=== PATIENT | female | born 1970 | race Caucasian/White ===

== ENCOUNTER 2016-08-12 15:42 | Emergency (ER) | payer MEDICARE, OTHER ==
[~2016-08-12] VITALS: Ht 157.5 cm; Wt 55.0 kg
[~2016-08-12 15:42] MED LIST: AMAN50SY TUBE; ASCO500 GT; BACL10TA GT; BIDE400T GT; CLON.2 PO; DOCU100S TUBE; GENT80I IVPB; HYDR7.5S PO; IBUP400 GT; LACT12%T TOP; LEVE500 PEG; LISI5 PEG; METO100 PEG; RANI150 PO; SUPETAB30 GT; VALP250UDC GT; WHIT15OI LEFT EYE; ZOSY4.5P; [UNRECOGNIZED DRUG - CODE] GT
[2016-08-12 15:46] VITALS: BP 120/58; PULSE 68; RESP 20; TEMP 98.9; O2SAT 97
--- NOTE | 2016-08-12 15:58 | PD ---
HPI Chief Complaint: Ethics Manager Problem Time Seen by Provider: 15:53 Travel History International Travel<30 days: No Contact w/Intl Traveler<30days: No Traveled to known affect area: No History of Present Illness HPI 45-year-old female presents to the emergency department from [facility] and [facility] for G-tube placement. According to MED 1, the patient had her G- tube pulled out this morning. She is here only for G-tube replacement. No other medical problems. The patient patient has a history of traumatic brain injury with a persistent vegetative state. PFSH Past Medical History Anxiety: No Depression: No Cancer: No Cardiovascular Problems: No Diminished Hearing: No (UNOBTAINABLE) Endocrine: No Gastrointestinal Disorders: Yes (constipation) GERD: Yes Genitourinary: Yes (uti, catheter) Hypertension: Yes Immune Disorder: No Musculoskeletal: No Neurologic: Yes (tbi) Psychiatric: No Reproductive: No Respiratory: No Pneumonia: Yes ?: Unknown Menopausal: Yes Past Surgical History Abdominal Surgery: Yes (peg tube placement ) Pacemaker: No Other Surgery: Yes (trach placed) Social History Alcohol Use: No Tobacco Use: No Substance Use: Yes (hx marijuana ) Allergies-Medications (Allergen,Severity, Reaction): Coded Allergies: *MDRO Multi-Drug Resistant Organism (Verified Allergy, Unknown, 03/07/16) Acinetobacter baumannii Sputum 05/2013 CRAB 10/2013 MRSA PCR screen (nares) POSITIVE - 03/04/16 Reported Meds & Prescriptions Reported Meds & Active Scripts Active Reported Milk of Magnesia Liq (Magnesium Hydroxide) 400 Mg/5 Ml Susp 30 Ml PO DAILY PRN Lac-Hydrin (Lactic Acid (Ammonium Lactate)) 12% Lotn 1 Applic TOPICAL EACH SHIFT Keppra Liq (Levetiracetam) 500 Mg/5 Ml Soln 1,500 Mg G-TUBE BID Ibuprofen 400 Mg Tab 400 Mg G-TUBE Q4H PRN Hydrocodone-Acetaminophen Liq 7.5-325 Mg/15 Ml Soln 15 Ml G-TUBE Q6H PRN Guaifenesin 400 Mg Tab 400 Mg PEG Q8HR Fleet Enema Rectal (Sodium Phosphates Rectal) 7-19 Gm/118 Ml Enem 118 Ml RECTAL DAILY PRN Dulcolax DR (Bisacodyl) 5 Mg Tabdr 5 Mg PEG BID Dulcolax Supp (Bisacodyl) 10 Mg Supp 10 Mg RECTAL DAILY PRN Clonidine (Clonidine HCl) 0.2 Mg Tab 0.2 Mg G-TUBE Q6HR PRN Citrate of Magnesia Liq (Magnesium Citrate) 300 Ml Liq 296 Ml G-TUBE DAILY IN THE MORNING PRN Carbamazepine Liq (Carbamazepine) 100 Mg/5 Ml Susp 500 Mg G-TUBE BID Baclofen 20 Mg Tab 20 Mg PEG TID Tears Again Opth Ointment (Artificial Tear Opth Ointment) 1 Oint 1 Applic LEFT EYE Q8HR Amantadine Liq (Amantadine HCl) 50 Mg/5 Ml Soln 150 Mg G-TUBE BID Mapap (Acetaminophen) 325 Mg Tab 650 Mg G-TUBE Q4HR PRN Review of Systems Except as stated in HPI: all other systems reviewed are Neg Physical Exam Exam Limitations: Clinical Condition Narrative GENERAL: Well-developed well-nourished female patient. SKIN: Warm and dry. HEAD: Normocephalic. Atraumatic. Trach collar noted. EYES: No scleral icterus. No injection or drainage. NECK: Supple, trachea midline. No JVD or lymphadenopathy. CARDIOVASCULAR: Regular rate and rhythm without murmurs, gallops, or rubs. RESPIRATORY: Breath sounds equal bilaterally. No accessory muscle use. GASTROINTESTINAL: Abdomen soft, non-tender, nondistended. G-tube hole is open, no object was placed to keep it open. Anguiano catheter noted. MUSCULOSKELETAL: No cyanosis, or edema. Data Data Last Documented VS Vital Signs Date Time Temp Pulse Resp B/P Pulse Ox O2 Delivery O2 Flow Rate FiO2 08/12/16 15:52 71 20 97 Trach Collar 3 08/12/16 15:46 98.9 120/58 Orders Isolation ,20 (08/12/16 15:54) Gastrostomy Tube Placement (08/12/16 ) Iohexol 350 Inj (Omnipaque 350 Inj) (08/12/16 17:14) MDM Medical Decision Making Medical Screen Exam Complete: Yes Emergency Medical Condition: Yes Medical Record Reviewed: Yes Interpretation(s) CONCLUSION: Uncomplicated gastrostomy tube replacement as above. Positioning confirmed. The tube can be used immediately. Differential Diagnosis G-tube placement versus medical clearance versus other Narrative Course 45-year-old female presents to the emergency department via [facility] for G-tube placement. A Anguiano catheter was placed in G tube opening to keep it open without difficulty. Specials was called who agrees to place G-tube. After G- tube placement, the patient be transferred back to facility. Diagnosis Primary Impression: Gastrostomy tube dysfunction Referrals: Primary Care Physician call for appointment Patient Instructions: General Instructions, Tube Feeding (GEN) Additional Instructions: Return to the emergency department for any acute, worsening of symptoms. Med/Other Pt SpecificInfo: No Change to Meds Disposition: 01 DISCHARGE HOME Condition: Stable Kayce Hussein Aug 12, 2016 15:58 Kayce Hussein Aug 12, 2016 15:58
[2016-08-12] MEDS ORDERED: MAPA325T G-TUBE (17:03)
[2016-08-12] MEDS ORDERED: AMAN100UDC G-TUBE (17:08)
[2016-08-12] MEDS ORDERED: [UNRECOGNIZED DRUG - CODE] LEFT EYE (17:08)
[2016-08-12] MEDS ORDERED: MAGN1SOL2 G-TUBE (17:13)
[2016-08-12] MEDS ORDERED: CLON0.2T G-TUBE (17:13)
[2016-08-12] MEDS ORDERED: BACL20TA PEG (17:13)
[2016-08-12] MEDS ORDERED: CARB100S2 G-TUBE (17:13)
[2016-08-12] MEDS ORDERED: IOHEXOL 350 MG/ML 50 ML BTL (for RAD DIAG) G-TUBE ONE (17:14)
[2016-08-12] MEDS ORDERED: DULC10SU3 RECTAL (17:19)
[2016-08-12] MEDS ORDERED: DULC5TAB PEG (17:19)
[2016-08-12] MEDS ORDERED: FLEEENE3 RECTAL (17:26)
[2016-08-12] MEDS ORDERED: GUAI400T8 PEG (17:26)
[2016-08-12] MEDS ORDERED: LEVE500S G-TUBE (17:26)
[2016-08-12] MEDS ORDERED: IBUP400T20 G-TUBE (17:26)
[2016-08-12] MEDS ORDERED: HYDR1SOL3 G-TUBE (17:26)
[2016-08-12] MEDS ORDERED: LAC-12LO3 TOPICAL (17:26)
[2016-08-12] MEDS ORDERED: MILKSUS G-TUBE (17:28)
--- NOTE | 2016-08-12 17:28 | RADRPT ---
EXAM DATE/TIME: 08/12/2016 16:40 [facility] COMPARISON: No previous studies available for comparison. INDICATIONS : Patient with history of traumatic brain injury in need of G-tube placement. MEDICAL HISTORY : TBI, UTI, HTN SURGICAL HISTORY : G-tube, Trach ENCOUNTER: Initial ACUITY: 1 day PAIN SCORE: Nonresponsive. FLUORO TIME: 0.2 minutes CONTRAST: 10 cc Omnipaque (iohexol) 350 DEVICE(S): 1.) 18 Fr gastrostomy tube PROCEDURE : 1. Fluoroscopically guided gastrostomy tube replacement. 2. Conscious sedation with continuous EKG and oximetry monitoring. PROCEDURE: The existing gastrostomy tube was removed intact. The tract was lubricated with lidoca ine jelly. A new 18 German gastrostomy feeding tube was introduced. The retention balloon was inflate d. The collar was appropriately adjusted. Water-soluble contrast was injected under direct fluoroscop ic visualization, this revealing good positioning of the tube with contrast in the stomach and no cody dence of peritoneal leakage of contrast. The patient tolerated the replacement well. CONCLUSION: Uncomplicated gastrostomy tube replacement as above. Positioning confirmed. The tu be can be used immediately. Tyree Bal MD on August 12, 2016 at 17:25 Board Certified Radiologist. This report was verified electronically.
[2016-08-12] MEDS ORDERED: RANI150T GT (17:32)
[2016-08-12] MEDS ORDERED: METO100T G-TUBE (17:32)
[2016-08-12] MEDS ORDERED: THERTAB27 G-TUBE (17:32)
[2016-08-12] MEDS ORDERED: LISI-519 G-TUBE (17:32)
[2016-08-12] MEDS ORDERED: C-50TAB2 G-TUBE (17:32)
[2016-08-12] MEDS ORDERED: VALP250S2 G-TUBE (17:32)
== END 2016-08-12 18:48 | disposition home or self-care (01) ==
LOC: NEPA 15:42
DX: K94.23 Gastrostomy malfunction (principal); I10 Essential (primary) hypertension; R40.3 Persistent vegetative state; Z87.820 Personal history of traumatic brain injury
CPT/HCPCS: 49440; 99282; Q9967

== ENCOUNTER 2017-01-31 22:13 | Inpatient (IN) | payer MEDICARE, OTHER ==
[~2017-01-31 22:13] MED LIST changes: +AMAN100UDC G-TUBE; -AMAN50SY TUBE; -ASCO500 GT; -BACL10TA GT; +BACL20TA PEG; -BIDE400T GT; +C-50TAB2 G-TUBE; +CARB100S2 G-TUBE; -CLON.2 PO; +CLON0.2T G-TUBE; -DOCU100S TUBE; +DULC10SU3 RECTAL; +DULC5TAB PEG; +FLEEENE3 RECTAL; -GENT80I IVPB; +GUAI400T8 PEG; +HYDR1SOL3 G-TUBE; -HYDR7.5S PO; -IBUP400 GT; +IBUP400T20 G-TUBE; +LAC-12LO3 TOPICAL; -LACT12%T TOP; -LEVE500 PEG; +LEVE500S G-TUBE; +LISI-519 G-TUBE; -LISI5 PEG; +MAGN1SOL2 G-TUBE; +MAPA325T G-TUBE; -METO100 PEG; +METO100T G-TUBE; +MILKSUS G-TUBE; -RANI150 PO; +RANI150T GT; -SUPETAB30 GT; +THERTAB27 G-TUBE; +VALP250S2 G-TUBE; -VALP250UDC GT; -WHIT15OI LEFT EYE; -ZOSY4.5P; -[UNRECOGNIZED DRUG - CODE] GT; +[UNRECOGNIZED DRUG - CODE] LEFT EYE
[2017-01-31 22:15] VITALS: BP 133/93; PULSE 89; RESP 28; TEMP 99.9; O2SAT 94
[2017-01-31 22:20] VITALS: O2SAT 94
--- NOTE | 2017-01-31 22:28 | PD ---
HPI Chief Complaint: Respiratory Symptoms Time Seen by Provider: 22:27 Travel History International Travel<30 days: No Contact w/Intl Traveler<30days: No Traveled to known affect area: No History of Present Illness HPI The patient is a 46 year old female who presents to the [facility] emergency department with a history of being brought in by ambulance services from a local snf related to increased respiratory rate, shortness of breath, increased sputum production from her trach. The patient is currently a resident at a snf related to a traumatic brain injury. The patient is trach dependent and has a G-tube in place for feeding. The patient's baseline GCS is reportedly 6. According to ambulance services the patient was diagnosed with pneumonia earlier today and started on antibiotic. The patient's respiratory rate increased to 20-30 with diminished O2 saturations on her usual 3 L down to 85-91%. She normally has O2 saturations in the mid 90s on 3 L. The patient is nonverbal and unable to provide any other significant history, therefore her history is obtained from the snf records, ambulance services, and electronic medical record from her prior visits to this facility. [facility] Past Medical History Narrative Medical The patient's past medical history is obtained from the electronic medical record and consists of a traumatic brain injury, seizure disorder, history of being trach dependent typically on 3 L by trach, history of hypertension, prior history of sepsis with admission to the hospital in February 2016. Anxiety: No Depression: No Cancer: No Cardiovascular Problems: No Diminished Hearing: No (UNOBTAINABLE) Endocrine: No Gastrointestinal Disorders: Yes (constipation) GERD: Yes Genitourinary: Yes (uti, catheter) Hypertension: Yes Immune Disorder: No Musculoskeletal: No Neurologic: Yes (tbi) Psychiatric: No Reproductive: No Respiratory: No Pneumonia: Yes ?: Not Menopausal: Yes Past Surgical History Narrative Surgical The patient's past surgical history is significant for a trach placement, PEG tube feeding tube placement, Abdominal Surgery: Yes (peg tube placement ) Pacemaker: No Other Surgery: Yes (trach placed) Social History Alcohol Use: No Tobacco Use: No Substance Use: Yes (hx marijuana ) Allergies-Medications (Allergen,Severity, Reaction): Coded Allergies: *MDRO Multi-Drug Resistant Organism (Verified Allergy, Unknown, 01/31/17) Acinetobacter baumannii Sputum 05/2013 CRAB 10/2013 MRSA PCR screen (nares) POSITIVE - 03/04/16 Reported Meds & Prescriptions Reported Meds & Active Scripts Active Reported Levofloxacin 750 Mg Tablet 750 Mg PO DAILY Cefuroxime (Cefuroxime Axetil) 500 Mg Tab 500 Mg PO DAILY Valproic Acid Liq 250 Mg/5 Ml Syp 500 Mg G-TUBE BID Ranitidine (Ranitidine HCl) 150 Mg Tab 150 Mg GT BID Metoprolol Tartrate 100 Mg Tab 100 Mg G-TUBE BID Lisinopril 5 Mg Tab 5 Mg G-TUBE DAILY Milk of Magnesia Liq (Magnesium Hydroxide) 400 Mg/5 Ml Susp 30 Ml G-TUBE DAILY PRN Keppra Liq (Levetiracetam) 500 Mg/5 Ml Soln 1,500 Mg G-TUBE BID Ibuprofen 400 Mg Tab 400 Mg G-TUBE Q4H PRN Hydrocodone-Acetaminophen Liq 7.5-325 Mg/15 Ml Soln 15 Ml G-TUBE Q6H PRN Guaifenesin 400 Mg Tab [address] (Bisacodyl) 5 Mg Tabdr 5 Mg PEG BID Dulcolax Supp (Bisacodyl) 10 Mg Supp 10 Mg RECTAL DAILY PRN Clonidine (Clonidine HCl) 0.2 Mg Tab 0.2 Mg G-TUBE Q6HR PRN Citrate of Magnesia Liq (Magnesium Citrate) 300 Ml Liq 296 Ml G-TUBE DAILY IN THE MORNING PRN Carbamazepine Liq (Carbamazepine) 100 Mg/5 Ml Susp 500 Mg G-TUBE BID Baclofen 20 Mg Tab 20 Mg PEG TID Tears Again Opth Ointment (Artificial Tear Opth Ointment) 1 Oint 1 Applic LEFT EYE Q8HR Amantadine Liq (Amantadine HCl) 50 Mg/5 Ml Soln 150 Mg G-TUBE BID Mapap (Acetaminophen) 325 Mg Tab 650 Mg G-TUBE Q4HR PRN Review of Systems ROS Limitations: Unresponsive Except as stated in HPI: all other systems reviewed are Neg General / Constitutional: Positive: Fever Eyes: No: Visual changes HENT: Positive: Congestion Respiratory: Positive: Cough, Shortness of Breath Physical Exam Narrative General: The patient is a dyspneic patient with a trach in place, on arrival at her baseline of mentation. Head and Neck exam: Head is normocephalic atraumatic. Eyes: Extraocular motion testing is unable to be accomplished in this patient with a baseline GCS of 6 given her traumatic brain injury. The patient has a bandage in place over the left eye with conjunctival injection noted, exophthalmos noted, hazy opacity over the cornea. Nose: Midline septum with pink mucous membranes Mouth: Dentition unremarkable. Moist mucus membranes. Posterior oropharynx is not erythematous. No tonsillar hypertrophy. Uvula midline. Airway patent. Neck: No palpable lymphadenopathy. No nuchal rigidity. No thyromegaly. The patient has a trach in place. There is yellow sputum noted in the trach. Cardiovascular: Sinus tachycardia in the low 100s without murmurs, gallops, or rubs. No pulse deficit to the extremities and simultaneous auscultation and palpation of the radial artery. Lungs: The patient has scattered rhonchi bilaterally with wheezes bilaterally and tachypnea. The patient has accessory muscle use noted. Abdomen: Soft, with no point tenderness on palpation of all 4 quadrants of the abdomen. No guarding, rebound, or rigidity. Normal bowel sounds are audible. The patient has a feeding tube in place in the left upper quadrant of the abdomen that appears to be in good repair. The patient has a Anguiano catheter in place from her snf. There is grossly cloudy urine in the back. Extremities: No clubbing, cyanosis, or edema. 2+ pulses in all 4 extremities. The patient has pressure boots in place. Back: No spinous process tenderness to palpation. No costovertebral angle tenderness to palpation. Neurologic Exam: The patient has a GCS of 6. The patient response to painful stimulation. The patient has contractures of her extremities noted. Skin Exam: No rash noted. Intact skin that is warm and dry. Data Data Last Documented VS Vital Signs Date Time Temp Pulse Resp B/P Pulse Ox O2 Delivery O2 Flow Rate FiO2 02/01/17 00:24 99.5 119 26 122/82 95 Blow-by 6 01/31/17 22:20 98 Orders Electrocardiogram (01/31/17 22:30) Complete Blood Count With Diff (01/31/17 22:30) Comprehensive Metabolic Panel (01/31/17 22:30) Creatine Kinase (Cpk) (01/31/17 22:30) Ckmb (Isoenzyme) Profile (01/31/17 22:30) Troponin I (01/31/17 22:30) B-Type Natriuretic Peptide (01/31/17 22:30) Prothrombin Time / Inr (Pt) (01/31/17 22:30) Act Partial Throm Time (Ptt) (01/31/17 22:30) Blood Culture (01/31/17 22:30) C-Reactive Protein (Crp) (01/31/17 22:30) Urinalysis - C+S If Indicated (01/31/17 22:30) Magnesium (Mg) (01/31/17 22:30) Carbamazepine (Tegretol) (01/31/17 22:30) Valproic Acid (Depakene) (01/31/17 22:30) Chest, Single Ap (01/31/17 22:30) Iv Access Insert/Monitor (01/31/17 22:30) Ecg Monitoring (01/31/17 22:30) Oximetry (01/31/17 22:30) Ed Urine Pregnancytest Poc (01/31/17 22:30) Lactic Acid Sepsis Protocol (01/31/17 22:30) Sodium Chloride 0.9% Flush (Ns Flush) (01/31/17 22:30) Methylprednisolone So Succ Inj (Solumedr (01/31/17 22:30) Albuterol-Ipratropium Neb (Duoneb Neb) (01/31/17 22:30) Vancomycin Inj (Vancomycin Inj) (01/31/17 22:30) Piperacil-Tazo 3.375 Gm Premix (Zosyn 3. (01/31/17 22:30) Sputum Culture And Gram Stain (01/31/17 22:30) Urinary Catheter Insert/Apply (01/31/17 22:30) Acetaminophen Supp (Tylenol Supp) (01/31/17 22:45) Sodium Chlor 0.9% 1000 Ml Inj (Ns 1000 M (01/31/17 22:45) Arterial Blood Gas (Abg) (01/31/17 23:42) Urine Culture (01/31/17 23:30) Admit To Inpatient (02/01/17 ) Vital Signs (Adult) Q4H (02/01/17 01:07) Activity Bed Rest (02/01/17 01:07) Data Security Coordinator / Telemetry .CONTINUOUS (02/01/17 01:07) Intake + Output DEVON.QSHIFT (02/01/17 01:07) Sodium Chlor 0.9% 1000 Ml Inj (Ns 1000 M (02/01/17 01:07) Sodium Chloride 0.9% Flush (Ns Flush) (02/01/17 01:15) Sodium Chloride 0.9% Flush (Ns Flush) (02/01/17 09:00) Basic Metabolic Panel (Bmp) (02/02/17 06:00) Complete Blood Count With Diff (02/02/17 06:00) Case Management Consult (02/01/17 01:07) Naloxone Inj (Narcan Inj) (02/01/17 01:15) Inpatient Certification (02/01/17 ) Admit Order (Ed Use Only) (02/01/17 01:08) Vancomycin Consult Pharmacy (Vancomycin (02/01/17 01:15) Piperacil-Tazo 4.5 Gm Premix (Zosyn 4.5 (02/01/17 06:00) Ciprofloxacin 400 Mg Premix (Cipro 400 M (02/01/17 02:00) Consult Infectious Disease (02/01/17 ) Labs Laboratory Tests Test 01/31/17 01/31/17 02/01/17 22:30 23:30 00:08 Prothrombin Time 12.2 SEC Prothromb Time International 1.1 RATIO Ratio Activated Partial 29.2 SEC Thromboplast Time Sodium Level 133 MEQ/L Potassium Level 4.1 MEQ/L Chloride Level 100 MEQ/L Carbon Dioxide Level 21.4 MEQ/L Anion Gap 12 MEQ/L Blood Urea Nitrogen 31 MG/DL Creatinine 0.73 MG/DL Estimat Glomerular Filtration 87 ML/MIN Rate Random Glucose 175 MG/DL Calcium Level 10.3 MG/DL Magnesium Level 2.3 MG/DL Total Bilirubin 0.6 MG/DL Aspartate Amino Transf 40 U/L (AST/SGOT) Alanine Aminotransferase 67 U/L (ALT/SGPT) Alkaline Phosphatase 119 U/L Total Creatine Kinase 36 U/L Troponin I LESS THAN 0.02 NG/ML C-Reactive Protein 15.00 MG/DL Total Protein 7.8 GM/DL Albumin 2.7 GM/DL Valproic Acid (Depakene) Level 89 MCG/ML Carbamazepine (Tegretol) Level LESS THAN 0.5 MCG/ML White Blood Count 14.5 TH/MM3 Red Blood Count 5.02 MIL/MM3 Hemoglobin 15.4 GM/DL Hematocrit 45.6 % Mean Corpuscular Volume 90.9 FL Mean Corpuscular Hemoglobin 30.6 PG Mean Corpuscular Hemoglobin 33.7 % Concent Red Cell Distribution Width 13.9 % Platelet Count 251 TH/MM3 Mean Platelet Volume 10.8 FL Neutrophils (%) (Auto) 88.1 % Lymphocytes (%) (Auto) 3.8 % Monocytes (%) (Auto) 7.7 % Eosinophils (%) (Auto) 0.1 % Basophils (%) (Auto) 0.3 % Neutrophils # (Auto) 12.8 TH/MM3 Lymphocytes # (Auto) 0.5 TH/MM3 Monocytes # (Auto) 1.1 TH/MM3 Eosinophils # (Auto) 0.0 TH/MM3 Basophils # (Auto) 0.0 TH/MM3 CBC Comment AUTO DIFF Differential Total Cells 100 Counted Neutrophils % (Manual) 48 % Band Neutrophils % 38 % Lymphocytes % 5 % Monocytes % 8 % Neutrophils # (Manual) 12.6 TH/MM3 Metamyelocytes 1 % Differential Comment FINAL DIFF MANUAL Platelet Estimate NORMAL Platelet Morphology Comment ENLARGED Lactic Acid Level 2.8 mmol/L B-Type Natriuretic Peptide 79 PG/ML Urine Color YELLOW Urine Turbidity CLOUDY Urine pH 8.5 Urine Specific Salome 1.019 Urine Protein 300 mg/dL Urine Glucose (UA) NEG mg/dL Urine Ketones NEG mg/dL Urine Occult Blood NEG Urine Nitrite NEG Urine Bilirubin NEG Urine Urobilinogen LESS THAN 2.0 MG/DL Urine Leukocyte Esterase LARGE Urine RBC 16 /hpf Urine WBC 5 /hpf Urine Squamous Epithelial 3 /hpf Cells Urine Triple Phosphate MANY /hpf Crystals Urine Bacteria MANY /hpf Urine Mucus MOD /lpf Microscopic Urinalysis Comment CULTURE INDICATED Blood Gas Puncture Site RT RADIAL Blood Gas Patient Temperature 98.6 Blood Gas HCO3 21 mmol/L Blood Gas Base Excess -2.5 mmol/L Blood Gas Oxygen Saturation 93 % Arterial Blood pH 7.48 Arterial Blood Partial 28 mmHg Pressure CO2 Arterial Blood Partial 67 mmHG Pressure O2 Arterial Blood Oxygen Content 18.5 Vol % Arterial Blood 1.7 % Carboxyhemoglobin Arterial Blood Methemoglobin 0.5 % Blood Gas Hemoglobin 14.2 G/DL Oxygen Delivery Device COOL MIST AEROSOL Blood Gas Liter Flow 5 L/M Blood Gas Inspired Oxygen 98 % MDM Medical Decision Making Medical Screen Exam Complete: Yes Emergency Medical Condition: Yes Medical Record Reviewed: Yes Interpretation(s) Last Impressions Chest X-Ray 8/15/17 2230 Signed Impressions: Service Date/Time: Tuesday, January 31, 2017 23:13 - CONCLUSION: Bilateral perihilar infiltrates. Gerry Mcclendon MD Differential Diagnosis Sepsis of undetermined origin, versus ammonia, versus urinary tract infection, versus dehydration, versus metabolic encephalopathy, versus electrolyte derangements Narrative Course During the course of the patients emergency department visit, the patients history, examination, and differential diagnosis were reviewed with the patient. The patient had IV access obtained and blood work sent for analysis. The patient was placed on a cardiac cath lab technologist with oximetry and blood pressure monitoring. The patient's trach was suctioned. The patient was provided DuoNeb nebs 3. A sputum culture from her trach was collected. Blood cultures 2 were collected. The patient's Anguiano catheter was changed out. The patient was initially provided Solu-Medrol 125 mg IV, broad-spectrum IV antibiotic coverage for suspected sepsis with vancomycin 1 g IV, Zosyn 3.375 g IV. The patient was given Tylenol for fever. The patients laboratory studies were reviewed and remarkable for white count of 14.5, hemoglobin 15.4, platelets 251 with 38 bands, CMP is remarkable for sodium of 133, BUN 31, glucose 175, calcium 10.3, AST 40, ALT 67, alkaline phosphatase 119, CPK 36, troponin I less than 0.02, C-reactive protein 15, BNP is 79, lactic acid is 2.8. PT is 12.2, PTT 29.2, valproic acid level is 89, Tegretol level less than 0.5, urinalysis shows 300 protein, large leukocyte esterase, RBC 16, wbc's 5, many bacteria, moderate mucus, culture indicated. Radiology studies were reviewed and remarkable for a chest x-ray that shows bilateral perihilar infiltrates. The patient will be admitted to the hospital for sepsis related to pneumonia and a urinary tract infection. The patients results were discussed with the patient, including the plan of care. I explained that further testing and/ or monitoring is indicated based on the patients history, examination, and/ or laboratory findings. Therefore, I recommended admission for additional evaluation. The patient expressed understanding and was agreeable with this plan. The patient was admitted to the hospital in guarded condition and [facility] Critical Care Narrative Aggregate critical care time was 35 minutes. Time to perform other separately billable procedures was not included in the critical care time. My time did not include minutes spent treating any other patients simultaneously or on activities that did not directly contribute to the patient's treatment. The services I provided to this patient were to treat and/or prevent clinically significant deterioration that could result in: Progressive respiratory failure, versus cardiovascular collapse related to sepsis I provided critical care services requiring my management, as noted below: Chart data review, documentation time, medication orders and management, vital sign assessments/reviewing monitor data, ordering and reviewing lab tests, ordering and interpreting/reviewing x-rays and diagnostic studies, care of the patient and discussion of the patient with the admitting physicians. Physician Communication Physician Communication Initially I spoke to Dr. Jacques regarding this patient's case. We did review the patient's history, laboratory studies, current vital signs. He felt that the patient did not require care in the intensive care center. I then spoke to the hospitalist on-call, Dr. Canela who did agree to admit the patient for further evaluation and treatment at this time. Diagnosis Primary Impression: Sepsis Qualified Code: A41.9 - Sepsis, due to unspecified organism Additional Impressions: Pneumonia Qualified Code: J18.9 - Pneumonia of both lungs due to infectious organism, unspecified part of lung Urinary tract infection Qualified Code: T83.511A - Urinary tract infection associated with indwelling urethral catheter, initial encounter Admitting Information Admitting Physician Requests: Admit Sara Rush MD Jan 31, 2017 22:28
[2017-01-31] MEDS ORDERED: SODIUM CHLORIDE 0.9% FLUSH 10 ML FLUSH IVF PRN (22:30)
[2017-01-31] MEDS ORDERED: VANCOMYCIN INJ 1,000 MG in SODIUM CHLOR 0.9% 250 ML INJ 250 ML IV ONE (22:30)
[2017-01-31] MEDS ORDERED: methylPREDNISolone SOD SUCC 125 MG/2 ML VIAL IVP ONE (22:30)
[2017-01-31] MEDS ORDERED: PIPERACIL-TAZO 3.375 GM PREMIX 50 ML IV ONE (22:30)
[2017-01-31] MEDS: RESP: ALBUTEROL 2.5 MG/IPRATROPIUM 0.5 MG NEB (SCH) INH ×2 (22:40→22:41)
[2017-01-31] MEDS ORDERED: ACETAMINOPHEN 650 MG SUPP RECTAL ONE (22:45)
[2017-01-31] MEDS ORDERED: SODIUM CHLOR 0.9% 1000 ML INJ 1,000 ML IV ONE (22:45)
[2017-01-31 23:02] VITALS: BP 119/77; PULSE 130; RESP 34; TEMP 99.9; O2SAT 93
[2017-01-31 23:17] LABS: AUTOMATED NEUTROPHIL # 12.8 TH/MM3 (1.8-7.7); BASOPHIL % 0.3 % (0.0-2.0); EOSINOPHIL % 0.1 % (0.0-4.0); HEMATOCRIT 45.6 % (35.0-46.0); LYMPH % 3.8 % (9.0-44.0); LYMPHOCYTE # 0.5 TH/MM3 (1.0-4.8); MEAN CELL VOLUME 90.9 FL (80.0-100.0); MEAN CORPUSCULAR HEMOGLOBIN 30.6 PG (27.0-34.0); MEAN CORPUSCULAR HGB CONC 33.7 % (32.0-36.0); MONO % 7.7 % (0.0-8.0); NEUT % 88.1 % (16.0-70.0); PLATELET COUNT 251 TH/MM3 (150-450); RED BLOOD COUNT 5.02 MIL/MM3 (4.00-5.30); RED CELL DISTRIBUTION WIDTH 13.9 % (11.6-17.2); WHITE BLOOD COUNT 14.5 TH/MM3 (4.0-11.0)
[2017-01-31 23:18] LABS: HEMO FLAGS AUTO DIFF
[2017-01-31 23:25] VITALS: O2SAT 93
[2017-01-31 23:27] VITALS: PULSE 143; RESP 30; O2SAT 94
[2017-01-31 23:28] LABS: APTT (PATIENT) 29.2 SEC (24.3-30.1); INTERNATIONAL NORMALIZED RATIO 1.1 RATIO; PROTHROMBIN TIME - PATIENT 12.2 SEC (9.8-11.6)
[2017-01-31 23:40] LABS: ALT (GPT) 67 U/L (10-53)
[2017-01-31 23:41] LABS: ANION GAP 12 MEQ/L (5-15); AST (GOT) 40 U/L (15-37); BICARBONATE 21.4 MEQ/L (21.0-32.0); BLOOD UREA NITROGEN 31 MG/DL (7-18); CHLORIDE 100 MEQ/L (98-107); GLOMERULAR FILTRATION RATE 87 ML/MIN (>89); MAGNESIUM 2.3 MG/DL (1.5-2.5); POTASSIUM 4.1 MEQ/L (3.5-5.1); SODIUM (NA) 133 MEQ/L (136-145)
[2017-01-31 23:43] LABS: ALKALINE PHOSPHATASE 119 U/L (45-117); TOTAL BILIRUBIN ADULT 0.6 MG/DL (0.2-1.0)
[2017-01-31 23:47] LABS: CREATINE KINASE 36 U/L (26-192)
[2017-01-31 23:58] LABS: BACTERIA, URINE MANY /hpf; BLOOD, URINE NEG (NEG); COMMENT (UR) CULTURE INDICATED; CULTURE IF INDICATED CULTURE INDICATED; GLUCOSE,URINE NEG (NEG); KETONE, URINE NEG (NEG); MUCUS URINE MOD /lpf (OCC); NITRITE,URINE NEG (NEG); PH, URINE 8.5 (5.0-8.5); SQUAMOUS EPITHELIAL CELL URINE 3 /hpf (0-5); TRIPLE PHOSPHATE CRYSTAL,URINE MANY /hpf; URINE COLOR YELLOW (YELLW/STRAW)
[2017-02-01] VITALS (17 sets, daily range): BP systolic 122–173; BP diastolic 62–91; PULSE 64–119; RESP 16–40; TEMP 97.7–100.2; O2SAT 93–98
[2017-02-01] MEDS ORDERED: CEFU1TAB20 PO (00:17)
[2017-02-01] MEDS ORDERED: LEVO750T3 PO (00:20)
[2017-02-01 00:21] LABS: BLOOD GAS BASE EXCESS -2.5 mmol/L (-2-2); BLOOD GAS CARBOXYHEMOGLOBIN 1.7 % (0-4); BLOOD GAS HCO3 21 mmol/L (22-26); BLOOD GAS METHEMOGLOBIN 0.5 % (0-2); BLOOD GAS O2 HGB SATURATION 93 % (90-100); BLOOD GAS OXYGEN CONTENT 18.5 Vol % (12.0-20.0); BLOOD GAS PCO2 28 mmHg (38-42); BLOOD GAS PO2 67 mmHG (61-120); BLOOD GAS TOTAL HGB 14.2 G/DL (12.0-16.0); CRITICAL VALUE NO; DRAW SITE RT RADIAL; FIO2 98 %; LITER FLOW 5 L/M; NUMBER OF ARTERIAL PUNCTURES 1; OXYGEN DEVICE COOL MIST AEROSOL; TEMP CORR TO 98.6; ULNAR PULSE PRESENT
[2017-02-01 00:22] LABS: STAT YES
--- NOTE | 2017-02-01 00:45 | RADRPT ---
EXAM DATE/TIME: 01/31/2017 23:13 [facility] COMPARISON: CHEST SINGLE AP, November 25, 2013, 3:56. CHEST SINGLE AP, March 04, 2016, 2:30. INDICATIONS : Cough. MEDICAL HISTORY : None. SURGICAL HISTORY : Trachestomy. ENCOUNTER: Initial ACUITY: 1 day PAIN SCORE: 0/10 LOCATION: Bilateral chest FINDINGS: Tracheostomy in position. There is engorgement and indistinctness of the perihilar structures, a new finding from priors. There is peribronchial thickening and some mild air bronchograms in the perihi lar region bilaterally. Both hemidiaphragms are well delineated. The heart is normal size. CONCLUSION: Bilateral perihilar infiltrates. Gerry Mcclendon MD on February 01, 2017 at 0:43 Board Certified Radiologist. This report was verified electronically.
[2017-02-01 01:00] LABS: BANDS 38 % (0-6); METAMYELOCYTES 1 % (0-1); NEUTROPHIL # MANUAL DIFF 12.6 TH/MM3 (1.8-7.7); PLATELET ESTIMATE SMEAR NORMAL (NORMAL); PLATELET MORPHOLOGY ENLARGED (NORMAL); POLYS (SEG NEUTROPHILS) 48 % (16-70); SCAN/DIFF FINAL DIFF MANUAL; WBC DIFF SAMPLE 100
[2017-02-01 01:05] LABS: LACTIC ACID GHOST NOT REPORTABLE
[2017-02-01] MEDS ORDERED: SODIUM CHLORIDE 0.9% FLUSH 10 ML FLUSH IV FLUSH PRN (01:15)
[2017-02-01] MEDS ORDERED: NALOXONE HCL 0.4 MG/ML AMP IV PRN (01:15)
[2017-02-01] MEDS ORDERED: SODIUM CHLOR 0.9% 1000 ML INJ 1,000 ML IV ONE (01:15)
[2017-02-01] MEDS ORDERED: Vancomycin Consult Pharmacy 1 EA OTHER SCH (01:15)
[2017-02-01] MEDS: SODIUM CHLOR 0.9% 1000 ML INJ 1,000 ML IV SCH ×3 (02:16→21:07)
[2017-02-01] MEDS: CIPROFLOXACIN 400 MG PREMIX 200 ML IV SCH ×2 (02:17→15:13)
[2017-02-01] MEDS ORDERED: SODIUM CHLORID 0.9% 500 ML INJ 500 ML IV ONE (03:15)
--- NOTE | 2017-02-01 03:34 | HHI.HP ---
HPI Service [facility] Primary Care Physician Unknown Admission Diagnosis Sepsis Diagnoses: Chief Complaint: fever and increased infiltrates Travel History International Travel<30 Days: No Contact w/Intl Traveler <30 Da: No Traveled to Known Affected Are: No Sepsis Criteria SIRS Criteria (2 or more): Temp > 100.9 or < 96.8, Heart rate over 90 Sepsis Criteria (SIRS+source): Infect source susp/known Severe Sepsis (+one): Lactate >2 History of Present Illness Written by CHLOÉ Wilkins acting as scribe for [Hilton] on 02/01/17 at 03: 33. 46 y/o female who is nonverbal, in a persistent vegetation state with a history of a TBI, seizure disorder, trach dependent, s/p peg, HLD and HTN was brought to the ED from [facility] for a 101.4 fever and increased secretions. History was taken from EMR because patient is non verbal at baseline, and no family is at bedside. Unable to perform ROS. Review of Systems ROS Limitations: Unresponsive Past Family Social History Past Medical History TBI Seizure Disorder Trach Dependent s/p PEG HTN HLD Past Surgical History PEG Tracheostomy Reported Medications Reported Meds & Active Scripts Active Reported Levofloxacin 750 Mg Tablet 750 Mg PO DAILY Cefuroxime (Cefuroxime Axetil) 500 Mg Tab 500 Mg PO DAILY Valproic Acid Liq 250 Mg/5 Ml Syp 500 Mg G-TUBE BID Ranitidine (Ranitidine HCl) 150 Mg Tab 150 Mg GT BID Metoprolol Tartrate 100 Mg Tab 100 Mg G-TUBE BID Lisinopril 5 Mg Tab 5 Mg G-TUBE DAILY Milk of Magnesia Liq (Magnesium Hydroxide) 400 Mg/5 Ml Susp 30 Ml G-TUBE DAILY PRN Keppra Liq (Levetiracetam) 500 Mg/5 Ml Soln 1,500 Mg G-TUBE BID Ibuprofen 400 Mg Tab 400 Mg G-TUBE Q4H PRN Hydrocodone-Acetaminophen Liq 7.5-325 Mg/15 Ml Soln 15 Ml G-TUBE Q6H PRN Guaifenesin 400 Mg Tab 400 Mg PEG Q8HR [place] CHARLES (Bisacodyl) 5 Mg Tabdr 5 Mg PEG BID Dulcolax Supp (Bisacodyl) 10 Mg Supp 10 Mg RECTAL DAILY PRN Clonidine (Clonidine HCl) 0.2 Mg Tab 0.2 Mg G-TUBE Q6HR PRN Citrate of Magnesia Liq (Magnesium Citrate) 300 Ml Liq 296 Ml G-TUBE DAILY IN THE MORNING PRN Carbamazepine Liq (Carbamazepine) 100 Mg/5 Ml Susp 500 Mg G-TUBE BID Baclofen 20 Mg Tab 20 Mg PEG TID Tears Again Opth Ointment (Artificial Tear Opth Ointment) 1 Oint 1 Applic LEFT EYE Q8HR Amantadine Liq (Amantadine HCl) 50 Mg/5 Ml Soln 150 Mg G-TUBE BID Mapap (Acetaminophen) 325 Mg Tab 650 Mg G-TUBE Q4HR PRN Allergies: Coded Allergies: *MDRO Multi-Drug Resistant Organism (Verified Allergy, Unknown, 01/31/17) Acinetobacter baumannii Sputum 05/2013 CRAB 10/2013 MRSA PCR screen (nares) POSITIVE - 03/04/16 Active Ordered Medications Current Medications Medications (Trade) Dose Ordered Sig/[place] Route Start Time Stop Time Status Last Admin (NS 1000 ml Inj) 1,000 ml @ 100 mls/hr Q10H IV 02/01/17 01:07 02/01/17 02:16 (NS Flush) 2 ml UNSCH PRN IV FLUSH 02/01/17 01:15 (NS Flush) 2 ml BID IV FLUSH 02/01/17 09:00 Naloxone HCl 0.4 mg 0.4 mg UNSCH PRN IV 02/01/17 01:15 Pharmacy Profile Note 0 ml @ 0 mls/hr UNSCH OTHER 02/01/17 01:15 Piperacillin Sod/ Tazobactam Sod 100 ml @ 200 mls/hr Q6H IV 02/01/17 06:00 (Cipro 400 Mg Premix) 200 ml @ 200 mls/hr Q12H IV 02/01/17 02:00 02/01/17 02:17 Family History Unknown family history Social History Unknown [facility] history [facility] Physical Exam Vital Signs Vital Signs Date Time Temp Pulse Resp B/P Pulse Ox O2 Delivery O2 Flow Rate FiO2 02/01/17 00:24 99.5 119 26 122/82 95 Blow-by 6 01/31/17 23:27 143 30 94 Blow-by 4 01/31/17 23:25 93 Blow-by 4 01/31/17 23:02 99.9 130 34 119/77 93 Blow-by 5 01/31/17 22:20 94 Trach Collar 5.00 98 01/31/17 22:18 90 28 94 Non-Rebreather 15 01/31/17 22:15 99.9 89 28 133/93 94 Physical Exam GENERAL: This is a well-nourished, well-developed patient, in no apparent distress. SKIN: No rashes, ecchymoses or lesions. Cool and dry. HEAD: Atraumatic. Normocephalic. EYES: Pupils equal round and reactive. ENT: Nose without bleeding, purulent drainage or septal hematoma. Airway patent. NECK: Trachea midline. No JVD or lymphadenopathy. CARDIOVASCULAR: Regular rate and rhythm without murmurs, gallops, or rubs. RESPIRATORY: Diminished Breath sounds bilaterally. No wheezes, rales, or rhonchi. T piece in place on 28% humidified O2. Increased secretions. GASTROINTESTINAL: Abdomen soft, non-tender, nondistended. No hepato-splenomegaly , or palpable masses. No guarding. MUSCULOSKELETAL: Extremities without clubbing, cyanosis, or edema. No joint tenderness, effusion, or edema noted. No calf tenderness. Bilateral upper extremities contracted. NEUROLOGICAL: Awake and nonverbal. Does not follow commands. Opens eyes but does not track. Laboratory Laboratory Tests Test 01/31/17 01/31/17 02/01/17 02/01/17 22:30 23:30 00:08 01:40 Prothrombin Time 12.2 Prothromb Time International 1.1 Ratio Activated Partial 29.2 Thromboplast Time Sodium Level 133 Potassium Level 4.1 Chloride Level 100 Carbon Dioxide Level 21.4 Anion Gap 12 Blood Urea Nitrogen 31 Creatinine 0.73 Estimat Glomerular Filtration 87 Rate Random Glucose 175 Calcium Level 10.3 Magnesium Level 2.3 Total Bilirubin 0.6 Aspartate Amino Transf 40 (AST/SGOT) Alanine Aminotransferase 67 (ALT/SGPT) Alkaline Phosphatase 119 Total Creatine Kinase 36 Troponin I LESS THAN 0.02 C-Reactive Protein 15.00 Total Protein 7.8 Albumin 2.7 Valproic Acid (Depakene) Level 89 Carbamazepine (Tegretol) Level LESS THAN 0.5 White Blood Count 14.5 Red Blood Count 5.02 Hemoglobin 15.4 Hematocrit 45.6 Mean Corpuscular Volume 90.9 Mean Corpuscular Hemoglobin 30.6 Mean Corpuscular Hemoglobin 33.7 Concent Red Cell Distribution Width 13.9 Platelet Count 251 Mean Platelet Volume 10.8 Neutrophils (%) (Auto) 88.1 Lymphocytes (%) (Auto) 3.8 Monocytes (%) (Auto) 7.7 Eosinophils (%) (Auto) 0.1 Basophils (%) (Auto) 0.3 Neutrophils # (Auto) 12.8 Lymphocytes # (Auto) 0.5 Monocytes # (Auto) 1.1 Eosinophils # (Auto) 0.0 Basophils # (Auto) 0.0 CBC Comment AUTO DIFF Differential Total Cells 100 Counted Neutrophils % (Manual) 48 Band Neutrophils % 38 Lymphocytes % 5 Monocytes % 8 Neutrophils # (Manual) 12.6 Metamyelocytes 1 Differential Comment FINAL DIFF MANUAL Platelet Estimate NORMAL Platelet Morphology Comment ENLARGED Lactic Acid Level 2.8 4.0 B-Type Natriuretic Peptide 79 Urine Color YELLOW Urine Turbidity CLOUDY Urine pH 8.5 Urine Specific [place] 1.019 Urine Protein 300 Urine Glucose (UA) NEG Urine Ketones NEG Urine Occult Blood NEG Urine Nitrite NEG Urine Bilirubin NEG Urine Urobilinogen LESS THAN 2.0 Urine Leukocyte Esterase LARGE Urine RBC 16 Urine WBC 5 Urine Squamous Epithelial 3 Cells Urine Triple Phosphate MANY Crystals Urine Bacteria MANY Urine Mucus MOD Microscopic Urinalysis Comment CULTURE INDICATED Blood Gas Puncture Site RT RADIAL Blood Gas Patient Temperature 98.6 Blood Gas HCO3 21 Blood Gas Base Excess -2.5 Blood Gas Oxygen Saturation 93 Arterial Blood pH 7.48 Arterial Blood Partial 28 Pressure CO2 Arterial Blood Partial 67 Pressure O2 Arterial Blood Oxygen Content 18.5 Arterial Blood 1.7 Carboxyhemoglobin Arterial Blood Methemoglobin 0.5 Blood Gas Hemoglobin 14.2 Oxygen Delivery Device COOL MIST AEROSOL Blood Gas Liter Flow 5 Blood Gas Inspired Oxygen 98 Date/Time Procedure Status Source Growth 01/31/17 23:55 Gram Stain Received Sputum Oral Tracheal Aspirate Pending 01/31/17 23:55 Sputum Culture Received Sputum Oral Tracheal Aspirate Pending 01/31/17 23:30 Urine Culture Received Urine Random Urine Pending 01/31/17 22:55 Aerobic Blood Culture Received Blood Peripheral Pending 01/31/17 22:55 Anaerobic Blood Culture Received Blood Peripheral Pending Result Diagram: [id number] Imaging Last Impressions Chest X-Ray 01/31/172229 Signed Impressions: Service Date/Time: Tuesday, January 31, 2017 23:13 - CONCLUSION: Bilateral perihilar infiltrates. Gerry Mcclendon MD Assessment and Plan Problem List: (1) Pneumonia ICD Code: J18.9 Status: Acute (2) Sepsis ICD Code: A41.9 Status: Acute (3) Urinary tract infection ICD Code: N39.0 Status: Acute Assessment and Plan 46 y/o female who is nonverbal, in a persistent vegetation state with a history of a TBI, seizure disorder, trach dependent, s/p peg and HTN was brought to the ED from [facility] for a 101.4 fever and increased secretions. Sepsis, wbc 14.5, HR 130s, Tmax 101.4, suspected pneumonia and UTI, lactic acid 2.8--.>4.0 Chest xray reviewed and shows bilateral perihilar infiltrates UA abnormal 2L bolus given in ED -IV antibiotics Vancomycin, Zosyn and ciprofloxacin -Urine, blood and sputum cultures pending -Consult infectious disease for assistance -Trend lactic acid -Anguiano changed out 01/31 in ED -Lactobacillus TID -CBC in Am HTN, chonic, currently stable -Resume home medications Seizure disorder, chronic -Resume home seizure medications -Seizure precautions DVT prophylaxis: Lovenox GI prophylaxis: Zantac Code Status: Full code, reviewed from SNF records This note was transcribed by dusty [Mila Helms]. I, Dr. Yajaira Canela personally performed the history, physical exam, and medical decision making; and confirmed the accuracy of the information in the transcribed note. Authenticated by Dr. Yajaira Canela on 02/01/17 at 03:33. Code Status Full per [place] documentation Discussed Condition With RN and ED physician Physician Certification 2 Midnight Certification Type: Admission for Inpatient Services Order for Inpatient Services The services are ordered in accordance with Medicare regulations or non- Medicare payer requirements, as applicable. In the case of services not specified as inpatient-only, they are appropriately provided as inpatient services in accordance with the 2-midnight benchmark. Estimated LOS (days): 3 days is the estimated time the patient will need to remain in the hospital, assuming treatment plan goals are met and no additional complications. Post-Hospital Plan: SNF Problem Qualifiers (1) Pneumonia: Qualified Code: J18.9 - Pneumonia of both lungs due to infectious organism, unspecified part of lung (2) Sepsis: Qualified Code: A41.9 - Sepsis, due to unspecified organism (3) Urinary tract infection: Qualified Code: T83.511A - Urinary tract infection associated with indwelling urethral catheter, initial encounter Mila Helms Feb 01, 2017 03:34 Yajaira Canela MD Feb 01, 2017 07:31
[2017-02-01] MEDS: ENOXAPARIN SODIUM 40 MG/0.4 ML SYRINGE SQ SCH (05:44)
[2017-02-01] MEDS: PIPERACIL-TAZO 4.5 GM PREMIX 100 ML IV SCH ×3 (05:44→18:47)
[2017-02-01] MEDS: guaiFENesin SOLUTION 200 MG/10 ML CUP PO SCH ×3 (06:15→22:31)
[2017-02-01] MEDS: ARTIFICIAL TEARS OPTH OINT 3.5 APPLIC/3.5 GM TUBO LEFT EYE SCH ×3 (06:15→22:31)
[2017-02-01] MEDS: SODIUM CHLORIDE 0.9% FLUSH 10 ML FLUSH IV FLUSH SCH ×2 (09:00→22:31)
[2017-02-01] MEDS: BISACODYL EC 5 MG TABEC PO SCH ×2 (09:09→22:31)
[2017-02-01] MEDS: LISINOPRIL 5 MG TAB G-TUBE SCH (09:09)
[2017-02-01] MEDS: METOPROLOL TARTRATE 100 MG TAB G-TUBE SCH ×2 (09:10→22:31)
[2017-02-01] MEDS: FAMOTIDINE 20 MG TAB PO SCH ×2 (09:10→22:31)
[2017-02-01] MEDS: BACLOFEN 20 MG TAB PEG SCH ×3 (09:15→18:47)
[2017-02-01] MEDS: VALPROIC ACID SYRUP 250 MG/5 ML UDC G-TUBE SCH ×2 (09:16→22:30)
[2017-02-01] MEDS: levETIRAcetam 500 MG/5 ML UDC G-TUBE SCH ×2 (09:17→22:30)
[2017-02-01] MEDS: AMANTADINE HCL SOLN 100 MG/10 ML UDC G-TUBE SCH ×2 (09:17→22:30)
[2017-02-01] MEDS: LACTOBACILLUS ACIDOPHILUS 1 GM PACKET PO SCH ×3 (09:18→18:47)
[2017-02-01] MEDS: carBAMazepine SUSP 200 MG/10 ML UDC G-TUBE SCH ×2 (09:36→22:52)
[2017-02-01 10:20] LABS: LACTIC ACID GHOST NOT REPORTABLE
[2017-02-01] MEDS: VANCOMYCIN INJ 1,500 MG in SODIUM CHLORID 0.9% 500 ML INJ 500 ML IV SCH ×2 (10:49→22:30)
--- NOTE | 2017-02-01 17:13 | MB ---
cc: NADIA MCKEON MD DATE OF CONSULTATION 02/01/[address] Canela. REASON FOR CONSULTATION Sepsis. HISTORY OF PRESENT ILLNESS This is a 46-year-old white female who is from a [facility]. The patient is in a persistent vegetative state. She was sent to the emergency department via ambulance because of respiratory distress with tachypnea and increased sputum production via her tracheostomy. The patient has a chronic tracheostomy. She has a history of traumatic brain injury. The patient is nonverbal and unable to give any information. Information is obtained from medical record. She has increased heart rate as well as increased respiratory rate. White blood cell count is elevated at 14.5. The patient also has abnormal urinalysis and urine culture was taken and it has gram-negative kody. Sputum culture has also immature growth. She is coughing up purulent rust-colored sputum via the tracheostomy. Chest x-ray shows bilateral perihilar infiltrates. The patient has her eyes open but does not respond otherwise. PAST MEDICAL HISTORY 1. Traumatic brain injury. 2. Hypertension. 3. Hyperlipidemia. 4. History of seizure disorder. 5. Tracheostomy. 6. PEG. ALLERGIES NO KNOWN DRUG ALLERGIES. MEDICATIONS 1. piperacillin / tazobactam. 2. Ciprofloxacin. 3. Vancomycin. 4. Symmetrel. 5. Baclofen. 6. Tegretol. 7. Keppra, 8. Prinivil. 9. Lopressor. 10. Valproic acid. 11. Lactinex. 12. Lovenox. SOCIAL HISTORY No alcohol or tobacco or illicit drugs. The patient is a resident of [facility] facility. FAMILY HISTORY Noncontributory. REVIEW OF SYSTEMS Unable to obtain. PHYSICAL EXAMINATION GENERAL: This is a well-developed female who is in apparent distress from tachypnea. She has eyes open but does not respond otherwise. VITAL SIGNS: Include temperature of 99 degrees, BP 147/82, respirations 36, heart rate 69. The patient was on 5 liters of O2 via nasal cannula. HEENT: Extraocular movements cannot be fully assessed. The sclerae is nonicteric. Oropharynx mucosa is moist. NECK: Tracheostomy in place without any evidence of infection around the trach site. LUNGS: Coarse rhonchi bilateral with wheezing. HEART: Regular S1-S2. No audible murmurs. ABDOMEN: Bowel sounds present, soft, nontender. RECTAL: Not performed. EXTREMITIES: No clubbing or cyanosis. Trace edema. NEUROLOGIC: Unable to assess because of the patient's persistent vegetative state. PSYCHIATRIC: Unable to assess because of the patient's persistent vegetative state. LABORATORY DATA WBC 14.5, platelets 251, 88% neutrophils. AST 40, ALT 67, alkaline phosphatase 119, creatinine 0.73, estimated GFR 87, sodium 133. IMPRESSION 1. Sepsis arising from a pulmonary or renal system. 2. Pneumonia. 3. Urinary tract infection. 4. Leukocytosis secondary to sepsis. 5. Impending respiratory failure. RECOMMENDATIONS 1. Continue piperacillin / Tazobactam. 2. Continue ciprofloxacin. 3. Continue vancomycin. 4. Monitor urine culture. 5. Monitor sputum culture. 6. Monitor blood cultures. 7. Follow clinical status. 8. Antibiotic adjustment depending on culture results. Thank you this consultation. I will follow the patient's progress with you and make further recommendations upon followup if necessary. Nadia Mckeon MD FD/SHIRLEY /3:45 PM /4:40 PM KYLEE
[2017-02-02] VITALS (19 sets, daily range): BP systolic 80–141; BP diastolic 48–68; PULSE 52–88; RESP 20–40; TEMP 97.7–99.6; O2SAT 88–100
[2017-02-02] MEDS: PIPERACIL-TAZO 4.5 GM PREMIX 100 ML IV SCH ×4 (00:38→18:45)
[2017-02-02] MEDS ORDERED: RESP: ALBUTEROL 2.5 MG/IPRATROPIUM 0.5 MG NEB (PRN) NEB (01:45)
[2017-02-02] MEDS: CIPROFLOXACIN 400 MG PREMIX 200 ML IV SCH ×2 (02:21→14:19)
[2017-02-02] MEDS: RESP: ALBUTEROL 2.5 MG/IPRATROPIUM 0.5 MG NEB (SCH) NEB ×4 (03:28→19:36)
[2017-02-02] MEDS: guaiFENesin SOLUTION 200 MG/10 ML CUP PO SCH ×3 (06:29→21:40)
[2017-02-02] MEDS: ENOXAPARIN SODIUM 40 MG/0.4 ML SYRINGE SQ SCH (06:29)
[2017-02-02] MEDS: ARTIFICIAL TEARS OPTH OINT 3.5 APPLIC/3.5 GM TUBO LEFT EYE SCH ×3 (06:29→21:35)
[2017-02-02 06:46] LABS: AUTOMATED NEUTROPHIL # 4.8 TH/MM3 (1.8-7.7); BASOPHIL % 0.2 % (0.0-2.0); EOSINOPHIL % 0.3 % (0.0-4.0); HEMATOCRIT 36.1 % (35.0-46.0); HEMO FLAGS DIFF FINAL; LYMPH % 14.2 % (9.0-44.0); MEAN CORPUSCULAR HEMOGLOBIN 30.7 PG (27.0-34.0); MEAN CORPUSCULAR HGB CONC 33.4 % (32.0-36.0); NEUT % 67.3 % (16.0-70.0); PLATELET COUNT 170 TH/MM3 (150-450); RED BLOOD COUNT 3.93 MIL/MM3 (4.00-5.30); RED CELL DISTRIBUTION WIDTH 14.5 % (11.6-17.2); WHITE BLOOD COUNT 7.1 TH/MM3 (4.0-11.0)
[2017-02-02] MEDS: SODIUM CHLOR 0.9% 1000 ML INJ 1,000 ML IV SCH ×2 (07:07→15:40)
[2017-02-02 07:18] LABS: BICARBONATE 23.5 MEQ/L (21.0-32.0); POTASSIUM 3.4 MEQ/L (3.5-5.1)
--- NOTE | 2017-02-02 08:38 | EKG ---
Date Performed: 01/31/2017 Time Performed: 22:29:50 PTAGE: 46 years EKG: Sinus rhythm NONSPECIFIC T-WAVE ABNORMALITY BORDERLINE ECG PREVIOUS TRACING : 03/04/2016 02.08 Compared to prior tracing no significant change DOCTOR: Polo Gerardo Interpretating Date/Time 02/02/2017 08:36:45
[2017-02-02] MEDS: LISINOPRIL 5 MG TAB G-TUBE SCH (09:00)
[2017-02-02] MEDS: carBAMazepine SUSP 200 MG/10 ML UDC G-TUBE SCH ×2 (09:00→21:34)
[2017-02-02] MEDS: BISACODYL EC 5 MG TABEC PO SCH ×2 (09:00→21:00)
[2017-02-02] MEDS: levETIRAcetam 500 MG/5 ML UDC G-TUBE SCH ×2 (09:00→21:34)
[2017-02-02] MEDS: VALPROIC ACID SYRUP 250 MG/5 ML UDC G-TUBE SCH ×2 (09:00→21:43)
[2017-02-02] MEDS: SODIUM CHLORIDE 0.9% FLUSH 10 ML FLUSH IV FLUSH SCH ×2 (09:00→21:35)
[2017-02-02] MEDS: METOPROLOL TARTRATE 100 MG TAB G-TUBE SCH ×2 (09:00→21:36)
[2017-02-02] MEDS: BACLOFEN 20 MG TAB PEG SCH ×3 (09:00→18:50)
[2017-02-02] MEDS: LACTOBACILLUS ACIDOPHILUS 1 GM PACKET PO SCH ×3 (09:00→18:00)
[2017-02-02] MEDS: AMANTADINE HCL SOLN 100 MG/10 ML UDC G-TUBE SCH ×2 (09:00→21:34)
[2017-02-02] MEDS: FAMOTIDINE 20 MG TAB PO SCH ×2 (09:00→21:35)
[2017-02-02] MEDS: VANCOMYCIN INJ 1,500 MG in SODIUM CHLORID 0.9% 500 ML INJ 500 ML IV SCH ×2 (10:00→21:33)
[2017-02-02 11:29] LABS: BLOOD GAS BASE EXCESS -1.1 mmol/L (-2-2); BLOOD GAS CARBOXYHEMOGLOBIN 1.9 % (0-4); BLOOD GAS HCO3 22 mmol/L (22-26); BLOOD GAS METHEMOGLOBIN 0.9 % (0-2); BLOOD GAS O2 HGB SATURATION 88 % (90-100); BLOOD GAS PCO2 31 mmHg (38-42); BLOOD GAS PO2 56 mmHg (61-120); BLOOD GAS TOTAL HGB 10.5 G/DL (12.0-16.0); CRITICAL VALUE YES; DRAW SITE RT RADIAL; FIO2 98 %; NUMBER OF ARTERIAL PUNCTURES 2; OXYGEN DEVICE T-PIECE; STAT YES; TEMP CORR TO 98.6; ULNAR PULSE PRESENT
--- NOTE | 2017-02-02 13:09 | PD.CONS ---
HPI Service Critical Care Medicine Consult Requested By Dr. Burger Reason for Consult Acute hypoxemic respiratory failure Healthcare associated pneumonia Severe sepsis UTI Primary Care Physician Unknown History of Present Illness Patient is a 46-year-old female residential resident who is nonverbal , in persistent vegetation state following TBI, seizure disorder, trach dependent on 3L, s/p peg, hypertension and dyslipidemia who was brought in from the residential for a temp 101.4 fever and increased secretions from trach. ABG on admission showed significant A-a gradient, chest x-ray showed bilateral perihilar infiltrates. Patient was placed on 98% O2 by trach collar. UA showed evidence of UTI. Patient lactic acid was 4, indicating severe sepsis. 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 Patient was placed on vancomycin, Zosyn and ciprofloxacin and ID Dr. Riggs was consulted A Halicat was called around 1100 AM today for worsening hypoxia SaO2 86% on 98% oxygen, hypotension and respiratory distress. Patient was moved to the ICU and I immediately evaluated the patient. She was in impending respiratory failure, O2 Sat low 80s. With myself present at bedside, Respiratory therapist removed the 6.0 cuffless trach and replaced it with 6.0 cuffed trach. Patient was placed on mechanical ventilation with 100% oxygen and PEEP of 10 with immediate improvement oxygen saturation. Repeat chest x-ray shows consolidation of Left upper lobe Review of Systems ROS Limitations: Clinical Condition, Intubated, Unresponsive Past Family Social History Allergies: Coded Allergies: *MDRO Multi-Drug Resistant Organism (Verified Allergy, Unknown, 01/31/17) Acinetobacter baumannii Sputum 05/2013 CRAB 10/2013 MRSA PCR screen (nares) POSITIVE - 03/04/16 Past Medical History Traumatic brain injury Seizure disorder Trach dependent typically on 3 L by trach Hypertension Prior history of sepsis admitted in February 2016. Past Surgical History Trach and PEG placement following TBI Reported Medications Levofloxacin 750 Mg Tablet 750 Mg PO DAILY Cefuroxime (Cefuroxime Axetil) 500 Mg Tab 500 Mg PO DAILY Valproic Acid Liq 250 Mg/5 Ml Syp 500 Mg G-TUBE BID Ranitidine (Ranitidine HCl) 150 Mg Tab 150 Mg GT BID Metoprolol Tartrate 100 Mg Tab 100 Mg G-TUBE BID Lisinopril 5 Mg Tab 5 Mg G-TUBE DAILY Milk of Magnesia Liq (Magnesium Hydroxide) 400 Mg/5 Ml Susp 30 Ml G-TUBE DAILY PRN Keppra Liq (Levetiracetam) 500 Mg/5 Ml Soln 1,500 Mg G-TUBE BID Ibuprofen 400 Mg Tab 400 Mg G-TUBE Q4H PRN Hydrocodone-Acetaminophen Liq 7.5-325 Mg/15 Ml Soln 15 Ml G-TUBE Q6H PRN Guaifenesin 400 Mg Tab [address] (Bisacodyl) 5 Mg Tabdr 5 Mg PEG BID Dulcolax Supp (Bisacodyl) 10 Mg Supp 10 Mg RECTAL DAILY PRN Clonidine (Clonidine HCl) 0.2 Mg Tab 0.2 Mg G-TUBE Q6HR PRN Citrate of Magnesia Liq (Magnesium Citrate) 300 Ml Liq 296 Ml G-TUBE DAILY IN THE MORNING PRN Carbamazepine Liq (Carbamazepine) 100 Mg/5 Ml Susp 500 Mg G-TUBE BID Baclofen 20 Mg Tab 20 Mg PEG TID Tears Again Opth Ointment (Artificial Tear Opth Ointment) 1 Oint 1 Applic LEFT EYE Q8HR Amantadine Liq (Amantadine HCl) 50 Mg/5 Ml Soln 150 Mg G-TUBE BID Mapap (Acetaminophen) 325 Mg Tab 650 Mg G-TUBE Q4HR PRN Active Ordered Medications Reviewed Family History Unable to obtain, patient is unable to provide any history due to TBI Social History alf resident trach dependent Physical Exam Vital Signs Vital Signs Date Time Temp Pulse Resp B/P Pulse Ox O2 Delivery O2 Flow Rate FiO2 02/02/17 11:50 99 80 02/02/17 11:47 88 98 02/02/17 09:59 98 T-piece 4.00 28 02/02/17 07:00 99.6 88 40 101/59 96 02/02/17 05:00 75 02/02/17 04:00 86 02/02/17 03:31 99 T-piece 6.00 02/02/17 03:00 99.4 87 40 141/68 94 02/02/17 03:00 72 02/02/17 02:00 82 02/02/17 01:23 96 T-piece 6.00 02/02/17 01:00 80 02/02/17 00:00 80 02/01/17 23:00 99.1 80 38 136/75 97 02/01/17 23:00 79 02/01/17 22:10 98 T-piece 6.00 70 02/01/17 22:00 66 02/01/17 21:00 64 02/01/17 20:00 76 02/01/17 19:15 100.2 82 40 141/77 93 02/01/17 19:00 80 02/01/17 17:30 97.7 78 26 123/76 94 02/01/17 15:42 99.0 69 24 147/82 98 T-piece 4 02/01/17 13:58 69 30 151/91 93 T-piece 4 98 Physical Exam General: Unresponsive patient who is in severe respiratory distress desaturating Head and Neck exam: Head is normocephalic atraumatic. Eyes: R pupil 5mm, L eye has a bandage in place. Appears blind-ending left side with right corneal opacity Nose: Midline septum with pink mucous membranes Mouth: Uvula midline. Airway patent. Neck: No nuchal rigidity. No thyromegaly. Trach in place, yellow trach secretions Cardiovascular: Sinus tachycardia in the low 100s without murmurs, gallops, or rubs. Lungs: Scattered rhonchi bilaterally with wheezes. Tachypneic with impending respiratory failure. GI: Abdomen soft nontender. No guarding, rebound, or rigidity. Normal bowel sounds are audible. PEG tube in place Extremities: Contracted extremities Neurologic Exam: Patient is unresponsive at the baseline, right pupil is 5 mm left corneal opacity limits exam. The patient has contractures of her extremities noted. The central noxious stimuli he she withdraws bilateral upper extremities Laboratory Laboratory Tests Test 02/02/17 02/02/17 05:14 11:18 White Blood Count 7.1 Red Blood Count 3.93 Hemoglobin 12.1 Hematocrit 36.1 Mean Corpuscular Volume 92.0 Mean Corpuscular Hemoglobin 30.7 Mean Corpuscular Hemoglobin 33.4 Concent Red Cell Distribution Width 14.5 Platelet Count 170 Mean Platelet Volume 11.1 Neutrophils (%) (Auto) 67.3 Lymphocytes (%) (Auto) 14.2 Monocytes (%) (Auto) 18.0 Eosinophils (%) (Auto) 0.3 Basophils (%) (Auto) 0.2 Neutrophils # (Auto) 4.8 Lymphocytes # (Auto) 1.0 Monocytes # (Auto) 1.3 Eosinophils # (Auto) 0.0 Basophils # (Auto) 0.0 CBC Comment DIFF FINAL Differential Comment Sodium Level 142 Potassium Level 3.4 Chloride Level 108 Carbon Dioxide Level 23.5 Anion Gap 11 Blood Urea Nitrogen 17 Creatinine 0.50 Estimat Glomerular Filtration 134 Rate Random Glucose 101 Calcium Level 9.1 Blood Gas Puncture Site RT RADIAL Blood Gas Patient Temperature 98.6 Blood Gas HCO3 22 Blood Gas Base Excess -1.1 Blood Gas Oxygen Saturation 88 Arterial Blood pH 7.46 Arterial Blood Partial 31 Pressure CO2 Arterial Blood Partial 56 Pressure O2 Arterial Blood Oxygen Content 13.0 Arterial Blood 1.9 Carboxyhemoglobin Arterial Blood Methemoglobin 0.9 Blood Gas Hemoglobin 10.5 Oxygen Delivery Device T-PIECE Blood Gas Inspired Oxygen 98 Date/Time Procedure Status Source Growth 01/31/17 23:55 Gram Stain - Final Resulted Sputum Oral Tracheal Aspirate 01/31/17 23:55 Sputum Culture - Preliminary Resulted Proteus Species 01/31/17 23:30 Urine Culture - Final Complete Urine Random Urine 01/31/17 22:55 Aerobic Blood Culture - Preliminary Resulted Blood Peripheral NO GROWTH IN 2 DAYS 01/31/17 22:55 Anaerobic Blood Culture - Preliminary Resulted Blood Peripheral NO GROWTH IN 2 DAYS Result Diagram: 02/02/17 0514 02/02/17 0514 Imaging CXR -Ronny infiltrate, predominantly BOB infiltrate Septic Shock Reassessment Heart: Irregular (tachycardic) Lungs: Course Skin: Dry Peripheral Pulses: Weak Right Radial Weak Left Radial Assessment and Plan Assessment and Plan NEURO: Past TBI with persistent vegetative state Seizure disorder - Use sedation with propofol for vent synchrony if needed - Continue amantadine, Tegretol, Keppra, Depakote RESP: Acute hypoxemic respiratory failure Healthcare associated pneumonia Chronic trach - Trach changed to a 6.0 cuffed and patient placed on ACV 20/550/12 FiO2 80% - DuoNeb scheduled and when necessary - Continue broad-spectrum antibiotics with vancomycin Zosyn and ciprofloxacin - Proteus growing in sputum CV: Lactic acidosis Hypotension - Normal saline IV fluids 84 ml per hour - Give additional 1 L fluid bolus now - Lactic acid has normalized GI: - Nothing by mouth except meds. Pepcid - Start tube feeds in 24 hours : - Monitor renal function closely. Anguiano catheter. ID: Severe sepsis Healthcare associated pneumonia UTI - Continue vancomycin Zosyn and ciprofloxacin, ID following - Sputum culture with Proteus, urine and blood culture pending HEME: - Monitor CBC, CMP, coags ENDO: - Electrolyte replacement per protocol PROPH: - Bilateral lower extremity SCDs, Lovenox Pepcid LINES: Utilize peripheral IVs CC time 65 min Code Status Full Discussed Condition With RT, RN and Miranda Johnson MD Feb 02, 2017 13:09
--- NOTE | 2017-02-02 13:18 | RADRPT ---
EXAM DATE/TIME: 02/02/2017 12:35 [place] COMPARISON: CHEST SINGLE AP, January 31, 2017, 23:13. INDICATIONS : Short of breath. MEDICAL HISTORY : Hypertension. Gastroesophageal reflux disease. traumatic brain injury as infant, pneumonia SURGICAL HISTORY : tracheostomy ENCOUNTER: Initial ACUITY: 2 days PAIN SCORE: Non-responsive. LOCATION: Bilateral chest FINDINGS: The heart is normal in size. There is a tracheostomy tube in good position. The exam demonstrates interval development of some patchy infiltrate in the left upper lobe. There is minimal left basilar fusion. The visualized osseous structures are intact. CONCLUSION: 1. Tracheostomy in good position. 2. Interval development of parenchymal opacification of the left upper lobe. Exam would raise concern for possible pneumonia. Lee Baker MD on February 02, 2017 at 13:15 Board Certified Radiologist. This report was verified electronically.
--- NOTE | 2017-02-02 14:08 | HHI.IDPN ---
Note Infectious Disease Note Patient developed respiratory distress and was placed on the vent. Afebrile. No distress. PAST MEDICAL HISTORY 1. Traumatic brain injury. 2. Hypertension. 3. Hyperlipidemia. 4. History of seizure disorder. 5. Tracheostomy. 6. PEG. ALLERGIES NO KNOWN DRUG ALLERGIES. MEDICATIONS 1. piperacillin / tazobactam. 2. Ciprofloxacin. 3. Vancomycin. OBJECTIVE: Vital Signs Date Time Temp Pulse Resp B/P Pulse Ox O2 Delivery O2 Flow Rate FiO2 02/02/17 11:50 99 80 02/02/17 11:47 88 98 02/02/17 09:59 98 T-piece 4.00 28 02/02/17 07:00 99.6 88 40 101/59 96 02/02/17 05:00 75 02/02/17 04:00 86 02/02/17 03:31 99 T-piece 6.00 02/02/17 03:00 99.4 87 40 141/68 94 02/02/17 03:00 72 02/02/17 02:00 82 02/02/17 01:23 96 T-piece 6.00 02/02/17 01:00 80 02/02/17 00:00 80 02/01/17 23:00 99.1 80 38 136/75 97 02/01/17 23:00 79 02/01/17 22:10 98 T-piece 6.00 70 02/01/17 22:00 66 02/01/17 21:00 64 02/01/17 20:00 76 02/01/17 19:15 100.2 82 40 141/77 93 02/01/17 19:00 80 02/01/17 17:30 97.7 78 26 123/76 94 02/01/17 15:42 99.0 69 24 147/82 98 T-piece 4 02/01/17 02/01/17 02/02/17 14:59 22:59 06:59 Intake Total 1000 ml 300 ml 1703 ml Output Total 800 ml 475 ml Balance 1000 ml -500 ml 1228 ml Intake Oral 0 ml IV Total 1000 ml 300 ml 564 ml Tube Feeding 1039 ml Other 100 ml Output Urine Total 800 ml 475 ml Laboratory Tests Test 01/31/17 02/02/17 22:30 05:14 White Blood Count 14.5 TH/MM3 7.1 TH/MM3 Red Blood Count 5.02 MIL/MM3 3.93 MIL/MM3 Hemoglobin 15.4 GM/DL 12.1 GM/DL Hematocrit 45.6 % 36.1 % Mean Corpuscular Volume 90.9 FL 92.0 FL Mean Corpuscular Hemoglobin 30.6 PG 30.7 PG Mean Corpuscular Hemoglobin 33.7 % 33.4 % Concent Red Cell Distribution Width 13.9 % 14.5 % Platelet Count 251 TH/MM3 170 TH/MM3 Mean Platelet Volume 10.8 FL 11.1 FL Neutrophils (%) (Auto) 88.1 % 67.3 % Lymphocytes (%) (Auto) 3.8 % 14.2 % Monocytes (%) (Auto) 7.7 % 18.0 % Eosinophils (%) (Auto) 0.1 % 0.3 % Basophils (%) (Auto) 0.3 % 0.2 % Neutrophils # (Auto) 12.8 TH/MM3 4.8 TH/MM3 Lymphocytes # (Auto) 0.5 TH/MM3 1.0 TH/MM3 Monocytes # (Auto) 1.1 TH/MM3 1.3 TH/MM3 Eosinophils # (Auto) 0.0 TH/MM3 0.0 TH/MM3 Basophils # (Auto) 0.0 TH/MM3 0.0 TH/MM3 CBC Comment AUTO DIFF DIFF FINAL Differential Total Cells 100 Counted Neutrophils % (Manual) 48 % Band Neutrophils % 38 % Lymphocytes % 5 % Monocytes % 8 % Neutrophils # (Manual) 12.6 TH/MM3 Metamyelocytes 1 % Differential Comment FINAL DIFF MANUAL Platelet Estimate NORMAL Platelet Morphology Comment ENLARGED Laboratory Tests Test 01/31/17 02/01/17 02/01/17 02/01/17 22:30 01:40 04:40 08:15 Sodium Level 133 MEQ/L Potassium Level 4.1 MEQ/L Chloride Level 100 MEQ/L Carbon Dioxide Level 21.4 MEQ/L Anion Gap 12 MEQ/L Blood Urea Nitrogen 31 MG/DL Creatinine 0.73 MG/DL Estimat Glomerular Filtration 87 ML/MIN Rate Random Glucose 175 MG/DL Calcium Level 10.3 MG/DL Magnesium Level 2.3 MG/DL Total Bilirubin 0.6 MG/DL Aspartate Amino Transf 40 U/L (AST/SGOT) Alanine Aminotransferase 67 U/L (ALT/SGPT) Alkaline Phosphatase 119 U/L Total Creatine Kinase 36 U/L Troponin I LESS THAN 0.02 NG/ML C-Reactive Protein 15.00 MG/DL Total Protein 7.8 GM/DL Albumin 2.7 GM/DL Lactic Acid Level 2.8 mmol/L 4.0 mmol/L 3.8 mmol/L 2.3 mmol/L B-Type Natriuretic Peptide 79 PG/ML Test 02/01/17 02/02/17 11:45 05:14 Lactic Acid Level 1.6 mmol/L Sodium Level 142 MEQ/L Potassium Level 3.4 MEQ/L Chloride Level 108 MEQ/L Carbon Dioxide Level 23.5 MEQ/L Anion Gap 11 MEQ/L Blood Urea Nitrogen 17 MG/DL Creatinine 0.50 MG/DL Estimat Glomerular Filtration 134 ML/MIN Rate Random Glucose 101 MG/DL Calcium Level 9.1 MG/DL Microbiology Date/Time Procedure Status Source Growth 01/31/17 22:30 Aerobic Blood Culture - Preliminary Resulted Blood Peripheral NO GROWTH IN 2 DAYS 01/31/17 22:30 Anaerobic Blood Culture - Preliminary Resulted Blood Peripheral NO GROWTH IN 2 DAYS 01/31/17 22:55 Aerobic Blood Culture - Preliminary Resulted Blood Peripheral NO GROWTH IN 2 DAYS 01/31/17 22:55 Anaerobic Blood Culture - Preliminary Resulted Blood Peripheral NO GROWTH IN 2 DAYS 01/31/17 23:30 Urine Culture - Final Complete Urine Random Urine 01/31/17 23:55 Gram Stain - Final Resulted Sputum Oral Tracheal Aspirate 01/31/17 23:55 Sputum Culture - Preliminary Resulted Proteus Species PHYSICAL EXAMINATION GENERAL: On the vent. She has eyes open but does not respond otherwise. HEENT: The sclerae is nonicteric. Oropharynx mucosa is moist. LUNGS: Coarse rhonchi bilateral. HEART: Regular S1-S2. No audible murmurs. ABDOMEN: Bowel sounds present, soft, nontender. EXTREMITIES: No clubbing or cyanosis. Trace edema. NEUROLOGIC: Unable to assess because of the patient's persistent vegetative state. PSYCHIATRIC: Unable to assess because of the patient's persistent vegetative state. IMPRESSION 1. Sepsis arising from pulmonary or renal system. 2. Pneumonia. culture has proteus. 3. Urinary tract infection. 4. Leukocytosis secondary to sepsis. 5. Acute respiratory failure. RECOMMENDATIONS 1. Continue piperacillin / Tazobactam. 2. Continue ciprofloxacin. 3. Continue vancomycin. 4. Repeat urine culture. 5. Monitor sputum culture. 6. Monitor blood cultures. 7. Follow clinical status. Phani Riggs MD Feb 02, 2017 14:08
[2017-02-02] MEDS: PROPOFOL 1000 MG/100 ML INJ 100 ML IV SCH (16:58)
[2017-02-02] MEDS: CHLORHEXIDINE 0.12% (ORAL KIT) 15 ML CUP MT SCH (20:00)
[2017-02-03] VITALS (23 sets, daily range): BP systolic 81–142; BP diastolic 50–71; PULSE 53–88; RESP 20–28; TEMP 97.4–97.6; O2SAT 97–100
[2017-02-03] MEDS: PIPERACIL-TAZO 4.5 GM PREMIX 100 ML IV SCH ×4 (01:56→18:31)
[2017-02-03] MEDS: CIPROFLOXACIN 400 MG PREMIX 200 ML IV SCH (02:00)
[2017-02-03] MEDS: RESP: ALBUTEROL 2.5 MG/IPRATROPIUM 0.5 MG NEB (SCH) NEB ×4 (04:15→19:24)
[2017-02-03] MEDS: guaiFENesin SOLUTION 200 MG/10 ML CUP PO SCH ×3 (06:00→21:48)
[2017-02-03] MEDS: ARTIFICIAL TEARS OPTH OINT 3.5 APPLIC/3.5 GM TUBO LEFT EYE SCH ×3 (06:24→21:48)
[2017-02-03] MEDS: ENOXAPARIN SODIUM 40 MG/0.4 ML SYRINGE SQ SCH (06:24)
[2017-02-03] MEDS: CHLORHEXIDINE 0.12% (ORAL KIT) 15 ML CUP MT SCH ×2 (07:54→20:00)
[2017-02-03] MEDS: BISACODYL EC 5 MG TABEC PO SCH ×2 (09:00→21:00)
[2017-02-03] MEDS: AMANTADINE HCL SOLN 100 MG/10 ML UDC G-TUBE SCH ×2 (09:00→21:47)
[2017-02-03] MEDS: LACTOBACILLUS ACIDOPHILUS 1 GM PACKET PO SCH ×3 (09:00→18:00)
[2017-02-03] MEDS: SODIUM CHLORIDE 0.9% FLUSH 10 ML FLUSH IV FLUSH SCH ×2 (09:00→21:47)
[2017-02-03] MEDS: METOPROLOL TARTRATE 100 MG TAB G-TUBE SCH ×2 (09:14→21:46)
[2017-02-03] MEDS: FAMOTIDINE 20 MG TAB PO SCH ×2 (09:14→21:46)
[2017-02-03] MEDS: BACLOFEN 20 MG TAB PEG SCH ×3 (09:14→18:31)
[2017-02-03] MEDS: LISINOPRIL 5 MG TAB G-TUBE SCH (09:14)
[2017-02-03] MEDS: VALPROIC ACID SYRUP 250 MG/5 ML UDC G-TUBE SCH ×2 (09:15→21:47)
[2017-02-03] MEDS: levETIRAcetam 500 MG/5 ML UDC G-TUBE SCH ×2 (09:15→21:46)
[2017-02-03] MEDS: carBAMazepine SUSP 200 MG/10 ML UDC G-TUBE SCH ×2 (09:16→21:46)
[2017-02-03] MEDS ORDERED: PHARMACY ORDERED LAB ONE (09:45)
[2017-02-03] MEDS: VANCOMYCIN INJ 1,500 MG in SODIUM CHLORID 0.9% 500 ML INJ 500 ML IV SCH (10:46)
--- NOTE | 2017-02-03 12:10 | HHI.IDPN ---
Note Infectious Disease Note Patient on the vent. Baseline non verbal. No distress. Afebrile. PAST MEDICAL HISTORY 1. Traumatic brain injury. 2. Hypertension. 3. Hyperlipidemia. 4. History of seizure disorder. 5. Tracheostomy. 6. PEG. ALLERGIES NO KNOWN DRUG ALLERGIES. MEDICATIONS 1. piperacillin / tazobactam. 2. Ciprofloxacin. 3. Vancomycin. OBJECTIVE: Vital Signs Date Time Temp Pulse Resp B/P Pulse Ox O2 Delivery O2 Flow Rate FiO2 02/03/17 12:00 58 02/03/17 11:30 55 02/03/17 11:30 97.5 55 20 93/58 100 02/03/17 11:00 97.3 56 20 105/63 100 02/03/17 11:00 56 02/03/17 10:30 66 02/03/17 10:30 97.3 66 22 142/71 100 02/03/17 10:00 97.3 60 20 85/53 100 02/03/17 10:00 60 02/03/17 09:35 97.5 73 20 110/59 97 02/03/17 09:30 97.7 62 20 81/50 100 02/03/17 09:01 97.7 73 20 104/62 100 02/03/17 08:30 97.5 61 20 104/59 100 02/03/17 08:12 100 40 02/03/17 08:01 97.3 78 25 128/69 100 02/03/17 08:00 97.6 02/03/17 08:00 76 02/03/17 08:00 97.5 72 23 100 02/03/17 06:00 73 02/03/17 04:00 67 02/03/17 04:00 97.7 67 20 107/60 100 02/03/17 02:00 64 02/03/17 00:00 53 02/03/17 00:00 100 40 02/03/17 00:00 97.5 53 20 87/54 100 02/02/17 22:00 52 02/02/17 20:00 97.9 63 20 80/48 100 02/02/17 20:00 63 02/02/17 19:36 100 40 02/02/17 18:00 57 02/02/17 17:00 56 02/02/17 16:00 97.7 02/02/17 02/02/1717 14:59 22:59 06:59 Intake Total 1186 ml 1099 ml Output Total 500 ml 350 ml 300 ml Balance -500 ml 836 ml 799 ml IV Total 1126 ml 1039 ml Other 60 ml 60 ml Output Urine Total 500 ml 350 ml 300 ml # Bowel Movements 1 Laboratory Tests Test 02/02/17 05:14 White Blood Count 7.1 TH/MM3 Red Blood Count 3.93 MIL/MM3 Hemoglobin 12.1 GM/DL Hematocrit 36.1 % Mean Corpuscular Volume 92.0 FL Mean Corpuscular Hemoglobin 30.7 PG Mean Corpuscular Hemoglobin 33.4 % Concent Red Cell Distribution Width 14.5 % Platelet Count 170 TH/MM3 Mean Platelet Volume 11.1 FL Neutrophils (%) (Auto) 67.3 % Lymphocytes (%) (Auto) 14.2 % Monocytes (%) (Auto) 18.0 % Eosinophils (%) (Auto) 0.3 % Basophils (%) (Auto) 0.2 % Neutrophils # (Auto) 4.8 TH/MM3 Lymphocytes # (Auto) 1.0 TH/MM3 Monocytes # (Auto) 1.3 TH/MM3 Eosinophils # (Auto) 0.0 TH/MM3 Basophils # (Auto) 0.0 TH/MM3 CBC Comment DIFF FINAL Differential Comment Laboratory Tests Test 02/02/17 02/02/17 05:14 15:09 Sodium Level 142 MEQ/L Potassium Level 3.4 MEQ/L Chloride Level 108 MEQ/L Carbon Dioxide Level 23.5 MEQ/L Anion Gap 11 MEQ/L Blood Urea Nitrogen 17 MG/DL Creatinine 0.50 MG/DL Estimat Glomerular Filtration 134 ML/MIN Rate Random Glucose 101 MG/DL Calcium Level 9.1 MG/DL Lactic Acid Level 1.4 mmol/L Microbiology Date/Time Procedure Status Source Growth 01/31/17 22:30 Aerobic Blood Culture - Preliminary Resulted Blood Peripheral NO GROWTH IN 3 DAYS 01/31/17 22:30 Anaerobic Blood Culture - Preliminary Resulted Blood Peripheral NO GROWTH IN 3 DAYS 01/31/17 22:55 Aerobic Blood Culture - Preliminary Resulted Blood Peripheral NO GROWTH IN 3 DAYS 01/31/17 22:55 Anaerobic Blood Culture - Preliminary Resulted Blood Peripheral NO GROWTH IN 3 DAYS 01/31/17 23:30 Urine Culture - Final Complete Urine Random Urine 01/31/17 23:55 Gram Stain - Final Resulted Sputum Oral Tracheal Aspirate 01/31/17 23:55 Sputum Culture - Preliminary Resulted Proteus Mirabilis Gram Negative Christopher 02/02/17 18:00 Urine Culture Received Urine Catheterized Urine Pending Microbiology Date/Time Procedure Status Source Growth 01/31/17 22:30 Aerobic Blood Culture - Preliminary Resulted Blood Peripheral NO GROWTH IN 2 DAYS 01/31/17 22:30 Anaerobic Blood Culture - Preliminary Resulted Blood Peripheral NO GROWTH IN 2 DAYS 01/31/17 22:55 Aerobic Blood Culture - Preliminary Resulted Blood Peripheral NO GROWTH IN 2 DAYS 01/31/17 22:55 Anaerobic Blood Culture - Preliminary Resulted Blood Peripheral NO GROWTH IN 2 DAYS 01/31/17 23:30 Urine Culture - Final Complete Urine Random Urine 01/31/17 23:55 Gram Stain - Final Resulted Sputum Oral Tracheal Aspirate 01/31/17 23:55 Sputum Culture - Preliminary Resulted Proteus Species PHYSICAL EXAMINATION GENERAL: On the vent. She has eyes open but does not respond otherwise. HEENT: The sclerae is nonicteric. Oropharynx mucosa is moist. LUNGS: Slight decreased breath sounds. Good air movement. HEART: Regular S1-S2. No audible murmurs. ABDOMEN: Bowel sounds present, soft, nontender. EXTREMITIES: No clubbing or cyanosis. Trace edema. NEUROLOGIC: Unable to assess because of the patient's persistent vegetative state. PSYCHIATRIC: Unable to assess because of the patient's persistent vegetative state. IMPRESSION 1. Sepsis arising from pulmonary or renal system. 2. Pneumonia. culture has proteus and another gram neg christopher. 3. Urinary tract infection. Culture repeated. 4. Leukocytosis secondary to sepsis. WBC lower. 5. Acute respiratory failure. On ventilator. RECOMMENDATIONS 1. Continue piperacillin / Tazobactam. 2. stop ciprofloxacin. 3. stop vancomycin. 4. Follow repeat urine culture. 5. Monitor sputum culture. 6. Monitor blood cultures. 7. Follow clinical status. Phani Riggs MD Feb 03, 2017 12:10
--- NOTE | 2017-02-03 13:44 | HHI.CCPN ---
Subjective Remarks/Hospital Course Patient is a 46-year-old female half-way resident who is nonverbal , in persistent vegetation state following TBI, seizure disorder, trach dependent on 3L, s/p peg, hypertension and dyslipidemia who was brought in from the half-way for a temp 101.4 fever and increased secretions from trach. ABG on admission showed significant A-a gradient, chest x-ray showed bilateral perihilar infiltrates. Patient was placed on 98% O2 by trach collar. UA showed evidence of UTI. Patient lactic acid was 4, indicating severe sepsis. 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 Patient was placed on vancomycin, Zosyn and ciprofloxacin and ID Dr. Riggs was consulted A Halicat was called around 1100 AM today for worsening hypoxia SaO2 86% on 98% oxygen, hypotension and respiratory distress. Patient was moved to the ICU and I immediately evaluated the patient. She was in impending respiratory failure, O2 Sat low 80s. With myself present at bedside, Respiratory therapist removed the 6.0 cuffless trach and replaced it with 6.0 cuffed trach. Patient was placed on mechanical ventilation with 100% oxygen and PEEP of 10 with immediate improvement oxygen saturation. Repeat chest x-ray shows consolidation of Left upper lobe SUBJ 02/03: Remains intubated oxygen saturation is improved FiO2 down to 45%. PEEP remains at 12. Sputum culture with Proteus and another GNR. Chest x-ray today is pending at this time. Neuro exam remains unchanged Objective Vital Signs Date Time Temp Pulse Resp B/P Pulse Ox O2 Delivery O2 Flow Rate FiO2 02/03/17 12:00 97.4 02/03/17 12:00 58 02/03/17 11:30 20 93/58 100 02/03/17 08:12 40 02/02/17 09:59 T-piece 4.00 Intake and Output 02/02/17 02/02/17 02/02/17 07:59 15:59 23:59 Intake Total 1703 ml 1186 ml Output Total 475 ml 500 ml 350 ml Balance 1228 ml -500 ml 836 ml Result Diagram: 02/02/17 0514 02/02/17 0514 Other Results Microbiology Date/Time Procedure Status Source Growth 01/31/17 23:30 Urine Culture - Final Complete Urine Random Urine Imaging CXR -Ronny infiltrate, predominantly BOB infiltrate Objective Remarks General: Patient remains on the vent on not on any sedation Head and Neck exam: Head is normocephalic atraumatic. Eyes: R pupil 5mm, L eye has a bandage in place. 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 Airway patent. Neck: No nuchal rigidity. No thyromegaly. Trach in place, yellow trach secretions Cardiovascular: SNSR without murmurs, gallops, or rubs. Lungs: Scattered rhonchi bilaterally with wheezes. Air entry equal bilaterally GI: Abdomen soft nontender. No guarding, rebound, or rigidity. Normal bowel sounds are audible. PEG tube in place Extremities: Contracted extremities Neurologic Exam: Patient is unresponsive at the baseline, right pupil is 5 mm left corneal opacity limits exam. The patient has contractures of her extremities. To central noxious stimuli he she withdraws bilateral upper extremities Urinary Catheter: Yes Assessment to: Continue A/P Assessment and Plan NEURO: Past TBI with persistent vegetative state Seizure disorder - Use sedation with propofol as needed for vent synchrony - Continue amantadine, Tegretol, Keppra, Depakote RESP: Acute hypoxemic respiratory failure Healthcare associated pneumonia Chronic trach - Trach changed to a 6.0 cuffed and patient placed on ACV 20/550/12 FiO2 80% - DuoNeb scheduled and when necessary - Continue broad-spectrum antibiotics with Zosyn. Vanc and ciprofloxacin DCd by ID - Proteus, another GNR growing in sputum CV: Lactic acidosis Hypotension - Normal saline IV fluids 84 ml per hour - Lactic acid has normalized GI: - Nothing by mouth except meds. Pepcid - Start tube feeds with Jevity, bowel regimen, having BM : - Monitor renal function closely. Anguiano catheter. ID: Severe sepsis Healthcare associated pneumonia UTI - Continue Zosyn. Vancomycin and and ciprofloxacin discontinued, ID following - Sputum culture with Proteus, GNR, urine and blood culture pending HEME: - Monitor CBC, CMP, coags ENDO: - Electrolyte replacement per protocol PROPH: - Bilateral lower extremity SCDs, Lovenox Pepcid LINES: Utilize peripheral IVs CC time 35 min Patient remains critically ill with sepsis and healthcare associated pneumonia, but stable. FiO2 had been weaned down with PEEP remains high. Miranda Clements MD Feb 03, 2017 13:44
--- NOTE | 2017-02-03 14:53 | RADRPT ---
EXAM DATE/TIME: 02/03/2017 14:15 [facility] COMPARISON: CHEST SINGLE AP, February 02, 2017, 12:35. INDICATIONS : Shortness of breath pulmonary infiltrates. MEDICAL HISTORY : Hypertension. Gastroesophageal reflux disease. SURGICAL HISTORY : Tracheostomy. ENCOUNTER: Initial ACUITY: 1 day PAIN SCORE: Non-responsive. LOCATION: Bilateral chest FINDINGS: A single AP portable semierect view of the chest was obtained and again demonstrates tracheostomy tub e in place. Hazy alveolar infiltrate remains in the left upper lobe and left perihilar region. There is mild consolidation at the right lung base which appears increased from prior study. Heart size at the upper limits of normal. There is no effusion. There are multiple overlying electrocardiogram lead s and oxygen tubing. The bony thorax is intact in appearance. CONCLUSION: 1. Increased consolidation of the right lung base. 2. No significant change in the hazy alveolar opacity in the left upper lobe and left perihilar regnathaniel Lindsey MD on February 03, 2017 at 14:50 Board Certified Radiologist. This report was verified electronically.
[2017-02-03] MEDS: SODIUM CHLOR 0.9% 1000 ML INJ 1,000 ML IV SCH ×2 (14:55→21:49)
[2017-02-04] VITALS (21 sets, daily range): BP systolic 92–147; BP diastolic 44–70; PULSE 62–88; RESP 20–28; TEMP 99–99.4; O2SAT 65–100
[2017-02-04] MEDS: PIPERACIL-TAZO 4.5 GM PREMIX 100 ML IV SCH ×5 (01:03→23:16)
[2017-02-04] MEDS: SODIUM CHLOR 0.9% 1000 ML INJ 1,000 ML IV SCH (03:35)
[2017-02-04] MEDS: PROPOFOL 1000 MG/100 ML INJ 100 ML IV SCH (03:35)
[2017-02-04] MEDS: RESP: ALBUTEROL 2.5 MG/IPRATROPIUM 0.5 MG NEB (SCH) NEB ×4 (03:47→19:56)
[2017-02-04] MEDS: guaiFENesin SOLUTION 200 MG/10 ML CUP PO SCH ×3 (06:00→22:00)
[2017-02-04] MEDS: ENOXAPARIN SODIUM 40 MG/0.4 ML SYRINGE SQ SCH (06:22)
[2017-02-04] MEDS: ARTIFICIAL TEARS OPTH OINT 3.5 APPLIC/3.5 GM TUBO LEFT EYE SCH ×3 (06:22→23:16)
[2017-02-04] MEDS: LACTOBACILLUS ACIDOPHILUS 1 GM PACKET PO SCH ×3 (09:00→17:02)
[2017-02-04] MEDS: SODIUM CHLORIDE 0.9% FLUSH 10 ML FLUSH IV FLUSH SCH ×2 (09:00→23:17)
[2017-02-04] MEDS: levETIRAcetam 500 MG/5 ML UDC G-TUBE SCH ×2 (09:13→23:14)
[2017-02-04] MEDS: VALPROIC ACID SYRUP 250 MG/5 ML UDC G-TUBE SCH ×2 (09:13→23:15)
[2017-02-04] MEDS: CHLORHEXIDINE 0.12% (ORAL KIT) 15 ML CUP MT SCH ×2 (09:13→23:14)
[2017-02-04] MEDS: METOPROLOL TARTRATE 100 MG TAB G-TUBE SCH ×2 (09:13→23:15)
[2017-02-04] MEDS: LISINOPRIL 5 MG TAB G-TUBE SCH (09:13)
[2017-02-04] MEDS: BACLOFEN 20 MG TAB PEG SCH ×3 (09:14→17:02)
[2017-02-04] MEDS: BISACODYL EC 5 MG TABEC PO SCH (09:14)
[2017-02-04] MEDS: FAMOTIDINE 20 MG TAB PO SCH ×2 (09:14→23:15)
--- NOTE | 2017-02-04 10:10 | HHI.IDPN ---
Note Infectious Disease Note ID COVERAGE 46 y/o F from SNF, chronic vegetative state due to TBI, adm for respiratory distress and fevers. Has PNA and UTI Notes reviewed Temps ok Awake no interaction Has contractures of extremities and spasticity On Abx for GNR PNA UA only 5 WBC Patient on the vent ANTIBIOTICS Zosyn PAST HISTORY 1. Traumatic brain injury. 2. Hypertension. 3. Hyperlipidemia. 4. History of seizure disorder. 5. Tracheostomy. 6. PEG. ALLERGIES NO KNOWN DRUG ALLERGIES. OBJECTIVE: Vital Signs Date Time Temp Pulse Resp B/P Pulse Ox O2 Delivery O2 Flow Rate FiO2 02/04/17 09:23 98 40 02/04/17 06:00 78 02/04/17 04:08 100 40 02/04/17 04:00 98.1 73 21 116/58 100 02/04/17 04:00 73 02/04/17 02:00 65 02/04/17 00:00 98.2 63 20 92/44 99 02/04/17 00:00 63 02/03/17 23:21 100 40 02/03/17 22:00 85 02/03/17 20:00 88 02/03/17 20:00 97.3 88 28 122/57 100 02/03/17 19:24 100 40 02/03/17 18:00 57 02/03/17 16:00 63 02/03/17 16:00 97.6 02/03/17 14:00 68 02/03/17 12:00 97.4 02/03/17 12:00 58 02/03/17 11:30 55 02/03/17 11:30 97.5 55 20 93/58 100 02/03/17 11:00 97.3 56 20 105/63 100 02/03/17 11:00 56 02/03/17 10:30 66 02/03/17 10:30 97.3 66 22 142/71 100 Vital Signs Date Time Temp Pulse Resp B/P Pulse Ox O2 Delivery O2 Flow Rate FiO2 02/03/17 12:00 58 02/03/17 11:30 55 02/03/17 11:30 97.5 55 20 93/58 100 02/03/17 11:00 97.3 56 20 105/63 100 02/03/17 11:00 56 02/03/17 10:30 66 02/03/17 10:30 97.3 66 22 142/71 100 02/03/17 10:00 97.3 60 20 85/53 100 02/03/17 10:00 60 02/03/17 09:35 97.5 73 20 110/59 97 02/03/17 09:30 97.7 62 20 81/50 100 02/03/17 09:01 97.7 73 20 104/62 100 02/03/17 08:30 97.5 61 20 104/59 100 02/03/17 08:12 100 40 02/03/17 08:01 97.3 78 25 128/69 100 02/03/17 08:00 97.6 02/03/17 08:00 76 02/03/17 08:00 97.5 72 23 100 02/03/17 06:00 73 02/03/17 04:00 67 02/03/17 04:00 97.7 67 20 107/60 100 02/03/17 02:00 64 02/03/17 00:00 53 02/03/17 00:00 100 40 02/03/17 00:00 97.5 53 20 87/54 100 02/02/17 22:00 52 02/02/17 20:00 97.9 63 20 80/48 100 02/02/17 20:00 63 02/02/17 19:36 100 40 02/02/17 18:00 57 02/02/17 17:00 56 02/02/17 16:00 97.7 Laboratory Tests Test 02/02/17 02/03/17 15:09 15:23 Lactic Acid Level 1.4 mmol/L Potassium Level 4.0 MEQ/L Magnesium Level 2.0 MG/DL Microbiology Date/Time Procedure Status Source Growth 02/02/17 18:00 Urine Culture - Preliminary Resulted Urine Catheterized Urine NO GROWTH IN 24 HOURS. Laboratory Tests Test 02/02/17 05:14 White Blood Count 7.1 TH/MM3 Red Blood Count 3.93 MIL/MM3 Hemoglobin 12.1 GM/DL Hematocrit 36.1 % Mean Corpuscular Volume 92.0 FL Mean Corpuscular Hemoglobin 30.7 PG Mean Corpuscular Hemoglobin 33.4 % Concent Red Cell Distribution Width 14.5 % Platelet Count 170 TH/MM3 Mean Platelet Volume 11.1 FL Neutrophils (%) (Auto) 67.3 % Lymphocytes (%) (Auto) 14.2 % Monocytes (%) (Auto) 18.0 % Eosinophils (%) (Auto) 0.3 % Basophils (%) (Auto) 0.2 % Neutrophils # (Auto) 4.8 TH/MM3 Lymphocytes # (Auto) 1.0 TH/MM3 Monocytes # (Auto) 1.3 TH/MM3 Eosinophils # (Auto) 0.0 TH/MM3 Basophils # (Auto) 0.0 TH/MM3 CBC Comment DIFF FINAL Differential Comment Laboratory Tests Test 02/02/17 02/02/17 05:14 15:09 Sodium Level 142 MEQ/L Potassium Level 3.4 MEQ/L Chloride Level 108 MEQ/L Carbon Dioxide Level 23.5 MEQ/L Anion Gap 11 MEQ/L Blood Urea Nitrogen 17 MG/DL Creatinine 0.50 MG/DL Estimat Glomerular Filtration 134 ML/MIN Rate Random Glucose 101 MG/DL Calcium Level 9.1 MG/DL Lactic Acid Level 1.4 mmol/L Microbiology Date/Time Procedure Status Source Growth 01/31/17 22:30 Aerobic Blood Culture - Preliminary Resulted Blood Peripheral NO GROWTH IN 3 DAYS 01/31/17 22:30 Anaerobic Blood Culture - Preliminary Resulted Blood Peripheral NO GROWTH IN 3 DAYS 01/31/17 22:55 Aerobic Blood Culture - Preliminary Resulted Blood Peripheral NO GROWTH IN 3 DAYS 01/31/17 22:55 Anaerobic Blood Culture - Preliminary Resulted Blood Peripheral NO GROWTH IN 3 DAYS 01/31/17 23:30 Urine Culture - Final Complete Urine Random Urine 01/31/17 23:55 Gram Stain - Final Resulted Sputum Oral Tracheal Aspirate 01/31/17 23:55 Sputum Culture - Preliminary Resulted Proteus Mirabilis Gram Negative Christopher 02/02/17 18:00 Urine Culture Received Urine Catheterized Urine Pending PHYSICAL EXAMINATION GENERAL: On the vent. She has L eye open, has opacity. Has contractures of her UE and spastic all extremities SKIN: mottled, no rash HEENT: Opacity L eye, no petechia, white coate on tongue NECK: Trach in place, looks ok LUNGS: Scattered rhonchi HEART: Regular S1-S2. No audible murmurs. ABDOMEN: Mildly distended, PEG site ok, no reaction to palpation, bowel sounds present. EXTREMITIES: UE and LE mottled. Both feet plantar flexed NEUROLOGIC: No interaction, spastic PSYCHIATRIC: Unable to assess LINE: No evidence of infection IMPRESSION Sepsis on admission due to HCAP HCAP has 2 GNR on sputum C/S, finall ID pending Respiratory failure UA with mild pyuria Leukocytosis resolved Temps better Elevated LFTs RECOMMENDATIONS Continue piperacillin / Tazobactam. Repeat LFT Follow C/S and adjust Abx accordingly Monitor temps Monitor progress If LFT remain high, consider US Liver/GB D/W Daxa Stewart MD Feb 04, 2017 10:10
[2017-02-04] MEDS: carBAMazepine SUSP 200 MG/10 ML UDC G-TUBE SCH (10:38)
[2017-02-04] MEDS: AMANTADINE HCL SOLN 100 MG/10 ML UDC G-TUBE SCH ×2 (10:38→23:15)
--- NOTE | 2017-02-04 15:24 | HHI.CCPN ---
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 ABG on admission showed significant A-a gradient, chest x-ray showed bilateral perihilar infiltrates. Patient was placed on 98% O2 by trach collar. UA showed evidence of UTI. Patient lactic acid was 4, indicating severe sepsis. 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 Patient was placed on vancomycin, Zosyn and ciprofloxacin and ID Dr. Riggs was consulted A Halicat was called around 1100 AM today for worsening hypoxia SaO2 86% on 98% oxygen, hypotension and respiratory distress. Patient was moved to the ICU and [facility] immediately evaluated the patient. She was in impending respiratory failure , O2 Sat low 80s. With myself present at bedside, Respiratory therapist removed the 6.0 cuffless trach and replaced it with 6.0 cuffed trach. Patient was placed on mechanical ventilation with 100% oxygen and PEEP of 10 with immediate improvement oxygen saturation. Repeat chest x-ray shows consolidation of Left upper lobe 02/03 Remains intubated oxygen saturation is improved FiO2 down to 45%. PEEP remains at 12. Sputum culture with Proteus and another GNR. Chest x-ray today is pending at this time. Neuro exam remains unchanged Subjective: 02/04 Remains on mechanical ventilation, PEEP 8. FIO2 weaned to 50%. . White blood cell count down trending. RN noticed dislodgement of [place]gu[place] this morning. Non bloody. She is voiding, will bladder scan to r/o obstruction. Objective Vital Signs Date Time Temp Pulse Resp B/P Pulse Ox O2 Delivery O2 Flow Rate FiO2 02/04/17 14:00 63 02/04/17 13:00 20 115/56 100 02/04/17 12:00 99.0 02/04/17 11:55 40 02/02/17 09:59 T-piece 4.00 Intake and Output 02/03/17 02/03/17 02/04/17 08:00 16:00 00:00 Intake Total 1099 ml 1039 ml 1274 ml Output Total 300 ml 950 ml 900 ml Balance 799 ml 89 ml 374 ml Result Diagram: 02/02/17 0514 02/03/17 1523 Other Results Microbiology Date/Time Procedure Status Source Growth 02/02/17 18:00 Urine Culture - Final Complete Urine Catheterized Urine NO GROWTH IN 48 HOURS. Imaging CXR -Ronny infiltrate, predominantly BOB infiltrate Objective Remarks General: Patient remains on the vent via trach on minimal propofol 5 mcg for sedation. Head and Neck exam: Head is normocephalic Eyes: R pupil 5mm and sluggishly reactive. L eye with pterygium and L corneal opacity. Neck: No nuchal rigidity. No thyromegaly. 6.0 Cuffed trach is in place. Cardiovascular: rrr without murmurs, gallops, or rubs. Lungs: Scattered rhonchi bilaterally with wheezes. Air entry equal bilaterally. On mechanical ventilation via trach. GI: Abdomen soft nontender. No guarding, rebound, or rigidity. Normal bowel sounds are audible. PEG tube in place. : Voiding. Extremities: Contracted extremities Neurologic Exam: Patient is unresponsive at the baseline, right pupil is 5 mm and sluggisly reactive left corneal opacity limits exam. + Horizontal nystagmus. Some eye opening, does not appear to track. The patient has contractures of her extremities, particularly bilateral upper. To central noxious stimuli she moves bilateral upper extremities and slight movement of toes. A/P Assessment and Plan NEURO: Past TBI with persistent vegetative state Seizure disorder - Was on propofol as needed for vent synchrony, doesn't appear to require. - Continue amantadine 150 twice a day, Tegretol 500 twice a day, Keppra 1500 twice a day , Depakote 500 twice a day, baclofen 20 3 times a day RESP: Acute hypoxemic respiratory failure Healthcare associated pneumonia Chronic trach - Trach changed to a 6.0 cuffed and patient placed on ACV 20/550/8 FiO2 40%. Daily spontaneous breathing trial. - DuoNeb scheduled and when necessary - Continue antibiotics with Zosyn. Vanc and ciprofloxacin DCd by ID - Proteus, pseudomonas growing in sputum CV: Lactic acidosis (resolved) Hypotension - Normal saline IV fluids 84 ml per hour - Lactic acid has normalized GI: - Nothing by mouth except meds. Pepcid - Start tube feeds with Jevity, bowel regimen, having BM. Tube feeds held by RN for residual 60, discussed need to continue advancing. : - Monitor renal function. Voiding ID: Severe sepsis Healthcare associated pneumonia UTI - Continue Zosyn. Vancomycin and and ciprofloxacin discontinued, ID following - Sputum culture with Proteus, pseudomonas. Sensitivity of pseudomonas is pending -Urine culture 02/02 no growth to date. Blood cultures 01/31 negative HEME: - Monitor CBC, CMP, coags ENDO: - Electrolyte replacement per protocol PROPH: - Bilateral lower extremity SCDs, Lovenox 40 g subcutaneous daily for DVT prophylaxis. Pepcid 20 twice a day for stress ulcer prophylaxis. LINES: Utilize peripheral IVs Level III Lashell Malcolm MD Feb 04, 2017 15:24
[2017-02-04 17:17] LABS: TOTAL BILIRUBIN ADULT 0.4 MG/DL (0.2-1.0)
[2017-02-04 17:19] LABS: INDIRECT BILIRUBIN 0.3 MG/DL (0.0-0.8)
[2017-02-05] VITALS (18 sets, daily range): BP systolic 147–176; BP diastolic 76–97; PULSE 65–99; RESP 20–28; TEMP 98–99.7; O2SAT 96–100
[2017-02-05] MEDS: RESP: ALBUTEROL 2.5 MG/IPRATROPIUM 0.5 MG NEB (SCH) NEB ×4 (04:52→19:40)
[2017-02-05 05:27] LABS: AUTOMATED NEUTROPHIL # 8.9 TH/MM3 (1.8-7.7); BASOPHIL % 0.3 % (0.0-2.0); EOSINOPHIL # 0.1 TH/MM3 (0-0.4); EOSINOPHIL % 0.5 % (0.0-4.0); HEMATOCRIT 33.4 % (35.0-46.0); HEMO FLAGS DIFF FINAL; LYMPH % 12.2 % (9.0-44.0); LYMPHOCYTE # 1.4 TH/MM3 (1.0-4.8); MEAN CELL VOLUME 90.3 FL (80.0-100.0); MEAN CORPUSCULAR HEMOGLOBIN 29.6 PG (27.0-34.0); MEAN CORPUSCULAR HGB CONC 32.8 % (32.0-36.0); MONO % 10.8 % (0.0-8.0); NEUT % 76.2 % (16.0-70.0); PLATELET COUNT 186 TH/MM3 (150-450); RED CELL DISTRIBUTION WIDTH 14.6 % (11.6-17.2); WHITE BLOOD COUNT 11.6 TH/MM3 (4.0-11.0)
[2017-02-05 05:35] LABS: BICARBONATE 22.2 MEQ/L (21.0-32.0)
[2017-02-05] MEDS: ARTIFICIAL TEARS OPTH OINT 3.5 APPLIC/3.5 GM TUBO LEFT EYE SCH ×3 (05:46→22:00)
[2017-02-05] MEDS: ENOXAPARIN SODIUM 40 MG/0.4 ML SYRINGE SQ SCH (05:46)
[2017-02-05] MEDS: guaiFENesin SOLUTION 200 MG/10 ML CUP PO SCH ×3 (05:46→22:00)
[2017-02-05] MEDS: SODIUM CHLOR 0.9% 1000 ML INJ 1,000 ML IV SCH (05:48)
[2017-02-05] MEDS: PIPERACIL-TAZO 4.5 GM PREMIX 100 ML IV SCH ×3 (05:49→17:16)
[2017-02-05] MEDS: carBAMazepine SUSP 200 MG/10 ML UDC G-TUBE SCH ×3 (05:50→21:55)
[2017-02-05] MEDS: BISACODYL EC 5 MG TABEC PO SCH ×3 (05:50→21:55)
[2017-02-05 06:06] LABS: POTASSIUM 2.7 MEQ/L (3.5-5.1)
[2017-02-05] MEDS ORDERED: POTASSIUM CHLORIDE 25 MEQ EFFERVESCENT TAB PO ONE (06:15)
[2017-02-05] MEDS ORDERED: POTASSIUM PHOSPHATE INJ 30 MMOL in SODIUM CHLOR 0.9% 250 ML INJ 250 ML IV PRN (06:15)
[2017-02-05] MEDS ORDERED: POTASSIUM PHOSPHATE MONOBASIC 500 MG TAB PO PRN (06:15)
[2017-02-05] MEDS ORDERED: MAGNESIUM SULFATE INJ 2 GM in SODIUM CHLORIDE 0.9% INJ 96 ML IV PRN (06:15)
[2017-02-05] MEDS ORDERED: POTASSIUM CHLORIDE 25 MEQ EFFERVESCENT TAB PO PRN (06:15)
[2017-02-05] MEDS ORDERED: POTASSIUM CHLOR 40 MEQ PREMIX 100 ML IV PRN (06:15)
[2017-02-05] MEDS ORDERED: MAGNESIUM SULFATE INJ 4 GM in SODIUM CHLORIDE 0.9% INJ 92 ML IV PRN (06:15)
[2017-02-05] MEDS ORDERED: POTASSIUM CHLOR 20 MEQ PREMIX 100 ML IV PRN (06:15)
[2017-02-05] MEDS ORDERED: SODIUM PHOSPHATE INJ 30 MMOL in SODIUM CHLOR 0.9% 250 ML INJ 240 ML IV PRN (06:15)
[2017-02-05] MEDS ORDERED: POTASSIUM PHOSPHATE MONOBASIC 500 MG TAB PO/TUBE PRN (06:15)
[2017-02-05] MEDS ORDERED: MAGNESIUM OXIDE 400 MG TAB PO PRN (06:15)
[2017-02-05] MEDS: POTASSIUM CHLOR 20 MEQ PREMIX 100 ML IV PRN ×2 (06:48→10:00)
[2017-02-05] MEDS: CHLORHEXIDINE 0.12% (ORAL KIT) 15 ML CUP MT SCH ×2 (08:00→21:53)
[2017-02-05] MEDS: LACTOBACILLUS ACIDOPHILUS 1 GM PACKET PO SCH ×3 (09:00→17:16)
[2017-02-05] MEDS: BACLOFEN 20 MG TAB PEG SCH ×3 (09:00→17:16)
[2017-02-05] MEDS: AMANTADINE HCL SOLN 100 MG/10 ML UDC G-TUBE SCH ×2 (09:00→21:53)
[2017-02-05] MEDS: levETIRAcetam 500 MG/5 ML UDC G-TUBE SCH ×2 (09:00→21:53)
[2017-02-05] MEDS: LISINOPRIL 5 MG TAB G-TUBE SCH (09:00)
[2017-02-05] MEDS: SODIUM CHLORIDE 0.9% FLUSH 10 ML FLUSH IV FLUSH SCH ×2 (09:00→21:00)
[2017-02-05] MEDS: METOPROLOL TARTRATE 100 MG TAB G-TUBE SCH (09:00)
[2017-02-05] MEDS: VALPROIC ACID SYRUP 250 MG/5 ML UDC G-TUBE SCH ×2 (09:00→21:52)
[2017-02-05] MEDS: FAMOTIDINE 20 MG TAB PO SCH ×2 (09:00→21:55)
--- NOTE | 2017-02-05 14:52 | HHI.CCPN ---
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 ABG on admission showed significant A-a gradient, chest x-ray showed bilateral perihilar infiltrates. Patient was placed on 98% O2 by trach collar. UA showed evidence of UTI. Patient lactic acid was 4, indicating severe sepsis. 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 Patient was placed on vancomycin, Zosyn and ciprofloxacin and ID Dr. Riggs was consulted A Halicat was called around 1100 AM today for worsening hypoxia SaO2 86% on 98% oxygen, hypotension and respiratory distress. Patient was moved to the ICU and [facility] immediately evaluated the patient. She was in impending respiratory failure , O2 Sat low 80s. With myself present at bedside, Respiratory therapist removed the 6.0 cuffless trach and replaced it with 6.0 cuffed trach. Patient was placed on mechanical ventilation with 100% oxygen and PEEP of 10 with immediate improvement oxygen saturation. Repeat chest x-ray shows consolidation of Left upper lobe 02/03 Remains intubated oxygen saturation is improved FiO2 down to 45%. PEEP remains at 12. Sputum culture with Proteus and another GNR. Chest x-ray today is pending at this time. Neuro exam remains unchanged 02/04 Remains on mechanical ventilation, PEEP 8. FIO2 weaned to 50%. . White blood cell count down trending. RN noticed dislodgement of Black this morning. Non bloody. She is voiding, bladder scan showed no e/o obstruction. Replaced black so can get accurate I/O because she is still acutely ill. Subjective: 02/05 Failing CPap trials due to tachypnea. Moderate yellow respiratory secretions. 01/31 sputum culture with Proteus and pseudomonas. Tobramycin nebs initiated per ID for pseudomonas in sputum. Objective Vital Signs Date Time Temp Pulse Resp B/P (MAP) Pulse Ox O2 Delivery O2 Flow Rate FiO2 02/05/17 14:00 74 02/05/17 12:00 99.6 25 161/76 (104) 100 02/05/17 12:00 40 02/02/17 09:59 T-piece 4.00 Intake and Output 02/05/17 02/05/17 02/06/17 08:00 16:00 00:00 Intake Total 641 ml Output Total 400 ml Balance 241 ml Result Diagram: 02/05/17 0456 02/05/17 0337 Other Results Microbiology Date/Time Source Procedure Growth Status 02/02/17 18:00 Urine Catheterized Urine Urine Culture - Final NO GROWTH IN 48 HOURS. Complete Imaging CXR -Ronny infiltrate, predominantly BOB infiltrate Objective Remarks General: Patient remains on the vent via trach. Head and Neck exam: Head is normocephalic Eyes: R pupil 5mm and sluggishly reactive. L eye with pterygium and L corneal opacity. Neck: No nuchal rigidity. No thyromegaly. 6.0 Cuffed trach is in place. Cardiovascular: rrr without murmurs, gallops, or rubs. Lungs: Coarse bilateral breath sounds with moderate thick yellow respiratory secretions. Air entry equal bilaterally. On mechanical ventilation via trach. GI: Abdomen soft nontender. No guarding, rebound, or rigidity. Normal bowel sounds are audible. PEG tube in place. : Voiding. Extremities: Contracted extremities. Anasarca present with 1+ edema of all extremities. Neurologic Exam: Patient is unresponsive at the baseline, right pupil is 5 mm and sluggisly reactive left corneal opacity limits exam. + Horizontal nystagmus. Some eye opening, does not appear to track. The patient has contractures of her extremities, particularly bilateral upper. To central noxious stimuli she moves bilateral upper extremities and slight movement of toes. A/P Assessment and Plan NEURO: Past TBI with persistent vegetative state Seizure disorder -Will resume propofol as needed for vent synchrony, doesn't appear to require. - Continue amantadine 150 twice a day, Tegretol 500 twice a day, Keppra 1500 twice a day , Depakote 500 twice a day, baclofen 20 mg 3 times a day RESP: Acute hypoxemic respiratory failure Healthcare associated pneumonia Chronic trach - Trach changed to a 6.0 cuffed and patient placed on ACV 20/550/8 FiO2 40%. Daily spontaneous breathing trial. - DuoNeb scheduled q6 hours and when necessary - Continue antibiotics per ID as per below -Diurese as per below when potassium improved. - Proteus, pseudomonas growing in sputum CV: Lactic acidosis (resolved) Hypotension (resolved) -Now hypertensive. Discontinue IV fluids. Metoprolol 100 mg q12 hours, hold parameters ordered. Lisinopril 5 mg daily. Labetalol/ hydralazine as needed for systolic blood pressure greater than 160 GI: - Nothing by mouth except meds. Pepcid -Jevity 1.5 at goal rate of 50 L per hour., bowel regimen, having BM. : Hypokalemia Replacing potassium with 80 mEq IV and 25 per tube. Repeat potassium at 1400 and initiate diuresis if potassium improved. - Monitor renal function. ID: Severe sepsis Healthcare associated pneumonia UTI - Continue Zosyn. Tobramycin nebs started 02/05 by infectious disease - Sputum culture with Proteus, pseudomonas, fluoroquinolone resistant -Urine culture 02/02 no growth to date. Blood cultures 01/31 negative HEME: - Monitor CBC, CMP, coags ENDO: - Electrolyte replacement per protocol PROPH: - Bilateral lower extremity SCDs, Lovenox 40 g subcutaneous daily for DVT prophylaxis. Pepcid 20 twice a day for stress ulcer prophylaxis. LINES: Utilize peripheral IVs Level III Lashell Malcolm MD Feb 05, 2017 14:52
[2017-02-05] MEDS ORDERED: hydrALAZINE HCL 20 MG/ML VIAL IV PUSH PRN (15:15)
[2017-02-05] MEDS ORDERED: LABETALOL HCL 100 MG/20 ML VIAL IV PUSH PRN (15:15)
[2017-02-05] MEDS: PROPOFOL 1000 MG/100 ML INJ 100 ML IV SCH (15:33)
[2017-02-05] MEDS: RESP: TOBRAMYCIN SULFATE 80 MG/2 ML NEB NEB SCH (19:40)
[2017-02-05] MEDS ORDERED: POTASSIUM CHLORIDE 25 MEQ EFFERVESCENT TAB PEG ONE (21:00)
[2017-02-05] MEDS ORDERED: FUROSEMIDE 40 MG/4 ML VIAL IV PUSH ONE (21:00)
[2017-02-05] MEDS: METOPROLOL TARTRATE 100 MG TAB PEG SCH (21:55)
[2017-02-06] VITALS (18 sets, daily range): BP systolic 120–165; BP diastolic 60–95; PULSE 71–89; RESP 20; TEMP 98.3–99.7; O2SAT 95–99
[2017-02-06] MEDS: RESP: ALBUTEROL 2.5 MG/IPRATROPIUM 0.5 MG NEB (SCH) NEB ×3 (02:48→15:24)
[2017-02-06] MEDS: PROPOFOL 1000 MG/100 ML INJ 100 ML IV SCH ×2 (05:39→15:12)
[2017-02-06] MEDS: guaiFENesin SOLUTION 200 MG/10 ML CUP PO SCH ×2 (05:42→13:20)
[2017-02-06] MEDS: ENOXAPARIN SODIUM 40 MG/0.4 ML SYRINGE SQ SCH (05:42)
[2017-02-06 05:44] LABS: AUTOMATED NEUTROPHIL # 16.7 TH/MM3 (1.8-7.7); BASOPHIL % 0.2 % (0.0-2.0); EOSINOPHIL % 0.1 % (0.0-4.0); HEMATOCRIT 34.9 % (35.0-46.0); LYMPH % 6.7 % (9.0-44.0); LYMPHOCYTE # 1.4 TH/MM3 (1.0-4.8); MEAN CELL VOLUME 89.7 FL (80.0-100.0); MEAN CORPUSCULAR HEMOGLOBIN 30.3 PG (27.0-34.0); MEAN CORPUSCULAR HGB CONC 33.7 % (32.0-36.0); PLATELET COUNT 234 TH/MM3 (150-450); RED BLOOD COUNT 3.89 MIL/MM3 (4.00-5.30); RED CELL DISTRIBUTION WIDTH 14.3 % (11.6-17.2); WHITE BLOOD COUNT 20.6 TH/MM3 (4.0-11.0)
[2017-02-06 05:49] LABS: HEMO FLAGS AUTO DIFF
[2017-02-06 06:10] LABS: BICARBONATE 25.2 MEQ/L (21.0-32.0); POTASSIUM 3.4 MEQ/L (3.5-5.1)
[2017-02-06 06:46] LABS: BANDS 6 % (0-6); CORRECTED NUCLEATED RBC 1 /100 WBC (0-0); METAMYELOCYTES 1 % (0-1); MYELOCYTES 1 % (0-0); NEUTROPHIL # MANUAL DIFF 16.9 TH/MM3 (1.8-7.7); POLYS (SEG NEUTROPHILS) 74 % (16-70); WBC DIFF SAMPLE 100
[2017-02-06 06:47] LABS: OVALOCYTES 1+ (NORMAL); PLATELET ESTIMATE SMEAR NORMAL (NORMAL); PLATELET MORPHOLOGY NORMAL (NORMAL); SCAN/DIFF FINAL DIFF MANUAL
[2017-02-06] MEDS: RESP: TOBRAMYCIN SULFATE 80 MG/2 ML NEB NEB SCH ×2 (07:29→19:46)
[2017-02-06] MEDS: CHLORHEXIDINE 0.12% (ORAL KIT) 15 ML CUP MT SCH ×2 (08:00→20:00)
[2017-02-06] MEDS: SODIUM CHLORIDE 0.9% FLUSH 10 ML FLUSH IV FLUSH SCH (09:00)
[2017-02-06] MEDS: BISACODYL EC 5 MG TABEC PO SCH (09:00)
[2017-02-06] MEDS: LISINOPRIL 5 MG TAB G-TUBE SCH (09:00)
[2017-02-06] MEDS: AMANTADINE HCL SOLN 100 MG/10 ML UDC G-TUBE SCH (09:28)
[2017-02-06] MEDS: LACTOBACILLUS ACIDOPHILUS 1 GM PACKET PO SCH ×3 (09:28→17:12)
[2017-02-06] MEDS: levETIRAcetam 500 MG/5 ML UDC G-TUBE SCH ×2 (09:29→21:00)
[2017-02-06] MEDS: carBAMazepine SUSP 200 MG/10 ML UDC G-TUBE SCH (09:30)
[2017-02-06] MEDS: VALPROIC ACID SYRUP 250 MG/5 ML UDC G-TUBE SCH (09:30)
[2017-02-06] MEDS: BACLOFEN 20 MG TAB PEG SCH ×3 (09:31→17:12)
[2017-02-06] MEDS: FAMOTIDINE 20 MG TAB PO SCH (09:33)
[2017-02-06] MEDS: METOPROLOL TARTRATE 100 MG TAB PEG SCH (09:34)
--- NOTE | 2017-02-06 11:55 | HHI.IDPN ---
Note Infectious Disease Note Patient on the vent. failed CPAP. Has some trach secretions on and off. Baseline non verbal. No distress. Awake, tracking with r. eye. Afebrile. WBC increased to 20K PAST MEDICAL HISTORY 1. Traumatic brain injury. 2. Hypertension. 3. Hyperlipidemia. 4. History of seizure disorder. 5. Tracheostomy. Chronic. 6. PEG. ALLERGIES NO KNOWN DRUG ALLERGIES. MEDICATIONS 1. piperacillin / tazobactam. 2. Tobra nebs. OBJECTIVE: Vital Signs Date Time Temp Pulse Resp B/P (MAP) Pulse Ox O2 Delivery O2 Flow Rate FiO2 02/06/17 10:57 98 40 02/06/17 10:00 80 02/06/17 09:30 45 02/06/17 09:25 40 02/06/17 08:00 99.7 77 20 160/77 (104) 95 02/06/17 08:00 77 02/06/17 08:00 40 02/06/17 07:31 96 40 02/06/17 04:00 89 02/06/17 04:00 40 02/06/17 03:25 97 40 02/06/17 02:00 85 02/06/17 00:22 97 40 02/06/17 00:00 99.0 85 20 121/60 (80) 96 02/06/17 00:00 85 02/06/17 00:00 40 02/05/17 22:00 99 02/05/17 22:00 40 02/05/17 20:00 99.4 99 20 152/79 (103) 96 02/05/17 20:00 99 02/05/17 19:40 97 40 02/05/17 18:00 97 02/05/17 16:00 83 02/05/17 16:00 99.7 83 26 176/85 (115) 96 02/05/17 16:00 40 02/05/17 15:02 99 40 02/05/17 14:00 74 02/05/17 12:00 99.6 80 25 161/76 (104) 100 02/05/17 12:00 80 02/05/17 12:00 40 Laboratory Tests Test 02/05/17 04:56 02/06/17 05:20 White Blood Count 11.6 TH/MM3 20.6 TH/MM3 Red Blood Count 3.70 MIL/MM3 3.89 MIL/MM3 Hemoglobin 10.9 GM/DL 11.8 GM/DL Hematocrit 33.4 % 34.9 % Mean Corpuscular Volume 90.3 FL 89.7 FL Mean Corpuscular Hemoglobin 29.6 PG 30.3 PG Mean Corpuscular Hemoglobin Concent 32.8 % 33.7 % Red Cell Distribution Width 14.6 % 14.3 % Platelet Count 186 TH/MM3 234 TH/MM3 Mean Platelet Volume 9.9 FL 9.8 FL Neutrophils (%) (Auto) 76.2 % 81.0 % Lymphocytes (%) (Auto) 12.2 % 6.7 % Monocytes (%) (Auto) 10.8 % 12.0 % Eosinophils (%) (Auto) 0.5 % 0.1 % Basophils (%) (Auto) 0.3 % 0.2 % Neutrophils # (Auto) 8.9 TH/MM3 16.7 TH/MM3 Lymphocytes # (Auto) 1.4 TH/MM3 1.4 TH/MM3 Monocytes # (Auto) 1.3 TH/MM3 2.5 TH/MM3 Eosinophils # (Auto) 0.1 TH/MM3 0.0 TH/MM3 Basophils # (Auto) 0.0 TH/MM3 0.0 TH/MM3 CBC Comment DIFF FINAL AUTO DIFF Differential Comment FINAL DIFF MANUAL Differential Total Cells Counted 100 Neutrophils % (Manual) 74 % Band Neutrophils % 6 % Lymphocytes % 6 % Monocytes % 12 % Neutrophils # (Manual) 16.9 TH/MM3 Metamyelocytes 1 % Myelocytes 1 % Nucleated Red Blood Cells 1 /100 WBC Platelet Estimate NORMAL Platelet Morphology Comment NORMAL Ovalocytes 1+ Laboratory Tests Test 02/04/17 16:29 02/05/17 03:37 02/05/17 15:41 02/06/17 05:20 Total Bilirubin 0.4 MG/DL Direct Bilirubin 0.1 MG/DL Indirect Bilirubin 0.3 MG/DL Aspartate Amino Transf (AST/SGOT) 52 U/L Alanine Aminotransferase (ALT/SGPT) 35 U/L Alkaline Phosphatase 86 U/L Total Protein 6.3 GM/DL Albumin 1.6 GM/DL Blood Urea Nitrogen 7 MG/DL 7 MG/DL Creatinine 0.42 MG/DL 0.47 MG/DL Random Glucose 78 MG/DL 123 MG/DL Calcium Level 9.2 MG/DL 9.7 MG/DL Sodium Level 143 MEQ/L 139 MEQ/L Potassium Level 2.7 MEQ/L 3.9 MEQ/L 3.4 MEQ/L Chloride Level 108 MEQ/L 103 MEQ/L Carbon Dioxide Level 22.2 MEQ/L 25.2 MEQ/L Anion Gap 13 MEQ/L 11 MEQ/L Estimat Glomerular Filtration Rate 164 ML/MIN 144 ML/MIN Microbiology Date/Time Procedure Status Source Growth 01/31/17 22:30 Aerobic Blood Culture - Preliminary Resulted Blood Peripheral NO GROWTH IN 3 DAYS 01/31/17 22:30 Anaerobic Blood Culture - Preliminary Resulted Blood Peripheral NO GROWTH IN 3 DAYS 01/31/17 22:55 Aerobic Blood Culture - Preliminary Resulted Blood Peripheral NO GROWTH IN 3 DAYS 01/31/17 22:55 Anaerobic Blood Culture - Preliminary Resulted Blood Peripheral NO GROWTH IN 3 DAYS 01/31/17 23:30 Urine Culture - Final Complete Urine Random Urine 01/31/17 23:55 Gram Stain - Final Resulted Sputum Oral Tracheal Aspirate 01/31/17 23:55 Sputum Culture - Preliminary Resulted Proteus Mirabilis Gram Negative Christopher 02/02/17 18:00 Urine Culture Received Urine Catheterized Urine Pending PHYSICAL EXAMINATION GENERAL: On the vent. HEENT: The sclerae is nonicteric. Oropharynx mucosa is moist. LUNGS: Rhonchi at the r. base. HEART: Regular S1-S2. No audible murmurs. ABDOMEN: Bowel sounds present, soft, nontender. EXTREMITIES: No clubbing or cyanosis. Trace edema. NEUROLOGIC: Difficult to assess because of the patient's persistent vegetative state. Alert. PSYCHIATRIC: Unable to assess because of the patient's persistent vegetative non verbal state. IMPRESSION 1. Sepsis arising from pulmonary or renal system. 2. Pneumonia. HCAP - pseudomonas, proteus. 3. Leukocytosis secondary to sepsis. WBC increased. ? infection. 5. Acute respiratory failure. On ventilator. RECOMMENDATIONS 1. Continue piperacillin / Tazobactam. 2. Continue Tobra nebs. 3. Repeat sputum culture. 4. Repeat CXR. 5. Follow WBC and clinical status. D/W RN. Phani Riggs MD Feb 06, 2017 11:55
[2017-02-06] MEDS: PIPERACIL-TAZO 4.5 GM PREMIX 100 ML IV SCH ×3 (12:08→17:12)
[2017-02-06] MEDS: ARTIFICIAL TEARS OPTH OINT 3.5 APPLIC/3.5 GM TUBO LEFT EYE SCH (13:21)
--- NOTE | 2017-02-06 14:14 | RADRPT ---
EXAM DATE/TIME: 02/06/2017 12:55 [facility] COMPARISON: CHEST SINGLE AP, February 03, 2017, 14:15. INDICATIONS : Pneumonia. MEDICAL HISTORY : Hypertension. Gastroesophageal reflux disease. SURGICAL HISTORY : Tracheostomy. ENCOUNTER: Subsequent ACUITY: 1 week PAIN SCORE: Non-responsive. LOCATION: Bilateral chest FINDINGS: A single view of the chest demonstrates bilateral airspace disease greater in the upper lobes. Trache ostomy tube unchanged. Heart normal in size. Osseous structures are intact. CONCLUSION: Multilobar pneumonia greater in the upper lobes. Suraj Arroyo MD on February 06, 2017 at 14:12 Board Certified Radiologist. This report was verified electronically.
--- NOTE | 2017-02-06 19:51 | HHI.CCPN ---
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 ABG on admission showed significant A-a gradient, chest x-ray showed bilateral perihilar infiltrates. Patient was placed on 98% O2 by trach collar. UA showed evidence of UTI. Patient lactic acid was 4, indicating severe sepsis. 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 Patient was placed on vancomycin, Zosyn and ciprofloxacin and ID Dr. Riggs was consulted A Halicat was called around 1100 AM today for worsening hypoxia SaO2 86% on 98% oxygen, hypotension and respiratory distress. Patient was moved to the ICU and [facility] immediately evaluated the patient. She was in impending respiratory failure , O2 Sat low 80s. With myself present at bedside, Respiratory therapist removed the 6.0 cuffless trach and replaced it with 6.0 cuffed trach. Patient was placed on mechanical ventilation with 100% oxygen and PEEP of 10 with immediate improvement oxygen saturation. Repeat chest x-ray shows consolidation of Left upper lobe 02/03 Remains intubated oxygen saturation is improved FiO2 down to 45%. PEEP remains at 12. Sputum culture with Proteus and another GNR. Chest x-ray today is pending at this time. Neuro exam remains unchanged 02/04 Remains on mechanical ventilation, PEEP 8. FIO2 weaned to 50%. . White blood cell count down trending. RN noticed dislodgement of Black this morning. Non bloody. She is voiding, bladder scan showed no e/o obstruction. Replaced black so can get accurate I/O because she is still acutely ill. 02/05 Failing CPap trials due to tachypnea. Moderate yellow respiratory secretions. 01/31 sputum culture with Proteus and pseudomonas. Tobramycin nebs initiated per ID for pseudomonas in sputum. Subjective: 02/06 CPAP trials terminated by RT due to apnea. Still significant respiratory secretions. WBC 20. Temp max 99.7 Vomited last night but now tolerating tube feed advancement. Last BM 02/03. Leaking around black, Black replaced. Objective Vital Signs Date Time Temp Pulse Resp B/P (MAP) Pulse Ox O2 Delivery O2 Flow Rate FiO2 02/06/17 19:47 99 45 02/06/17 18:00 75 02/06/17 16:00 98.3 20 155/89 (111) 02/02/17 09:59 T-piece 4.00 Intake and Output 02/06/17 02/06/17 02/06/17 07:59 15:59 23:59 Intake Total 534 ml 200 ml 493 ml Output Total 1900 ml 380 ml Balance -1366 ml 200 ml 113 ml Result Diagram: 02/06/1751902/06/17519 Imaging CXR -Ronny infiltrate, predominantly BOB infiltrate Objective Remarks Drips: Propofol General: Patient remains on the vent via trach. Head and Neck exam: Head is normocephalic Eyes: R pupil 5mm and sluggishly reactive. L eye with pterygium and L corneal opacity. Neck: No nuchal rigidity. No thyromegaly. 6.0 Cuffed trach is in place. Cardiovascular: rrr without murmurs, gallops, or rubs. Lungs: Coarse bilateral breath sounds with moderate thick yellow respiratory secretions. Air entry equal bilaterally. On mechanical ventilation via trach. GI: Abdomen distended, nontympanitic. Unable to appreciate tenderness/guarding. Bowel sounds present. PEG tube in place. : Black in place with yellow urine output. Extremities: Contracted extremities. Anasarca present with 1+ edema of all extremities. Neurologic Exam: Patient is unresponsive at the baseline, right pupil is 5 mm and sluggisly reactive left corneal opacity limits exam. + Horizontal nystagmus. Some eye opening, does not appear to track. The patient has contractures of her extremities, particularly bilateral upper. To central noxious stimuli she moves bilateral upper extremities and slight movement of toes. A/P Assessment and Plan NEURO: Past TBI with persistent vegetative state Seizure disorder -Propofol as needed for vent synchrony. - Continue amantadine 150 twice a day, Tegretol 500 twice a day, Keppra 1500 twice a day , Depakote 500 twice a day, baclofen 20 mg 3 times a day RESP: Acute hypoxemic respiratory failure Healthcare associated pneumonia Chronic trach - Trach changed to a 6.0 cuffed and patient placed on ACV 20/550/8 FiO2 40%. Daily spontaneous breathing trial. - DuoNeb scheduled q6 hours and when necessary - Continue antibiotics per ID as per below -Diurese as per below - Proteus, pseudomonas growing in sputum, abx as per below CV: Lactic acidosis (resolved) Hypotension (resolved) HTN -IVF are on KVO. Metoprolol 100 mg q12 hours, hold parameters ordered. Lisinopril 5 mg daily. Labetalol/ hydralazine as needed for systolic blood pressure greater than 160 GI: Vomiting - Nothing by mouth except meds. Pepcid -Jevity 1.5 at goal rate of 50 L per hour, per nutrition recs. -Check KUB, lipase, lfts. -Reglan 10 mg IV q8 hours. -Bowel regimen with colace bid, senna daily, lactulose 30 mL x1 now. FEN/RENAL: Hypokalemia (improved) Volume overload - Monitor renal function. -Lasix 40 mg IV q12 hours x 3 doses. KCL 25 per tube bid x3 doses -Monitor BMP ID: Severe sepsis Healthcare associated pneumonia (sputum culture 01/31 with proteus, pseudomonas) - Continue Zosyn 02/01 #6. Tobramycin nebs started 02/05 #2 by infectious disease - Sputum culture with Proteus, pseudomonas, fluoroquinolone resistant -Urine culture 02/02 no growth to date. Blood cultures 01/31 negative -Black replaced 02/06 HEME: - Monitor CBC, CMP, coags ENDO: - Electrolyte replacement per protocol PROPH: - Bilateral lower extremity SCDs, Lovenox 40 g subcutaneous daily for DVT prophylaxis. Pepcid 20 twice a day for stress ulcer prophylaxis. LINES: Utilize peripheral IVs Patient does not have an advanced directive. Patient's mother, Ivis Finley, has been making medical decisions on her behalf. Goals of care have been aggressive. I am informed that patient's son is now 19 years old which would mean he would be next of kin for legal decisions if he chooses to participate in that role. I have no contact information for him. I called patient's mother who states that she does not have information for him either she states that his name is Balbir Villeda and he is 19 years old. She is not sure where he is living. Will ask case management to assist in locating. Full code Discussed with bedside RN and RT Level III Lashell Malcolm MD Feb 06, 2017 19:51
[2017-02-06] MEDS: SENNOSIDES SYRUP 8.8 MG/5 ML CUP PEG SCH (20:00)
[2017-02-06] MEDS ORDERED: LACTULOSE SYRUP 20 GM/30 ML CUP PEG ONE (20:30)
--- NOTE | 2017-02-06 21:00 | RADRPT ---
EXAM DATE/TIME: 02/06/2017 20:12 [facility] COMPARISON: ABDOMEN KUB ONLY, November 05, 2013, 12:37. INDICATIONS : Distention. Possible ileus. MEDICAL HISTORY : Hypertension. Gastroesophageal reflux disease. SURGICAL HISTORY : Tracheostomy. G-tube. ENCOUNTER: Subsequent ACUITY: 1 week PAIN SCORE: Non-responsive. LOCATION: abdomen. FINDINGS: Supine view of the abdomen was performed. The abdominal bowel gas pattern is nonspecific with air fi lled loops of both small and large intestine. Significant amount stool seen in the proximal colon. No abnormal masses, calcifications, or organomegaly is seen. The osseous structures are unremarkable. CONCLUSION: Significant stool in the proximal colon with mild small bowel distention. Paul Oliver MD on February 06, 2017 at 20:54 Board Certified Radiologist. This report was verified electronically.
[2017-02-06 21:11] LABS: INDIRECT BILIRUBIN 0.2 MG/DL (0.0-0.8); TOTAL BILIRUBIN ADULT 0.3 MG/DL (0.2-1.0)
[2017-02-07] VITALS (39 sets, daily range): BP systolic 71–178; BP diastolic 47–98; PULSE 58–126; RESP 19–59; TEMP 98.1–99.2; O2SAT 92–100
[2017-02-07] MEDS: guaiFENesin SOLUTION 200 MG/10 ML CUP PO SCH ×3 (00:22→14:00)
[2017-02-07] MEDS: carBAMazepine SUSP 200 MG/10 ML UDC G-TUBE SCH ×2 (00:22→11:06)
[2017-02-07] MEDS: METOCLOPRAMIDE HCL 10 MG/2 ML VIAL IV PUSH SCH ×4 (00:23→21:12)
[2017-02-07] MEDS: DOCUSATE SODIUM 100 MG/10 ML UDC PEG SCH ×2 (00:23→08:53)
[2017-02-07] MEDS: VALPROIC ACID SYRUP 250 MG/5 ML UDC G-TUBE SCH ×2 (00:23→08:52)
[2017-02-07] MEDS: AMANTADINE HCL SOLN 100 MG/10 ML UDC G-TUBE SCH ×2 (00:24→08:51)
[2017-02-07] MEDS: METOPROLOL TARTRATE 100 MG TAB PEG SCH ×2 (00:24→11:07)
[2017-02-07] MEDS: ARTIFICIAL TEARS OPTH OINT 3.5 APPLIC/3.5 GM TUBO LEFT EYE SCH ×4 (00:24→20:02)
[2017-02-07] MEDS: SODIUM CHLORIDE 0.9% FLUSH 10 ML FLUSH IV FLUSH SCH ×3 (00:24→20:02)
[2017-02-07] MEDS: FUROSEMIDE 40 MG/4 ML VIAL IV PUSH SCH ×2 (00:25→08:53)
[2017-02-07] MEDS: PIPERACIL-TAZO 4.5 GM PREMIX 100 ML IV SCH ×3 (00:26→12:00)
[2017-02-07] MEDS: BISACODYL EC 5 MG TABEC PO SCH ×2 (00:29→08:53)
[2017-02-07] MEDS: FAMOTIDINE 20 MG TAB PO SCH ×2 (00:29→08:52)
[2017-02-07] MEDS: POTASSIUM CHLORIDE 25 MEQ EFFERVESCENT TAB NG SCH ×2 (00:31→08:53)
[2017-02-07] MEDS: RESP: ALBUTEROL 2.5 MG/IPRATROPIUM 0.5 MG NEB (SCH) NEB ×4 (03:38→20:09)
[2017-02-07] MEDS: PROPOFOL 1000 MG/100 ML INJ 100 ML IV SCH ×4 (06:09→21:43)
[2017-02-07 07:05] LABS: BICARBONATE 26.4 MEQ/L (21.0-32.0); POTASSIUM 3.5 MEQ/L (3.5-5.1)
[2017-02-07] MEDS: ENOXAPARIN SODIUM 40 MG/0.4 ML SYRINGE SQ SCH (07:13)
[2017-02-07] MEDS: RESP: TOBRAMYCIN SULFATE 80 MG/2 ML NEB NEB SCH ×2 (07:57→20:09)
[2017-02-07] MEDS: levETIRAcetam 500 MG/5 ML UDC G-TUBE SCH (08:52)
[2017-02-07] MEDS: LACTOBACILLUS ACIDOPHILUS 1 GM PACKET PO SCH ×3 (08:53→18:00)
[2017-02-07] MEDS: BACLOFEN 20 MG TAB PEG SCH ×2 (08:53→13:00)
[2017-02-07] MEDS: CHLORHEXIDINE 0.12% (ORAL KIT) 15 ML CUP MT SCH ×2 (08:54→20:02)
[2017-02-07] MEDS: SENNOSIDES SYRUP 8.8 MG/5 ML CUP PEG SCH ×2 (08:54→21:10)
[2017-02-07] MEDS ORDERED: RESP: ALBUTEROL 2.5 MG/3 ML NEB (PRN) NEB (09:30)
[2017-02-07] MEDS ORDERED: GLYCERIN ADULT 2 GM SUPP RECTAL PRN (09:45)
[2017-02-07] MEDS ORDERED: hydrALAZINE HCL 20 MG/ML VIAL IV PUSH PRN (09:45)
[2017-02-07] MEDS ORDERED: LABETALOL HCL 100 MG/20 ML VIAL IV PUSH PRN (09:45)
--- NOTE | 2017-02-07 09:58 | HHI.CCPN ---
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 ABG on admission showed significant A-a gradient, chest x-ray showed bilateral perihilar infiltrates. Patient was placed on 98% O2 by trach collar. UA showed evidence of UTI. Patient lactic acid was 4, indicating severe sepsis. Patient was admitted to hospitalist service to [facility] today rail splitter for acute hypoxemic respiratory failure, severe sepsis due to healthcare associated pneumonia and UTI. Patient was placed on vancomycin, Zosyn and ciprofloxacin and ID Dr. Riggs was consulted A Halicat was called around 1100 AM today for worsening hypoxia SaO2 86% on 98% oxygen, hypotension and respiratory distress. Patient was moved to the ICU and [facility] immediately evaluated the patient. She was in impending respiratory failure , O2 Sat low 80s. With myself present at bedside, Respiratory therapist removed the 6.0 cuffless trach and replaced it with 6.0 cuffed trach. Patient was placed on mechanical ventilation with 100% oxygen and PEEP of 10 with immediate improvement oxygen saturation. Repeat chest x-ray shows consolidation of Left upper lobe 02/03 Remains intubated oxygen saturation is improved FiO2 down to 45%. PEEP remains at 12. Sputum culture with Proteus and another GNR. Chest x-ray today is pending at this time. Neuro exam remains unchanged 02/04 Remains on mechanical ventilation, PEEP 8. FIO2 weaned to 50%. . White blood cell count down trending. RN noticed dislodgement of Black this morning. Non bloody. She is voiding, bladder scan showed no e/o obstruction. Replaced black so can get accurate I/O because she is still acutely ill. 02/05 Failing CPap trials due to tachypnea. Moderate yellow respiratory secretions. 01/31 sputum culture with Proteus and pseudomonas. Tobramycin nebs initiated per ID for pseudomonas in sputum. 02/06 CPAP trials terminated by RT due to apnea. Still significant respiratory secretions. WBC 20. Temp max 99.7. Vomited last night but now tolerating tube feed advancement. Last BM 02/03. Leaking around black, Black replaced. Subjective: 02/07: Tmax 99.7. Currently afebrile. Not tolerating PSV trials due to apnea chronic RT. Will reattempt today. CBC pending this AM. Tube feeds currently at 30 cc an hour. Goal 50 cc an hour. AXR yesterday revealed small/large bowel dilatation with stool proximal colon. See orders for multiple medications provided today. Objective Vital Signs Date Time Temp Pulse Resp B/P (MAP) Pulse Ox O2 Delivery O2 Flow Rate FiO2 02/07/17 07:59 95 45 02/07/17 06:00 83 02/07/17 04:00 98.7 20 109/61 (77) Intake and Output 02/07/17 02/07/17 02/08/17 08:00 16:00 00:00 Intake Total 779 ml Output Total 1400 ml Balance -621 ml Result Diagram: 02/06/17 0520 02/07/17 0626 Other Results Microbiology Date/Time Source Procedure Growth Status 01/31/17 22:55 Blood Peripheral Aerobic Blood Culture - Final NO GROWTH IN 5 DAYS Complete 01/31/17 22:55 Blood Peripheral Anaerobic Blood Culture - Final NO GROWTH IN 5 DAYS Complete 02/06/17 13:00 Sputum Endotracheal Gram Stain Pending Received 02/06/17 13:00 Sputum Endotracheal Sputum Culture Pending Received 02/02/17 18:00 Urine Catheterized Urine Urine Culture - Final NO GROWTH IN 48 HOURS. Complete Imaging Last Impressions Chest X-Ray 02/03/17 0000 Signed Impressions: Service Date/Time: Friday, February 03, 2017 14:15 - CONCLUSION: 1. Increased consolidation of the right lung base. 2. No significant change in the hazy alveolar opacity in the left upper lobe and left perihilar region. Ant Lindsey MD Objective Remarks General: 46-year-old female, resting in bed on ventilator via tracheostomy Head: History TBI. Eyes: R pupil 4mm and reactive. L eye with pterygium and L chronic corneal opacity. Neck: No nuchal rigidity. No thyromegaly or lymphadenopathy. 6.0 Cuffed trach is in place with yellow secretions surrounding. Cardiovascular: RRR. S1, S2 no S4 without murmur Lungs: Coarse breath sounds are appreciated throughout all lung walker anterior- posterior. GI: Abdomen is soft, distended with hypoactive bowel sounds appreciated. No guarding or rigidity. : Black in place with yellow urine output. Extremities: Contracted bilateral upper and lower extremities. Positive anasarca. Neurologic Exam: Patient is unresponsive at the baseline, pupils as above. + Horizontal nystagmus. Moves upper and lower extremities to noxious stimulation. Urinary Catheter: Yes Assessment to: Continue Black insert reason: Prolonged Immobilization A/P Assessment and Plan NEURO/PSYCH: History of TBI as an instant with persistent vegetative state Seizure disorder NOS Currently on propofol 25 mcg/kg per minute for sedation while intubated Acetaminophen 650 mg every 6 hours when necessary as indicated per fever/pain 1- 5 Morphine sulfate 2 mg every 3 hours when necessary pain 6-10 Goal of RASS -2 Daily sedation vacation - Continue amantadine 150 twice a day for stimulation Carbamazepine 500 milligrams by PEG twice a day, levetiracetam 1500 by PEG twice a day , valproic acid 500 milligrams twice a day to be continued. Check levels of all 3 anticonvulsants in AM. Continue baclofen 20 mg 3 times a day for muscle spasticity RESP: Acute on chronic hypoxemic respiratory failure Healthcare associated pneumonia Chronic trach or 6 Shiley - Trach changed to a 6.0 cuffed and patient placed on ACV 20/550/8 FiO2 40%. - Switch to PRVC 16/550/1/5/40 due to high peak pressures - Ventilator bundle - Albuterol/ipratropium aerosols every 6 hours with albuterol aerosols every 2 hours when necessary dyspnea - Daily spontaneous breathing trial. - Follow-up chest x-ray/ABG in a.m. CV: HTN Metoprolol 100 mg by PEG q12 hours, lisinopril 5 mg daily to be continued Labetalol 10 mg IV every 1 hour as needed for systolic blood pressure greater than 60, diastolic blood pressure greater than 90 and heart rate greater than 65 / hydralazine 10 mg IV every 1 hour as needed for systolic blood pressure greater than 160 and diastolic blood pressure greater than 90 GI: Constipation History of ileus KUB 02/05 revealed dilated loops of small bowel along with large bowels large amount of stool in the proximal colon. -Jevity 1.5 at goal rate of 50 L per hour, per nutrition recs. Currently at 30 cc an hour -Metoclopramide 10 mg IV q8 hours. -Bowel regimen with docusate sodium 100 mg by PEG twice a day, senna 8.6 g twice a day, polyethylene glycol 3350 17 g twice a day and lactulose 30 cc 4 times a day and as needed glycerin suppositories - Lansoprazole 30 mg by PEG daily for GI prophylaxis and on ranitidine 150 mg twice a day at nursing facility - Relistor 12 mg subcutaneous 1. Gastrografin enema if no result FEN/RENAL/: Bladder spasms -Monitor BMP, mag and phosphorus daily - Monitor urine output - Accurate I's and O's Belladonna and opiate suppositories daily when necessary bladder spasms.. Black exchange yesterday ID: Healthcare associated pneumonia (sputum culture 01/31 with proteus, pseudomonas) CRAB + History of MRSA - Continue piperacillin/tazobactam 02/01 #7. Tobramycin nebs started 02/05 #3 by infectious disease Pertinent cultures 01/31 - sputum - Proteus/Pseudomonas 01/31- UA - no growth 01/31 - blood cultures 2 - no growth 02/02 - UA - no growth 02/06 - sputum - no growth HEME: Leukocytosis -A.m. CBC pending. Follow trends ENDO: Hypokalemia - Electrolyte replacement per ICU protocol. Get additional 30 mg KCl by PEG now PROPH: GI - lansoprazole - 30 mg by PEG daily DVT - enoxaparin 40 mg subcutaneous daily LINES: Utilize peripheral IVs Level II follow-up Rahul Khan MD Feb 07, 2017 09:58
[2017-02-07] MEDS ORDERED: BELLADONNA ALKALOIDS/OPIUM 60 MG SUPP RECTAL PRN (10:00)
[2017-02-07] MEDS ORDERED: METHYLNALTREXONE BROMIDE 12 MG/0.6 ML VIAL SQ ONE (10:00)
[2017-02-07] MEDS ORDERED: POTASSIUM CHLORIDE 20 MEQ PWD PACKET PEG ONE (10:15)
[2017-02-07 10:21] LABS: MAGNESIUM 2.1 MG/DL (1.5-2.5)
[2017-02-07 10:22] LABS: BETA HCG QUANT LESS THAN 1 MIU/ML (0-5)
[2017-02-07 11:01] LABS: BASOPHIL # 0.1 TH/MM3 (0-0.2); BASOPHIL % 0.5 % (0.0-2.0); EOSINOPHIL # 0.1 TH/MM3 (0-0.4); EOSINOPHIL % 0.5 % (0.0-4.0); HEMATOCRIT 36.9 % (35.0-46.0); MEAN CELL VOLUME 89.9 FL (80.0-100.0); MEAN CORPUSCULAR HEMOGLOBIN 29.5 PG (27.0-34.0); MEAN CORPUSCULAR HGB CONC 32.8 % (32.0-36.0); MONO % 15.3 % (0.0-8.0); NEUT % 71.7 % (16.0-70.0); PLATELET COUNT 362 TH/MM3 (150-450); RED CELL DISTRIBUTION WIDTH 14.7 % (11.6-17.2); WHITE BLOOD COUNT 16.7 TH/MM3 (4.0-11.0)
[2017-02-07 11:05] LABS: HEMO FLAGS AUTO DIFF
[2017-02-07] MEDS: LISINOPRIL 5 MG TAB G-TUBE SCH (11:07)
[2017-02-07 11:51] LABS: BLOOD GAS BASE EXCESS -0.8 mmol/L (-2-2); BLOOD GAS CARBOXYHEMOGLOBIN 1.6 % (0-4); BLOOD GAS HCO3 23 mmol/L (22-26); BLOOD GAS METHEMOGLOBIN 0.9 % (0-2); BLOOD GAS O2 HGB SATURATION 93 % (90-100); BLOOD GAS OXYGEN CONTENT 17.4 Vol % (12.0-20.0); BLOOD GAS PCO2 31 mmHg (38-42); BLOOD GAS PO2 76 mmHg (61-120); BLOOD GAS TOTAL HGB 13.3 G/DL (12.0-16.0); CRITICAL VALUE NO; OXYGEN DEVICE VENTILATOR; TEMP CORR TO 98.6
[2017-02-07 11:52] LABS: BANDS 7 % (0-6); EOSINOPHILS 2 % (0-4); METAMYELOCYTES 3 % (0-1); MYELOCYTES 1 % (0-0); NEUTROPHIL # MANUAL DIFF 11.5 TH/MM3 (1.8-7.7); POLYS (SEG NEUTROPHILS) 58 % (16-70); WBC DIFF SAMPLE 100
[2017-02-07 11:52] LABS: DRAW SITE RT RADIAL; FIO2 40 %
[2017-02-07 11:53] LABS: PLATELET ESTIMATE SMEAR NORMAL (NORMAL); PLATELET MORPHOLOGY NORMAL (NORMAL); SCAN/DIFF FINAL DIFF MANUAL
[2017-02-07 11:53] LABS: NUMBER OF ARTERIAL PUNCTURES 1; STAT NO; ULNAR PULSE PRESENT
[2017-02-07] MEDS ORDERED: SODIUM CHLOR 0.9% 250 ML INJ 250 ML IV ONE (12:00)
[2017-02-07] MEDS ORDERED: LACTULOSE SYRUP 20 GM/30 ML CUP PEG SCH (13:00)
--- NOTE | 2017-02-07 13:21 | HHI.IDPN ---
Note Infectious Disease Note Patient on the vent. Baseline non verbal. Awake, not tracking today. Afebrile. Going for gastrografin enema. Abdomen markedly distended. Sputum culture pending. PAST MEDICAL HISTORY 1. Traumatic brain injury. 2. Hypertension. 3. Hyperlipidemia. 4. History of seizure disorder. 5. Tracheostomy. Chronic. 6. PEG. ALLERGIES NO KNOWN DRUG ALLERGIES. MEDICATIONS 1. piperacillin / tazobactam. 2. Tobramycin nebs. OBJECTIVE: Vital Signs Date Time Temp Pulse Resp B/P (MAP) Pulse Ox O2 Delivery O2 Flow Rate FiO2 02/07/17 12:26 94 40 02/07/17 07:59 95 45 02/07/17 06:00 83 02/07/17 04:05 99 45 02/07/17 04:00 45 02/07/17 04:00 98.7 86 20 109/61 (77) 97 02/07/17 04:00 86 02/07/17 02:00 72 02/07/17 00:00 98.3 78 20 114/62 (79) 98 02/07/17 00:00 45 02/07/17 00:00 78 02/06/17 23:35 97 45 02/06/17 22:00 74 02/06/17 20:00 45 02/06/17 20:00 80 02/06/17 20:00 98.5 81 20 120/77 (91) 99 02/06/17 19:47 99 45 02/06/17 18:00 75 02/06/17 16:00 80 02/06/17 16:00 98.3 80 20 155/89 (111) 96 02/06/17 16:00 45 02/06/17 15:24 96 45 02/06/17 14:00 71 Laboratory Tests Test 02/06/17 05:20 02/07/17 09:46 White Blood Count 20.6 TH/MM3 16.7 TH/MM3 Red Blood Count 3.89 MIL/MM3 4.10 MIL/MM3 Hemoglobin 11.8 GM/DL 12.1 GM/DL Hematocrit 34.9 % 36.9 % Mean Corpuscular Volume 89.7 FL 89.9 FL Mean Corpuscular Hemoglobin 30.3 PG 29.5 PG Mean Corpuscular Hemoglobin Concent 33.7 % 32.8 % Red Cell Distribution Width 14.3 % 14.7 % Platelet Count 234 TH/MM3 362 TH/MM3 Mean Platelet Volume 9.8 FL 9.3 FL Neutrophils (%) (Auto) 81.0 % 71.7 % Lymphocytes (%) (Auto) 6.7 % 12.0 % Monocytes (%) (Auto) 12.0 % 15.3 % Eosinophils (%) (Auto) 0.1 % 0.5 % Basophils (%) (Auto) 0.2 % 0.5 % Neutrophils # (Auto) 16.7 TH/MM3 12.0 TH/MM3 Lymphocytes # (Auto) 1.4 TH/MM3 2.0 TH/MM3 Monocytes # (Auto) 2.5 TH/MM3 2.6 TH/MM3 Eosinophils # (Auto) 0.0 TH/MM3 0.1 TH/MM3 Basophils # (Auto) 0.0 TH/MM3 0.1 TH/MM3 CBC Comment AUTO DIFF AUTO DIFF Differential Total Cells Counted 100 100 Neutrophils % (Manual) 74 % 58 % Band Neutrophils % 6 % 7 % Lymphocytes % 6 % 12 % Monocytes % 12 % 17 % Neutrophils # (Manual) 16.9 TH/MM3 11.5 TH/MM3 Metamyelocytes 1 % 3 % Myelocytes 1 % 1 % Nucleated Red Blood Cells 1 /100 WBC Differential Comment FINAL DIFF MANUAL FINAL DIFF MANUAL Platelet Estimate NORMAL NORMAL Platelet Morphology Comment NORMAL NORMAL Ovalocytes 1+ Eosinophils % 2 % Red Cell Morphology Comment NORMAL Laboratory Tests Test 02/05/17 15:41 02/06/17 05:20 02/06/17 20:29 02/07/17 06:26 Potassium Level 3.9 MEQ/L 3.4 MEQ/L 3.5 MEQ/L Blood Urea Nitrogen 7 MG/DL 11 MG/DL Creatinine 0.47 MG/DL 0.54 MG/DL Random Glucose 123 MG/DL 115 MG/DL Calcium Level 9.7 MG/DL 9.2 MG/DL Sodium Level 139 MEQ/L 138 MEQ/L Chloride Level 103 MEQ/L 100 MEQ/L Carbon Dioxide Level 25.2 MEQ/L 26.4 MEQ/L Anion Gap 11 MEQ/L 12 MEQ/L Estimat Glomerular Filtration Rate 144 ML/MIN 123 ML/MIN Total Bilirubin 0.3 MG/DL Direct Bilirubin 0.1 MG/DL Indirect Bilirubin 0.2 MG/DL Aspartate Amino Transf (AST/SGOT) 25 U/L Alanine Aminotransferase (ALT/SGPT) 43 U/L Alkaline Phosphatase 121 U/L Total Protein 6.6 GM/DL Albumin 1.6 GM/DL Lipase 46 U/L Phosphorus Level 3.3 MG/DL Magnesium Level 2.1 MG/DL Human Chorionic Gonadotropin, Quant LESS THAN 1 MIU/ML Microbiology Date/Time Source Procedure Growth Status 02/06/17 13:00 Sputum Endotracheal Gram Stain - Final Resulted 02/06/17 13:00 Sputum Endotracheal Sputum Culture Pending Resulted PHYSICAL EXAMINATION GENERAL: On the vent. HEENT: The sclerae is nonicteric. Oropharynx mucosa is moist. LUNGS: Rhonchi at the r. base. HEART: Regular S1-S2. No audible murmurs. ABDOMEN: Bowel sounds not audible. Markedly distended and firm. EXTREMITIES: No clubbing or cyanosis. Trace edema. SKIN: Lacy geographic pattern on legs. Moist, warm. NEUROLOGIC: Difficult to assess because of the patient's persistent vegetative state. Alert. PSYCHIATRIC: Unable to assess because of the patient's persistent vegetative non verbal state. IMPRESSION 1. Sepsis. 2. Pneumonia. HCAP - pseudomonas, proteus. 3. Leukocytosis secondary to sepsis. WBC increased. 5. Acute respiratory failure. On ventilator. RECOMMENDATIONS 1. Continue piperacillin / Tazobactam. 2. Continue Tobra nebs. 3. Monitor repeat sputum culture. 4. Follow WBC and clinical status. D/W RN. Phani Riggs MD Feb 07, 2017 13:21
[2017-02-07] MEDS: SODIUM CHLOR 0.9% 1000 ML INJ 1,000 ML IV SCH ×2 (13:22→21:43)
[2017-02-07] MEDS ORDERED: DIATRIZOATE MEGLUM/DIATRIZOATE SOD 120 ML BTL (for RAD DIAG) RECTAL ONE (14:15)
[2017-02-07] MEDS ORDERED: TERBUTALINE INJ 1 MG/ML AMP SQ PRN ×2 (15:00→15:45)
--- NOTE | 2017-02-07 15:03 | RADRPT ---
EXAM DATE/TIME: 02/07/2017 13:47 [facility] COMPARISON: No previous studies available for comparison. INDICATIONS : Constipation for 5 days, abdomen distended FLUORO TIME: 1.3 minutes IMAGE COUNT: 6 CONTRAST: 1. Gastroview 2. MEDICAL HISTORY : Hypertension. Gastroesophageal reflux disease. SURGICAL HISTORY : tracheostomy, g-tube ENCOUNTER: Subsequent ACUITY: 1 week PAIN SCORE: Non-responsive. LOCATION: Bilateral abdomen FINDINGS: Preliminary film demonstrates multiple dilated loops of small bowel throughout the abdomen and large amount of stool within the colon.. Under fluoroscopic guidance a Gastrografin enema was performed with free flow of contrast to the sple leonie flexure. Approximately 750 cc of Gastrografin was instilled via retrograde fashion. Post evacuation radiographs are unremarkable. CONCLUSION: Therapeutic Gastrografin enema performed as above. Ricardo Cornejo MD on February 07, 2017 at 15:00 Board Certified Radiologist. This report was verified electronically.
[2017-02-07] MEDS ORDERED: MIDAZOLAM 100 MG/100 ML INJ 100 ML IV PRN (15:15)
--- NOTE | 2017-02-07 15:43 | PD.PROCEDR ---
Central Line Procedure REASON FOR PROCEDURE Central venous access PROCEDURE PERFORMED Central line placement: Right IJ CVL CONSENT Informed consent for procedure was obtained from mother. The risks and benefits of the procedure were discussed to include but limited to bleeding, clot formation, infection, and even . ANESTHESIA Local injection of 1% Lidocaine DESCRIPTION OF THE PROCEDURE The patient was placed in supine, mild Trendelenburg position. The area was exposed and cleansed with ChloraPrep, times two. Large sterile drape was used to cover the patient, with the site exposed, under sterile conditions including cap, face mask, sterile gown, and sterile gloves. On single attempt, the introducer needle was inserted with negative pressure in syringe and venous flash was obtained. The guide wire was then advanced without any restriction and the needle was removed. The dilator was used without any complications. Using Seldinger technique the triple antibiotic coated catheter was advanced over the guide wire to a depth of 16 centimeters. The guide wire was removed. All ports were aspirated with dark venous blood return and flushed easily with sterile saline. All ports were capped. Antibiotic disc was placed around central line at puncture site. The central line was secured to the skin with two interrupted 2.0 silk sutures. The area was bandaged with sterile see- through central line bandage. RADIOLOGICAL DATA Ultrasound guidance was used to locate right internal jugular vein. Doppler/ color flow was used to confirm venous flow. COMPLICATIONS: No apparent complications ESTIMATED BLOOD LOSS: Less than 1 cc. Rahul Khan MD Feb 07, 2017 15:43
[2017-02-07] MEDS ORDERED: PHENYLEPHRINE 40 MG in D5W 500 ML IV PRN (15:45)
[2017-02-07] MEDS: METOPROLOL TARTRATE 5 MG/5 ML VIAL IV PUSH SCH ×3 (16:00→22:00)
[2017-02-07] MEDS ORDERED: SODIUM CHLOR 0.9% 1000 ML INJ 1,000 ML IV ONE (16:00)
--- NOTE | 2017-02-07 16:13 | PD.CONS ---
HPI History of Present Illness This is a 46 year old female with hx TBI in persistent vegetative state who was sent by SNF with fever and found to be septic. Subsequently developed actue hypoxic respiratory failure GI has been consulted for ileus. Pt just back from gastrografin enema with little success, just scant liquid stool. No BM in 5d. (Marjorie Amaya) PFSH Past Medical History TBI Seizure Disorder Trach Dependent s/p PEG HTN HLD Past Surgical History PEG Tracheostomy (Marjorie Amaya) Coded Allergies: *MDRO Multi-Drug Resistant Organism (Verified Allergy, Unknown, 01/31/17) Acinetobacter baumannii Sputum 05/2013 CRAB 10/2013 MRSA PCR screen (nares) POSITIVE - 03/04/16 Family History Unknown family history Social History Unknown social history [facility] (Marjorie Amaya) Review of Systems ROS non contributory (Marjorie Amaya) GI Exam Vitals I&O Vital Signs Date Time Temp Pulse Resp B/P (MAP) Pulse Ox O2 Delivery O2 Flow Rate FiO2 02/07/17 13:30 95 100 02/07/17 12:26 94 40 02/07/17 07:59 95 45 02/07/17 06:00 83 02/07/17 04:05 99 45 02/07/17 04:00 45 02/07/17 04:00 98.7 86 20 109/61 (77) 97 02/07/17 04:00 86 02/07/17 02:00 72 02/07/17 00:00 98.3 78 20 114/62 (79) 98 02/07/17 00:00 45 02/07/17 00:00 78 02/06/17 23:35 97 45 02/06/17 22:00 74 02/06/17 20:00 45 02/06/17 20:00 80 02/06/17 20:00 98.5 81 20 120/77 (91) 99 02/06/17 19:47 99 45 02/06/17 18:00 75 I/O 02/06/17 02/06/17 02/06/17 02/07/17 02/07/17 02/07/17 06:59 14:59 22:59 06:59 14:59 22:59 Intake Total 534 ml 100 ml 593 ml 779 ml 250 ml Output Total 1900 ml 380.0 ml 1400 ml Balance -1366 ml 100 ml 213.0 ml -621 ml 250 ml IV Total 421 ml 100 ml 200 ml 315 ml 250 ml Tube Feeding 113 ml 393 ml 464 ml Output Urine Total 1900 ml 380 ml 1400 ml Tube Feeding Residual Discard 0 ml 0 ml # Voids 3 # Bowel Movements 0 Imaging Last Impressions Chest X-Ray 02/06/17 0000 Signed Impressions: Service Date/Time: Monday, February 06, 2017 12:55 - CONCLUSION: Multilobar pneumonia greater in the upper lobes. Suraj Arroyo MD Laboratory Test 02/06/17 20:29 02/07/17 06:26 02/07/17 09:46 02/07/17 11:35 Total Bilirubin 0.3 MG/DL Direct Bilirubin 0.1 MG/DL Indirect Bilirubin 0.2 MG/DL Aspartate Amino Transf (AST/SGOT) 25 U/L Alanine Aminotransferase (ALT/SGPT) 43 U/L Alkaline Phosphatase 121 U/L Total Protein 6.6 GM/DL Albumin 1.6 GM/DL Lipase 46 U/L Blood Urea Nitrogen 11 MG/DL Creatinine 0.54 MG/DL Random Glucose 115 MG/DL Calcium Level 9.2 MG/DL Sodium Level 138 MEQ/L Potassium Level 3.5 MEQ/L Chloride Level 100 MEQ/L Carbon Dioxide Level 26.4 MEQ/L Anion Gap 12 MEQ/L Estimat Glomerular Filtration Rate 123 ML/MIN Phosphorus Level 3.3 MG/DL Magnesium Level 2.1 MG/DL Human Chorionic Gonadotropin, Quant LESS THAN 1 MIU/ML White Blood Count 16.7 TH/MM3 Red Blood Count 4.10 MIL/MM3 Hemoglobin 12.1 GM/DL Hematocrit 36.9 % Mean Corpuscular Volume 89.9 FL Mean Corpuscular Hemoglobin 29.5 PG Mean Corpuscular Hemoglobin Concent 32.8 % Red Cell Distribution Width 14.7 % Platelet Count 362 TH/MM3 Mean Platelet Volume 9.3 FL Neutrophils (%) (Auto) 71.7 % Lymphocytes (%) (Auto) 12.0 % Monocytes (%) (Auto) 15.3 % Eosinophils (%) (Auto) 0.5 % Basophils (%) (Auto) 0.5 % Neutrophils # (Auto) 12.0 TH/MM3 Lymphocytes # (Auto) 2.0 TH/MM3 Monocytes # (Auto) 2.6 TH/MM3 Eosinophils # (Auto) 0.1 TH/MM3 Basophils # (Auto) 0.1 TH/MM3 CBC Comment AUTO DIFF Differential Total Cells Counted 100 Neutrophils % (Manual) 58 % Band Neutrophils % 7 % Lymphocytes % 12 % Monocytes % 17 % Eosinophils % 2 % Neutrophils # (Manual) 11.5 TH/MM3 Metamyelocytes 3 % Myelocytes 1 % Differential Comment FINAL DIFF MANUAL Platelet Estimate NORMAL Platelet Morphology Comment NORMAL Red Cell Morphology Comment NORMAL Blood Gas Puncture Site RT RADIAL Blood Gas Patient Temperature 98.6 Blood Gas HCO3 23 mmol/L Blood Gas Base Excess -0.8 mmol/L Blood Gas Oxygen Saturation 93 % Arterial Blood pH 7.47 Arterial Blood Partial Pressure CO2 31 mmHg Arterial Blood Partial Pressure O2 76 mmHg Arterial Blood Oxygen Content 17.4 Vol % Arterial Blood Carboxyhemoglobin 1.6 % Arterial Blood Methemoglobin 0.9 % Blood Gas Hemoglobin 13.3 G/DL Oxygen Delivery Device VENTILATOR Blood Gas Ventilator Setting Blood Gas Inspired Oxygen 40 % Date/Time Source Procedure Growth Status 01/31/17 22:55 Blood Peripheral Aerobic Blood Culture - Final NO GROWTH IN 5 DAYS Complete 01/31/17 22:55 Blood Peripheral Anaerobic Blood Culture - Final NO GROWTH IN 5 DAYS Complete 02/06/17 13:00 Sputum Endotracheal Gram Stain - Final Resulted 02/06/17 13:00 Sputum Culture - Preliminary Gram Negative Christopher Resulted 02/02/17 18:00 Urine Catheterized Urine Urine Culture - Final NO GROWTH IN 48 HOURS. Complete Physical Examination HEENT: left eye erythematous and edematous trach to vent CHEST: coarse CARDIAC: tachy ABDOMEN: very firm, distended, tympanitic. BS hypoactive. copious drainage from NGT yellowish resembles undigested TF PEG site dressing D&I EXTREMITIES: generalized edema SKIN: levida reticularis throughout HELP DESK COORDINATOR: vegetative state (Marjorie Amaya LINE PREP COOK) Assessment and Plan Plan ASSESSMENT - ileus - no BM 5d, extremely firm and distended. KUB 02/06 Significant stool in the proximal colon with mild small bowel distention. s/p gastrografin enema 02/07 demonstrates multiple dilated loops of small bowel throughout the abdomen and large amount of stool within the colon. going for CT to r/o perforation. if no perforation will do decompressive colonoscopy emergently did d/w Ivis Kirkland @ 1605, who is agreeable to decompressive colonoscopy if needed PLAN - NPO - obtain consent - await CT - if no perf, will do decompressive colonoscopy - further recs to follow This pt seen by myself and Dr Meza and this note is written on his behalf (Marjorie Amaya) Physician Comments Significant distension and not responding to enemas, will review images and schedule decompression colonoscopy. (Gwen Meza MD) Marjorie Amaya Feb 07, 2017 16:12 Gwen Meza MD Feb 07, 2017 16:39
--- NOTE | 2017-02-07 16:36 | RADRPT ---
EXAM DATE/TIME: 02/07/2017 15:59 [facility] COMPARISON: No previous studies available for comparison. INDICATIONS : Central line placement. MEDICAL HISTORY : Hypertension. Gastroesophageal reflux disease. SURGICAL HISTORY : Trachestomy. ENCOUNTER: Subsequent ACUITY: 1 week PAIN SCORE: 0/10 LOCATION: Bilateral chest FINDINGS: Right jugular line is noted and the tip overlies expected location of the SVC. A tracheostomy tube is also noted. Enteric tube is present and the side-port overlies the expected location of the distal e sophagus. There is consolidation in the left lung as well as right upper lobe with volume loss presen t. CONCLUSION: Bilateral consolidation and atelectasis. Right jugular line and enteric tube noted. Ricardo Cornejo MD on February 07, 2017 at 16:34 Board Certified Radiologist. This report was verified electronically.
[2017-02-07] MEDS: PANTOPRAZOLE SODIUM 40 MG VIAL IV PUSH SCH (17:00)
[2017-02-07 17:27] LABS: MEAN CELL VOLUME 90.6 FL (80.0-100.0); MEAN CORPUSCULAR HEMOGLOBIN 29.9 PG (27.0-34.0); PLATELET COUNT 386 TH/MM3 (150-450); RED CELL DISTRIBUTION WIDTH 14.8 % (11.6-17.2); WHITE BLOOD COUNT 17.1 TH/MM3 (4.0-11.0)
[2017-02-07 17:29] LABS: HEMO FLAGS AUTO DIFF
--- NOTE | 2017-02-07 17:42 | RADRPT ---
EXAM DATE/TIME: 02/07/2017 17:20 [facility] COMPARISON: No previous studies available for comparison. INDICATIONS : Abdomen pain, ileus. ORAL CONTRAST: No oral contrast ingested. RADIATION DOSE: 14.02 CTDIvol (mGy) MEDICAL HISTORY : Hypertension. SURGICAL HISTORY : Peg Tube. ENCOUNTER: Initial ACUITY: 1 day PAIN SCALE: 4/10 LOCATION: Bilateral upper quadrant TECHNIQUE: Volumetric scanning of the abdomen and pelvis was performed. Using automated exposure control and ad justment of the mA and/or kV according to patient size, radiation dose was kept as low as reasonably achievable to obtain optimal diagnostic quality images. DICOM format image data is available electro nically for review and comparison. FINDINGS: There are small bilateral effusions right greater than left. Ascites is present. Unenhanced appearanc e of the liver, spleen, pancreas, adrenal glands, right kidney unremarkable. Left renal staghorn calc kalina are identified without hydronephrosis. This includes a 2.5 cm stone in the pelvis extending to th e UPJ and a 1 cm lower pole calculus, as well as a mid pole nonobstructing 7 mm stone, punctate left upper pole renal calculus. A Anguiano catheter is noted within the urinary bladder, and there is contras t seen in the rectosigmoid colon and descending colon. A percutaneous gastrostomy tube is present. Th ere are multiple dilated loops of small intestine identified, with pneumatosis intestinalis identifie d involving multiple small intestinal loops. There is no free intraperitoneal air. A discrete transit ion point is not identified. Appendix is normal. Atherosclerotic calcifications of the aorta and fatuma c vessels are noted. There is consolidation in the right middle lobe, lingula and patchy airspace dis ease in the lower lobes. CONCLUSION: 1. Diffuse dilatation of small bowel with pneumatosis intestinalis identified. 2. A discrete transition point is not identified. 3. Ascites. 4. No obvious signs of free air. Free fluid is identified however. 5. Left renal calculi. 6. Bilateral pleural effusions. 7. Pulmonary airspace disease. Ricardo Cornejo MD on February 07, 2017 at 17:35 Board Certified Radiologist. This report was verified electronically.
[2017-02-07 17:51] LABS: BICARBONATE 23.5 MEQ/L (21.0-32.0)
[2017-02-07 17:54] LABS: INDIRECT BILIRUBIN 0.2 MG/DL (0.0-0.8); TOTAL BILIRUBIN ADULT 0.5 MG/DL (0.2-1.0)
[2017-02-07 18:00] LABS: BANDS 26 % (0-6); CORRECTED NUCLEATED RBC 2 /100 WBC (0-0); METAMYELOCYTES 7 % (0-1); MYELOCYTES 4 % (0-0); NEUTROPHIL # MANUAL DIFF 14.7 TH/MM3 (1.8-7.7); POLYS (SEG NEUTROPHILS) 48 % (16-70); PROMYELOCYTES 1 % (0-0); WBC DIFF SAMPLE 100
[2017-02-07 18:02] LABS: PLATELET ESTIMATE SMEAR HIGH (NORMAL); PLATELET MORPHOLOGY ENLARGED (NORMAL); SCAN/DIFF FINAL DIFF MANUAL
[2017-02-07 18:03] LABS: TOXIC GRANULATION 1+ (NORMAL); TOXIC VACUOLATION PRESENT (NONE SEEN)
[2017-02-07 18:07] LABS: DOHLE BODIES PRESENT (NONE SEEN)
--- NOTE | 2017-02-07 19:01 | GIPROC ---
[facility] [address] [facility], [address] COLONOSCOPY PROCEDURE REPORT EXAM DATE: 02/07/2017 PATIENT NAME: Ivis Kirkland MR #: [id number] BIRTHDATE: 1970 ENDOSCOPIST: Gwen Meza MD ORDER #: [id number] SOLDERING INSPECTOR: Rohit Grider and Lynnette Gregorio STATUS: inpatient INDICATIONS: The patient is a 46 yr old female here for a colonoscopy due to therapy of for previously diagnosed megacolon PROCEDURE PERFORMED: Colonoscopy with decompression MEDICATIONS: None and Per Anesthesia. PREP QUALITY: poor PREP TYPE:Type: PREP TYPE:Other: PREP TYPE:Other: None ESTIMATED BLOOD LOSS: None CONSENT: The patient understands the risks and benefits of the procedure and understands that these risks include, but are not limited to: sedation, allergic reaction, infection, perforation and/or bleeding. Alternative means of evaluation and treatment include, among others: physical exam, x-rays, and/or surgical intervention. The patient elects to proceed with this endoscopic procedure. medical equipment was checked for proper function. Hand hygiene and appropriate measures for infection prevention was taken. After the risks, benefits and alternatives of the procedure were thoroughly explained, Informed consent was verified, confirmed and timeout was successfully executed by the treatment team. A digital exam revealed no abnormalities of the rectum The Pentax [id number] endoscope was introduced through the anus and advanced to the mid transverse colon ce. The instrument was then slowly withdrawn as the colon was fully examined. COLON FINDINGS: A significant amount of stool was present throughout the entire examined colon. Retroflexion was not performed due to a narrow rectal vault The scope was then completely withdrawn from the patient and the procedure terminated. PROCEDURE WITHDRAWAL TIME:15minutes ADVERSE EVENTS: There were no complications. IMPRESSIONS: 1. Significant amount of stool was present throughout the entire examined colon, around the transverse colon, scope was not advanced beyond secondary to formed fecal material blocking the scope and suction. 2. Limited decompression since the colon is distenteded with formed fecal material and minimal air, no transion point noted during the examin part. RECOMMENDATIONS: Xray for Abdomin in AM for follow up Frequent Enemas Surgical eval if no improvement RECALL: NONE Gwen Meza MD eSigned: Gwen Meza MD 02/07/2017 7:01 PM cc:
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
[2017-02-07] MEDS: VALPROATE INJ 500 MG in SODIUM CHLORIDE 0.9% INJ 100 ML IV SCH (20:01)
[2017-02-07] MEDS: levETIRAcetam INJ 1,500 MG in SODIUM CHLORIDE 0.9% INJ 100 ML IV SCH (20:01)
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
[2017-02-07] MEDS ORDERED: levETIRAcetam INJ 500 MG in SODIUM CHLORIDE 0.9% INJ 100 ML IV SCH (21:00)
[2017-02-07] MEDS ORDERED: levETIRAcetam 1000 MG INJ 100 ML IV SCH (21:00)
[2017-02-07] MEDS: POLYETHYLENE GLYCOL 17 GM PKG PEG SCH (21:10)
[2017-02-07] MEDS: ARTIFICIAL TEARS OPTH SOLN 15 ML BTL RIGHT EYE SCH (23:34)
[2017-02-08] VITALS (48 sets, daily range): BP systolic 71–127; BP diastolic 30–81; PULSE 80–98; RESP 16–33; TEMP 98.1–100; O2SAT 98–100
[2017-02-08] MEDS: PIPERACIL-TAZO 4.5 GM PREMIX 100 ML IV SCH ×4 (01:06→18:52)
[2017-02-08] MEDS: RESP: ALBUTEROL 2.5 MG/IPRATROPIUM 0.5 MG NEB (SCH) NEB ×5 (03:14→19:44)
[2017-02-08] MEDS: PHENYLEPHRINE INJ 40 MG in DEXTROSE 5% IN WATE 500 ML INJ 496 ML IV PRN ×4 (03:34→20:13)
[2017-02-08 03:50] LABS: BASOPHIL % 0.2 % (0.0-2.0); EOSINOPHIL # 0.1 TH/MM3 (0-0.4); EOSINOPHIL % 0.6 % (0.0-4.0); HEMATOCRIT 35.6 % (35.0-46.0); LYMPH % 5.8 % (9.0-44.0); LYMPHOCYTE # 1.2 TH/MM3 (1.0-4.8); MEAN CELL VOLUME 89.6 FL (80.0-100.0); MEAN CORPUSCULAR HEMOGLOBIN 28.9 PG (27.0-34.0); MEAN CORPUSCULAR HGB CONC 32.3 % (32.0-36.0); MONO % 9.1 % (0.0-8.0); NEUT % 84.3 % (16.0-70.0); PLATELET COUNT 440 TH/MM3 (150-450); RED BLOOD COUNT 3.97 MIL/MM3 (4.00-5.30); RED CELL DISTRIBUTION WIDTH 14.7 % (11.6-17.2); WHITE BLOOD COUNT 20.2 TH/MM3 (4.0-11.0)
[2017-02-08] MEDS: METOPROLOL TARTRATE 5 MG/5 ML VIAL IV PUSH SCH ×4 (04:00→20:51)
[2017-02-08 04:05] LABS: HEMO FLAGS AUTO DIFF
[2017-02-08 04:17] LABS: ALKALINE PHOSPHATASE 195 U/L (45-117); ALT (GPT) 36 U/L (10-53); AMYLASE 12 U/L (25-115); ANION GAP 12 MEQ/L (5-15); AST (GOT) 32 U/L (15-37); BICARBONATE 25.7 MEQ/L (21.0-32.0); BLOOD UREA NITROGEN 21 MG/DL (7-18); CHLORIDE 99 MEQ/L (98-107); GLOMERULAR FILTRATION RATE 55 ML/MIN (>89); MAGNESIUM 2.2 MG/DL (1.5-2.5); SODIUM (NA) 137 MEQ/L (136-145); TOTAL BILIRUBIN ADULT 0.5 MG/DL (0.2-1.0)
[2017-02-08 04:21] LABS: POTASSIUM 2.8 MEQ/L (3.5-5.1)
[2017-02-08 04:52] LABS: BANDS 63 % (0-6); EOSINOPHILS 1 % (0-4); METAMYELOCYTES 9 % (0-1); MYELOCYTES 1 % (0-0); NEUTROPHIL # MANUAL DIFF 16.8 TH/MM3 (1.8-7.7); PLATELET ESTIMATE SMEAR NORMAL (NORMAL); PLATELET MORPHOLOGY NORMAL (NORMAL); POLYS (SEG NEUTROPHILS) 10 % (16-70); SCAN/DIFF FINAL DIFF MANUAL; TOXIC GRANULATION 1+ (NORMAL); TOXIC VACUOLATION PRESENT (NONE SEEN); WBC DIFF SAMPLE 100
[2017-02-08 04:53] LABS: DOHLE BODIES PRESENT (NONE SEEN)
[2017-02-08] MEDS: PROPOFOL 1000 MG/100 ML INJ 100 ML IV SCH ×3 (05:18→20:12)
[2017-02-08] MEDS: ENOXAPARIN SODIUM 40 MG/0.4 ML SYRINGE SQ SCH (05:21)
[2017-02-08] MEDS: METOCLOPRAMIDE HCL 10 MG/2 ML VIAL IV PUSH SCH ×3 (05:21→20:51)
[2017-02-08] MEDS: ARTIFICIAL TEARS OPTH OINT 3.5 APPLIC/3.5 GM TUBO LEFT EYE SCH ×3 (05:22→20:51)
[2017-02-08] MEDS: SODIUM CHLOR 0.9% 1000 ML INJ 1,000 ML IV SCH ×3 (05:22→20:53)
--- NOTE | 2017-02-08 05:50 | RADRPT ---
EXAM DATE/TIME: 02/08/2017 04:46 [facility] COMPARISON: CHEST SINGLE AP, February 07, 2017, 15:59. INDICATIONS : Shortness of breath. MEDICAL HISTORY : Hypertension. Gastroesophageal reflux disease. SURGICAL HISTORY : Tracheostomy. ENCOUNTER: Subsequent ACUITY: 1 week PAIN SCORE: Non-responsive. LOCATION: Bilateral chest FINDINGS: A single view of the chest demonstrates tracheostomy in satisfactory position. NG in stomach. Right c entral line in superior vena cava. Bilateral mostly perihilar and upper lung airspace disease stable since February 07. CONCLUSION: 1. Support apparatus in good position. Stable bilateral airspace disease. Raphael Reynoso MD on February 08, 2017 at 5:44 Board Certified Radiologist. This report was verified electronically.
--- NOTE | 2017-02-08 05:57 | RADRPT ---
EXAM DATE/TIME: 02/08/2017 04:50 [facility] COMPARISON: ABDOMEN KUB ONLY, February 06, 2017, 20:12. INDICATIONS : Distention. MEDICAL HISTORY : Hypertension. Gastroesophageal reflux disease. SURGICAL HISTORY : G-tube. ENCOUNTER: Subsequent ACUITY: 1 week PAIN SCORE: Non-responsive. LOCATION: abdomen, all quadrants. FINDINGS: Supine view of the abdomen was performed. There is gaseous distention of bowel. There is some suspect ed pneumatosis as seen on recent CT. No definite free air. NG tube in the stomach. Residual contrast in large bowel. CONCLUSION: 1. Diffuse ileus. Possible pneumatosis involving small bowel loops seen on the left side. NG tube in the stomach. Gastrostomy tube present. Raphael Reynoso MD on February 08, 2017 at 5:51 Board Certified Radiologist. This report was verified electronically.
[2017-02-08] MEDS: POTASSIUM CHLOR 40 MEQ PREMIX 100 ML IV PRN ×2 (06:13→22:41)
[2017-02-08] MEDS: VALPROATE INJ 500 MG in SODIUM CHLORIDE 0.9% INJ 100 ML IV SCH ×2 (08:20→20:11)
[2017-02-08] MEDS: POLYETHYLENE GLYCOL 17 GM PKG PEG SCH ×2 (08:21→20:11)
[2017-02-08] MEDS: SENNOSIDES SYRUP 8.8 MG/5 ML CUP PEG SCH ×2 (08:21→20:11)
[2017-02-08] MEDS: LACTOBACILLUS ACIDOPHILUS 1 GM PACKET PO SCH ×3 (08:21→18:00)
[2017-02-08] MEDS: CHLORHEXIDINE 0.12% (ORAL KIT) 15 ML CUP MT SCH ×2 (08:21→20:09)
[2017-02-08] MEDS: ARTIFICIAL TEARS OPTH SOLN 15 ML BTL RIGHT EYE SCH ×2 (08:21→20:12)
[2017-02-08] MEDS: RESP: TOBRAMYCIN SULFATE 80 MG/2 ML NEB NEB SCH ×2 (08:38→20:29)
[2017-02-08] MEDS ORDERED: LANSOPRAZOLE SOLUTAB 30 MG TAB PEG SCH (09:00)
[2017-02-08] MEDS ORDERED: LACTATED RINGER'S 1000 ML INJ 1,000 ML IV ONE (09:30)
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
[2017-02-08] MEDS: levETIRAcetam INJ 1,500 MG in SODIUM CHLORIDE 0.9% INJ 100 ML IV SCH ×2 (09:34→20:10)
[2017-02-08] MEDS: SODIUM CHLORIDE 0.9% FLUSH 10 ML FLUSH IVF SCH (09:35)
[2017-02-08] MEDS: SODIUM CHLORIDE 0.9% FLUSH 10 ML FLUSH IV FLUSH SCH ×2 (09:35→20:11)
--- NOTE | 2017-02-08 11:26 | HHI.IDPN ---
Note Infectious Disease Note Patient on the vent. Baseline non verbal. On neosynephrine 90 mcg. D/W RN. Axillary temp of 100. Events of yesterday noted. She went for gastrografin enema. No stools. renal function has declined. Surgical consult report noted. Abdomen markedly distended. PAST MEDICAL HISTORY 1. Traumatic brain injury. 2. Hypertension. 3. Hyperlipidemia. 4. History of seizure disorder. 5. Tracheostomy. Chronic. 6. PEG. ALLERGIES NO KNOWN DRUG ALLERGIES. MEDICATIONS 1. piperacillin / tazobactam. 2. Tobramycin nebs. OBJECTIVE: Vital Signs Date Time Temp Pulse Resp B/P (MAP) Pulse Ox O2 Delivery O2 Flow Rate FiO2 02/08/17 08:28 100 50 02/08/17 06:00 98 02/08/17 04:05 98 50 02/08/17 04:00 45 02/08/17 04:00 98.1 95 20 127/59 (81) 99 02/08/17 04:00 92 02/08/17 03:34 84 102/48 02/08/17 02:00 95 02/08/17 01:06 98 60 02/08/17 00:00 94 02/08/17 00:00 98.3 94 20 99/57 (71) 98 02/08/17 00:00 45 02/07/17 22:04 100 70 02/07/17 22:00 92 02/07/17 20:05 96 70 02/07/17 20:00 45 02/07/17 20:00 89 02/07/17 20:00 98.1 92 20 103/70 (81) 99 02/07/17 18:32 100 100 02/07/17 16:50 100 20 102/65 (77) 97 02/07/17 16:41 100 19 107/54 (71) 97 02/07/17 16:30 100 20 71/54 (60) 98 02/07/17 16:27 99 70 02/07/17 16:20 100 21 109/71 (84) 99 02/07/17 16:11 100 19 112/70 (84) 99 02/07/17 16:00 98.7 103 19 111/73 (86) 99 02/07/17 16:00 45 02/07/17 15:30 113 25 71/47 (55) 99 02/07/17 15:00 116 21 86/50 (62) 93 02/07/17 14:41 126 43 105/50 (68) 92 02/07/17 14:39 123 50 105/50 (68) 02/07/17 14:05 124 49 178/98 (124) 97 02/07/17 14:00 121 55 98 02/07/17 13:46 109 59 125/83 (97) 98 02/07/17 13:30 110 26 114/75 (88) 95 02/07/17 13:30 95 100 02/07/17 13:00 105 25 113/64 (80) 94 02/07/17 12:30 113 25 124/69 (87) 94 02/07/17 12:26 94 40 02/07/17 12:01 109 26 124/76 (92) 95 02/07/17 12:00 98.7 107 26 95 02/07/17 12:00 45 02/07/17 11:30 101 25 121/67 (85) 94 Laboratory Tests Test 02/07/17 09:46 02/07/17 16:43 02/08/17 03:37 White Blood Count 16.7 TH/MM3 17.1 TH/MM3 20.2 TH/MM3 Red Blood Count 4.10 MIL/MM3 4.20 MIL/MM3 3.97 MIL/MM3 Hemoglobin 12.1 GM/DL 12.5 GM/DL 11.5 GM/DL Hematocrit 36.9 % 38.0 % 35.6 % Mean Corpuscular Volume 89.9 FL 90.6 FL 89.6 FL Mean Corpuscular Hemoglobin 29.5 PG 29.9 PG 28.9 PG Mean Corpuscular Hemoglobin Concent 32.8 % 33.0 % 32.3 % Red Cell Distribution Width 14.7 % 14.8 % 14.7 % Platelet Count 362 TH/MM3 386 TH/MM3 440 TH/MM3 Mean Platelet Volume 9.3 FL 9.3 FL 8.5 FL Neutrophils (%) (Auto) 71.7 % 84.3 % Lymphocytes (%) (Auto) 12.0 % 5.8 % Monocytes (%) (Auto) 15.3 % 9.1 % Eosinophils (%) (Auto) 0.5 % 0.6 % Basophils (%) (Auto) 0.5 % 0.2 % Neutrophils # (Auto) 12.0 TH/MM3 17.0 TH/MM3 Lymphocytes # (Auto) 2.0 TH/MM3 1.2 TH/MM3 Monocytes # (Auto) 2.6 TH/MM3 1.8 TH/MM3 Eosinophils # (Auto) 0.1 TH/MM3 0.1 TH/MM3 Basophils # (Auto) 0.1 TH/MM3 0.0 TH/MM3 CBC Comment AUTO DIFF AUTO DIFF AUTO DIFF Differential Total Cells Counted 100 100 100 Neutrophils % (Manual) 58 % 48 % 10 % Band Neutrophils % 7 % 26 % 63 % Lymphocytes % 12 % 3 % 5 % Monocytes % 17 % 11 % 11 % Eosinophils % 2 % 1 % Neutrophils # (Manual) 11.5 TH/MM3 14.7 TH/MM3 16.8 TH/MM3 Metamyelocytes 3 % 7 % 9 % Myelocytes 1 % 4 % 1 % Differential Comment FINAL DIFF MANUAL FINAL DIFF MANUAL FINAL DIFF MANUAL Platelet Estimate NORMAL HIGH NORMAL Platelet Morphology Comment NORMAL ENLARGED NORMAL Red Cell Morphology Comment NORMAL Promyelocytes 1 % Nucleated Red Blood Cells 2 /100 WBC Toxic Granulation 1+ 1+ Toxic Vacuolation PRESENT PRESENT Dohle Bodies PRESENT PRESENT Laboratory Tests Test 02/06/17 20:29 02/07/17 06:26 02/07/17 16:43 02/07/17 16:45 Total Bilirubin 0.3 MG/DL 0.5 MG/DL Direct Bilirubin 0.1 MG/DL 0.3 MG/DL Indirect Bilirubin 0.2 MG/DL 0.2 MG/DL Aspartate Amino Transf (AST/SGOT) 25 U/L 21 U/L Alanine Aminotransferase (ALT/SGPT) 43 U/L 39 U/L Alkaline Phosphatase 121 U/L 176 U/L Total Protein 6.6 GM/DL 6.6 GM/DL Albumin 1.6 GM/DL 1.4 GM/DL Lipase 46 U/L 54 U/L Blood Urea Nitrogen 11 MG/DL 17 MG/DL Creatinine 0.54 MG/DL 1.01 MG/DL Random Glucose 115 MG/DL 92 MG/DL Calcium Level 9.2 MG/DL 9.0 MG/DL Sodium Level 138 MEQ/L 140 MEQ/L Potassium Level 3.5 MEQ/L 3.0 MEQ/L Chloride Level 100 MEQ/L 102 MEQ/L Carbon Dioxide Level 26.4 MEQ/L 23.5 MEQ/L Anion Gap 12 MEQ/L 15 MEQ/L Estimat Glomerular Filtration Rate 123 ML/MIN 60 ML/MIN Phosphorus Level 3.3 MG/DL Magnesium Level 2.1 MG/DL Human Chorionic Gonadotropin, Quant LESS THAN 1 MIU/ML Lactic Acid Level 2.9 mmol/L Ammonia 19 MCMOL/L Total Creatine Kinase 43 U/L Amylase Level 26 U/L Test 02/07/17 22:55 02/08/17 03:37 Lactic Acid Level 3.4 mmol/L 2.2 mmol/L Blood Urea Nitrogen 21 MG/DL Creatinine 1.09 MG/DL Random Glucose 105 MG/DL Total Protein 6.1 GM/DL Albumin 1.3 GM/DL Calcium Level 8.4 MG/DL Magnesium Level 2.2 MG/DL Alkaline Phosphatase 195 U/L Aspartate Amino Transf (AST/SGOT) 32 U/L Alanine Aminotransferase (ALT/SGPT) 36 U/L Total Bilirubin 0.5 MG/DL Sodium Level 137 MEQ/L Potassium Level 2.8 MEQ/L Chloride Level 99 MEQ/L Carbon Dioxide Level 25.7 MEQ/L Anion Gap 12 MEQ/L Estimat Glomerular Filtration Rate 55 ML/MIN Amylase Level 12 U/L Lipase 36 U/L Microbiology Date/Time Source Procedure Growth Status 02/08/17 03:37 Blood Peripheral Aerobic Blood Culture Pending Received 02/08/17 03:37 Blood Peripheral Anaerobic Blood Culture Pending Received 02/07/17 22:55 Blood Peripheral Aerobic Blood Culture Pending Received 02/07/17 22:55 Blood Peripheral Anaerobic Blood Culture Pending Received 02/06/17 13:00 Sputum Endotracheal Gram Stain - Final Resulted 02/06/17 13:00 Sputum Culture - Preliminary Gram Negative Christopher Resulted IMAGING: Chest X-Ray 02/08/17599 Signed Impressions: Service Date/Time: Wednesday, February 08, 2017 04:46 - CONCLUSION: 1. Support apparatus in good position. Stable bilateral airspace disease. Raphael Reynoso MD Abdomen X-Ray 02/08/17 06 Signed Impressions: Service Date/Time: Wednesday, February 08, 2017 04:50 - CONCLUSION: 1. Diffuse ileus. Possible pneumatosis involving small bowel loops seen on the left side. NG tube in the stomach. Gastrostomy tube present. Raphael Reynoso MD Enema w/Water Soluble 02/07/17 0000 Signed Impressions: Service Date/Time: Tuesday, February 07, 2017 13:47 - CONCLUSION: Therapeutic Gastrografin enema performed as above. Ricardo Cornejo MD Abdomen/Pelvis CT 02/07/17 0000 Signed Impressions: Service Date/Time: Tuesday, February 07, 2017 17:20 - CONCLUSION: 1. Diffuse dilatation of small bowel with pneumatosis intestinalis identified. 2. A discrete transition point is not identified. 3. Ascites. 4. No obvious signs of free air. Free fluid is identified however. 5. Left renal calculi. 6. Bilateral pleural effusions. 7. Pulmonary airspace disease. Ricardo Cornejo MD PHYSICAL EXAMINATION GENERAL: On the vent. HEENT: The sclerae is nonicteric. Oropharynx mucosa is moist. LUNGS: Rhonchi at the bases. Moving air well. HEART: Regular S1-S2. No audible murmurs. ABDOMEN: Bowel sounds not audible. Markedly distended, softer. EXTREMITIES: No clubbing or cyanosis. Trace edema. SKIN: Lacy geographic pattern on legs. Moist, warm. NEUROLOGIC: Difficult to assess because of the patient's persistent vegetative state. PSYCHIATRIC: Unable to assess because of the patient's persistent vegetative non verbal state. IMPRESSION 1. Sepsis. 2. Pneumonia. HCAP - pseudomonas, proteus. Repeat sputum culture pending. 3. Leukocytosis secondary to sepsis. WBC increased. Appeas to be septic currently. 4. Acute respiratory failure. On ventilator. 5. Intestinal obstruction. RECOMMENDATIONS 1. Continue piperacillin / Tazobactam. 2. Add Aztreonam. 3. Add Vancomycin. 4. Continue Tobra nebs. 5. Monitor repeat sputum culture. RYAN and ID pending. 6. Follow WBC and clinical status. D/W RN. Phani Riggs MD Feb 08, 2017 11:26
[2017-02-08] MEDS ORDERED: Vancomycin Consult Pharmacy 1 EA OTHER SCH (11:30)
--- NOTE | 2017-02-08 11:49 | HHI.GIFU ---
Subjective Remarks Pt on vent. Had decompressive colonoscopy yesterday with little output. (Marjorie Amaya) Objective Vitals I&O Vital Signs Date Time Temp Pulse Resp B/P (MAP) Pulse Ox O2 Delivery O2 Flow Rate FiO2 02/08/17 08:28 100 50 02/08/17 06:00 98 02/08/17 04:05 98 50 02/08/17 04:00 45 02/08/17 04:00 98.1 95 20 127/59 (81) 99 02/08/17 04:00 92 02/08/17 03:34 84 102/48 02/08/17 02:00 95 02/08/17 01:06 98 60 02/08/17 00:00 94 02/08/17 00:00 98.3 94 20 99/57 (71) 98 02/08/17 00:00 45 02/07/17 22:04 100 70 02/07/17 22:00 92 02/07/17 20:05 96 70 02/07/17 20:00 45 02/07/17 20:00 89 02/07/17 20:00 98.1 92 20 103/70 (81) 99 02/07/17 18:32 100 100 02/07/17 16:50 100 20 102/65 (77) 97 02/07/17 16:41 100 19 107/54 (71) 97 02/07/17 16:30 100 20 71/54 (60) 98 02/07/17 16:27 99 70 02/07/17 16:20 100 21 109/71 (84) 99 02/07/17 16:11 100 19 112/70 (84) 99 02/07/17 16:00 98.7 103 19 111/73 (86) 99 02/07/17 16:00 45 02/07/17 15:30 113 25 71/47 (55) 99 02/07/17 15:00 116 21 86/50 (62) 93 02/07/17 14:41 126 43 105/50 (68) 92 02/07/17 14:39 123 50 105/50 (68) 02/07/17 14:05 124 49 178/98 (124) 97 02/07/17 14:00 121 55 98 02/07/17 13:46 109 59 125/83 (97) 98 02/07/17 13:30 110 26 114/75 (88) 95 02/07/17 13:30 95 100 02/07/17 13:00 105 25 113/64 (80) 94 02/07/17 12:30 113 25 124/69 (87) 94 02/07/17 12:26 94 40 02/07/17 12:01 109 26 124/76 (92) 95 02/07/17 12:00 98.7 107 26 95 02/07/17 12:00 45 I/O 02/07/17 02/07/17 02/07/17 02/08/17 02/08/17 02/08/17 07:00 15:00 23:00 07:00 15:00 23:00 Intake Total 779 ml 2415 ml 1780 ml Output Total 1400 ml 700.0 ml 900 ml 900 ml Balance -621 ml -700.0 ml 1515 ml 880 ml IV Total 315 ml 2200 ml 1680 ml Tube Feeding 464 ml 115 ml Tube Irrigant 100 ml 100 ml Output Urine Total 1400 ml 200 ml 300 ml Gastric Drainage Total 700 ml 600 ml Tube Feeding Residual Discard 0 ml 700.0 ml # Bowel Movements 0 1 Laboratory Laboratory Tests Test 02/07/17 16:43 02/07/17 16:45 02/07/17 22:55 02/08/17 03:37 White Blood Count 17.1 20.2 Red Blood Count 4.20 3.97 Hemoglobin 12.5 11.5 Hematocrit 38.0 35.6 Mean Corpuscular Volume 90.6 89.6 Mean Corpuscular Hemoglobin 29.9 28.9 Mean Corpuscular Hemoglobin Concent 33.0 32.3 Red Cell Distribution Width 14.8 14.7 Platelet Count 386 440 Mean Platelet Volume 9.3 8.5 CBC Comment AUTO DIFF AUTO DIFF Differential Total Cells Counted 100 100 Neutrophils % (Manual) 48 10 Band Neutrophils % 26 63 Lymphocytes % 3 5 Monocytes % 11 11 Neutrophils # (Manual) 14.7 16.8 Metamyelocytes 7 9 Myelocytes 4 1 Promyelocytes 1 Nucleated Red Blood Cells 2 Differential Comment FINAL DIFF MANUAL FINAL DIFF MANUAL Toxic Granulation 1+ 1+ Toxic Vacuolation PRESENT PRESENT Dohle Bodies PRESENT PRESENT Platelet Estimate HIGH NORMAL Platelet Morphology Comment ENLARGED NORMAL Lactic Acid Level 2.9 3.4 2.2 Ammonia 19 Blood Urea Nitrogen 17 21 Creatinine 1.01 1.09 Random Glucose 92 105 Total Protein 6.6 6.1 Albumin 1.4 1.3 Calcium Level 9.0 8.4 Alkaline Phosphatase 176 195 Aspartate Amino Transf (AST/SGOT) 21 32 Alanine Aminotransferase (ALT/SGPT) 39 36 Total Bilirubin 0.5 0.5 Direct Bilirubin 0.3 Sodium Level 140 137 Potassium Level 3.0 2.8 Chloride Level 102 99 Carbon Dioxide Level 23.5 25.7 Anion Gap 15 12 Estimat Glomerular Filtration Rate 60 55 Indirect Bilirubin 0.2 Total Creatine Kinase 43 Amylase Level 26 12 Lipase 54 36 Neutrophils (%) (Auto) 84.3 Lymphocytes (%) (Auto) 5.8 Monocytes (%) (Auto) 9.1 Eosinophils (%) (Auto) 0.6 Basophils (%) (Auto) 0.2 Neutrophils # (Auto) 17.0 Lymphocytes # (Auto) 1.2 Monocytes # (Auto) 1.8 Eosinophils # (Auto) 0.1 Basophils # (Auto) 0.0 Eosinophils % 1 Magnesium Level 2.2 Valproic Acid (Depakene) Level 28 Carbamazepine (Tegretol) Level 12.3 Date/Time Source Procedure Growth Status 02/08/17 03:37 Blood Peripheral Aerobic Blood Culture Pending Received 02/08/17 03:37 Blood Peripheral Anaerobic Blood Culture Pending Received 02/06/17 13:00 Sputum Endotracheal Gram Stain - Final Resulted 02/06/17 13:00 Sputum Culture - Preliminary Gram Negative Christopher Resulted 02/02/17 18:00 Urine Catheterized Urine Urine Culture - Final NO GROWTH IN 48 HOURS. Complete Imaging Last Impressions Chest X-Ray 02/08/17 06 Signed Impressions: Service Date/Time: Wednesday, February 08, 2017 04:46 - CONCLUSION: 1. Support apparatus in good position. Stable bilateral airspace disease. Raphael Reynoso MD Abdomen X-Ray 02/08/17 06 Signed Impressions: Service Date/Time: Wednesday, February 08, 2017 04:50 - CONCLUSION: 1. Diffuse ileus. Possible pneumatosis involving small bowel loops seen on the left side. NG tube in the stomach. Gastrostomy tube present. Raphael Reynoso MD Enema w/Water Soluble 02/07/17 0000 Signed Impressions: Service Date/Time: Tuesday, February 07, 2017 13:47 - CONCLUSION: Therapeutic Gastrografin enema performed as above. Ricardo Cornejo MD Abdomen/Pelvis CT 02/07/17 0000 Signed Impressions: Service Date/Time: Tuesday, February 07, 2017 17:20 - CONCLUSION: 1. Diffuse dilatation of small bowel with pneumatosis intestinalis identified. 2. A discrete transition point is not identified. 3. Ascites. 4. No obvious signs of free air. Free fluid is identified however. 5. Left renal calculi. 6. Bilateral pleural effusions. 7. Pulmonary airspace disease. Ricardo Cornejo MD Physical Exam HEENT: Left eye open and nonfunctional; normocephalic; atraumatic; no jaundice. CHEST: coarse CARDIAC: RRR ABDOMEN: Semifirm, distended; no hepatosplenomegaly; bowel sounds hypoactive EXTREMITIES: No clubbing, cyanosis, + generalized edema SKIN: no rash; no jaundice. 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 KUB 02/06 Significant stool in the proximal colon with mild small bowel distention. s/p gastrografin enema 02/07 demonstrates multiple dilated loops of small bowel throughout the abdomen and large amount of stool within the colon. CT and repeat KUB showing pneumatosis intestinalis s/p decompressive colonoscopy with little output. GS consulted, non op mgmt as not much to gain from surgery at this point. PLAN - NPO - NGT to LIWS - serial enemas - supportive care This pt seen by myself and Dr Meza and this note is written on his behalf (Marjorie Amaya) Physician Comments Seen and examined, discussed with nursing team, clinically less distended, will need frequent SS to disimpact her, will follow up with you. (Gwen Meza MD) Marjorie Amaya Feb 08, 2017 11:49 Gwen Meza MD Feb 08, 2017 12:29
--- NOTE | 2017-02-08 12:32 | HHI.PR ---
Subjective Subjective Notes Trach connected to mechanical ventilator Unresponsive Objective Vitals/I&O Vital Signs Date Time Temp Pulse Resp B/P (MAP) Pulse Ox O2 Delivery O2 Flow Rate FiO2 02/08/17 11:54 100 50 02/08/17 06:00 98 02/08/17 04:00 98.1 20 127/59 (81) Labs Laboratory Tests Test 02/07/17 16:43 02/07/17 16:45 02/07/17 22:55 02/08/17 03:37 White Blood Count 17.1 20.2 Red Blood Count 4.20 3.97 Hemoglobin 12.5 11.5 Hematocrit 38.0 35.6 Mean Corpuscular Volume 90.6 89.6 Mean Corpuscular Hemoglobin 29.9 28.9 Mean Corpuscular Hemoglobin Concent 33.0 32.3 Red Cell Distribution Width 14.8 14.7 Platelet Count 386 440 Mean Platelet Volume 9.3 8.5 CBC Comment AUTO DIFF AUTO DIFF Differential Total Cells Counted 100 100 Neutrophils % (Manual) 48 10 Band Neutrophils % 26 63 Lymphocytes % 3 5 Monocytes % 11 11 Neutrophils # (Manual) 14.7 16.8 Metamyelocytes 7 9 Myelocytes 4 1 Promyelocytes 1 Nucleated Red Blood Cells 2 Differential Comment FINAL DIFF MANUAL FINAL DIFF MANUAL Toxic Granulation 1+ 1+ Toxic Vacuolation PRESENT PRESENT Dohle Bodies PRESENT PRESENT Platelet Estimate HIGH NORMAL Platelet Morphology Comment ENLARGED NORMAL Lactic Acid Level 2.9 3.4 2.2 Ammonia 19 Blood Urea Nitrogen 17 21 Creatinine 1.01 1.09 Random Glucose 92 105 Total Protein 6.6 6.1 Albumin 1.4 1.3 Calcium Level 9.0 8.4 Alkaline Phosphatase 176 195 Aspartate Amino Transf (AST/SGOT) 21 32 Alanine Aminotransferase (ALT/SGPT) 39 36 Total Bilirubin 0.5 0.5 Direct Bilirubin 0.3 Sodium Level 140 137 Potassium Level 3.0 2.8 Chloride Level 102 99 Carbon Dioxide Level 23.5 25.7 Anion Gap 15 12 Estimat Glomerular Filtration Rate 60 55 Indirect Bilirubin 0.2 Total Creatine Kinase 43 Amylase Level 26 12 Lipase 54 36 Neutrophils (%) (Auto) 84.3 Lymphocytes (%) (Auto) 5.8 Monocytes (%) (Auto) 9.1 Eosinophils (%) (Auto) 0.6 Basophils (%) (Auto) 0.2 Neutrophils # (Auto) 17.0 Lymphocytes # (Auto) 1.2 Monocytes # (Auto) 1.8 Eosinophils # (Auto) 0.1 Basophils # (Auto) 0.0 Eosinophils % 1 Magnesium Level 2.2 Valproic Acid (Depakene) Level 28 Carbamazepine (Tegretol) Level 12.3 Date/Time Source Procedure Growth Status 02/08/17 03:37 Blood Peripheral Aerobic Blood Culture Pending Received 02/08/17 03:37 Blood Peripheral Anaerobic Blood Culture Pending Received 02/06/17 13:00 Sputum Endotracheal Gram Stain - Final Resulted 02/06/17 13:00 Sputum Culture - Preliminary Gram Negative Christopher Resulted 02/02/17 18:00 Urine Catheterized Urine Urine Culture - Final NO GROWTH IN 48 HOURS. Complete Cardiovascular: Regular Lungs: Upper airway course sound Abdomen: Other (abdomen distended; hypoactive BS ) Extremities: Other (molderate generalized edema ) A/P Assessment and Plan 46 year old female with PMHx of TBI; trach/PEG; with pneumatosis intestinalis -Wean pressors as tolerated -NPO -CCM following -Will continue non operative treatment as patient is a poor surgical candidate Attending Statement still on phenylephrine. BP stable, UOP good. Abdomen remains distended, still somewhat soft. Pneumatosis. Recommend continued nonoperative therapy. No advantage to surgery. Will be available as needed, please call me if surgery evaluation desired, . The exam, history, and the medical decision-making described in the above note were completed with the assistance of the mid-level provider. I reviewed and agree with the findings presented. I attest that I had a [id number] encounter with the patient on the same day, and personally performed and documented my assessment and findings in the medical record. Sara Bradford Feb 08, 2017 12:32 Mike Umanzor MD Feb 08, 2017 17:15
[2017-02-08] MEDS ORDERED: VANCOMYCIN INJ 1,750 MG in SODIUM CHLORID 0.9% 500 ML INJ 500 ML IV SCH (14:00)
[2017-02-08] MEDS: AZTREONAM INJ 2,000 MG in SODIUM CHLORIDE 0.9% INJ 100 ML IV SCH ×2 (14:22→20:10)
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
[2017-02-08] MEDS: PANTOPRAZOLE SODIUM 40 MG VIAL IV PUSH SCH (18:51)
[2017-02-09] VITALS (42 sets, daily range): BP systolic 91–154; BP diastolic 50–105; PULSE 66–90; RESP 14–30; TEMP 97.7–99.6; O2SAT 97–100
[2017-02-09] MEDS: PIPERACIL-TAZO 4.5 GM PREMIX 100 ML IV SCH ×3 (00:13→12:50)
[2017-02-09] MEDS: POTASSIUM CHLOR 40 MEQ PREMIX 100 ML IV PRN (01:09)
[2017-02-09] MEDS: RESP: ALBUTEROL 2.5 MG/IPRATROPIUM 0.5 MG NEB (SCH) NEB ×4 (03:44→19:23)
[2017-02-09] MEDS: METOPROLOL TARTRATE 5 MG/5 ML VIAL IV PUSH SCH (04:00)
[2017-02-09] MEDS: PROPOFOL 1000 MG/100 ML INJ 100 ML IV SCH ×3 (04:20→19:03)
[2017-02-09] MEDS: AZTREONAM INJ 2,000 MG in SODIUM CHLORIDE 0.9% INJ 100 ML IV SCH ×2 (04:42→12:50)
[2017-02-09] MEDS: METOCLOPRAMIDE HCL 10 MG/2 ML VIAL IV PUSH SCH ×3 (04:43→21:27)
[2017-02-09] MEDS: SODIUM CHLOR 0.9% 1000 ML INJ 1,000 ML IV SCH ×2 (04:43→18:59)
[2017-02-09] MEDS: ARTIFICIAL TEARS OPTH OINT 3.5 APPLIC/3.5 GM TUBO LEFT EYE SCH ×3 (04:43→21:29)
[2017-02-09] MEDS: ENOXAPARIN SODIUM 40 MG/0.4 ML SYRINGE SQ SCH (04:43)
--- NOTE | 2017-02-09 04:46 | RADRPT ---
EXAM DATE/TIME: 02/09/2017 03:59 [facility] COMPARISON: CHEST SINGLE AP, February 08, 2017, 4:46. INDICATIONS : Shortness of breath, possible pulmonary disease. MEDICAL HISTORY : Hypertension. Gastroesophageal reflux disease. Seizures Traumatic brain injury SURGICAL HISTORY : Tracheostomy PEG tube ENCOUNTER: Subsequent ACUITY: 1 week PAIN SCORE: Non-responsive. LOCATION: Bilateral chest FINDINGS: A single view of the chest demonstrates right central line in superior vena cava. Tracheostomy in sat isfactory position. NG tip in stomach. Bilateral airspace disease not significantly changed over the last day. No new consolidation or effusion. CONCLUSION: 1. Stable exam since February 08. Support apparatus in satisfactory position. Raphael Reynoso MD on February 09, 2017 at 4:43 Board Certified Radiologist. This report was verified electronically.
--- NOTE | 2017-02-09 04:48 | RADRPT ---
EXAM DATE/TIME: 02/09/2017 04:06 [facility] COMPARISON: ABDOMEN KUB ONLY, February 08, 2017, 4:50. INDICATIONS : Abdominal distention. MEDICAL HISTORY : Gastroesophageal reflux disease. Hypertension Seizures Traumatic brain injury SURGICAL HISTORY : Tracheostomy PEG tube ENCOUNTER: Subsequent ACUITY: 1 week PAIN SCORE: Non-responsive. LOCATION: Bilateral Abdomen FINDINGS: Supine view of the abdomen was performed. There is gaseous distention of bowel including large thala mus characteristic of ileus. NG tip in stomach. Gastrostomy tube present. CONCLUSION: 1. Stable gaseous distention of bowel compared with February 08 most characteristic of ileus. No free a ir identified. Raphael Reynoso MD on February 09, 2017 at 4:44 Board Certified Radiologist. This report was verified electronically.
[2017-02-09] MEDS: PHENYLEPHRINE INJ 40 MG in DEXTROSE 5% IN WATE 500 ML INJ 496 ML IV PRN ×4 (05:54→17:17)
[2017-02-09 06:45] LABS: BLOOD GAS BASE EXCESS 0.1 mmol/L (-2-2); BLOOD GAS HCO3 23 mmol/L (22-26); BLOOD GAS METHEMOGLOBIN 1.4 % (0-2); BLOOD GAS O2 HGB SATURATION 95 % (90-100); BLOOD GAS OXYGEN CONTENT 14.1 Vol % (12.0-20.0); BLOOD GAS PCO2 28 mmHg (38-42); BLOOD GAS PO2 108 mmHg (61-120); BLOOD GAS TOTAL HGB 10.4 G/DL (12.0-16.0); TEMP CORR TO 98.6
[2017-02-09 06:46] LABS: CRITICAL VALUE YES
[2017-02-09 06:49] LABS: DRAW SITE RT RADIAL; FIO2 40 %; NUMBER OF ARTERIAL PUNCTURES 1; OXYGEN DEVICE VENT; ULNAR PULSE PRESENT; VENT SETTINGS SEE COMMENTS
[2017-02-09 06:50] LABS: STAT NO
[2017-02-09 06:51] LABS: AUTOMATED NEUTROPHIL # 21.6 TH/MM3 (1.8-7.7); BASOPHIL % 0.1 % (0.0-2.0); EOSINOPHIL # 0.1 TH/MM3 (0-0.4); EOSINOPHIL % 0.6 % (0.0-4.0); HEMATOCRIT 26.6 % (35.0-46.0); LYMPH % 5.3 % (9.0-44.0); LYMPHOCYTE # 1.3 TH/MM3 (1.0-4.8); MEAN CELL VOLUME 89.4 FL (80.0-100.0); MEAN CORPUSCULAR HEMOGLOBIN 30.3 PG (27.0-34.0); MEAN CORPUSCULAR HGB CONC 33.9 % (32.0-36.0); MONO % 6.1 % (0.0-8.0); NEUT % 87.9 % (16.0-70.0); PLATELET COUNT 328 TH/MM3 (150-450); RED BLOOD COUNT 2.98 MIL/MM3 (4.00-5.30); RED CELL DISTRIBUTION WIDTH 14.4 % (11.6-17.2); WHITE BLOOD COUNT 24.5 TH/MM3 (4.0-11.0)
[2017-02-09 07:04] LABS: ALT (GPT) 34 U/L (10-53); AMYLASE 6 U/L (25-115); ANION GAP 8 MEQ/L (5-15); AST (GOT) 30 U/L (15-37); BLOOD UREA NITROGEN 14 MG/DL (7-18); CHLORIDE 105 MEQ/L (98-107); GLOMERULAR FILTRATION RATE 120 ML/MIN (>89); MAGNESIUM 2.2 MG/DL (1.5-2.5); POTASSIUM 3.5 MEQ/L (3.5-5.1); SODIUM (NA) 139 MEQ/L (136-145)
[2017-02-09 07:10] LABS: HEMO FLAGS AUTO DIFF
--- NOTE | 2017-02-09 07:10 | HHI.CCPN ---
Subjective Remarks/Hospital Course Patient is a 46-year-old female [facility] who is nonverbal , in persistent vegetation state following TBI, seizure disorder, trach dependent on 3L, s/p peg, hypertension and dyslipidemia who was [facility] for a temp 101.4 fever and increased secretions from trach. ABG on admission showed significant A-a gradient, chest x-ray showed bilateral perihilar infiltrates. Patient was placed on 98% O2 by trach collar. UA showed evidence of UTI. Patient lactic acid was 4, indicating severe sepsis. Patient was admitted to hospitalist service to [facility] today digital traffic coordinator for acute hypoxemic respiratory failure, severe sepsis due to healthcare associated pneumonia and UTI. Patient was placed on vancomycin, Zosyn and ciprofloxacin and ID Dr. Riggs was consulted A [facility] was called around 1100 AM today for worsening hypoxia SaO2 86% on 98% oxygen, hypotension and respiratory distress. Patient was moved to the ICU and [facility] immediately evaluated the patient. She was in impending respiratory failure , O2 Sat low 80s. With myself present at bedside, Respiratory therapist removed the 6.0 cuffless trach and replaced it with 6.0 cuffed trach. Patient was placed on mechanical ventilation with 100% oxygen and PEEP of 10 with immediate improvement oxygen saturation. Repeat chest x-ray shows consolidation of Left upper lobe 02/03 Remains intubated oxygen saturation is improved FiO2 down to 45%. PEEP remains at 12. Sputum culture with Proteus and another GNR. Chest x-ray today is pending at this time. Neuro exam remains unchanged 02/04 Remains on mechanical ventilation, PEEP 8. FIO2 weaned to 50%. . White blood cell count down trending. RN noticed dislodgement of Black this morning. Non bloody. She is voiding, bladder scan showed no e/o obstruction. Replaced black so can get accurate I/O because she is still acutely ill. 02/05 Failing CPap trials due to tachypnea. Moderate yellow respiratory secretions. 01/31 sputum culture with Proteus and pseudomonas. Tobramycin nebs initiated per ID for pseudomonas in sputum. 02/06 CPAP trials terminated by RT due to apnea. Still significant respiratory secretions. WBC 20. Temp max 99.7. Vomited last night but now tolerating tube feed advancement. Last BM 02/03. Leaking around black, Black replaced. 02/07: Tmax 99.7. Currently afebrile. Not tolerating PSV trials due to apnea chronic RT. Will reattempt today. CBC pending this AM. Tube feeds currently at 30 cc an hour. Goal 50 cc an hour. AXR yesterday revealed small/large bowel dilatation with stool proximal colon. See orders for multiple medications provided today. 02/08: Currently afebrile. Noted yesterday with pneumatosis intestinalis. Surgical evaluation agree due to size involving almost entire small bowel not optimal surgical candidate at this time. Medical management recommended. Lactic acid 2.2. Not mottled today like yesterday. Subjective: 02/09: Tmax 99.5. 2400 cc stool past 24 hours. Intra-abdominal pressures around 20. Remains on David-Synephrine 70 mcg per minute. Lactic acid has cleared. Objective Vital Signs Date Time Temp Pulse Resp B/P (MAP) Pulse Ox O2 Delivery O2 Flow Rate FiO2 02/09/17 05:54 79 119/60 02/09/17 04:00 99.6 16 99 02/09/17 04:00 40 Intake and Output 02/09/17 02/09/17 02/10/17 08:00 16:00 00:00 Intake Total 300 ml Output Total 2800 ml Balance -2500 ml Result Diagram: 02/08/17 0337 02/08/171999 Other Results Microbiology Date/Time Source Procedure Growth Status 02/08/17 03:37 Blood Peripheral Aerobic Blood Culture Pending Received 02/08/17 03:37 Blood Peripheral Anaerobic Blood Culture Pending Received 02/06/17 13:00 Sputum Endotracheal Gram Stain - Final Resulted 02/06/17 13:00 Sputum Culture - Preliminary Gram Negative Christopher Resulted 02/02/17 18:00 Urine Catheterized Urine Urine Culture - Final NO GROWTH IN 48 HOURS. Complete Imaging Last Impressions Chest X-Ray 02/09/17599 Signed Impressions: Service Date/Time: January 03:59 - CONCLUSION: 1. Stable exam since February 08. Support apparatus in satisfactory position. Raphael Reynoso MD Abdomen X-Ray 02/09/17599 Signed Impressions: Service Date/Time: January 04:06 - CONCLUSION: 1. Stable gaseous distention of bowel compared with February 08 most characteristic of ileus. No free air identified. Raphael Reynoso MD Enema w/Water Soluble 02/07/17 0000 Signed Impressions: Service Date/Time: Tuesday, February 07, 2017 13:47 - CONCLUSION: Therapeutic Gastrografin enema performed as above. Ricardo Cornejo MD Abdomen/Pelvis CT 02/07/17 0000 Signed Impressions: Service Date/Time: Tuesday, February 07, 2017 17:20 - CONCLUSION: 1. Diffuse dilatation of small bowel with pneumatosis intestinalis identified. 2. A discrete transition point is not identified. 3. Ascites. 4. No obvious signs of free air. Free fluid is identified however. 5. Left renal calculi. 6. Bilateral pleural effusions. 7. Pulmonary airspace disease. Ricardo Cornejo MD Objective Remarks General: 46-year-old female, resting in bed on ventilator via tracheostomy Head: History TBI. Eyes: R pupil 4mm and reactive. L eye with pterygium covering entire conjunctiva and L chronic large corneal opacity. Neck: Right IJ is clean dry and intact. No thyromegaly or lymphadenopathy. 6.0 Cuffed Shiley trach is in place with minimal yellow secretions surrounding. Cardiovascular: RRR. S1, S2 no S4 without murmur Lungs: Coarse breath sounds are appreciated throughout all lung walker anterior- posterior. GI: Abdomen is firm though slightly reducible and distended no bowel sounds appreciated. Not rigid. No peritoneal signs. PEG tube site is clean dry and intact : Black in place with yellow urine output. Extremities: Contracted bilateral upper and lower extremities. Positive anasarca. Neurologic Exam: Patient is unresponsive at the baseline, pupils as above. + Horizontal nystagmus. Moves upper and lower extremities to noxious stimulation. Vascular Central Line Catheter: Yes Assessment to: Continue Date of Insertion: Feb 07, 2017 Line: Central Venous Catheter Side: Right Location: Internal, Jugular A/P Assessment and Plan NEURO/PSYCH: History of TBI as an instant with persistent vegetative state Seizure disorder NOS Currently on propofol 25 mcg/kg per minute for sedation while intubated Acetaminophen 650 mg every 6 hours when necessary as indicated per fever/pain 1- 5 Morphine sulfate 2 mg every 3 hours when necessary pain 6-10 Goal of RASS -2 Daily sedation vacation Holding amantadine 150 twice a day for stimulation while intubated Carbamazepine 500 milligrams by PEG twice a day currently on hold, levetiracetam 1500 milligrams IV twice a day , valproic acid 500 milligrams IV twice a day to be continued. Check levels of all 3 anticonvulsants in AM 02/10 and adjust appropriately. Carbamazepine 12.3 elevated. Keppra pending. Valproic acid low at 28.3 Continue baclofen 20 mg 3 times a day for muscle spasticity on hold due to nothing by mouth status RESP: Acute on chronic hypoxemic respiratory failure Healthcare associated pneumonia Chronic trach currently number 6 Shiley - Trach changed to a 6.0 cuffed - PRVC /06/23/39 due to high peak pressures - Ventilator bundle - Albuterol/ipratropium aerosols every 6 hours with albuterol aerosols every 2 hours when necessary dyspnea - Daily spontaneous breathing trial. - Follow-up chest x-ray in a.m. 02/10 CV: History of HTN Severe sepsis shock secondary to pneumatosis intestinalis Lactic acidosis - resolved On normal saline at 75 cc an hour Currently on David-Synephrine at 70 g per minute to maintain MAP greater than 65 CVP is currently 20 Serial lactates until cleared Metoprolol 100 mg by PEG q12 hours, lisinopril 5 mg daily been held in light of hypotension Labetalol 10 mg IV every 1 hour as needed for systolic blood pressure greater than 60, diastolic blood pressure greater than 90 and heart rate greater than 65 / hydralazine 10 mg IV every 1 hour as needed for systolic blood pressure greater than 160 and diastolic blood pressure greater than 90 GI: Constipation Ileus Pneumatosis intestinalis KUB 02/06 revealed dilated loops of small bowel along with large bowels large amount of stool in the proximal colon. - CT abdomen/pelvis 02/07 revealed pneumatosis intestinalis. Large amount of stool in colon. Patient is currently on NG tube to low intermittent wall suction. -1300 cc past 24 hours Abdominal pressures between 18-27 -Metoclopramide 10 mg IV q8 hours. -Bowel regimen with docusate sodium 100 mg by PEG twice a day, senna 8.6 g twice a day, polyethylene glycol 3350 17 g twice a day and lactulose 30 cc 4 times a day and as needed glycerin suppositories -Pantoprazole 40 mg IV daily for GI prophylaxis - Gastrografin enema 02/07 with minimal results Evaluated by Dr. Umnazor Gen. Surgery 02/07. Poor surgical candidate due to underlying health and amount of pneumatosis intestinalis. Recommended medical management Evaluated by Dr. Meza for gastroenterology. Status post colonoscopy 02/07. Large amount of stool throughout colon. Recommended serial enemas every 6 hours and surgical evaluation FEN/RENAL/: Bladder spasms -Monitor BMP, mag and phosphorus daily - Monitor urine output - Accurate I's and O's Belladonna and opiate suppositories daily when necessary bladder spasms.. Black exchange 02/06 Initiate TPN today with dietary recommendations if unable to initiate tube feedings and ID: Healthcare associated pneumonia (sputum culture 01/31 with proteus, pseudomonas) CRAB + History of MRSA - Continue piperacillin/tazobactam 02/01 #9. Tobramycin nebs started 02/05 #4 by infectious disease Aztreonam/vancomycin started 02/08 per ID day #2 Pertinent cultures 01/31 - sputum - Proteus/Pseudomonas 01/31- UA - no growth 01/31 - blood cultures 2 - no growth 02/02 - UA - no growth 02/06 - sputum -gram-negative christopher 02/07 - blood cultures 2 - pending HEME: Leukocytosis Anemia Follow CBC daily. Monitor trends ENDO: Hypokalemia - Electrolyte replacement per ICU protocol. A.m. laboratories still pending PROPH: GI -pantoprazole 40 mg IV daily DVT - enoxaparin 40 mg subcutaneous daily LINES: Right IJ CVL day #3 placed 02/07 Critical Care: The total critical care time was 35 minutes. Time to perform other separately billable procedures was not included in the critical care time. Rahul Khan MD Feb 09, 2017 07:09
[2017-02-09 07:15] LABS: ALKALINE PHOSPHATASE 214 U/L (45-117); CREATINE KINASE 398 U/L (26-192); TOTAL BILIRUBIN ADULT 0.4 MG/DL (0.2-1.0)
[2017-02-09 07:18] LABS: APTT (PATIENT) 42.9 SEC (24.3-30.1)
[2017-02-09 07:59] LABS: CKMB 8.4 NG/ML (0.5-3.6)
[2017-02-09 08:00] LABS: BANDS 10 % (0-6); METAMYELOCYTES 1 % (0-1); MYELOCYTES 1 % (0-0); NEUTROPHIL # MANUAL DIFF 20.8 TH/MM3 (1.8-7.7); POLYS (SEG NEUTROPHILS) 73 % (16-70); WBC DIFF SAMPLE 100
[2017-02-09 08:01] LABS: PLATELET ESTIMATE SMEAR NORMAL (NORMAL); PLATELET MORPHOLOGY NORMAL (NORMAL); SCAN/DIFF FINAL DIFF MANUAL
[2017-02-09] MEDS: RESP: TOBRAMYCIN SULFATE 80 MG/2 ML NEB NEB SCH ×2 (08:11→19:23)
[2017-02-09] MEDS: LACTOBACILLUS ACIDOPHILUS 1 GM PACKET PO SCH ×3 (09:00→17:17)
[2017-02-09] MEDS: CHLORHEXIDINE 0.12% (ORAL KIT) 15 ML CUP MT SCH ×2 (09:27→21:27)
[2017-02-09] MEDS: levETIRAcetam INJ 1,500 MG in SODIUM CHLORIDE 0.9% INJ 100 ML IV SCH ×2 (09:28→21:27)
[2017-02-09] MEDS: SODIUM CHLORIDE 0.9% FLUSH 10 ML FLUSH IVF SCH (09:28)
[2017-02-09] MEDS: POLYETHYLENE GLYCOL 17 GM PKG PEG SCH ×2 (09:28→21:27)
[2017-02-09] MEDS: SENNOSIDES SYRUP 8.8 MG/5 ML CUP PEG SCH ×2 (09:28→21:26)
[2017-02-09] MEDS: VALPROATE INJ 500 MG in SODIUM CHLORIDE 0.9% INJ 100 ML IV SCH ×2 (09:28→21:28)
[2017-02-09] MEDS: SODIUM CHLORIDE 0.9% FLUSH 10 ML FLUSH IV FLUSH SCH ×2 (09:28→21:28)
[2017-02-09] MEDS: ARTIFICIAL TEARS OPTH SOLN 15 ML BTL RIGHT EYE SCH ×2 (09:29→21:28)
--- NOTE | 2017-02-09 12:17 | HHI.HCPN ---
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 . * Goals: Spoke with patient mother, son Balbir today. Mother tells me that initially when pt initial traumatic brain injury occurred she was hoping for a miracle and that at some point her daughter would at least be able to speak and communicate again. She further verbalizes that she has not seen a miracle and current that her daughter has remained the same if not worse, and that she has suffered through too much in her life. She verbalized her daughter suffered prior to the injury due to psychosocial issues, and has been suffering since surviving traumatic brain injury. Ms Finley does wish to continue serving as decision maker, supported by son Balbir as much as facility will allow. Before making decision regarding CODE STATUS she wishes to talk to Balbir. She also verbalizes concern for patient other son Haile who is 15. She indicates that if she were to make decisions on the coming day regarding de-escalation she would want to be in communication with Haile and for him to have a chance to visit his mother. She is not certain where he is located, he was staying with some acquaintances in the [facility] area. Advised palliative SW, team , can try to facilitate location of son Haile. [* palliative SW has initiated contact with possible son via social media, will attempt to determine if this is son and if we can facilitate communication with patient mother] Mother verbalizes not wanting to prolong Ms Kirkland's suffering further and concern that if she survives may face continued complications. She is weighing DNR, but no changes elected today until she has spoken w pt son Balbir. She may consider de-escalation of treatment in the coming days. * CODE STATUS:full code * SYMPTOMS: --dyspnea- chronic trach s/p TBI, now on mech vent, +HCAP. breathing comfortably -- debility- chronic dependent state, s/p TBI 2012. now contracted, immobile , remains dependent --constipation- +on chronic PEG TF, chronic due to vegetative state, now with pneumatosis intestinalis, not a candidate for surgical intervention. * Palliative care will continue to follow during hospital course as condition evolves, to assist patient/decision-maker with understanding of medical conditions, weighing benefits/burdens of treatment options, for clarification of goals of treatment. Additionally will assist with any symptoms of palliative concern Time Spent Total Floor Time (mins): 60 >50% Counseling/Coord of Care: Yes (d/w critical care Dr Khan, primary RN) Attestation To help prompt me to consider important information that might be impacting today's encounter and assessment, information from prior notes written by myself or my colleagues may have been "brought forward" into today's note. My signature on this note, however, is an attestation that I personally performed the exam, history, and/or decision-making noted today, and, unless otherwise indicated, the interactions with patient, family, and staff as well as the review of records all occurred today. I also attest that the listed assessment and stated plan reflect my best clinical judgment today based on the combination of historical information, prior notes, and today's exam/ interactions. When time spent is documented, it refers only to time spent today by the signer, or if indicated, combined time spent today by collaborating physician/nurse practitioner. Tawana Becerra Feb 09, 2017 12:17
[2017-02-09] MEDS ORDERED: VANCOMYCIN INJ 1,500 MG in SODIUM CHLORID 0.9% 500 ML INJ 500 ML IV SCH (14:00)
--- NOTE | 2017-02-09 14:41 | HHI.IDPN ---
Note Infectious Disease Note Patient on the vent. Had large loose BM. Baseline non verbal. On neosynephrine 65 mcg. D/W RN. Afebrile Sputum culture has ESBL Klebsiella. PAST MEDICAL HISTORY 1. Traumatic brain injury. 2. Hypertension. 3. Hyperlipidemia. 4. History of seizure disorder. 5. Tracheostomy. Chronic. 6. PEG. ALLERGIES NO KNOWN DRUG ALLERGIES. MEDICATIONS 1. piperacillin / tazobactam. 2. Tobramycin nebs. 3. vancomycin. OBJECTIVE: Vital Signs Date Time Temp Pulse Resp B/P (MAP) Pulse Ox O2 Delivery O2 Flow Rate FiO2 02/09/17 12:00 40 02/09/17 10:43 100 40 02/09/17 08:12 99 40 02/09/17 08:00 40 02/09/17 06:00 80 02/09/17 05:54 79 119/60 02/09/17 05:00 83 109/75 (86) 02/09/17 04:00 81 02/09/17 04:00 99.6 81 16 111/77 (88) 99 02/09/17 04:00 40 02/09/17 03:44 100 40 02/09/17 02:00 79 02/09/17 01:00 82 99/63 (75) 02/09/17 00:01 100 40 02/09/17 00:00 40 02/09/17 00:00 90 02/09/17 00:00 99.4 90 16 106/75 (85) 100 02/08/17 22:00 80 02/08/17 20:13 83 97/54 02/08/17 20:00 82 02/08/17 20:00 40 02/08/17 20:00 99.5 82 16 97/54 (68) 100 02/08/17 19:44 99 40 02/08/17 19:00 89 110/62 (78) 02/08/17 16:45 84 16 109/68 (82) 98 02/08/17 16:39 100 40 02/08/17 16:30 83 16 112/69 (83) 100 02/08/17 16:15 83 16 125/78 (94) 100 02/08/17 16:00 40 02/08/17 16:00 99.1 83 24 121/75 (90) 100 02/08/17 15:45 84 26 103/58 (73) 100 02/08/17 15:30 87 32 105/61 (76) 100 02/08/17 15:15 86 33 110/68 (82) 100 02/08/17 15:00 89 28 119/67 (84) 100 02/08/17 14:45 89 26 97/53 (68) 100 Laboratory Tests Test 02/07/17 16:43 02/08/17 03:37 02/09/17 05:50 White Blood Count 17.1 TH/MM3 20.2 TH/MM3 24.5 TH/MM3 Red Blood Count 4.20 MIL/MM3 3.97 MIL/MM3 2.98 MIL/MM3 Hemoglobin 12.5 GM/DL 11.5 GM/DL 9.0 GM/DL Hematocrit 38.0 % 35.6 % 26.6 % Mean Corpuscular Volume 90.6 FL 89.6 FL 89.4 FL Mean Corpuscular Hemoglobin 29.9 PG 28.9 PG 30.3 PG Mean Corpuscular Hemoglobin Concent 33.0 % 32.3 % 33.9 % Red Cell Distribution Width 14.8 % 14.7 % 14.4 % Platelet Count 386 TH/MM3 440 TH/MM3 328 TH/MM3 Mean Platelet Volume 9.3 FL 8.5 FL 8.4 FL CBC Comment AUTO DIFF AUTO DIFF AUTO DIFF Differential Total Cells Counted 100 100 100 Neutrophils % (Manual) 48 % 10 % 73 % Band Neutrophils % 26 % 63 % 10 % Lymphocytes % 3 % 5 % 6 % Monocytes % 11 % 11 % 9 % Neutrophils # (Manual) 14.7 TH/MM3 16.8 TH/MM3 20.8 TH/MM3 Metamyelocytes 7 % 9 % 1 % Myelocytes 4 % 1 % 1 % Promyelocytes 1 % Nucleated Red Blood Cells 2 /100 WBC Differential Comment FINAL DIFF MANUAL FINAL DIFF MANUAL FINAL DIFF MANUAL Toxic Granulation 1+ 1+ Toxic Vacuolation PRESENT PRESENT Dohle Bodies PRESENT PRESENT Platelet Estimate HIGH NORMAL NORMAL Platelet Morphology Comment ENLARGED NORMAL NORMAL Neutrophils (%) (Auto) 84.3 % 87.9 % Lymphocytes (%) (Auto) 5.8 % 5.3 % Monocytes (%) (Auto) 9.1 % 6.1 % Eosinophils (%) (Auto) 0.6 % 0.6 % Basophils (%) (Auto) 0.2 % 0.1 % Neutrophils # (Auto) 17.0 TH/MM3 21.6 TH/MM3 Lymphocytes # (Auto) 1.2 TH/MM3 1.3 TH/MM3 Monocytes # (Auto) 1.8 TH/MM3 1.5 TH/MM3 Eosinophils # (Auto) 0.1 TH/MM3 0.1 TH/MM3 Basophils # (Auto) 0.0 TH/MM3 0.0 TH/MM3 Eosinophils % 1 % Red Cell Morphology Comment NORMAL Laboratory Tests Test 02/07/17 16:43 02/07/17 16:45 02/07/17 22:55 02/08/17 03:37 Lactic Acid Level 2.9 mmol/L 3.4 mmol/L 2.2 mmol/L Ammonia 19 MCMOL/L Blood Urea Nitrogen 17 MG/DL 21 MG/DL Creatinine 1.01 MG/DL 1.09 MG/DL Random Glucose 92 MG/DL 105 MG/DL Total Protein 6.6 GM/DL 6.1 GM/DL Albumin 1.4 GM/DL 1.3 GM/DL Calcium Level 9.0 MG/DL 8.4 MG/DL Alkaline Phosphatase 176 U/L 195 U/L Aspartate Amino Transf (AST/SGOT) 21 U/L 32 U/L Alanine Aminotransferase (ALT/SGPT) 39 U/L 36 U/L Total Bilirubin 0.5 MG/DL 0.5 MG/DL Direct Bilirubin 0.3 MG/DL Sodium Level 140 MEQ/L 137 MEQ/L Potassium Level 3.0 MEQ/L 2.8 MEQ/L Chloride Level 102 MEQ/L 99 MEQ/L Carbon Dioxide Level 23.5 MEQ/L 25.7 MEQ/L Anion Gap 15 MEQ/L 12 MEQ/L Estimat Glomerular Filtration Rate 60 ML/MIN 55 ML/MIN Indirect Bilirubin 0.2 MG/DL Total Creatine Kinase 43 U/L Amylase Level 26 U/L 12 U/L Lipase 54 U/L 36 U/L Magnesium Level 2.2 MG/DL Test 02/08/17 16:04 02/08/17 18:15 02/08/17 20:00 02/09/17 00:15 Lactic Acid Level 1.9 mmol/L 1.2 mmol/L 1.1 mmol/L Potassium Level 2.9 MEQ/L Test 02/09/17 05:50 02/09/17 13:25 Blood Urea Nitrogen 14 MG/DL Creatinine 0.55 MG/DL Random Glucose 96 MG/DL Total Protein 5.5 GM/DL Albumin 1.1 GM/DL Calcium Level 7.8 MG/DL Phosphorus Level 2.3 MG/DL Magnesium Level 2.2 MG/DL Alkaline Phosphatase 214 U/L Aspartate Amino Transf (AST/SGOT) 30 U/L Alanine Aminotransferase (ALT/SGPT) 34 U/L Total Bilirubin 0.4 MG/DL Sodium Level 139 MEQ/L Potassium Level 3.5 MEQ/L Chloride Level 105 MEQ/L Carbon Dioxide Level 26.0 MEQ/L Anion Gap 8 MEQ/L Estimat Glomerular Filtration Rate 120 ML/MIN Lactic Acid Level 0.6 mmol/L 0.4 mmol/L Ammonia 11 MCMOL/L Total Creatine Kinase 398 U/L Creatine Kinase MB 8.4 NG/ML Creatine Kinase MB % 2.1 % Amylase Level 6 U/L Lipase 42 U/L Microbiology Date/Time Source Procedure Growth Status 02/08/17 03:37 Blood Peripheral Aerobic Blood Culture - Preliminary NO GROWTH IN 1 DAY Resulted 02/08/17 03:37 Blood Peripheral Anaerobic Blood Culture - Preliminary NO GROWTH IN 1 DAY Resulted 02/07/17 22:55 Blood Peripheral Aerobic Blood Culture - Preliminary NO GROWTH IN 2 DAYS Resulted 02/07/17 22:55 Blood Peripheral Anaerobic Blood Culture - Preliminary NO GROWTH IN 2 DAYS Resulted IMAGING: Chest X-Ray 02/09/17599 Signed Impressions: Service Date/Time: January 03:59 - CONCLUSION: 1. Stable exam since February 08. Support apparatus in satisfactory position. Raphael Reynoso MD Abdomen X-Ray 02/09/17599 Signed Impressions: Service Date/Time: January 04:06 - CONCLUSION: 1. Stable gaseous distention of bowel compared with February 08 most characteristic of ileus. No free air identified. Raphael Reynoso MD Chest X-Ray 02/08/17599 Signed Impressions: Service Date/Time: Wednesday, February 08, 2017 04:46 - CONCLUSION: 1. Support apparatus in good position. Stable bilateral airspace disease. Raphael Reynoso MD Abdomen X-Ray 02/08/17599 Signed Impressions: Service Date/Time: Wednesday, February 08, 2017 04:50 - CONCLUSION: 1. Diffuse ileus. Possible pneumatosis involving small bowel loops seen on the left side. NG tube in the stomach. Gastrostomy tube present. Raphael Reynoso MD Enema w/Water Soluble 02/07/17 0000 Signed Impressions: Service Date/Time: Tuesday, February 07, 2017 13:47 - CONCLUSION: Therapeutic Gastrografin enema performed as above. Ricardo Cornejo MD Abdomen/Pelvis CT 02/07/17 0000 Signed Impressions: Service Date/Time: Tuesday, February 07, 2017 17:20 - CONCLUSION: 1. Diffuse dilatation of small bowel with pneumatosis intestinalis identified. 2. A discrete transition point is not identified. 3. Ascites. 4. No obvious signs of free air. Free fluid is identified however. 5. Left renal calculi. 6. Bilateral pleural effusions. 7. Pulmonary airspace disease. Ricardo Cornejo MD PHYSICAL EXAMINATION GENERAL: On the vent. HEENT: The sclerae is nonicteric. Oropharynx mucosa is moist. LUNGS: Rhonchi at the bases. HEART: Regular S1-S2. No audible murmurs. ABDOMEN: Bowel sounds not audible. Distended, softer. EXTREMITIES: No clubbing or cyanosis. Trace edema. SKIN: Lacy geographic pattern on legs. Moist, warm. NEUROLOGIC: Difficult to assess because of the patient's persistent vegetative state. PSYCHIATRIC: Unable to assess because of the patient's persistent vegetative non verbal state. IMPRESSION 1. Sepsis. 2. Pneumonia. HCAP - pseudomonas, proteus. Repeat sputum culture - Klebsiella ESBL. 3. Leukocytosis secondary to sepsis. WBC increased. 4. Acute respiratory failure. On ventilator. 5. Intestinal obstruction. RECOMMENDATIONS 1. Stop piperacillin / Tazobactam. 2. Add Meropenem. 3. Stop Aztreonam. 4. Continue Vancomycin. 5. Continue Tobra nebs. 6. Follow WBC and clinical status. D/W RN. Phani Riggs MD Feb 09, 2017 14:41
[2017-02-09] MEDS ORDERED: MISCELLANEOUS PHARMACY INFORMATION XX PRN ×2 (14:45)
[2017-02-09] MEDS ORDERED: ASP: Path resistant to other antimicrobials, culture proven PRN (14:45)
--- NOTE | 2017-02-09 15:56 | HHI.GIFU ---
Subjective Remarks Patient sedated on ventilator, on vasopressors. Nurse reports that she was not getting any gastric drainage from PEG tube to suction, however patient had 400 cc of secretions suctioned from NG tube this shift. She had one large liquid stool. She remains distended and has abdominal pressure of 21. (Yanelis Chong) Objective Vitals I&O Vital Signs Date Time Temp Pulse Resp B/P (MAP) Pulse Ox O2 Delivery O2 Flow Rate FiO2 02/09/17 13:00 75 119/79 (92) 02/09/17 12:00 40 02/09/17 10:43 100 40 02/09/17 08:12 99 40 02/09/17 08:00 40 02/09/17 07:00 74 132/72 (92) 02/09/17 06:00 80 02/09/17 05:54 79 119/60 02/09/17 05:00 83 109/75 (86) 02/09/17 04:00 81 02/09/17 04:00 99.6 81 16 111/77 (88) 99 02/09/17 04:00 40 02/09/17 03:44 100 40 02/09/17 02:00 79 02/09/17 01:00 82 99/63 (75) 02/09/17 00:01 100 40 02/09/17 00:00 40 02/09/17 00:00 90 02/09/17 00:00 99.4 90 16 106/75 (85) 100 02/08/17 22:00 80 02/08/17 20:13 83 97/54 02/08/17 20:00 82 02/08/17 20:00 40 02/08/17 20:00 99.5 82 16 97/54 (68) 100 02/08/17 19:44 99 40 02/08/17 19:00 89 110/62 (78) 02/08/17 16:45 84 16 109/68 (82) 98 02/08/17 16:39 100 40 02/08/17 16:30 83 16 112/69 (83) 100 02/08/17 16:15 83 16 125/78 (94) 100 02/08/17 16:00 40 02/08/17 16:00 99.1 83 24 121/75 (90) 100 02/08/17 15:45 84 26 103/58 (73) 100 I/O 02/08/17 02/08/17 02/08/17 02/09/17 02/09/17 02/09/17 07:00 15:00 23:00 07:00 15:00 23:00 Intake Total 1780 ml 4270 ml 2345 ml 420 ml Output Total 900 ml 2050 ml 2800 ml Balance 880 ml 2220 ml -455 ml 420 ml IV Total 1680 ml 4270 ml 2345 ml 420 ml Tube Irrigant 100 ml Output Urine Total 300 ml 1300 ml 2400 ml Gastric Drainage Total 600 ml 750 ml 400 ml # Bowel Movements 1 1 1 Laboratory Laboratory Tests Test 02/08/17 16:04 02/08/17 18:15 02/08/17 20:00 02/09/17 00:15 Lactic Acid Level 1.9 1.2 1.1 Potassium Level 2.9 Test 02/09/17 05:50 02/09/17 06:05 02/09/17 13:25 White Blood Count 24.5 Red Blood Count 2.98 Hemoglobin 9.0 Hematocrit 26.6 Mean Corpuscular Volume 89.4 Mean Corpuscular Hemoglobin 30.3 Mean Corpuscular Hemoglobin Concent 33.9 Red Cell Distribution Width 14.4 Platelet Count 328 Mean Platelet Volume 8.4 Neutrophils (%) (Auto) 87.9 Lymphocytes (%) (Auto) 5.3 Monocytes (%) (Auto) 6.1 Eosinophils (%) (Auto) 0.6 Basophils (%) (Auto) 0.1 Neutrophils # (Auto) 21.6 Lymphocytes # (Auto) 1.3 Monocytes # (Auto) 1.5 Eosinophils # (Auto) 0.1 Basophils # (Auto) 0.0 CBC Comment AUTO DIFF Differential Total Cells Counted 100 Neutrophils % (Manual) 73 Band Neutrophils % 10 Lymphocytes % 6 Monocytes % 9 Neutrophils # (Manual) 20.8 Metamyelocytes 1 Myelocytes 1 Differential Comment FINAL DIFF MANUAL Platelet Estimate NORMAL Platelet Morphology Comment NORMAL Red Cell Morphology Comment NORMAL Activated Partial Thromboplast Time 42.9 Fibrinogen 731 Blood Urea Nitrogen 14 Creatinine 0.55 Random Glucose 96 Total Protein 5.5 Albumin 1.1 Calcium Level 7.8 Phosphorus Level 2.3 Magnesium Level 2.2 Alkaline Phosphatase 214 Aspartate Amino Transf (AST/SGOT) 30 Alanine Aminotransferase (ALT/SGPT) 34 Total Bilirubin 0.4 Sodium Level 139 Potassium Level 3.5 Chloride Level 105 Carbon Dioxide Level 26.0 Anion Gap 8 Estimat Glomerular Filtration Rate 120 Lactic Acid Level 0.6 0.4 Ammonia 11 Total Creatine Kinase 398 Creatine Kinase MB 8.4 Creatine Kinase MB % 2.1 Amylase Level 6 Lipase 42 Blood Gas Puncture Site RT RADIAL Blood Gas Patient Temperature 98.6 Blood Gas HCO3 23 Blood Gas Base Excess 0.1 Blood Gas Oxygen Saturation 95 Arterial Blood pH 7.52 Arterial Blood Partial Pressure CO2 28 Arterial Blood Partial Pressure O2 108 Arterial Blood Oxygen Content 14.1 Arterial Blood Carboxyhemoglobin 2.0 Arterial Blood Methemoglobin 1.4 Blood Gas Hemoglobin 10.4 Oxygen Delivery Device VENT Blood Gas Ventilator Setting SEE COMMENTS Blood Gas Inspired Oxygen 40 Date/Time Source Procedure Growth Status 02/08/17 03:37 Blood Peripheral Aerobic Blood Culture - Preliminary NO GROWTH IN 1 DAY Resulted 02/08/17 03:37 Blood Peripheral Anaerobic Blood Culture - Preliminary NO GROWTH IN 1 DAY Resulted 02/06/17 13:00 Sputum Endotracheal Gram Stain - Final Complete 02/06/17 13:00 Sputum Culture - Final Klebsiella Pneumoniae Esbl Pos Complete 02/02/17 18:00 Urine Catheterized Urine Urine Culture - Final NO GROWTH IN 48 HOURS. Complete Imaging Last Impressions Chest X-Ray 02/09/17 0600 Signed Impressions: Service Date/Time: January 03:59 - CONCLUSION: 1. Stable exam since February 08. Support apparatus in satisfactory position. Raphael Reynoso MD Abdomen X-Ray 02/09/17 0600 Signed Impressions: Service Date/Time: January 04:06 - CONCLUSION: 1. Stable gaseous distention of bowel compared with February 08 most characteristic of ileus. No free air identified. Raphael Reynoso MD Enema w/Water Soluble 02/07/17 0000 Signed Impressions: Service Date/Time: Tuesday, February 07, 2017 13:47 - CONCLUSION: Therapeutic Gastrografin enema performed as above. Ricardo Cornejo MD Abdomen/Pelvis CT 02/07/17 0000 Signed Impressions: Service Date/Time: Tuesday, February 07, 2017 17:20 - CONCLUSION: 1. Diffuse dilatation of small bowel with pneumatosis intestinalis identified. 2. A discrete transition point is not identified. 3. Ascites. 4. No obvious signs of free air. Free fluid is identified however. 5. Left renal calculi. 6. Bilateral pleural effusions. 7. Pulmonary airspace disease. Ricardo Cornejo MD Physical Exam HEENT: Normocephalic; atraumatic CHEST: Resp even/unlabored, OETT to vent. Coarse breath sounds CARDIAC: RRR ABDOMEN: Tympanic, distended; hypoactive bowel sounds hypoactive, NGT to LIWS gastric secretions- 400cc this shift. G tube clamped- was not suctioning any gastric contents EXTREMITIES: No clubbing, cyanosis, + generalized edema SKIN: no rash; no jaundice. 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 (Yanelis Chong) Assessment and Plan Plan ASSESSMENT - Severe ileus. CT scan abdomen and pelvis without IV contrast (02/07/17) diffuse dilatation of small bowel with pneumatosis intestinalis Identified. A discrete transition point is not identified, ascites, no obvious signs of free air, free fluid is identified. However, left renal calculi, bilateral pleural effusions, pulmonary airspace disease. Status post Gastrografin enema (02/07/17) therapeutic Gastrografin enema performed as above- no significant improvement. S/P Relistor (02/07/17)-> no improvement. Attempted decompressive colonoscopy (02/07/17)----> significant amount of stool was present throughout the entire examined colon, around the transverse colon, scope was not advanced beyond secondary to formed fecal material blocking the scope in the suction. Limited decompression since the colon is distended with formed fecal material and minimal air, no transition point noted during the examination. Getting Soap Suds enemas q6h, Miralax 17gram BID, Reglan q8h. Rpt. KUB (02/09/17)----> stable gaseous distention of bowel compared with February 08 most characteristic of ileus. No free air is identified. Nurse reports that the patient had one large liquid stool earlier today. Her IAP is 21 (29 yesterday). S/P GS evaluation, conservative management. She remains significant distended, although seems to be slightly improved from yesterday. Will current management today. Recheck KUB in am, if no significant improvement, consider repeat decompression. NPO. TPN. - Sepsis, Leukocytosis (worsening). WBC 24.5. Abx per ID- meropeneum, vanco, tobra nebs. - Anemia with drop in Hgb. 9.0/26.6. No obvious signs of bleeding. On PPI - Resp. failure, PNA. Has trach. Vent per CCM. ID following, abx meropenem, vanco, tobra nebs - Hx TBI, Sz D/O, electrolyte abnormalities per CCM. PLAN - NPO - TPN - NGT to LIWS- nurse reports that they are not getting any gastric contents from g-tube when placed to LIWS- but getting 400cc this shift from NGT - Cont. PPI - Soap Suds enema q6h - Reglan - Miralax - Cont. to monitor IAP - KUB in am - S/P GS evaluation - Supportive care - Will fu on KUB in am. If worsening, consider repeat decompression- there seems to be a slight improvement, but she remains distended and IAP still elevated at 21 - This pt seen by myself and Dr Meza and this note is written on his behalf (Yanelis Chong) Physician Comments Slight improvement, will need repeat KUB and frequent enemas to disimpact her, will follow up with you. (Gwen Meza MD) Yanelis Chong Feb 09, 2017 15:56 Gwen Meza MD Feb 10, 2017 06:24
[2017-02-09] MEDS: PANTOPRAZOLE SODIUM 40 MG VIAL IV PUSH SCH (17:00)
[2017-02-09] MEDS: MEROPENEM INJ 1,000 MG in SODIUM CHLORIDE 0.9% INJ 100 ML IV SCH (17:18)
[2017-02-09 20:13] LABS: MAGNESIUM 2.2 MG/DL (1.5-2.5)
[2017-02-09 20:15] LABS: POTASSIUM 2.9 MEQ/L (3.5-5.1)
[2017-02-10] VITALS (19 sets, daily range): BP systolic 101–151; BP diastolic 67–94; PULSE 63–90; RESP 12–24; TEMP 98.6–98.9; O2SAT 96–100
[2017-02-10] MEDS: RESP: ALBUTEROL 2.5 MG/IPRATROPIUM 0.5 MG NEB (SCH) NEB ×4 (01:27→19:37)
[2017-02-10] MEDS: MEROPENEM INJ 1,000 MG in SODIUM CHLORIDE 0.9% INJ 100 ML IV SCH ×4 (02:34→23:10)
[2017-02-10] MEDS: CLINIMIX E 4.25/5 2000 mL- >42 mls/hr IV SCH ×9 (03:04→22:05)
--- NOTE | 2017-02-10 05:47 | RADRPT ---
EXAM DATE/TIME: 02/10/2017 03:55 [facility] COMPARISON: CHEST SINGLE AP, February 09, 2017, 3:59. INDICATIONS : Respiratory failure, sepsis MEDICAL HISTORY : Sepsis. Hypertension. Gastroesophageal reflux disease. Seizures Traumatic brain SURGICAL HISTORY : ENCOUNTER: Subsequent ACUITY: 1 week PAIN SCORE: Non-responsive. LOCATION: Bilateral chest FINDINGS: A single view of the chest demonstrates the tracheostomy tube, nasogastric tube and right IJ central line are in stable position. The nasogastric tubes tip is in the distal esophagus. The cardiomediast inal contours are unremarkable. Osseous structures are intact. Pulmonary hilar vascular congestion w ith some consolidation in the left midlung zone CONCLUSION: Persistent infiltrate in the left perihilar region. The nasogastric could be advanced to reach the s rosach Kevin Benítez MD on February 10, 2017 at 5:44 Board Certified Radiologist. This report was verified electronically.
[2017-02-10 06:03] LABS: AUTOMATED NEUTROPHIL # 14.3 TH/MM3 (1.8-7.7); BASOPHIL % 0.1 % (0.0-2.0); EOSINOPHIL # 0.1 TH/MM3 (0-0.4); EOSINOPHIL % 0.6 % (0.0-4.0); HEMATOCRIT 23.8 % (35.0-46.0); LYMPH % 7.9 % (9.0-44.0); LYMPHOCYTE # 1.3 TH/MM3 (1.0-4.8); MEAN CELL VOLUME 89.7 FL (80.0-100.0); MEAN CORPUSCULAR HEMOGLOBIN 29.4 PG (27.0-34.0); MEAN CORPUSCULAR HGB CONC 32.8 % (32.0-36.0); MONO % 6.1 % (0.0-8.0); NEUT % 85.3 % (16.0-70.0); PLATELET COUNT 333 TH/MM3 (150-450); RED BLOOD COUNT 2.66 MIL/MM3 (4.00-5.30); RED CELL DISTRIBUTION WIDTH 14.2 % (11.6-17.2); WHITE BLOOD COUNT 16.7 TH/MM3 (4.0-11.0)
[2017-02-10 06:09] LABS: HEMO FLAGS AUTO DIFF
--- NOTE | 2017-02-10 06:11 | RADRPT ---
EXAM DATE/TIME: 02/10/2017 03:59 [facility] COMPARISON: ABDOMEN KUB ONLY, February 09, 2017, 4:06. INDICATIONS : Evaluate for ileus MEDICAL HISTORY : Gastroesophageal reflux disease. Hypertension Seizures Traumatic brain SURGICAL HISTORY : PEG tube ENCOUNTER: Subsequent ACUITY: 1 week PAIN SCORE: Non-responsive. LOCATION: Bilateral Abdomen FINDINGS: Supine view of the abdomen was performed. The abdominal bowel gas pattern is normal. Moderate air th roughout the colon No abnormal masses, calcifications, or organomegaly is seen. The osseous structu res are unremarkable. CONCLUSION: Moderate air throughout the colon. Bowel gas pattern is unremarkable. Both films are supine. Kevin Benítez MD on February 10, 2017 at 6:08 Board Certified Radiologist. This report was verified electronically.
[2017-02-10 06:33] LABS: ALKALINE PHOSPHATASE 192 U/L (45-117); ALT (GPT) 33 U/L (10-53); ANION GAP 7 MEQ/L (5-15); AST (GOT) 24 U/L (15-37); BLOOD UREA NITROGEN 10 MG/DL (7-18); CHLORIDE 109 MEQ/L (98-107); GLOMERULAR FILTRATION RATE 242 ML/MIN (>89); MAGNESIUM 2.2 MG/DL (1.5-2.5); POTASSIUM 3.9 MEQ/L (3.5-5.1); SODIUM (NA) 142 MEQ/L (136-145); TOTAL BILIRUBIN ADULT 0.3 MG/DL (0.2-1.0)
[2017-02-10 07:04] LABS: BANDS 4 % (0-6); METAMYELOCYTES 4 % (0-1); MYELOCYTES 1 % (0-0); NEUTROPHIL # MANUAL DIFF 15.9 TH/MM3 (1.8-7.7); POLYS (SEG NEUTROPHILS) 84 % (16-70); PROMYELOCYTES 2 % (0-0); WBC DIFF SAMPLE 100
[2017-02-10 07:06] LABS: PLATELET ESTIMATE SMEAR NORMAL (NORMAL); PLATELET MORPHOLOGY NORMAL (NORMAL); SCAN/DIFF FINAL DIFF MANUAL; STOMATOCYTES 1+ (NORMAL)
--- NOTE | 2017-02-10 07:11 | HHI.CCPN ---
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 ABG on admission showed significant A-a gradient, chest x-ray showed bilateral perihilar infiltrates. Patient was placed on 98% O2 by trach collar. UA showed evidence of UTI. Patient lactic acid was 4, indicating severe sepsis. 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 Patient was placed on vancomycin, Zosyn and ciprofloxacin and ID Dr. Riggs was consulted A Halicat was called around 1100 AM today for worsening hypoxia SaO2 86% on 98% oxygen, hypotension and respiratory distress. Patient was moved to the ICU and [facility] immediately evaluated the patient. She was in impending respiratory failure , O2 Sat low 80s. With myself present at bedside, Respiratory therapist removed the 6.0 cuffless trach and replaced it with 6.0 cuffed trach. Patient was placed on mechanical ventilation with 100% oxygen and PEEP of 10 with immediate improvement oxygen saturation. Repeat chest x-ray shows consolidation of Left upper lobe 02/03 Remains intubated oxygen saturation is improved FiO2 down to 45%. PEEP remains at 12. Sputum culture with Proteus and another GNR. Chest x-ray today is pending at this time. Neuro exam remains unchanged 02/04 Remains on mechanical ventilation, PEEP 8. FIO2 weaned to 50%. . White blood cell count down trending. RN noticed dislodgement of Black this morning. Non bloody. She is voiding, bladder scan showed no e/o obstruction. Replaced black so can get accurate I/O because she is still acutely ill. 02/05 Failing CPap trials due to tachypnea. Moderate yellow respiratory secretions. 01/31 sputum culture with Proteus and pseudomonas. Tobramycin nebs initiated per ID for pseudomonas in sputum. 02/06 CPAP trials terminated by RT due to apnea. Still significant respiratory secretions. WBC 20. Temp max 99.7. Vomited last night but now tolerating tube feed advancement. Last BM 02/03. Leaking around black, Black replaced. 02/07: Tmax 99.7. Currently afebrile. Not tolerating PSV trials due to apnea chronic RT. Will reattempt today. CBC pending this AM. Tube feeds currently at 30 cc an hour. Goal 50 cc an hour. AXR yesterday revealed small/large bowel dilatation with stool proximal colon. See orders for multiple medications provided today. 02/08: Currently afebrile. Noted yesterday with pneumatosis intestinalis. Surgical evaluation agree due to size involving almost entire small bowel not optimal surgical candidate at this time. Medical management recommended. Lactic acid 2.2. Not mottled today like yesterday. Subjective: 02/09: Tmax 99.5. 2400 cc stool past 24 hours. Intra-abdominal pressures around 20. Remains on David-Synephrine 70 mcg per minute. Lactic acid has cleared. 02/10 Patient is sedated with Diprivan and intubated. Afebrile, Neosyn down 54 mics from 70 mics/min. WBC is trending down. On TPN. Objective Vital Signs Date Time Temp Pulse Resp B/P (MAP) Pulse Ox O2 Delivery O2 Flow Rate FiO2 02/10/17 04:15 100 40 02/10/17 00:00 98.9 64 18 131/87 (102) Result Diagram: 02/10/17 0530 02/10/17 0530 Other Results Laboratory Tests Test 02/09/17 13:25 02/09/17 18:00 02/10/17 05:30 Lactic Acid Level 0.4 mmol/L 0.2 mmol/L Potassium Level 2.9 MEQ/L 3.9 MEQ/L Phosphorus Level 2.5 MG/DL 2.1 MG/DL Magnesium Level 2.2 MG/DL 2.2 MG/DL White Blood Count 16.7 TH/MM3 Red Blood Count 2.66 MIL/MM3 Hemoglobin 7.8 GM/DL Hematocrit 23.8 % Mean Corpuscular Volume 89.7 FL Mean Corpuscular Hemoglobin 29.4 PG Mean Corpuscular Hemoglobin Concent 32.8 % Red Cell Distribution Width 14.2 % Platelet Count 333 TH/MM3 Mean Platelet Volume 7.7 FL Neutrophils (%) (Auto) 85.3 % Lymphocytes (%) (Auto) 7.9 % Monocytes (%) (Auto) 6.1 % Eosinophils (%) (Auto) 0.6 % Basophils (%) (Auto) 0.1 % Neutrophils # (Auto) 14.3 TH/MM3 Lymphocytes # (Auto) 1.3 TH/MM3 Monocytes # (Auto) 1.0 TH/MM3 Eosinophils # (Auto) 0.1 TH/MM3 Basophils # (Auto) 0.0 TH/MM3 CBC Comment AUTO DIFF Blood Urea Nitrogen 10 MG/DL Creatinine 0.30 MG/DL Random Glucose 91 MG/DL Total Protein 5.5 GM/DL Albumin 1.1 GM/DL Calcium Level 8.0 MG/DL Alkaline Phosphatase 192 U/L Aspartate Amino Transf (AST/SGOT) 24 U/L Alanine Aminotransferase (ALT/SGPT) 33 U/L Total Bilirubin 0.3 MG/DL Sodium Level 142 MEQ/L Chloride Level 109 MEQ/L Carbon Dioxide Level 26.0 MEQ/L Anion Gap 7 MEQ/L Estimat Glomerular Filtration Rate 242 ML/MIN Valproic Acid (Depakene) Level 7 MCG/ML Carbamazepine (Tegretol) Level 4.4 MCG/ML Imaging Last Impressions Chest X-Ray 02/10/17 06 Signed Impressions: Service Date/Time: Friday, February 10, 2017 03:55 - CONCLUSION: Persistent infiltrate in the left perihilar region. The nasogastric could be advanced to reach the stomach Kevin Benítez MD Abdomen X-Ray 02/10/17599 Signed Impressions: Service Date/Time: Friday, February 10, 2017 03:59 - CONCLUSION: Moderate air throughout the colon. Bowel gas pattern is unremarkable. Both films are supine. Kevin Benítez MD Enema w/Water Soluble 02/07/17 0000 Signed Impressions: Service Date/Time: Tuesday, February 07, 2017 13:47 - CONCLUSION: Therapeutic Gastrografin enema performed as above. Ricardo Cornejo MD Abdomen/Pelvis CT 02/07/17 0000 Signed Impressions: Service Date/Time: Tuesday, February 07, 2017 17:20 - CONCLUSION: 1. Diffuse dilatation of small bowel with pneumatosis intestinalis identified. 2. A discrete transition point is not identified. 3. Ascites. 4. No obvious signs of free air. Free fluid is identified however. 5. Left renal calculi. 6. Bilateral pleural effusions. 7. Pulmonary airspace disease. Ricardo Cornejo MD Objective Remarks General: 46-year-old female, resting in bed on ventilator via tracheostomy Head: History TBI. Eyes: R pupil 4mm and reactive. L eye with pterygium covering entire conjunctiva and L chronic large corneal opacity. Neck: Right IJ is clean dry and intact. No thyromegaly or lymphadenopathy. 6.0 Cuffed Shiley trach is in place with minimal yellow secretions surrounding. Cardiovascular: RRR. S1, S2 no S4 without murmur Lungs: Coarse breath sounds are appreciated throughout all lung walker anterior- posterior. GI: Abdomen is firm though slightly reducible and distended no bowel sounds appreciated. Not rigid. No peritoneal signs. PEG tube site is clean dry and intact : Black in place with yellow urine output. Extremities: Contracted bilateral upper and lower extremities. Positive anasarca. Neurologic Exam: Patient is unresponsive at the baseline, pupils as above. + Horizontal nystagmus. Moves upper and lower extremities to noxious stimulation. 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 Valproic acid low at 7.0 RESP: Acute on chronic hypoxemic respiratory failure Healthcare associated pneumonia Chronic trach currently number 6 Shiley - Trach changed to a 6.0 cuffed - PRVC 14//06/23/39 - Ventilator bundle - Albuterol/ipratropium aerosols every 6 hours with albuterol aerosols every 2 hours when necessary dyspnea - Daily spontaneous breathing trial. - CXR today persistent infiltrate left hilar region. CV: History of HTN Severe sepsis shock secondary to pneumatosis intestinalis Lactic acidosis - resolved Continue to wean off Neosyn maintain MAP >65 mmHg Metoprolol 100 mg by PEG q12 hours, lisinopril 5 mg daily been held in light of use of pressors GI: Constipation Ileus Pneumatosis intestinalis On TPN @64ml/hr. d/c IVF KUB today: Moderate air throughout colon, bowel gas pattern unremarkable KUB 02/06 revealed dilated loops of small bowel along with large bowels large amount of stool in the proximal colon. - CT abdomen/pelvis 02/07 revealed pneumatosis intestinalis. Large amount of stool in colon. Patient is currently on NG tube to low intermittent wall suction. Abdominal pressures between 18-27 -Metoclopramide 10 mg IV q8 hours. -Bowel regimen with docusate sodium 100 mg by PEG twice a day, senna 8.6 g twice a day, polyethylene glycol 3350 17 g twice a day and lactulose 30 cc 4 times a day and as needed glycerin suppositories -Pantoprazole 40 mg IV daily for GI prophylaxis - Gastrografin enema 02/07 with minimal results Evaluated by Dr. Umanzor Gen. Surgery 02/07. Poor surgical candidate due to underlying health and amount of pneumatosis intestinalis. Recommended medical management Evaluated by Dr. Meza for gastroenterology. Status post colonoscopy 02/07. Large amount of stool throughout colon. Recommended serial enemas every 6 hours a FEN/RENAL/: Bladder spasms -Monitor renal function, I/O's, electrolytes replacement per protocol Belladonna and opiate suppositories daily when necessary bladder spasms.. Black exchange 02/06 Initiate TPN today with dietary recommendations if unable to initiate tube feedings and ID: Healthcare associated pneumonia (sputum culture 01/31 with proteus, pseudomonas) CRAB + History of MRSA - Continue abx per ID ( Vanco, Merrem, Tobra nebs) monitor for signs of infections ( Fever, WBC) WBC is trending down -Check sputum cx Pertinent cultures 01/31 - sputum - Proteus/Pseudomonas 01/31- UA - no growth 01/31 - blood cultures 2 - no growth 02/02 - UA - no growth 02/06 - sputum -Kleb pneumonia ESBL 02/07 - blood cultures 2 - pending HEME: Leukocytosis Anemia Follow CBC daily. Monitor trends ENDO: SSI for glycemic control PROPH: GI -pantoprazole 40 mg IV daily DVT - enoxaparin 40 mg subcutaneous daily LINES: Right IJ CVL day #3 placed 02/07 Level III Jimmie Ricketts MD Feb 10, 2017 07:11
[2017-02-10] MEDS: INSULIN NovoLIN REGULAR SUPPLEMENTAL SCALE SQ SCH ×5 (07:15→23:07)
[2017-02-10] MEDS ORDERED: DEXTROSE 50% IN WATER 50 ML VIAL(D50) IV PRN (07:15)
[2017-02-10] MEDS ORDERED: GLUCAGON 1 MG/ML VIAL OTHER PRN (07:15)
[2017-02-10] MEDS: RESP: TOBRAMYCIN SULFATE 80 MG/2 ML NEB NEB SCH (07:59)
[2017-02-10] MEDS: CHLORHEXIDINE 0.12% (ORAL KIT) 15 ML CUP MT SCH ×2 (08:00→19:32)
[2017-02-10] MEDS: PROPOFOL 1000 MG/100 ML INJ 100 ML IV SCH ×3 (08:17→22:05)
[2017-02-10] MEDS: levETIRAcetam INJ 1,500 MG in SODIUM CHLORIDE 0.9% INJ 100 ML IV SCH ×2 (08:20→20:02)
[2017-02-10] MEDS: POLYETHYLENE GLYCOL 17 GM PKG PEG SCH ×2 (08:21→20:01)
[2017-02-10] MEDS: SODIUM CHLORIDE 0.9% FLUSH 10 ML FLUSH IV FLUSH SCH ×2 (08:21→20:03)
[2017-02-10] MEDS: VALPROATE INJ 500 MG in SODIUM CHLORIDE 0.9% INJ 100 ML IV SCH ×2 (08:21→20:02)
[2017-02-10] MEDS: SENNOSIDES SYRUP 8.8 MG/5 ML CUP PEG SCH ×2 (08:21→20:01)
[2017-02-10] MEDS: SODIUM CHLORIDE 0.9% FLUSH 10 ML FLUSH IVF SCH (08:22)
[2017-02-10] MEDS: LACTOBACILLUS ACIDOPHILUS 1 GM PACKET PO SCH ×3 (08:23→17:52)
[2017-02-10] MEDS: ARTIFICIAL TEARS OPTH SOLN 15 ML BTL RIGHT EYE SCH ×2 (08:23→20:01)
[2017-02-10] MEDS ORDERED: MEROPENEM INJ 1,000 MG in SODIUM CHLORIDE 0.9% INJ 100 ML IV SCH (10:30)
--- NOTE | 2017-02-10 10:49 | HHI.HCPN ---
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 hospital course as condition evolves, to assist patient/decision-maker with understanding of medical conditions, weighing benefits/burdens of treatment options, for clarification of goals of treatment. Additionally will assist with any symptoms of palliative concern Attestation To help prompt me to consider important information that might be impacting today's encounter and assessment, information from prior notes written by myself or my colleagues may have been "brought forward" into today's note. My signature on this note, however, is an attestation that I personally performed the exam, history, and/or decision-making noted today, and, unless otherwise indicated, the interactions with patient, family, and staff as well as the review of records all occurred today. I also attest that the listed assessment and stated plan reflect my best clinical judgment today based on the combination of historical information, prior notes, and today's exam/ interactions. When time spent is documented, it refers only to time spent today by the signer, or if indicated, combined time spent today by collaborating physician/nurse practitioner. Tawana Becerra Feb 10, 2017 10:49
--- NOTE | 2017-02-10 11:48 | HHI.IDPN ---
Note Infectious Disease Note Patient on the vent. Receiving enemas and having loose BMs. Baseline non verbal. Looks more awake. Afebrile Sputum culture has ESBL Klebsiella. PAST MEDICAL HISTORY 1. Traumatic brain injury. 2. Hypertension. 3. Hyperlipidemia. 4. History of seizure disorder. 5. Tracheostomy. Chronic. 6. PEG. ALLERGIES NO KNOWN DRUG ALLERGIES. MEDICATIONS 1. Meropenem. 2. Tobramycin nebs. OBJECTIVE: Vital Signs Date Time Temp Pulse Resp B/P (MAP) Pulse Ox O2 Delivery O2 Flow Rate FiO2 02/10/17 08:00 100 40 02/10/17 08:00 40 02/10/17 07:54 61 122/84 02/10/17 07:00 64 121/82 (95) 02/10/17 06:00 63 02/10/17 04:15 100 40 02/10/17 04:00 40 02/10/17 04:00 98.9 64 18 114/78 (90) 96 02/10/17 04:00 64 02/10/17 02:00 69 02/10/17 01:26 100 40 02/10/17 00:00 98.9 64 18 131/87 (102) 96 02/10/17 00:00 64 131/87 (102) 02/10/17 00:00 68 02/09/17 22:30 100 40 02/09/17 22:00 40 02/09/17 22:00 68 02/09/17 20:00 66 02/09/17 20:00 40 02/09/17 20:00 40 02/09/17 20:00 68 02/09/17 20:00 99.1 66 16 116/79 (91) 98 02/09/17 20:00 66 116/79 (91) 02/09/17 19:24 100 40 02/09/17 18:00 72 02/09/17 17:30 69 16 136/92 (107) 100 02/09/17 17:17 75 92/50 02/09/17 17:00 71 14 92/50 (64) 97 02/09/17 16:30 80 14 91/54 (66) 98 02/09/17 16:00 76 14 110/68 (82) 99 02/09/17 16:00 40 02/09/17 16:00 76 02/09/17 15:59 99 40 02/09/17 15:30 71 14 107/69 (82) 98 02/09/17 15:00 74 14 113/75 (88) 99 02/09/17 14:30 72 14 112/65 (81) 98 02/09/17 14:00 77 24 116/70 (85) 98 02/09/17 14:00 77 02/09/17 13:30 79 30 117/72 (87) 98 02/09/17 13:00 75 19 119/79 (92) 99 02/09/17 13:00 75 119/79 (92) 02/09/17 12:30 78 24 117/80 (92) 99 02/09/17 12:00 40 02/09/17 12:00 78 02/09/17 12:00 97.8 78 29 121/76 (91) 99 Laboratory Tests Test 02/09/17 05:50 02/10/17 05:30 White Blood Count 24.5 TH/MM3 16.7 TH/MM3 Red Blood Count 2.98 MIL/MM3 2.66 MIL/MM3 Hemoglobin 9.0 GM/DL 7.8 GM/DL Hematocrit 26.6 % 23.8 % Mean Corpuscular Volume 89.4 FL 89.7 FL Mean Corpuscular Hemoglobin 30.3 PG 29.4 PG Mean Corpuscular Hemoglobin Concent 33.9 % 32.8 % Red Cell Distribution Width 14.4 % 14.2 % Platelet Count 328 TH/MM3 333 TH/MM3 Mean Platelet Volume 8.4 FL 7.7 FL Neutrophils (%) (Auto) 87.9 % 85.3 % Lymphocytes (%) (Auto) 5.3 % 7.9 % Monocytes (%) (Auto) 6.1 % 6.1 % Eosinophils (%) (Auto) 0.6 % 0.6 % Basophils (%) (Auto) 0.1 % 0.1 % Neutrophils # (Auto) 21.6 TH/MM3 14.3 TH/MM3 Lymphocytes # (Auto) 1.3 TH/MM3 1.3 TH/MM3 Monocytes # (Auto) 1.5 TH/MM3 1.0 TH/MM3 Eosinophils # (Auto) 0.1 TH/MM3 0.1 TH/MM3 Basophils # (Auto) 0.0 TH/MM3 0.0 TH/MM3 CBC Comment AUTO DIFF AUTO DIFF Differential Total Cells Counted 100 100 Neutrophils % (Manual) 73 % 84 % Band Neutrophils % 10 % 4 % Lymphocytes % 6 % 4 % Monocytes % 9 % 1 % Neutrophils # (Manual) 20.8 TH/MM3 15.9 TH/MM3 Metamyelocytes 1 % 4 % Myelocytes 1 % 1 % Differential Comment FINAL DIFF MANUAL FINAL DIFF MANUAL Platelet Estimate NORMAL NORMAL Platelet Morphology Comment NORMAL NORMAL Red Cell Morphology Comment NORMAL Promyelocytes 2 % Stomatocytes 1+ Laboratory Tests Test 02/08/17 16:04 02/08/17 18:15 02/08/17 20:00 02/09/17 00:15 Lactic Acid Level 1.9 mmol/L 1.2 mmol/L 1.1 mmol/L Potassium Level 2.9 MEQ/L Test 02/09/17 05:50 02/09/17 13:25 02/09/17 18:00 02/10/17 05:30 Blood Urea Nitrogen 14 MG/DL 10 MG/DL Creatinine 0.55 MG/DL 0.30 MG/DL Random Glucose 96 MG/DL 91 MG/DL Total Protein 5.5 GM/DL 5.5 GM/DL Albumin 1.1 GM/DL 1.1 GM/DL Calcium Level 7.8 MG/DL 8.0 MG/DL Phosphorus Level 2.3 MG/DL 2.5 MG/DL 2.1 MG/DL Magnesium Level 2.2 MG/DL 2.2 MG/DL 2.2 MG/DL Alkaline Phosphatase 214 U/L 192 U/L Aspartate Amino Transf (AST/SGOT) 30 U/L 24 U/L Alanine Aminotransferase (ALT/SGPT) 34 U/L 33 U/L Total Bilirubin 0.4 MG/DL 0.3 MG/DL Sodium Level 139 MEQ/L 142 MEQ/L Potassium Level 3.5 MEQ/L 2.9 MEQ/L 3.9 MEQ/L Chloride Level 105 MEQ/L 109 MEQ/L Carbon Dioxide Level 26.0 MEQ/L 26.0 MEQ/L Anion Gap 8 MEQ/L 7 MEQ/L Estimat Glomerular Filtration Rate 120 ML/MIN 242 ML/MIN Lactic Acid Level 0.6 mmol/L 0.4 mmol/L 0.2 mmol/L Ammonia 11 MCMOL/L Total Creatine Kinase 398 U/L Creatine Kinase MB 8.4 NG/ML Creatine Kinase MB % 2.1 % Amylase Level 6 U/L Lipase 42 U/L Microbiology Date/Time Source Procedure Growth Status 02/08/17 03:37 Blood Peripheral Aerobic Blood Culture - Preliminary NO GROWTH IN 2 DAYS Resulted 02/08/17 03:37 Blood Peripheral Anaerobic Blood Culture - Preliminary NO GROWTH IN 2 DAYS Resulted 02/07/17 22:55 Blood Peripheral Aerobic Blood Culture - Preliminary NO GROWTH IN 3 DAYS Resulted 02/07/17 22:55 Blood Peripheral Anaerobic Blood Culture - Preliminary NO GROWTH IN 3 DAYS Resulted IMAGING: Chest X-Ray 02/09/17599 Signed Impressions: Service Date/Time: January 03:59 - CONCLUSION: 1. Stable exam since February 08. Support apparatus in satisfactory position. Raphael Reynoso MD Abdomen X-Ray 02/09/17599 Signed Impressions: Service Date/Time: January 04:06 - CONCLUSION: 1. Stable gaseous distention of bowel compared with February 08 most characteristic of ileus. No free air identified. Raphael Reynoso MD Chest X-Ray 02/08/17599 Signed Impressions: Service Date/Time: Wednesday, February 08, 2017 04:46 - CONCLUSION: 1. Support apparatus in good position. Stable bilateral airspace disease. Raphael Reynoso MD Abdomen X-Ray 02/08/17599 Signed Impressions: Service Date/Time: Wednesday, February 08, 2017 04:50 - CONCLUSION: 1. Diffuse ileus. Possible pneumatosis involving small bowel loops seen on the left side. NG tube in the stomach. Gastrostomy tube present. Raphael Reynoso MD Enema w/Water Soluble 02/07/17 0000 Signed Impressions: Service Date/Time: Tuesday, February 07, 2017 13:47 - CONCLUSION: Therapeutic Gastrografin enema performed as above. Ricardo Cornejo MD Abdomen/Pelvis CT 02/07/17 0000 Signed Impressions: Service Date/Time: Tuesday, February 07, 2017 17:20 - CONCLUSION: 1. Diffuse dilatation of small bowel with pneumatosis intestinalis identified. 2. A discrete transition point is not identified. 3. Ascites. 4. No obvious signs of free air. Free fluid is identified however. 5. Left renal calculi. 6. Bilateral pleural effusions. 7. Pulmonary airspace disease. Ricardo Cornejo MD PHYSICAL EXAMINATION GENERAL: On the vent. HEENT: The sclerae is nonicteric. Oropharynx mucosa is moist. LUNGS: Bilateral course breath sounds. Mild wheezing at left base. HEART: Regular S1-S2. No audible murmurs. ABDOMEN: Bowel sounds not audible. Distended, soft. EXTREMITIES: No clubbing or cyanosis. Trace edema. SKIN: Lacy geographic pattern on legs. Moist, warm. No diffuse rash. NEUROLOGIC: Difficult to assess because of the patient's persistent vegetative state. PSYCHIATRIC: Unable to assess because of the patient's persistent vegetative non verbal state. IMPRESSION 1. Sepsis. 2. Pneumonia. HCAP - pseudomonas, proteus. Repeat sputum culture - Klebsiella ESBL. 3. Leukocytosis secondary to sepsis. WBC decreased. 4. Acute respiratory failure. On ventilator. 5. Intestinal obstruction. RECOMMENDATIONS 1. continue Meropenem. 2. Stop Vancomycin. 3. Stop Tobra nebs. 4. Follow WBC and clinical status. Dr Rashaun Jacques covering weekend. Phani Riggs MD Feb 10, 2017 11:48
[2017-02-10] MEDS: ARTIFICIAL TEARS OPTH OINT 3.5 APPLIC/3.5 GM TUBO LEFT EYE SCH ×2 (12:24→20:01)
[2017-02-10] MEDS: METOCLOPRAMIDE HCL 10 MG/2 ML VIAL IV PUSH SCH ×2 (15:23→20:01)
--- NOTE | 2017-02-10 15:48 | HHI.GIFU ---
Subjective Remarks Resting in bed in no distress. Multiple large bowel movements. Abdomen slightly softer today, but remains distended. IAP 19 (down from 21 yesterday). Nurse reports that Dr. Meza was in and said that they could d/c enemas. (Yanelis Chong) Objective Vitals I&O Vital Signs Date Time Temp Pulse Resp B/P (MAP) Pulse Ox O2 Delivery O2 Flow Rate FiO2 02/10/17 14:00 80 02/10/17 13:00 75 110/67 (81) 02/10/17 12:00 40 02/10/17 12:00 78 02/10/17 12:00 100 40 02/10/17 12:00 98.6 78 24 114/73 (87) 100 02/10/17 10:00 69 02/10/17 08:00 66 02/10/17 08:00 100 40 02/10/17 08:00 98.9 66 12 146/84 (104) 100 02/10/17 08:00 40 02/10/17 07:54 61 122/84 02/10/17 07:00 64 121/82 (95) 02/10/17 06:00 63 02/10/17 04:15 100 40 02/10/17 04:00 40 02/10/17 04:00 98.9 64 18 114/78 (90) 96 02/10/17 04:00 64 02/10/17 02:00 69 02/10/17 01:26 100 40 02/10/17 00:00 98.9 64 18 131/87 (102) 96 02/10/17 00:00 64 131/87 (102) 02/10/17 00:00 68 02/09/17 22:30 100 40 02/09/17 22:00 40 02/09/17 22:00 68 02/09/17 20:00 66 02/09/17 20:00 40 02/09/17 20:00 40 02/09/17 20:00 68 02/09/17 20:00 99.1 66 16 116/79 (91) 98 02/09/17 20:00 66 116/79 (91) 02/09/17 19:24 100 40 02/09/17 18:00 72 02/09/17 17:30 69 16 136/92 (107) 100 02/09/17 17:17 75 92/50 02/09/17 17:00 71 14 92/50 (64) 97 02/09/17 16:30 80 14 91/54 (66) 98 02/09/17 16:00 76 14 110/68 (82) 99 02/09/17 16:00 40 02/09/17 16:00 76 02/09/17 15:59 99 40 I/O 02/09/17 02/09/17 02/09/17 02/10/17 02/10/17 02/10/17 06:59 14:59 22:59 06:59 14:59 22:59 Intake Total 2345 ml 420 ml 3443 ml 2011 ml 920 ml Output Total 2800 ml 3250 ml 2300 ml Balance -455 ml 420 ml 193 ml -289 ml 920 ml IV Total 2345 ml 420 ml 3343 ml 2011 ml 920 ml Tube Irrigant 100 ml Output Urine Total 2400 ml 2500 ml 2300 ml Gastric Drainage Total 400 ml 750 ml # Bowel Movements 1 2 2 Laboratory Laboratory Tests Test 02/09/17 18:00 02/10/17 05:30 02/10/17 12:17 Potassium Level 2.9 3.9 Phosphorus Level 2.5 2.1 Magnesium Level 2.2 2.2 White Blood Count 16.7 Red Blood Count 2.66 Hemoglobin 7.8 Hematocrit 23.8 Mean Corpuscular Volume 89.7 Mean Corpuscular Hemoglobin 29.4 Mean Corpuscular Hemoglobin Concent 32.8 Red Cell Distribution Width 14.2 Platelet Count 333 Mean Platelet Volume 7.7 Neutrophils (%) (Auto) 85.3 Lymphocytes (%) (Auto) 7.9 Monocytes (%) (Auto) 6.1 Eosinophils (%) (Auto) 0.6 Basophils (%) (Auto) 0.1 Neutrophils # (Auto) 14.3 Lymphocytes # (Auto) 1.3 Monocytes # (Auto) 1.0 Eosinophils # (Auto) 0.1 Basophils # (Auto) 0.0 CBC Comment AUTO DIFF Differential Total Cells Counted 100 Neutrophils % (Manual) 84 Band Neutrophils % 4 Lymphocytes % 4 Monocytes % 1 Neutrophils # (Manual) 15.9 Metamyelocytes 4 Myelocytes 1 Promyelocytes 2 Differential Comment FINAL DIFF MANUAL Platelet Estimate NORMAL Platelet Morphology Comment NORMAL Stomatocytes 1+ Blood Urea Nitrogen 10 Creatinine 0.30 Random Glucose 91 Total Protein 5.5 Albumin 1.1 Calcium Level 8.0 Alkaline Phosphatase 192 Aspartate Amino Transf (AST/SGOT) 24 Alanine Aminotransferase (ALT/SGPT) 33 Total Bilirubin 0.3 Sodium Level 142 Chloride Level 109 Carbon Dioxide Level 26.0 Anion Gap 7 Estimat Glomerular Filtration Rate 242 Lactic Acid Level 0.2 0.2 Valproic Acid (Depakene) Level 7 Carbamazepine (Tegretol) Level 4.4 Date/Time Source Procedure Growth Status 02/08/17 03:37 Blood Peripheral Aerobic Blood Culture - Preliminary NO GROWTH IN 2 DAYS Resulted 02/08/17 03:37 Blood Peripheral Anaerobic Blood Culture - Preliminary NO GROWTH IN 2 DAYS Resulted 02/06/17 13:00 Sputum Endotracheal Gram Stain - Final Complete 02/06/17 13:00 Sputum Culture - Final Klebsiella Pneumoniae Esbl Pos Complete 02/02/17 18:00 Urine Catheterized Urine Urine Culture - Final NO GROWTH IN 48 HOURS. Complete Imaging Last Impressions Chest X-Ray 02/10/17 0600 Signed Impressions: Service Date/Time: Friday, February 10, 2017 03:55 - CONCLUSION: Persistent infiltrate in the left perihilar region. The nasogastric could be advanced to reach the stomach Kevin Benítez MD Abdomen X-Ray 02/10/17 0600 Signed Impressions: Service Date/Time: Friday, February 10, 2017 03:59 - CONCLUSION: Moderate air throughout the colon. Bowel gas pattern is unremarkable. Both films are supine. Kevin Benítez MD Enema w/Water Soluble 02/07/17 0000 Signed Impressions: Service Date/Time: Tuesday, February 07, 2017 13:47 - CONCLUSION: Therapeutic Gastrografin enema performed as above. Ricardo Cornejo MD Abdomen/Pelvis CT 02/07/17 0000 Signed Impressions: Service Date/Time: Tuesday, February 07, 2017 17:20 - CONCLUSION: 1. Diffuse dilatation of small bowel with pneumatosis intestinalis identified. 2. A discrete transition point is not identified. 3. Ascites. 4. No obvious signs of free air. Free fluid is identified however. 5. Left renal calculi. 6. Bilateral pleural effusions. 7. Pulmonary airspace disease. Ricardo Cornejo MD Physical Exam HEENT: Normocephalic; atraumatic CHEST: Resp even/unlabored, OETT to vent. Coarse breath sounds CARDIAC: RRR ABDOMEN: Tympanic, distended (slightly softer/less distended from yesterday, but still tympanic); hypoactive bowel sounds hypoactive, NGT to LIWS G tube clamped- was not suctioning any gastric contents EXTREMITIES: No clubbing, cyanosis, + generalized edema SKIN: no rash; no jaundice. COAL MINER: Sedated on vent. (Yanelis Chong) Assessment and Plan Plan ASSESSMENT - Severe ileus. CT scan abdomen and pelvis without IV contrast (02/07/17) diffuse dilatation of small bowel with pneumatosis intestinalis Identified. A discrete transition point is not identified, ascites, no obvious signs of free air, free fluid is identified. However, left renal calculi, bilateral pleural effusions, pulmonary airspace disease. Status post Gastrografin enema (02/07/17) therapeutic Gastrografin enema performed as above- no significant improvement. S/P Relistor (02/07/17)-> no improvement. Attempted decompressive colonoscopy (02/07/17)----> significant amount of stool was present throughout the entire examined colon, around the transverse colon, scope was not advanced beyond secondary to formed fecal material blocking the scope in the suction. Limited decompression since the colon is distended with formed fecal material and minimal air, no transition point noted during the examination. Rpt. KUB (02/10/17)---- > Moderate air throughout the colon. Bowel gas pattern is unremarkable. Both films are supine. Clinically, she is slightly less distended and softer , although still tympanic/distended. Her IAP is 19 (21 yesterday). S/P GS evaluation, conservative management. NPO. TPN. Miralax 17gram BID, Reglan q8h. Enemas were d/c'd today - Sepsis, Leukocytosis (worsening). WBC 16.7. Abx per ID- meropeneum, tobra nebs. - Anemia with drop in Hgb. 9.0/26.6. No obvious signs of bleeding. On PPI - Resp. failure, PNA. Has trach. Vent per CCM. ID following, abx meropenem - Hx TBI, Sz D/O, electrolyte abnormalities per CCM. PLAN - NPO - TPN - NGT to LIWS (nurse reports that they are not getting any gastric contents from g-tube when placed to LIWS) - Cont. PPI - Cont. Reglan - Cont. Miralax - Cont. to monitor IAP - KUB in am - S/P GS evaluation - Supportive care - This pt seen by myself and Dr Meza and this note is written on his behalf (Yanelis Chong) Physician Comments significant improvement, passing stools, will D/C frequent enemas, repeat KUB in AM. Will follow up with you. (Gwen Meza MD) Yanelis Chong Feb 10, 2017 15:48 Gwen Meza MD Feb 10, 2017 16:02
[2017-02-10 16:25] LABS: HEMATOCRIT 23.9 % (35.0-46.0); REVIEW FLAG FINAL
[2017-02-10] MEDS: PANTOPRAZOLE SODIUM 40 MG VIAL IV PUSH SCH (17:51)
[2017-02-10] MEDS: SODIUM CHLORIDE 0.9% FLUSH 10 ML FLUSH IVF PRN (20:02)
[2017-02-10] MEDS: PHENYLEPHRINE INJ 40 MG in DEXTROSE 5% IN WATE 500 ML INJ 496 ML IV PRN ×2 (22:19)
[2017-02-11] VITALS (14 sets, daily range): BP systolic 100–123; BP diastolic 58–71; PULSE 70–90; RESP 12–30; TEMP 98.7–99.7; O2SAT 96–100
[2017-02-11 01:31] LABS: AUTOMATED NEUTROPHIL # 9.4 TH/MM3 (1.8-7.7); BASOPHIL % 0.3 % (0.0-2.0); EOSINOPHIL # 0.1 TH/MM3 (0-0.4); EOSINOPHIL % 1.1 % (0.0-4.0); HEMATOCRIT 23.3 % (35.0-46.0); LYMPH % 9.9 % (9.0-44.0); LYMPHOCYTE # 1.2 TH/MM3 (1.0-4.8); MEAN CORPUSCULAR HGB CONC 32.3 % (32.0-36.0); MONO % 8.6 % (0.0-8.0); NEUT % 80.1 % (16.0-70.0); PLATELET COUNT 326 TH/MM3 (150-450); RED BLOOD COUNT 2.59 MIL/MM3 (4.00-5.30); RED CELL DISTRIBUTION WIDTH 14.5 % (11.6-17.2); WHITE BLOOD COUNT 11.7 TH/MM3 (4.0-11.0)
[2017-02-11 01:32] LABS: HEMO FLAGS AUTO DIFF
[2017-02-11] MEDS ORDERED: PHARMACY ORDERED LAB ONE (01:45)
[2017-02-11 01:50] LABS: BICARBONATE 26.3 MEQ/L (21.0-32.0); MAGNESIUM 2.2 MG/DL (1.5-2.5); POTASSIUM 3.2 MEQ/L (3.5-5.1)
[2017-02-11] MEDS: POTASSIUM CHLOR 40 MEQ PREMIX 100 ML IV PRN ×2 (01:58→01:59)
[2017-02-11] MEDS: RESP: ALBUTEROL 2.5 MG/IPRATROPIUM 0.5 MG NEB (SCH) NEB ×4 (02:17→20:23)
[2017-02-11] MEDS: INSULIN NovoLIN REGULAR SUPPLEMENTAL SCALE SQ SCH ×6 (03:15→23:15)
[2017-02-11 03:34] LABS: BANDS 7 % (0-6); CORRECTED NUCLEATED RBC 1 /100 WBC (0-0); METAMYELOCYTES 2 % (0-1); MYELOCYTES 1 % (0-0); NEUTROPHIL # MANUAL DIFF 10.3 TH/MM3 (1.8-7.7); POLYS (SEG NEUTROPHILS) 78 % (16-70); WBC DIFF SAMPLE 100
[2017-02-11 03:35] LABS: TOXIC GRANULATION 1+ (NORMAL); TOXIC VACUOLATION PRESENT (NONE SEEN)
[2017-02-11 03:36] LABS: PLATELET ESTIMATE SMEAR NORMAL (NORMAL)
[2017-02-11 03:37] LABS: PLATELET MORPHOLOGY CLUMPED (NORMAL); SCAN/DIFF FINAL DIFF MANUAL; STOMATOCYTES 1+ (NORMAL)
[2017-02-11 03:38] LABS: DOHLE BODIES PRESENT (NONE SEEN)
[2017-02-11] MEDS: ARTIFICIAL TEARS OPTH OINT 3.5 APPLIC/3.5 GM TUBO LEFT EYE SCH ×3 (03:52→20:25)
[2017-02-11] MEDS: ENOXAPARIN SODIUM 40 MG/0.4 ML SYRINGE SQ SCH (04:36)
[2017-02-11] MEDS: METOCLOPRAMIDE HCL 10 MG/2 ML VIAL IV PUSH SCH ×3 (04:36→20:24)
[2017-02-11] MEDS: PROPOFOL 1000 MG/100 ML INJ 100 ML IV SCH ×3 (04:38→19:36)
--- NOTE | 2017-02-11 04:46 | RADRPT ---
EXAM DATE/TIME: 02/11/2017 03:41 [facility] COMPARISON: No previous studies available for comparison. INDICATIONS : Abdominal distention. MEDICAL HISTORY : Gastroesophageal reflux disease. Hypertension Seizures, TBI SURGICAL HISTORY : Tracheostomy Peg tube ENCOUNTER: Subsequent ACUITY: 1 week PAIN SCORE: Non-responsive. LOCATION: Bilateral Abdomen FINDINGS: Supine view of the abdomen was performed. The abdominal bowel gas pattern is normal. No abnormal ma sses, calcifications, or organomegaly is seen. The osseous structures are unremarkable. CONCLUSION: Normal examination with a G-tube overlying the left midabdomen. Kevin Benítez MD on February 11, 2017 at 4:45 Board Certified Radiologist. This report was verified electronically.
--- NOTE | 2017-02-11 07:03 | HHI.CCPN ---
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 ABG on admission showed significant A-a gradient, chest x-ray showed bilateral perihilar infiltrates. Patient was placed on 98% O2 by trach collar. UA showed evidence of UTI. Patient lactic acid was 4, indicating severe sepsis. Patient was admitted to hospitalist service to [facility] today receiving room clerk for acute hypoxemic respiratory failure, severe sepsis due to healthcare associated pneumonia and UTI. Patient was placed on vancomycin, Zosyn and ciprofloxacin and ID Dr. Riggs was consulted A Halicat was called around 1100 AM today for worsening hypoxia SaO2 86% on 98% oxygen, hypotension and respiratory distress. Patient was moved to the ICU and [facility] immediately evaluated the patient. She was in impending respiratory failure , O2 Sat low 80s. With myself present at bedside, Respiratory therapist removed the 6.0 cuffless trach and replaced it with 6.0 cuffed trach. Patient was placed on mechanical ventilation with 100% oxygen and PEEP of 10 with immediate improvement oxygen saturation. Repeat chest x-ray shows consolidation of Left upper lobe 02/03 Remains intubated oxygen saturation is improved FiO2 down to 45%. PEEP remains at 12. Sputum culture with Proteus and another GNR. Chest x-ray today is pending at this time. Neuro exam remains unchanged 02/04 Remains on mechanical ventilation, PEEP 8. FIO2 weaned to 50%. . White blood cell count down trending. RN noticed dislodgement of Black this morning. Non bloody. She is voiding, bladder scan showed no e/o obstruction. Replaced black so can get accurate I/O because she is still acutely ill. 02/05 Failing CPap trials due to tachypnea. Moderate yellow respiratory secretions. 01/31 sputum culture with Proteus and pseudomonas. Tobramycin nebs initiated per ID for pseudomonas in sputum. 02/06 CPAP trials terminated by RT due to apnea. Still significant respiratory secretions. WBC 20. Temp max 99.7. Vomited last night but now tolerating tube feed advancement. Last BM 02/03. Leaking around black, Black replaced. 02/07: Tmax 99.7. Currently afebrile. Not tolerating PSV trials due to apnea chronic RT. Will reattempt today. CBC pending this AM. Tube feeds currently at 30 cc an hour. Goal 50 cc an hour. AXR yesterday revealed small/large bowel dilatation with stool proximal colon. See orders for multiple medications provided today. 02/08: Currently afebrile. Noted yesterday with pneumatosis intestinalis. Surgical evaluation agree due to size involving almost entire small bowel not optimal surgical candidate at this time. Medical management recommended. Lactic acid 2.2. Not mottled today like yesterday. Subjective: 02/09: Tmax 99.5. 2400 cc stool past 24 hours. Intra-abdominal pressures around 20. Remains on David-Synephrine 70 mcg per minute. Lactic acid has cleared. 02/10 Patient is sedated with Diprivan and intubated. Afebrile, Neosyn down 54 mics from 70 mics/min. WBC is trending down. On TPN. 02/11 No events overnight. Afebrile. Sedated and intubated. Neosyn down 15 mics. Afebrile. On TPN. Objective Vital Signs Date Time Temp Pulse Resp B/P (MAP) Pulse Ox O2 Delivery O2 Flow Rate FiO2 02/11/17 06:00 75 02/11/17 04:00 98.9 12 100/58 (72) 100 02/11/17 04:00 40 Intake and Output 02/11/17 02/11/17 02/11/17 07:59 15:59 23:59 Intake Total 1370 ml Output Total 2125 ml Balance -755 ml Result Diagram: 02/11/17 0115 02/11/17 0115 Other Results Laboratory Tests Test 02/10/17 12:17 02/10/17 16:00 02/10/17 18:00 02/11/17 01:15 Lactic Acid Level 0.2 mmol/L 0.2 mmol/L 0.2 mmol/L Hemoglobin 7.8 GM/DL 7.5 GM/DL Hematocrit 23.9 % 23.3 % White Blood Count 11.7 TH/MM3 Red Blood Count 2.59 MIL/MM3 Mean Corpuscular Volume 90.0 FL Mean Corpuscular Hemoglobin 29.0 PG Mean Corpuscular Hemoglobin Concent 32.3 % Red Cell Distribution Width 14.5 % Platelet Count 326 TH/MM3 Mean Platelet Volume 7.4 FL Neutrophils (%) (Auto) 80.1 % Lymphocytes (%) (Auto) 9.9 % Monocytes (%) (Auto) 8.6 % Eosinophils (%) (Auto) 1.1 % Basophils (%) (Auto) 0.3 % Neutrophils # (Auto) 9.4 TH/MM3 Lymphocytes # (Auto) 1.2 TH/MM3 Monocytes # (Auto) 1.0 TH/MM3 Eosinophils # (Auto) 0.1 TH/MM3 Basophils # (Auto) 0.0 TH/MM3 CBC Comment AUTO DIFF Differential Total Cells Counted 100 Neutrophils % (Manual) 78 % Band Neutrophils % 7 % Lymphocytes % 8 % Monocytes % 4 % Neutrophils # (Manual) 10.3 TH/MM3 Metamyelocytes 2 % Myelocytes 1 % Nucleated Red Blood Cells 1 /100 WBC Differential Comment FINAL DIFF MANUAL Toxic Granulation 1+ Toxic Vacuolation PRESENT Dohle Bodies PRESENT Platelet Estimate NORMAL Platelet Morphology Comment CLUMPED Stomatocytes 1+ Blood Urea Nitrogen 9 MG/DL Creatinine 0.26 MG/DL Random Glucose 95 MG/DL Calcium Level 8.1 MG/DL Phosphorus Level 2.5 MG/DL Magnesium Level 2.2 MG/DL Sodium Level 140 MEQ/L Potassium Level 3.2 MEQ/L Chloride Level 106 MEQ/L Carbon Dioxide Level 26.3 MEQ/L Anion Gap 8 MEQ/L Estimat Glomerular Filtration Rate 285 ML/MIN Imaging Last Impressions Abdomen X-Ray 02/11/17 06 Signed Impressions: Service Date/Time: Saturday, February 11, 2017 03:41 - CONCLUSION: Normal examination with a G-tube overlying the left midabdomen. Kevin Benítez MD Chest X-Ray 02/10/17 06 Signed Impressions: Service Date/Time: Friday, February 10, 2017 03:55 - CONCLUSION: Persistent infiltrate in the left perihilar region. The nasogastric could be advanced to reach the stomach Kevin Benítez MD Enema w/Water Soluble 02/07/17 0000 Signed Impressions: Service Date/Time: Tuesday, February 07, 2017 13:47 - CONCLUSION: Therapeutic Gastrografin enema performed as above. Ricardo Cornejo MD Abdomen/Pelvis CT 02/07/17 0000 Signed Impressions: Service Date/Time: Tuesday, February 07, 2017 17:20 - CONCLUSION: 1. Diffuse dilatation of small bowel with pneumatosis intestinalis identified. 2. A discrete transition point is not identified. 3. Ascites. 4. No obvious signs of free air. Free fluid is identified however. 5. Left renal calculi. 6. Bilateral pleural effusions. 7. Pulmonary airspace disease. Ricardo Cornejo MD Objective Remarks General: 46-year-old female, resting in bed on ventilator via tracheostomy Head: History TBI. Eyes: R pupil 4mm and reactive. L eye with pterygium covering entire conjunctiva and L chronic large corneal opacity. Neck: Right IJ is clean dry and intact. No thyromegaly or lymphadenopathy. 6.0 Cuffed Shiley trach is in place with minimal yellow secretions surrounding. Cardiovascular: RRR. S1, S2 no S4 without murmur Lungs: Coarse breath sounds are appreciated throughout all lung walker anterior- posterior. GI: Abdomen is firm though slightly reducible and distended no bowel sounds appreciated. Not rigid. No peritoneal signs. PEG tube site is clean dry and intact : Black in place with yellow urine output. Extremities: Contracted bilateral upper and lower extremities. Positive anasarca. Neurologic Exam: Patient is unresponsive at the baseline, pupils as above. + Horizontal nystagmus. Moves upper and lower extremities to noxious stimulation. 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 Valproic acid low at 7.0 RESP: Acute on chronic hypoxemic respiratory failure Healthcare associated pneumonia Chronic trach currently number 6 Shiley - Trach changed to a 6.0 cuffed - PRVC 14// - Ventilator bundle - Albuterol/ipratropium aerosols every 6 hours with albuterol aerosols every 2 hours when necessary dyspnea - Daily spontaneous breathing trial. - CXR 02/10 persistent infiltrate left hilar region. CV: History of HTN Severe sepsis shock secondary to pneumatosis intestinalis Lactic acidosis - resolved Continue to wean off Neosyn maintain MAP >65 mmHg Metoprolol 100 mg by PEG q12 hours, lisinopril 5 mg daily been held in light of use of pressors GI: Constipation Ileus Pneumatosis intestinalis On TPN @65ml/hr. T/c starting trickle feeds and wean off TPN will discuss with GI. KUB today: Within normal. KUB 02/10: Moderate air throughout colon, bowel gas pattern unremarkable KUB 02/06 revealed dilated loops of small bowel along with large bowels large amount of stool in the proximal colon. - CT abdomen/pelvis 02/07 revealed pneumatosis intestinalis. Large amount of stool in colon. Patient is currently on NG tube to low intermittent wall suction. Abdominal pressures between 18-27 -Metoclopramide 10 mg IV q8 hours. -Bowel regimen with docusate sodium 100 mg by PEG twice a day, senna 8.6 g twice a day, polyethylene glycol 3350 17 g twice a day and lactulose 30 cc 4 times a day and as needed glycerin suppositories -Pantoprazole 40 mg IV daily for GI prophylaxis - Gastrografin enema 02/07 with minimal results Evaluated by Dr. Umanzor Gen. Surgery 02/07. Poor surgical candidate due to underlying health and amount of pneumatosis intestinalis. Recommended medical management Evaluated by Dr. Meza for gastroenterology. Status post colonoscopy 02/07. Large amount of stool throughout colon. Recommended serial enemas every 6 hours a FEN/RENAL/: Bladder spasms -Monitor renal function, I/O's, electrolytes replacement per protocol. Will need K replacement today Belladonna and opiate suppositories daily when necessary bladder spasms.. Black exchange 02/06 Initiate TPN today with dietary recommendations if unable to initiate tube feedings and ID: Healthcare associated pneumonia (sputum culture 01/31 with proteus, pseudomonas) CRAB + History of MRSA - Continue abx per ID (Merrem) monitor for signs of infections ( Fever, WBC) WBC is trending down -Check sputum cx Pertinent cultures 01/31 - sputum - Proteus/Pseudomonas 01/31- UA - no growth 01/31 - blood cultures 2 - no growth 02/02 - UA - no growth 02/06 - sputum -Kleb pneumonia ESBL 02/07 - blood cultures 2 - pending HEME: Leukocytosis..resolving Anemia Follow CBC daily. Monitor trends ENDO: SSI for glycemic control PROPH: GI -pantoprazole 40 mg IV daily DVT - enoxaparin 40 mg subcutaneous daily LINES: Right IJ CVL placed 02/07 Level III Jimmie Ricketts MD Feb 11, 2017 07:03
[2017-02-11] MEDS: POLYETHYLENE GLYCOL 17 GM PKG PEG SCH ×2 (08:20→20:24)
[2017-02-11] MEDS: CHLORHEXIDINE 0.12% (ORAL KIT) 15 ML CUP MT SCH ×2 (08:20→19:49)
[2017-02-11] MEDS: SENNOSIDES SYRUP 8.8 MG/5 ML CUP PEG SCH ×2 (08:20→20:23)
[2017-02-11] MEDS: LACTOBACILLUS ACIDOPHILUS 1 GM PACKET PO SCH ×3 (08:22→17:11)
[2017-02-11] MEDS: VALPROATE INJ 500 MG in SODIUM CHLORIDE 0.9% INJ 100 ML IV SCH ×2 (08:22→20:25)
[2017-02-11] MEDS: levETIRAcetam INJ 1,500 MG in SODIUM CHLORIDE 0.9% INJ 100 ML IV SCH ×2 (08:23→20:24)
[2017-02-11] MEDS: SODIUM CHLORIDE 0.9% FLUSH 10 ML FLUSH IV FLUSH SCH ×2 (08:25→19:49)
[2017-02-11] MEDS: SODIUM CHLORIDE 0.9% FLUSH 10 ML FLUSH IVF SCH (09:20)
[2017-02-11] MEDS: MEROPENEM INJ 1,000 MG in SODIUM CHLORIDE 0.9% INJ 100 ML IV SCH ×3 (09:20→23:53)
[2017-02-11] MEDS: ARTIFICIAL TEARS OPTH SOLN 15 ML BTL RIGHT EYE SCH ×2 (09:21→20:25)
[2017-02-11] MEDS: PANTOPRAZOLE SODIUM 40 MG VIAL IV PUSH SCH (17:11)
[2017-02-12] VITALS (15 sets, daily range): BP systolic 105–150; BP diastolic 72–86; PULSE 78–108; RESP 15–30; TEMP 97–99.8; O2SAT 96–100
[2017-02-12] MEDS: PROPOFOL 1000 MG/100 ML INJ 100 ML IV SCH ×2 (02:18→23:55)
[2017-02-12] MEDS: ARTIFICIAL TEARS OPTH OINT 3.5 APPLIC/3.5 GM TUBO LEFT EYE SCH ×3 (02:26→20:36)
[2017-02-12] MEDS: INSULIN NovoLIN REGULAR SUPPLEMENTAL SCALE SQ SCH ×6 (03:15→23:15)
[2017-02-12] MEDS: RESP: ALBUTEROL 2.5 MG/IPRATROPIUM 0.5 MG NEB (SCH) NEB ×2 (03:35→09:24)
[2017-02-12] MEDS: METOCLOPRAMIDE HCL 10 MG/2 ML VIAL IV PUSH SCH ×3 (03:54→20:36)
[2017-02-12] MEDS: ENOXAPARIN SODIUM 40 MG/0.4 ML SYRINGE SQ SCH (03:55)
[2017-02-12 04:36] LABS: AUTOMATED NEUTROPHIL # 7.9 TH/MM3 (1.8-7.7); BASOPHIL % 0.4 % (0.0-2.0); EOSINOPHIL # 0.1 TH/MM3 (0-0.4); EOSINOPHIL % 1.1 % (0.0-4.0); HEMATOCRIT 23.4 % (35.0-46.0); LYMPH % 17.1 % (9.0-44.0); LYMPHOCYTE # 1.9 TH/MM3 (1.0-4.8); MEAN CELL VOLUME 90.3 FL (80.0-100.0); MEAN CORPUSCULAR HEMOGLOBIN 30.1 PG (27.0-34.0); MEAN CORPUSCULAR HGB CONC 33.3 % (32.0-36.0); MONO % 10.6 % (0.0-8.0); NEUT % 70.8 % (16.0-70.0); PLATELET COUNT 378 TH/MM3 (150-450); RED BLOOD COUNT 2.59 MIL/MM3 (4.00-5.30); WHITE BLOOD COUNT 11.2 TH/MM3 (4.0-11.0)
[2017-02-12 04:45] LABS: HEMO FLAGS AUTO DIFF
[2017-02-12 05:00] LABS: BICARBONATE 25.5 MEQ/L (21.0-32.0); POTASSIUM 4.1 MEQ/L (3.5-5.1)
[2017-02-12 05:28] LABS: METAMYELOCYTES 3 % (0-1); MYELOCYTES 1 % (0-0); NEUTROPHIL # MANUAL DIFF 9.4 TH/MM3 (1.8-7.7); PLATELET ESTIMATE SMEAR NORMAL (NORMAL); PLATELET MORPHOLOGY NORMAL (NORMAL); POLYS (SEG NEUTROPHILS) 80 % (16-70); SCAN/DIFF FINAL DIFF MANUAL; STOMATOCYTES 1+ (NORMAL); WBC DIFF SAMPLE 100
--- NOTE | 2017-02-12 07:03 | HHI.CCPN ---
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 ABG on admission showed significant A-a gradient, chest x-ray showed bilateral perihilar infiltrates. Patient was placed on 98% O2 by trach collar. UA showed evidence of UTI. Patient lactic acid was 4, indicating severe sepsis. 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 Patient was placed on vancomycin, Zosyn and ciprofloxacin and ID Dr. Riggs was consulted A Halicat was called around 1100 AM today for worsening hypoxia SaO2 86% on 98% oxygen, hypotension and respiratory distress. Patient was moved to the ICU and [facility] immediately evaluated the patient. She was in impending respiratory failure , O2 Sat low 80s. With myself present at bedside, Respiratory therapist removed the 6.0 cuffless trach and replaced it with 6.0 cuffed trach. Patient was placed on mechanical ventilation with 100% oxygen and PEEP of 10 with immediate improvement oxygen saturation. Repeat chest x-ray shows consolidation of Left upper lobe 02/03 Remains intubated oxygen saturation is improved FiO2 down to 45%. PEEP remains at 12. Sputum culture with Proteus and another GNR. Chest x-ray today is pending at this time. Neuro exam remains unchanged 02/04 Remains on mechanical ventilation, PEEP 8. FIO2 weaned to 50%. . White blood cell count down trending. RN noticed dislodgement of Black this morning. Non bloody. She is voiding, bladder scan showed no e/o obstruction. Replaced black so can get accurate I/O because she is still acutely ill. 02/05 Failing CPap trials due to tachypnea. Moderate yellow respiratory secretions. 01/31 sputum culture with Proteus and pseudomonas. Tobramycin nebs initiated per ID for pseudomonas in sputum. 02/06 CPAP trials terminated by RT due to apnea. Still significant respiratory secretions. WBC 20. Temp max 99.7. Vomited last night but now tolerating tube feed advancement. Last BM 02/03. Leaking around black, Black replaced. 02/07: Tmax 99.7. Currently afebrile. Not tolerating PSV trials due to apnea chronic RT. Will reattempt today. CBC pending this AM. Tube feeds currently at 30 cc an hour. Goal 50 cc an hour. AXR yesterday revealed small/large bowel dilatation with stool proximal colon. See orders for multiple medications provided today. 02/08: Currently afebrile. Noted yesterday with pneumatosis intestinalis. Surgical evaluation agree due to size involving almost entire small bowel not optimal surgical candidate at this time. Medical management recommended. Lactic acid 2.2. Not mottled today like yesterday. Subjective: 02/09: Tmax 99.5. 2400 cc stool past 24 hours. Intra-abdominal pressures around 20. Remains on David-Synephrine 70 mcg per minute. Lactic acid has cleared. 02/10 Patient is sedated with Diprivan and intubated. Afebrile, Neosyn down 54 mics from 70 mics/min. WBC is trending down. On TPN. 02/11 No events overnight. Afebrile. Sedated and intubated. Neosyn down 15 mics. Afebrile. On TPN. 02/12 Patient remains sedated with Diprivan and intubated. Off Neosyn. Remains on TPN. Patient tolerated CPAP x 4 hrs yesterday Objective Vital Signs Date Time Temp Pulse Resp B/P (MAP) Pulse Ox O2 Delivery O2 Flow Rate FiO2 02/12/17 04:03 100 40 02/12/17 04:00 98.7 85 30 115/75 (88) Intake and Output 02/12/17 02/12/17 02/13/17 08:00 16:00 00:00 Intake Total 1295 ml Output Total 1750 ml Balance -455 ml Result Diagram: 02/12/17 0345 02/12/17 0345 Other Results Laboratory Tests Test 02/12/17 03:45 White Blood Count 11.2 TH/MM3 Red Blood Count 2.59 MIL/MM3 Hemoglobin 7.8 GM/DL Hematocrit 23.4 % Mean Corpuscular Volume 90.3 FL Mean Corpuscular Hemoglobin 30.1 PG Mean Corpuscular Hemoglobin Concent 33.3 % Red Cell Distribution Width 14.0 % Platelet Count 378 TH/MM3 Mean Platelet Volume 7.8 FL Neutrophils (%) (Auto) 70.8 % Lymphocytes (%) (Auto) 17.1 % Monocytes (%) (Auto) 10.6 % Eosinophils (%) (Auto) 1.1 % Basophils (%) (Auto) 0.4 % Neutrophils # (Auto) 7.9 TH/MM3 Lymphocytes # (Auto) 1.9 TH/MM3 Monocytes # (Auto) 1.2 TH/MM3 Eosinophils # (Auto) 0.1 TH/MM3 Basophils # (Auto) 0.0 TH/MM3 CBC Comment AUTO DIFF Differential Total Cells Counted 100 Neutrophils % (Manual) 80 % Lymphocytes % 8 % Monocytes % 8 % Neutrophils # (Manual) 9.4 TH/MM3 Metamyelocytes 3 % Myelocytes 1 % Differential Comment FINAL DIFF MANUAL Platelet Estimate NORMAL Platelet Morphology Comment NORMAL Stomatocytes 1+ Blood Urea Nitrogen 9 MG/DL Creatinine 0.20 MG/DL Random Glucose 91 MG/DL Calcium Level 8.6 MG/DL Sodium Level 137 MEQ/L Potassium Level 4.1 MEQ/L Chloride Level 103 MEQ/L Carbon Dioxide Level 25.5 MEQ/L Anion Gap 9 MEQ/L Estimat Glomerular Filtration Rate 386 ML/MIN Imaging Last Impressions Abdomen X-Ray 02/11/17599 Signed Impressions: Service Date/Time: Saturday, February 11, 2017 03:41 - CONCLUSION: Normal examination with a G-tube overlying the left midabdomen. Kevin Benítez MD Chest X-Ray 02/10/17599 Signed Impressions: Service Date/Time: Friday, February 10, 2017 03:55 - CONCLUSION: Persistent infiltrate in the left perihilar region. The nasogastric could be advanced to reach the stomach Kevin Benítez MD Enema w/Water Soluble 02/07/17 Signed Impressions: Service Date/Time: Tuesday, February 07, 2017 13:47 - CONCLUSION: Therapeutic Gastrografin enema performed as above. Ricardo Cornejo MD Abdomen/Pelvis CT 02/07/17 Signed Impressions: Service Date/Time: Tuesday, February 07, 2017 17:20 - CONCLUSION: 1. Diffuse dilatation of small bowel with pneumatosis intestinalis identified. 2. A discrete transition point is not identified. 3. Ascites. 4. No obvious signs of free air. Free fluid is identified however. 5. Left renal calculi. 6. Bilateral pleural effusions. 7. Pulmonary airspace disease. Ricardo Cornejo MD Objective Remarks General: 46-year-old female, resting in bed on ventilator via tracheostomy Head: History TBI. Eyes: R pupil 4mm and reactive. L eye with pterygium covering entire conjunctiva and L chronic large corneal opacity. Neck: Right IJ is clean dry and intact. No thyromegaly or lymphadenopathy. 6.0 Cuffed Shiley trach is in place with minimal yellow secretions surrounding. Cardiovascular: RRR. S1, S2 no S4 without murmur Lungs: Coarse breath sounds are appreciated throughout all lung walker anterior- posterior. GI: Abdomen is firm though slightly reducible and distended no bowel sounds appreciated. Not rigid. No peritoneal signs. PEG tube site is clean dry and intact : Black in place with yellow urine output. Extremities: Contracted bilateral upper and lower extremities. Positive anasarca. Neurologic Exam: Patient is unresponsive at the baseline, pupils as above. + Horizontal nystagmus. Moves upper and lower extremities to noxious stimulation. 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 Valproic acid low at 7.0 RESP: Acute on chronic hypoxemic respiratory failure Healthcare associated pneumonia Chronic trach currently number 6 Shiley - Trach changed to a 6.0 cuffed - PRVC 14/// - Ventilator bundle - Albuterol/ipratropium aerosols every 6 hours with albuterol aerosols every 2 hours when necessary dyspnea - Daily spontaneous breathing trial. - CXR 02/10 persistent infiltrate left hilar region. CV: History of HTN Severe sepsis shock secondary to pneumatosis intestinalis Lactic acidosis - resolved Off Neosyn maintain MAP >65 mmHg GI: Constipation Ileus Pneumatosis intestinalis On TPN @65ml/hr. starting trickle feeds( Jevity 1.5@20ml/hr) and wean off TPN- cleared by GI per nursing staff. KUB 02/11: Within normal. KUB 02/10: Moderate air throughout colon, bowel gas pattern unremarkable KUB 02/06 revealed dilated loops of small bowel along with large bowels large amount of stool in the proximal colon. - CT abdomen/pelvis 02/07 revealed pneumatosis intestinalis. Large amount of stool in colon. Patient is currently on NG tube to low intermittent wall suction. Abdominal pressures between 18-27 -Metoclopramide 10 mg IV q8 hours. -Bowel regimen with docusate sodium 100 mg by PEG twice a day, senna 8.6 g twice a day, polyethylene glycol 3350 17 g twice a day and lactulose 30 cc 4 times a day and as needed glycerin suppositories -Pantoprazole 40 mg IV daily for GI prophylaxis - Gastrografin enema 02/07 with minimal results Evaluated by Dr. Umanzor Gen. Surgery 02/07. Poor surgical candidate due to underlying health and amount of pneumatosis intestinalis. Recommended medical management Evaluated by Dr. Meza for gastroenterology. Status post colonoscopy 02/07. Large amount of stool throughout colon. Recommended serial enemas every 6 hours a FEN/RENAL/: Bladder spasms -Monitor renal function, I/O's, electrolytes replacement per protocol. Belladonna and opiate suppositories daily when necessary bladder spasms.. Black exchange 02/06 ID: Healthcare associated pneumonia (sputum culture 01/31 with proteus, pseudomonas) CRAB + History of MRSA - Continue abx per ID (Merrem) monitor for signs of infections ( Fever, WBC) WBC is trending down -Check sputum cx Pertinent cultures 01/31 - sputum - Proteus/Pseudomonas 01/31- UA - no growth 01/31 - blood cultures 2 - no growth 02/02 - UA - no growth 02/06 - sputum -Kleb pneumonia ESBL 02/07 - blood cultures 2 - pending HEME: Leukocytosis..resolving Anemia Follow CBC daily. Monitor trends ENDO: SSI for glycemic control PROPH: GI -pantoprazole 40 mg IV daily DVT - enoxaparin 40 mg subcutaneous daily LINES: Right IJ CVL placed 02/07 Level III Jimmie Ricketts MD Feb 12, 2017 07:03
[2017-02-12] MEDS: CHLORHEXIDINE 0.12% (ORAL KIT) 15 ML CUP MT SCH ×2 (07:47→20:12)
[2017-02-12] MEDS: SODIUM CHLORIDE 0.9% FLUSH 10 ML FLUSH IVF SCH (09:00)
[2017-02-12] MEDS: MEROPENEM INJ 1,000 MG in SODIUM CHLORIDE 0.9% INJ 100 ML IV SCH ×3 (09:00→23:51)
[2017-02-12] MEDS: LACTOBACILLUS ACIDOPHILUS 1 GM PACKET PO SCH ×3 (09:11→16:59)
[2017-02-12] MEDS: levETIRAcetam INJ 1,500 MG in SODIUM CHLORIDE 0.9% INJ 100 ML IV SCH ×2 (09:11→20:35)
[2017-02-12] MEDS: POLYETHYLENE GLYCOL 17 GM PKG PEG SCH ×2 (09:11→20:13)
[2017-02-12] MEDS: ARTIFICIAL TEARS OPTH SOLN 15 ML BTL RIGHT EYE SCH ×2 (09:12→20:13)
[2017-02-12] MEDS: VALPROATE INJ 500 MG in SODIUM CHLORIDE 0.9% INJ 100 ML IV SCH ×2 (09:13→20:35)
[2017-02-12] MEDS: SODIUM CHLORIDE 0.9% FLUSH 10 ML FLUSH IV FLUSH SCH ×2 (09:14→20:13)
[2017-02-12] MEDS: SENNOSIDES SYRUP 8.8 MG/5 ML CUP PEG SCH ×2 (09:18→20:13)
--- NOTE | 2017-02-12 12:08 | HHI.GIFU ---
Subjective Remarks Replaced clogged PEG tube, 18 fr with 10cc water placed with ease. (Marjorie Amaya) Objective Vitals I&O Vital Signs Date Time Temp Pulse Resp B/P (MAP) Pulse Ox O2 Delivery O2 Flow Rate FiO2 02/12/17 10:00 95 02/12/17 09:57 97 40 02/12/17 08:48 40 02/12/17 08:00 40 02/12/17 08:00 99.3 91 15 120/72 (88) 99 02/12/17 07:20 100 40 02/12/17 04:03 100 40 02/12/17 04:00 98.7 85 30 115/75 (88) 100 02/12/17 04:00 40 02/12/17 00:00 98.9 78 30 105/72 (83) 100 02/12/17 00:00 40 02/11/17 23:40 100 40 02/11/17 20:23 100 40 02/11/17 20:00 40 02/11/17 20:00 99.7 83 30 107/68 (81) 100 02/11/17 16:00 99.6 87 14 104/65 (78) 100 02/11/17 16:00 40 02/11/17 15:29 100 40 02/11/17 13:54 40 02/11/17 12:00 40 02/11/17 12:00 99.7 90 30 123/71 (88) 100 I/O 02/11/17 02/11/17 02/11/17 02/12/17 02/12/17 02/12/17 06:59 14:59 22:59 06:59 14:59 22:59 Intake Total 1370 ml 1058 ml 1295 ml Output Total 2125 ml 2600 ml 1750 ml Balance -755 ml -1542 ml -455 ml IV Total 575 ml 1058 ml 525 ml TPN/PPN 675 ml 650 ml Tube Irrigant 120 ml 120 ml Output Urine Total 2125 ml 2600 ml 1750 ml Gastric Drainage Total 0 ml 0 ml # Bowel Movements 1 Laboratory Laboratory Tests Test 02/12/17 03:45 White Blood Count 11.2 Red Blood Count 2.59 Hemoglobin 7.8 Hematocrit 23.4 Mean Corpuscular Volume 90.3 Mean Corpuscular Hemoglobin 30.1 Mean Corpuscular Hemoglobin Concent 33.3 Red Cell Distribution Width 14.0 Platelet Count 378 Mean Platelet Volume 7.8 Neutrophils (%) (Auto) 70.8 Lymphocytes (%) (Auto) 17.1 Monocytes (%) (Auto) 10.6 Eosinophils (%) (Auto) 1.1 Basophils (%) (Auto) 0.4 Neutrophils # (Auto) 7.9 Lymphocytes # (Auto) 1.9 Monocytes # (Auto) 1.2 Eosinophils # (Auto) 0.1 Basophils # (Auto) 0.0 CBC Comment AUTO DIFF Differential Total Cells Counted 100 Neutrophils % (Manual) 80 Lymphocytes % 8 Monocytes % 8 Neutrophils # (Manual) 9.4 Metamyelocytes 3 Myelocytes 1 Differential Comment FINAL DIFF MANUAL Platelet Estimate NORMAL Platelet Morphology Comment NORMAL Stomatocytes 1+ Blood Urea Nitrogen 9 Creatinine 0.20 Random Glucose 91 Calcium Level 8.6 Sodium Level 137 Potassium Level 4.1 Chloride Level 103 Carbon Dioxide Level 25.5 Anion Gap 9 Estimat Glomerular Filtration Rate 386 Date/Time Source Procedure Growth Status 02/08/17 03:37 Blood Peripheral Aerobic Blood Culture - Preliminary NO GROWTH IN 4 DAYS Resulted 02/08/17 03:37 Blood Peripheral Anaerobic Blood Culture - Preliminary NO GROWTH IN 4 DAYS Resulted 02/10/17 15:45 Sputum Endotracheal Gram Stain - Final Resulted 02/10/17 15:45 Sputum Endotracheal Sputum Culture - Preliminary HEAVY GROWTH NORMAL RESPIRATORY AMARI... Resulted 02/02/17 18:00 Urine Catheterized Urine Urine Culture - Final NO GROWTH IN 48 HOURS. Complete Imaging Last Impressions Abdomen X-Ray 02/11/17 0600 Signed Impressions: Service Date/Time: Saturday, February 11, 2017 03:41 - CONCLUSION: Normal examination with a G-tube overlying the left midabdomen. Kevin Benítez MD Chest X-Ray 02/10/17 0600 Signed Impressions: Service Date/Time: Friday, February 10, 2017 03:55 - CONCLUSION: Persistent infiltrate in the left perihilar region. The nasogastric could be advanced to reach the stomach Kevin Benítez MD Enema w/Water Soluble 02/07/17 0000 Signed Impressions: Service Date/Time: Tuesday, February 07, 2017 13:47 - CONCLUSION: Therapeutic Gastrografin enema performed as above. Ricardo Cornejo MD Abdomen/Pelvis CT 02/07/17 0000 Signed Impressions: Service Date/Time: Tuesday, February 07, 2017 17:20 - CONCLUSION: 1. Diffuse dilatation of small bowel with pneumatosis intestinalis identified. 2. A discrete transition point is not identified. 3. Ascites. 4. No obvious signs of free air. Free fluid is identified however. 5. Left renal calculi. 6. Bilateral pleural effusions. 7. Pulmonary airspace disease. Ricardo Cornejo MD Physical Exam HEENT: Normocephalic; atraumatic CHEST: Resp even/unlabored, OETT to vent. Coarse breath sounds CARDIAC: RRR ABDOMEN: distended, soft, BS +. NGT to LIWS G tube clamped- was not suctioning any gastric contents. old PEG site clean. EXTREMITIES: No clubbing, cyanosis, + generalized edema SKIN: no rash; no jaundice. 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 (Marjorie Amaya LENGTH CONTROL TESTER) Assessment and Plan Plan ASSESSMENT - Severe ileus. CT scan abdomen and pelvis without IV contrast (02/07/17) diffuse dilatation of small bowel with pneumatosis intestinalis Identified. A discrete transition point is not identified, ascites, no obvious signs of free air, free fluid is identified. However, left renal calculi, bilateral pleural effusions, pulmonary airspace disease. Status post Gastrografin enema (02/07/17) therapeutic Gastrografin enema performed as above- no significant improvement. S/P Relistor (02/07/17)-> no improvement. Attempted decompressive colonoscopy (02/07/17)----> significant amount of stool was present throughout the entire examined colon, around the transverse colon, scope was not advanced beyond secondary to formed fecal material blocking the scope in the suction. Limited decompression since the colon is distended with formed fecal material and minimal air, no transition point noted during the examination. Rpt. KUB (02/10/17)---- > Moderate air throughout the colon. Bowel gas pattern is unremarkable. Both films are supine. Clinically, she is slightly less distended and softer , although still tympanic/distended. KUB 02/11/17 unremarkable. S/P GS evaluation, conservative management. NPO. TPN. Miralax 17gram BID, Reglan q8h. less distended and tympanic. PEG replaced 18Fr inserted with ease & 10ML water can start trickle feeds and wean TPN. - Sepsis, Leukocytosis- improving Abx per ID- meropeneum, tobra nebs. - Anemia with drop in Hgb. stable over last 2d No obvious signs of bleeding. On PPI - Resp. failure, PNA. Has trach. Vent per CCM. ID following, abx meropenem - Hx TBI, Sz D/O, electrolyte abnormalities per CCM. PLAN - ok to start trickle feeds - d/c NGT - wean TPN - Cont. PPI - Cont. Reglan - Cont. Miralax - S/P GS evaluation - Supportive care - This pt seen by myself and Dr Meza and this note is written on his behalf (Marjorie Amaya) Physician Comments Seen and examined, plan as above, currently stable from GI point of view, will follow up with you periodically . start TF today via PEG. (Gwen Meza MD) Marjorie Amaya Feb 12, 2017 12:07 Gwen Meza MD Feb 12, 2017 12:34
[2017-02-12] MEDS: PANTOPRAZOLE SODIUM 40 MG VIAL IV PUSH SCH (17:00)
[2017-02-12] MEDS: CLINIMIX E 4.25/5 2000 mL- >42 mls/hr IV SCH ×3 (20:12)
[2017-02-13] VITALS (19 sets, daily range): BP systolic 94–140; BP diastolic 58–91; PULSE 88–109; RESP 14–20; TEMP 98.7–100.1; O2SAT 97–100
[2017-02-13] MEDS: INSULIN NovoLIN REGULAR SUPPLEMENTAL SCALE SQ SCH ×6 (03:15→23:15)
[2017-02-13 05:21] LABS: AUTOMATED NEUTROPHIL # 9.4 TH/MM3 (1.8-7.7); BASOPHIL # 0.1 TH/MM3 (0-0.2); BASOPHIL % 0.7 % (0.0-2.0); EOSINOPHIL # 0.1 TH/MM3 (0-0.4); EOSINOPHIL % 0.6 % (0.0-4.0); HEMATOCRIT 22.5 % (35.0-46.0); LYMPH % 17.5 % (9.0-44.0); LYMPHOCYTE # 2.4 TH/MM3 (1.0-4.8); MEAN CELL VOLUME 89.5 FL (80.0-100.0); MEAN CORPUSCULAR HEMOGLOBIN 28.7 PG (27.0-34.0); MEAN CORPUSCULAR HGB CONC 32.1 % (32.0-36.0); MONO % 11.5 % (0.0-8.0); NEUT % 69.7 % (16.0-70.0); PLATELET COUNT 464 TH/MM3 (150-450); RED BLOOD COUNT 2.52 MIL/MM3 (4.00-5.30); WHITE BLOOD COUNT 13.5 TH/MM3 (4.0-11.0)
[2017-02-13 05:24] LABS: HEMO FLAGS AUTO DIFF
[2017-02-13 05:39] LABS: BICARBONATE 26.8 MEQ/L (21.0-32.0); POTASSIUM 4.3 MEQ/L (3.5-5.1)
[2017-02-13] MEDS: PROPOFOL 1000 MG/100 ML INJ 100 ML IV SCH (06:12)
[2017-02-13] MEDS: ARTIFICIAL TEARS OPTH OINT 3.5 APPLIC/3.5 GM TUBO LEFT EYE SCH ×3 (06:12→22:09)
[2017-02-13] MEDS: METOCLOPRAMIDE HCL 10 MG/2 ML VIAL IV PUSH SCH ×3 (06:12→22:07)
[2017-02-13] MEDS: ENOXAPARIN SODIUM 40 MG/0.4 ML SYRINGE SQ SCH (06:12)
[2017-02-13 06:54] LABS: BANDS 4 % (0-6); BASOPHILS 1 % (0-2); EOSINOPHILS 1 % (0-4); METAMYELOCYTES 1 % (0-1); MYELOCYTES 7 % (0-0); NEUTROPHIL # MANUAL DIFF 9.9 TH/MM3 (1.8-7.7); PLATELET ESTIMATE SMEAR HIGH (NORMAL); POLYS (SEG NEUTROPHILS) 61 % (16-70); WBC DIFF SAMPLE 100
[2017-02-13 06:55] LABS: PLATELET MORPHOLOGY NORMAL (NORMAL); SCAN/DIFF FINAL DIFF MANUAL
--- NOTE | 2017-02-13 07:25 | HHI.CCPN ---
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 ABG on admission showed significant A-a gradient, chest x-ray showed bilateral perihilar infiltrates. Patient was placed on 98% O2 by trach collar. UA showed evidence of UTI. Patient lactic acid was 4, indicating severe sepsis. Patient was admitted to hospitalist service to [facility] today pumper gauger for acute hypoxemic respiratory failure, severe sepsis due to healthcare associated pneumonia and UTI. Patient was placed on vancomycin, Zosyn and ciprofloxacin and ID Dr. Riggs was consulted A Halicat was called around 1100 AM today for worsening hypoxia SaO2 86% on 98% oxygen, hypotension and respiratory distress. Patient was moved to the ICU and [facility] immediately evaluated the patient. She was in impending respiratory failure , O2 Sat low 80s. With myself present at bedside, Respiratory therapist removed the 6.0 cuffless trach and replaced it with 6.0 cuffed trach. Patient was placed on mechanical ventilation with 100% oxygen and PEEP of 10 with immediate improvement oxygen saturation. Repeat chest x-ray shows consolidation of Left upper lobe 02/03 Remains intubated oxygen saturation is improved FiO2 down to 45%. PEEP remains at 12. Sputum culture with Proteus and another GNR. Chest x-ray today is pending at this time. Neuro exam remains unchanged 02/04 Remains on mechanical ventilation, PEEP 8. FIO2 weaned to 50%. . White blood cell count down trending. RN noticed dislodgement of Black this morning. Non bloody. She is voiding, bladder scan showed no e/o obstruction. Replaced black so can get accurate I/O because she is still acutely ill. 02/05 Failing CPap trials due to tachypnea. Moderate yellow respiratory secretions. 01/31 sputum culture with Proteus and pseudomonas. Tobramycin nebs initiated per ID for pseudomonas in sputum. 02/06 CPAP trials terminated by RT due to apnea. Still significant respiratory secretions. WBC 20. Temp max 99.7. Vomited last night but now tolerating tube feed advancement. Last BM 02/03. Leaking around black, Black replaced. 02/07: Tmax 99.7. Currently afebrile. Not tolerating PSV trials due to apnea chronic RT. Will reattempt today. CBC pending this AM. Tube feeds currently at 30 cc an hour. Goal 50 cc an hour. AXR yesterday revealed small/large bowel dilatation with stool proximal colon. See orders for multiple medications provided today. 02/08: Currently afebrile. Noted yesterday with pneumatosis intestinalis. Surgical evaluation agree due to size involving almost entire small bowel not optimal surgical candidate at this time. Medical management recommended. Lactic acid 2.2. Not mottled today like yesterday. Subjective: 02/09: Tmax 99.5. 2400 cc stool past 24 hours. Intra-abdominal pressures around 20. Remains on David-Synephrine 70 mcg per minute. Lactic acid has cleared. 02/10 Patient is sedated with Diprivan and intubated. Afebrile, Neosyn down 54 mics from 70 mics/min. WBC is trending down. On TPN. 02/11 No events overnight. Afebrile. Sedated and intubated. Neosyn down 15 mics. Afebrile. On TPN. 02/12 Patient remains sedated with Diprivan and intubated. Off Neosyn. Remains on TPN. Patient tolerated CPAP x 4 hrs yesterday 02/13 No events overnight. Tolerated CPAP all day yesterday. Tmax 99.8. Tolerating trickle feeds. On Diprivan 15 mics. Objective Vital Signs Date Time Temp Pulse Resp B/P (MAP) Pulse Ox O2 Delivery O2 Flow Rate FiO2 02/13/17 06:00 91 02/13/17 04:03 99 40 02/13/17 04:00 99.0 14 94/59 (71) Intake and Output 02/13/17 02/13/17 02/14/17 08:00 16:00 00:00 Intake Total 836 ml Output Total 1600 ml Balance -764 ml Result Diagram: 02/13/17 0449 02/13/17 0449 Other Results Laboratory Tests Test 02/13/17 04:49 White Blood Count 13.5 TH/MM3 Red Blood Count 2.52 MIL/MM3 Hemoglobin 7.2 GM/DL Hematocrit 22.5 % Mean Corpuscular Volume 89.5 FL Mean Corpuscular Hemoglobin 28.7 PG Mean Corpuscular Hemoglobin Concent 32.1 % Red Cell Distribution Width 14.0 % Platelet Count 464 TH/MM3 Mean Platelet Volume 7.1 FL Neutrophils (%) (Auto) 69.7 % Lymphocytes (%) (Auto) 17.5 % Monocytes (%) (Auto) 11.5 % Eosinophils (%) (Auto) 0.6 % Basophils (%) (Auto) 0.7 % Neutrophils # (Auto) 9.4 TH/MM3 Lymphocytes # (Auto) 2.4 TH/MM3 Monocytes # (Auto) 1.5 TH/MM3 Eosinophils # (Auto) 0.1 TH/MM3 Basophils # (Auto) 0.1 TH/MM3 CBC Comment AUTO DIFF Differential Total Cells Counted 100 Neutrophils % (Manual) 61 % Band Neutrophils % 4 % Lymphocytes % 16 % Monocytes % 9 % Eosinophils % 1 % Basophils % 1 % Neutrophils # (Manual) 9.9 TH/MM3 Metamyelocytes 1 % Myelocytes 7 % Differential Comment FINAL DIFF MANUAL Platelet Estimate HIGH Platelet Morphology Comment NORMAL Blood Urea Nitrogen 9 MG/DL Creatinine 0.22 MG/DL Random Glucose 103 MG/DL Calcium Level 8.7 MG/DL Sodium Level 136 MEQ/L Potassium Level 4.3 MEQ/L Chloride Level 101 MEQ/L Carbon Dioxide Level 26.8 MEQ/L Anion Gap 8 MEQ/L Estimat Glomerular Filtration Rate 346 ML/MIN Imaging Last Impressions Abdomen X-Ray 02/11/17 0600 Signed Impressions: Service Date/Time: Saturday, February 11, 2017 03:41 - CONCLUSION: Normal examination with a G-tube overlying the left midabdomen. Kevin Benítez MD Chest X-Ray 02/10/17 0600 Signed Impressions: Service Date/Time: Friday, February 10, 2017 03:55 - CONCLUSION: Persistent infiltrate in the left perihilar region. The nasogastric could be advanced to reach the stomach Kevin Benítez MD Enema w/Water Soluble 02/07/17 0000 Signed Impressions: Service Date/Time: Tuesday, February 07, 2017 13:47 - CONCLUSION: Therapeutic Gastrografin enema performed as above. Ricardo Cornejo MD Abdomen/Pelvis CT 02/07/17 0000 Signed Impressions: Service Date/Time: Tuesday, February 07, 2017 17:20 - CONCLUSION: 1. Diffuse dilatation of small bowel with pneumatosis intestinalis identified. 2. A discrete transition point is not identified. 3. Ascites. 4. No obvious signs of free air. Free fluid is identified however. 5. Left renal calculi. 6. Bilateral pleural effusions. 7. Pulmonary airspace disease. Ricardo Cornejo MD Objective Remarks General: 46-year-old female, resting in bed on ventilator via tracheostomy Head: History TBI. Eyes: R pupil 4mm and reactive. L eye with pterygium covering entire conjunctiva and L chronic large corneal opacity. Neck: Right IJ is clean dry and intact. No thyromegaly or lymphadenopathy. 6.0 Cuffed Shiley trach is in place with minimal yellow secretions surrounding. Cardiovascular: RRR. S1, S2 no S4 without murmur Lungs: Coarse breath sounds are appreciated throughout all lung walker anterior- posterior. GI: Abdomen is firm though slightly reducible and distended no bowel sounds appreciated. Not rigid. No peritoneal signs. PEG tube site is clean dry and intact : Black in place with yellow urine output. Extremities: Contracted bilateral upper and lower extremities. Positive anasarca. Neurologic Exam: Patient is unresponsive at the baseline, pupils as above. + Horizontal nystagmus. Moves upper and lower extremities to noxious stimulation. Date of Insertion: Feb 07, 2017 Line: Central Venous Catheter Side: Right Location: Internal, Jugular A/P Assessment and Plan NEURO/PSYCH: History of TBI as an instant with persistent vegetative state Seizure disorder NOS Encephalopathy Check CT brain Continue propofol for sedation while intubated Acetaminophen 650 mg every 6 hours when necessary as indicated per fever/pain 1- 5 Morphine sulfate 2 mg every 3 hours when necessary pain 6-10 Goal of RASS -2 Daily sedation vacation Holding amantadine 150 twice a day for stimulation while intubated Carbamazepine 500 milligrams by PEG twice a day currently on hold,Tegretol level 4.4 On levetiracetam 1500 mg IV BID , valproic acid 500 mg IV BID. Valproic acid low at 7.0 RESP: Acute on chronic hypoxemic respiratory failure Healthcare associated pneumonia Chronic trach currently number 6 Shiley - Trach changed to a 6.0 cuffed - [facility] 14/06/23/39 - Ventilator bundle - Albuterol/ipratropium aerosols every 6 hours with albuterol aerosols every 2 hours when necessary dyspnea - Daily spontaneous breathing trial. Pulm toilet, trach care - CXR 02/10 persistent infiltrate left hilar region. Check CXR today CV: History of HTN Severe sepsis shock secondary to pneumatosis intestinalis Lactic acidosis - resolved Monitor HR and BP maintain MAP >65 mmHg GI: Constipation Ileus Pneumatosis intestinalis On TPN @65ml/hr. advance tube feeds( Jevity 1.5@20ml/hr) and wean off TPN- cleared by GI KUB 02/11: Within normal. KUB 02/10: Moderate air throughout colon, bowel gas pattern unremarkable KUB 02/06 revealed dilated loops of small bowel along with large bowels large amount of stool in the proximal colon. - CT abdomen/pelvis 02/07 revealed pneumatosis intestinalis. Large amount of stool in colon. Patient is currently on NG tube to low intermittent wall suction. Abdominal pressures between 18-27 -Metoclopramide 10 mg IV q8 hours. -Bowel regimen with docusate sodium 100 mg by PEG twice a day, senna 8.6 g twice a day, polyethylene glycol 3350 17 g twice a day and lactulose 30 cc 4 times a day and as needed glycerin suppositories -Pantoprazole 40 mg IV daily for GI prophylaxis - Gastrografin enema 02/07 with minimal results Evaluated by Dr. Noé Mohamud. Surgery 02/07. Poor surgical candidate due to underlying health and amount of pneumatosis intestinalis. Recommended medical management Evaluated by Dr. Meza for gastroenterology. Status post colonoscopy 02/07. Large amount of stool throughout colon. Recommended serial enemas every 6 hours a FEN/RENAL/: Bladder spasms -Monitor renal function, I/O's, electrolytes replacement per protocol. Belladonna and opiate suppositories daily when necessary bladder spasms.. Black exchange 02/06 ID: Healthcare associated pneumonia (sputum culture 01/31 with proteus, pseudomonas) CRAB + History of MRSA - Continue abx per ID (Merrem) monitor for signs of infections ( Fever, WBC) - sputum cx 02/10: normal resp galo Pertinent cultures 01/31 - sputum - Proteus/Pseudomonas 01/31- UA - no growth 01/31 - blood cultures 2 - no growth 02/02 - UA - no growth 02/06 - sputum -Kleb pneumonia ESBL 02/07 - blood cultures 2 - pending HEME: Leukocytosis..resolving Anemia Follow CBC daily. Monitor trends ENDO: SSI for glycemic control PROPH: GI -pantoprazole 40 mg IV daily DVT - enoxaparin 40 mg subcutaneous daily LINES: Right IJ CVL placed 02/07 Level III Jimmie Ricketts MD Feb 13, 2017 07:25
--- NOTE | 2017-02-13 08:29 | RADRPT ---
EXAM DATE/TIME: 02/13/2017 07:36 [facility] COMPARISON: CHEST SINGLE AP, February 10, 2017, 3:55. INDICATIONS : Shortness of breath. MEDICAL HISTORY : Hypertension. Gastroesophageal reflux disease. Seizures. Traumatic brain SURGICAL HISTORY : Tracheostomy. PEG tube ENCOUNTER: Subsequent ACUITY: 1 week PAIN SCORE: Non-responsive. LOCATION: Bilateral chest FINDINGS: A single portable frontal view of the chest shows interval removal of the nasogastric tube. Tracheost sabrina tube and central line remain. Linear atelectasis within the right lung base. No infiltrate or eff usion. Heart is normal in size. No pneumothorax. CONCLUSION: Other than minimal linear atelectasis within the right lung base the lungs are clear. Gerry Nur Jr., MD on February 13, 2017 at 8:20 Board Certified Radiologist. This report was verified electronically.
[2017-02-13 08:36] LABS: BLOOD GAS BASE EXCESS 1.2 mmol/L (-2-2); BLOOD GAS CARBOXYHEMOGLOBIN 1.4 % (0-4); BLOOD GAS HCO3 25 mmol/L (22-26); BLOOD GAS METHEMOGLOBIN 1.2 % (0-2); BLOOD GAS O2 HGB SATURATION 94 % (90-100); BLOOD GAS OXYGEN CONTENT 15.6 Vol % (12.0-20.0); BLOOD GAS PCO2 35 mmHg (38-42); BLOOD GAS PO2 85 mmHg (61-120); BLOOD GAS TOTAL HGB 11.7 G/DL (12.0-16.0); CRITICAL VALUE NO; OXYGEN DEVICE VENTILATOR; TEMP CORR TO 98.6
[2017-02-13 08:37] LABS: DRAW SITE RT RADIAL; FIO2 40 %; NUMBER OF ARTERIAL PUNCTURES 1; STAT NO; ULNAR PULSE PRESENT; VENT SETTINGS PRVC/AC 550/14
[2017-02-13] MEDS: MEROPENEM INJ 1,000 MG in SODIUM CHLORIDE 0.9% INJ 100 ML IV SCH ×2 (08:40→17:00)
[2017-02-13] MEDS: CHLORHEXIDINE 0.12% (ORAL KIT) 15 ML CUP MT SCH ×2 (08:40→22:07)
[2017-02-13] MEDS: levETIRAcetam INJ 1,500 MG in SODIUM CHLORIDE 0.9% INJ 100 ML IV SCH ×2 (08:40→22:07)
[2017-02-13] MEDS: LACTOBACILLUS ACIDOPHILUS 1 GM PACKET PO SCH ×3 (08:41→17:09)
[2017-02-13] MEDS: ACETAMINOPHEN 650 MG/20.3 ML UDC PEG PRN (08:41)
[2017-02-13] MEDS: SODIUM CHLORIDE 0.9% FLUSH 10 ML FLUSH IV FLUSH SCH ×2 (08:41→22:09)
[2017-02-13] MEDS: SENNOSIDES SYRUP 8.8 MG/5 ML CUP PEG SCH ×2 (08:41→22:08)
[2017-02-13] MEDS: POLYETHYLENE GLYCOL 17 GM PKG PEG SCH ×2 (08:41→22:07)
[2017-02-13] MEDS: VALPROATE INJ 500 MG in SODIUM CHLORIDE 0.9% INJ 100 ML IV SCH ×2 (08:41→22:09)
[2017-02-13] MEDS: SODIUM CHLORIDE 0.9% FLUSH 10 ML FLUSH IVF SCH (08:41)
[2017-02-13] MEDS: ARTIFICIAL TEARS OPTH SOLN 15 ML BTL RIGHT EYE SCH ×2 (08:43→22:09)
--- NOTE | 2017-02-13 09:23 | RADRPT ---
EXAM DATE/TIME: 02/13/2017 09:10 [facility] COMPARISON: CT BRAIN W/O CONTRAST, May 26, 2013, 4:30. INDICATIONS : Altered mental status. RADIATION DOSE: 43.10 CTDIvol (mGy) MEDICAL HISTORY : Hypertension. SURGICAL HISTORY : None. ENCOUNTER: Initial ACUITY: 1 day PAIN SCALE: Non-responsive LOCATION: cranial TECHNIQUE: Multiple contiguous axial images were obtained of the head. Using automated exposure control and adj ustment of the mA and/or kV according to patient size, radiation dose was kept as low as reasonably a chievable to obtain optimal diagnostic quality images. DICOM format image data is available electro nically for review and comparison. FINDINGS: Areas of encephalomalacia are seen involving both frontal lobes and both temporal lobes. Hydrocephaly noted which is a new finding from the prior exam. No hemorrhage, acute infarction, or mass. Complete opacification of the left maxillary sinus and bilateral ethmoid air cells, bilateral sphenoid sinuse s, and left frontal sinus. No bony destruction. Partial opacification of the mastoid air cells on the left is unchanged. Right mastoid air cells are clear. Calvarium is intact. CONCLUSION: 1. Hydrocephaly which is a new finding from 2012. 2. Areas of encephalomalacia involving the frontal lobes and temporal lobes bilaterally. The pattern is suggestive of prior trauma. 3. No acute intracranial abnormality otherwise. 4. Chronic pansinus disease. Gerry Nur Jr., MD on February 13, 2017 at 9:17 Board Certified Radiologist. This report was verified electronically.
--- NOTE | 2017-02-13 11:45 | HHI.IDPN ---
Note Infectious Disease Note Patient on the CPAP. Looks comfortable. no distress. Low grade temp of 100. WBC increased slightly. PAST MEDICAL HISTORY 1. Traumatic brain injury. 2. Hypertension. 3. Hyperlipidemia. 4. History of seizure disorder. 5. Tracheostomy. Chronic. 6. PEG. ALLERGIES NO KNOWN DRUG ALLERGIES. MEDICATIONS Meropenem. OBJECTIVE: Vital Signs Date Time Temp Pulse Resp B/P (MAP) Pulse Ox O2 Delivery O2 Flow Rate FiO2 02/13/17 11:26 97 40 02/13/17 11:00 40 02/13/17 10:00 95 02/13/17 09:27 99 100 02/13/17 08:24 99 40 02/13/17 08:00 100.1 95 15 110/58 (75) 99 02/13/17 08:00 95 02/13/17 08:00 40 02/13/17 06:00 91 02/13/17 04:03 99 40 02/13/17 04:00 94 02/13/17 04:00 99.0 94 14 94/59 (71) 97 02/13/17 04:00 40 02/13/17 02:00 88 02/13/17 01:10 100 40 02/13/17 00:00 98 02/13/17 00:00 40 02/13/17 00:00 98.7 98 18 140/91 (107) 98 02/12/17 22:00 95 02/12/17 21:20 98 40 02/12/17 20:00 40 02/12/17 20:00 98.5 103 29 111/74 (86) 98 02/12/17 20:00 103 02/12/17 19:05 98 40 02/12/17 17:04 96 40 02/12/17 16:00 40 02/12/17 16:00 99.8 94 23 115/72 (86) 96 02/12/17 16:00 94 02/12/17 13:02 96 40 02/12/17 12:18 97.0 108 23 150/86 (107) 97 02/12/17 12:02 40 02/13/17 02/13/17 02/14/17 15:00 23:00 07:00 Intake Total 422 ml Balance 422 ml IV Total 422 ml Laboratory Tests Test 02/12/17 03:45 02/13/17 04:49 White Blood Count 11.2 TH/MM3 13.5 TH/MM3 Red Blood Count 2.59 MIL/MM3 2.52 MIL/MM3 Hemoglobin 7.8 GM/DL 7.2 GM/DL Hematocrit 23.4 % 22.5 % Mean Corpuscular Volume 90.3 FL 89.5 FL Mean Corpuscular Hemoglobin 30.1 PG 28.7 PG Mean Corpuscular Hemoglobin Concent 33.3 % 32.1 % Red Cell Distribution Width 14.0 % 14.0 % Platelet Count 378 TH/MM3 464 TH/MM3 Mean Platelet Volume 7.8 FL 7.1 FL Neutrophils (%) (Auto) 70.8 % 69.7 % Lymphocytes (%) (Auto) 17.1 % 17.5 % Monocytes (%) (Auto) 10.6 % 11.5 % Eosinophils (%) (Auto) 1.1 % 0.6 % Basophils (%) (Auto) 0.4 % 0.7 % Neutrophils # (Auto) 7.9 TH/MM3 9.4 TH/MM3 Lymphocytes # (Auto) 1.9 TH/MM3 2.4 TH/MM3 Monocytes # (Auto) 1.2 TH/MM3 1.5 TH/MM3 Eosinophils # (Auto) 0.1 TH/MM3 0.1 TH/MM3 Basophils # (Auto) 0.0 TH/MM3 0.1 TH/MM3 CBC Comment AUTO DIFF AUTO DIFF Differential Total Cells Counted 100 100 Neutrophils % (Manual) 80 % 61 % Lymphocytes % 8 % 16 % Monocytes % 8 % 9 % Neutrophils # (Manual) 9.4 TH/MM3 9.9 TH/MM3 Metamyelocytes 3 % 1 % Myelocytes 1 % 7 % Differential Comment FINAL DIFF MANUAL FINAL DIFF MANUAL Platelet Estimate NORMAL HIGH Platelet Morphology Comment NORMAL NORMAL Stomatocytes 1+ Band Neutrophils % 4 % Eosinophils % 1 % Basophils % 1 % Laboratory Tests Test 02/12/17 03:45 02/13/17 04:49 Blood Urea Nitrogen 9 MG/DL 9 MG/DL Creatinine 0.20 MG/DL 0.22 MG/DL Random Glucose 91 MG/DL 103 MG/DL Calcium Level 8.6 MG/DL 8.7 MG/DL Sodium Level 137 MEQ/L 136 MEQ/L Potassium Level 4.1 MEQ/L 4.3 MEQ/L Chloride Level 103 MEQ/L 101 MEQ/L Carbon Dioxide Level 25.5 MEQ/L 26.8 MEQ/L Anion Gap 9 MEQ/L 8 MEQ/L Estimat Glomerular Filtration Rate 386 ML/MIN 346 ML/MIN Microbiology Date/Time Source Procedure Growth Status 02/10/17 15:45 Sputum Endotracheal Gram Stain - Final Resulted 02/10/17 15:45 Sputum Culture - Preliminary Gram Negative Christopher Resulted IMAGING: Head CT 02/13/17 0000 Signed Impressions: Service Date/Time: Monday, February 13, 2017 09:10 - CONCLUSION: 1. Hydrocephaly which is a new finding from 2012. 2. Areas of encephalomalacia involving the frontal lobes and temporal lobes bilaterally. The pattern is suggestive of prior trauma. 3. No acute intracranial abnormality otherwise. 4. Chronic pansinus disease. Gerry Nur Jr., MD Chest X-Ray 02/13/17 0000 Signed Impressions: Service Date/Time: Monday, February 13, 2017 07:36 - CONCLUSION: Other than minimal linear atelectasis within the right lung base the lungs are clear. Gerry Nur Jr., MD Abdomen X-Ray 02/11/17 06 Signed Impressions: Service Date/Time: Saturday, February 11, 2017 03:41 - CONCLUSION: Normal examination with a G-tube overlying the left midabdomen. Kevin Benítez MD Chest X-Ray 02/09/17 06 Signed Impressions: Service Date/Time: January 03:59 - CONCLUSION: 1. Stable exam since February 08. Support apparatus in satisfactory position. Raphael Reynoso MD Abdomen X-Ray 02/09/17 06 Signed Impressions: Service Date/Time: January 04:06 - CONCLUSION: 1. Stable gaseous distention of bowel compared with February 08 most characteristic of ileus. No free air identified. Raphael Reynoso MD Chest X-Ray 02/08/17 06 Signed Impressions: Service Date/Time: Wednesday, February 08, 2017 04:46 - CONCLUSION: 1. Support apparatus in good position. Stable bilateral airspace disease. Raphael Reynoso MD Abdomen X-Ray 02/08/17 06 Signed Impressions: Service Date/Time: Wednesday, February 08, 2017 04:50 - CONCLUSION: 1. Diffuse ileus. Possible pneumatosis involving small bowel loops seen on the left side. NG tube in the stomach. Gastrostomy tube present. Raphael Reynoso MD Enema w/Water Soluble 02/07/17 0000 Signed Impressions: Service Date/Time: Tuesday, February 07, 2017 13:47 - CONCLUSION: Therapeutic Gastrografin enema performed as above. Ricardo Cornejo MD Abdomen/Pelvis CT 02/07/17 0000 Signed Impressions: Service Date/Time: Tuesday, February 07, 2017 17:20 - CONCLUSION: 1. Diffuse dilatation of small bowel with pneumatosis intestinalis identified. 2. A discrete transition point is not identified. 3. Ascites. 4. No obvious signs of free air. Free fluid is identified however. 5. Left renal calculi. 6. Bilateral pleural effusions. 7. Pulmonary airspace disease. Ricardo Cornejo MD PHYSICAL EXAMINATION GENERAL: On the vent. CPAP. HEENT: The sclera is nonicteric. Oropharynx mucosa is moist. LUNGS: Decreased breath sounds. HEART: Regular S1-S2. No audible murmurs. ABDOMEN: Bowel sounds not audible. Less distended, soft. EXTREMITIES: No clubbing or cyanosis. Trace edema. SKIN: Lacy geographic pattern on legs. Moist, warm. No diffuse rash. NEUROLOGIC: Difficult to assess because of the patient's persistent vegetative state. PSYCHIATRIC: Unable to assess because of the patient's persistent vegetative non verbal state. IMPRESSION 1. Sepsis. 2. Pneumonia. HCAP - pseudomonas, proteus. Repeat sputum culture - Klebsiella ESBL. Repeat sputum pending. 3. Leukocytosis secondary to sepsis. WBC decreased. 4. Acute respiratory failure. On ventilator. 5. Intestinal obstruction. 6. Low grade fever. RECOMMENDATIONS 1. Continue Meropenem. 2. Monitor sputum culture. 3. monitor temp. 4. Follow WBC and clinical status. D/W RN. Phani Riggs MD Feb 13, 2017 11:45
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
--- NOTE | 2017-02-13 14:56 | HHI.HCSW ---
Dressage Judge Visit Significant Family/Friend Spoke with patient's mother, Ivis Finley, to provide additional support. She appears to be coping appropriately. More hopeful with patient's progress over the past few days. She verbalizes patient is making "baby steps" towards baseline. Main concern at this time is patient's bowel regiment to ensure she is having bowel movements regularly. Also concerns about finding patient's son , Haile. Palliative care has attempted to locate son via social media, no responses at this time. Provided time for reflection and life review. Provided emotional support. . Follow Up Visit SW will continue to follow and provide additional support to mother. Palliative SW number provided. Palliative care will continue to follow throughout hospitalization. Jovita Nur, SADDLE STITCHING MACHINE OPERATOR Feb 13, 2017 14:56
--- NOTE | 2017-02-13 16:57 | HHI.GIFU ---
Subjective Remarks Resting in bed. Nurse reports no bm this shift. She had multiple bowel movements 02/11. She is tolerating TF at 50cc/hr, only 25cc residual. (Yanelis Chong) Objective Vitals I&O Vital Signs Date Time Temp Pulse Resp B/P (MAP) Pulse Ox O2 Delivery O2 Flow Rate FiO2 02/13/17 16:00 109 02/13/17 16:00 99.7 109 20 105/62 (76) 97 02/13/17 16:00 40 02/13/17 15:49 97 40 02/13/17 14:00 104 02/13/17 12:00 98.9 104 20 109/66 (80) 97 02/13/17 12:00 40 02/13/17 12:00 104 02/13/17 11:26 97 40 02/13/17 11:00 40 02/13/17 10:00 95 02/13/17 09:27 99 100 02/13/17 08:24 99 40 02/13/17 08:00 100.1 95 15 110/58 (75) 99 02/13/17 08:00 95 02/13/17 08:00 40 02/13/17 06:00 91 02/13/17 04:03 99 40 02/13/17 04:00 94 02/13/17 04:00 99.0 94 14 94/59 (71) 97 02/13/17 04:00 40 02/13/17 02:00 88 02/13/17 01:10 100 40 02/13/17 00:00 98 02/13/17 00:00 40 02/13/17 00:00 98.7 98 18 140/91 (107) 98 02/12/17 22:00 95 02/12/17 21:20 98 40 02/12/17 20:00 40 02/12/17 20:00 98.5 103 29 111/74 (86) 98 02/12/17 20:00 103 02/12/17 19:05 98 40 02/12/17 17:04 96 40 I/O 02/12/17 02/12/17 02/12/17 02/13/17 02/13/17 02/13/17 07:00 15:00 23:00 07:00 15:00 23:00 Intake Total 1295 ml 3859 ml 936 ml 699 ml Output Total 1750 ml 3800 ml 1600 ml 1800 ml Balance -455 ml 59 ml -664 ml -1101 ml IV Total 525 ml 2877 ml 100 ml 699 ml Tube Feeding 32 ml TPN/PPN 650 ml 770 ml 620 ml Tube Irrigant 120 ml 180 ml 216 ml Output Urine Total 1750 ml 3800 ml 1600 ml 1800 ml Gastric Drainage Total 0 ml # Bowel Movements 0 Laboratory Laboratory Tests Test 02/13/17 04:49 02/13/17 08:30 White Blood Count 13.5 Red Blood Count 2.52 Hemoglobin 7.2 Hematocrit 22.5 Mean Corpuscular Volume 89.5 Mean Corpuscular Hemoglobin 28.7 Mean Corpuscular Hemoglobin Concent 32.1 Red Cell Distribution Width 14.0 Platelet Count 464 Mean Platelet Volume 7.1 Neutrophils (%) (Auto) 69.7 Lymphocytes (%) (Auto) 17.5 Monocytes (%) (Auto) 11.5 Eosinophils (%) (Auto) 0.6 Basophils (%) (Auto) 0.7 Neutrophils # (Auto) 9.4 Lymphocytes # (Auto) 2.4 Monocytes # (Auto) 1.5 Eosinophils # (Auto) 0.1 Basophils # (Auto) 0.1 CBC Comment AUTO DIFF Differential Total Cells Counted 100 Neutrophils % (Manual) 61 Band Neutrophils % 4 Lymphocytes % 16 Monocytes % 9 Eosinophils % 1 Basophils % 1 Neutrophils # (Manual) 9.9 Metamyelocytes 1 Myelocytes 7 Differential Comment FINAL DIFF MANUAL Platelet Estimate HIGH Platelet Morphology Comment NORMAL Blood Urea Nitrogen 9 Creatinine 0.22 Random Glucose 103 Calcium Level 8.7 Sodium Level 136 Potassium Level 4.3 Chloride Level 101 Carbon Dioxide Level 26.8 Anion Gap 8 Estimat Glomerular Filtration Rate 346 Blood Gas Puncture Site RT RADIAL Blood Gas Patient Temperature 98.6 Blood Gas HCO3 25 Blood Gas Base Excess 1.2 Blood Gas Oxygen Saturation 94 Arterial Blood pH 7.46 Arterial Blood Partial Pressure CO2 35 Arterial Blood Partial Pressure O2 85 Arterial Blood Oxygen Content 15.6 Arterial Blood Carboxyhemoglobin 1.4 Arterial Blood Methemoglobin 1.2 Blood Gas Hemoglobin 11.7 Oxygen Delivery Device VENTILATOR Blood Gas Ventilator Setting PRVC/AC 550/14 Blood Gas Inspired Oxygen 40 Date/Time Source Procedure Growth Status 02/08/17 03:37 Blood Peripheral Aerobic Blood Culture - Final NO GROWTH IN 5 DAYS Complete 02/08/17 03:37 Blood Peripheral Anaerobic Blood Culture - Final NO GROWTH IN 5 DAYS Complete 02/10/17 15:45 Sputum Endotracheal Gram Stain - Final Resulted 02/10/17 15:45 Sputum Culture - Preliminary Gram Negative Christopher Resulted 02/02/17 18:00 Urine Catheterized Urine Urine Culture - Final NO GROWTH IN 48 HOURS. Complete Imaging Last Impressions Head CT 02/13/17 0000 Signed Impressions: Service Date/Time: Monday, February 13, 2017 09:10 - CONCLUSION: 1. Hydrocephaly which is a new finding from 2012. 2. Areas of encephalomalacia involving the frontal lobes and temporal lobes bilaterally. The pattern is suggestive of prior trauma. 3. No acute intracranial abnormality otherwise. 4. Chronic pansinus disease. Gerry Nur Jr., MD Chest X-Ray 02/13/17 0000 Signed Impressions: Service Date/Time: Monday, February 13, 2017 07:36 - CONCLUSION: Other than minimal linear atelectasis within the right lung base the lungs are clear. Gerry Nur Jr., MD Abdomen X-Ray 02/11/17 0600 Signed Impressions: Service Date/Time: Saturday, February 11, 2017 03:41 - CONCLUSION: Normal examination with a G-tube overlying the left midabdomen. Kevin Benítez MD Enema w/Water Soluble 02/07/17 0000 Signed Impressions: Service Date/Time: Tuesday, February 07, 2017 13:47 - CONCLUSION: Therapeutic Gastrografin enema performed as above. Ricardo Cornejo MD Abdomen/Pelvis CT 02/07/17 0000 Signed Impressions: Service Date/Time: Tuesday, February 07, 2017 17:20 - CONCLUSION: 1. Diffuse dilatation of small bowel with pneumatosis intestinalis identified. 2. A discrete transition point is not identified. 3. Ascites. 4. No obvious signs of free air. Free fluid is identified however. 5. Left renal calculi. 6. Bilateral pleural effusions. 7. Pulmonary airspace disease. Ricardo Cornejo MD Physical Exam HEENT: Normocephalic; atraumatic CHEST: Resp even/unlabored, OETT to vent. Coarse breath sounds CARDIAC: RRR ABDOMEN: Soft, mildly distended. PEG tube with TF. BSx 4. EXTREMITIES: No clubbing, cyanosis, + generalized edema SKIN: No rash; no jaundice. 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 (Yanelis Chong) Assessment and Plan Plan ASSESSMENT - Severe ileus. CT scan abdomen and pelvis without IV contrast (02/07/17) diffuse dilatation of small bowel with pneumatosis intestinalis Identified. A discrete transition point is not identified, ascites, no obvious signs of free air, free fluid is identified. However, left renal calculi, bilateral pleural effusions, pulmonary airspace disease. Status post Gastrografin enema (02/07/17) therapeutic Gastrografin enema performed as above- no significant improvement. S/P Relistor (02/07/17)-> no improvement. Attempted decompressive colonoscopy (02/07/17)----> significant amount of stool was present throughout the entire examined colon, around the transverse colon, scope was not advanced beyond secondary to formed fecal material blocking the scope in the suction. Limited decompression since the colon is distended with formed fecal material and minimal air, no transition point noted during the examination. Rpt. KUB (02/11/17)---- > The abdominal bowel gas pattern is normal. Multiple BM's on 02/11. Miralax 17gram BID, Reglan q8h. Clinically much improved. Tolerating TF at 50cc/hr. - Sepsis, Leukocytosis- improving Abx per ID- meropeneum - Anemia with drop in Hgb. No signs of active bleeding. HH remaining stable. 7.2.5 On PPI - Resp. failure, PNA. Has trach. Vent per CCM. ID following, abx meropenem - Hx TBI, Sz D/O, electrolyte abnormalities per CCM. PLAN - Jevity 1.5 at GR of 50cc/hr (tolerating) - Cont. PPI - Cont. Reglan - Cont. Miralax - Supportive care - Further recommendations to follow based on results of above - This pt seen by myself and Dr Meza and this note is written on his behalf (Yanelis Chong) Physician Comments Plan as above, will sign off for now please notify us if needed. (Gwen Meza MD) Yanelis Chong Feb 13, 2017 16:57 Gwen Meza MD Feb 13, 2017 21:58
[2017-02-13] MEDS: PANTOPRAZOLE SODIUM 40 MG VIAL IV PUSH SCH (17:09)
[2017-02-13] MEDS: MORPHINE SULFATE 4 MG/ML INJ IV PUSH PRN (17:26)
[2017-02-14] VITALS (19 sets, daily range): BP systolic 96–127; BP diastolic 60–70; PULSE 98–117; RESP 14–27; TEMP 98.5–100.4; O2SAT 95–100
[2017-02-14] MEDS: MEROPENEM INJ 1,000 MG in SODIUM CHLORIDE 0.9% INJ 100 ML IV SCH ×3 (03:02→16:42)
[2017-02-14] MEDS: INSULIN NovoLIN REGULAR SUPPLEMENTAL SCALE SQ SCH ×5 (03:15→20:00)
[2017-02-14] MEDS: ENOXAPARIN SODIUM 40 MG/0.4 ML SYRINGE SQ SCH (05:38)
[2017-02-14] MEDS: METOCLOPRAMIDE HCL 10 MG/2 ML VIAL IV PUSH SCH ×3 (05:38→22:00)
[2017-02-14] MEDS: ARTIFICIAL TEARS OPTH OINT 3.5 APPLIC/3.5 GM TUBO LEFT EYE SCH ×3 (05:38→22:00)
[2017-02-14 06:26] LABS: AUTOMATED NEUTROPHIL # 9.7 TH/MM3 (1.8-7.7); BASOPHIL # 0.1 TH/MM3 (0-0.2); BASOPHIL % 0.6 % (0.0-2.0); EOSINOPHIL # 0.1 TH/MM3 (0-0.4); EOSINOPHIL % 0.9 % (0.0-4.0); HEMATOCRIT 25.3 % (35.0-46.0); LYMPH % 18.8 % (9.0-44.0); LYMPHOCYTE # 2.8 TH/MM3 (1.0-4.8); MEAN CELL VOLUME 89.6 FL (80.0-100.0); MEAN CORPUSCULAR HEMOGLOBIN 29.5 PG (27.0-34.0); MONO % 14.1 % (0.0-8.0); NEUT % 65.6 % (16.0-70.0); PLATELET COUNT 610 TH/MM3 (150-450); RED BLOOD COUNT 2.82 MIL/MM3 (4.00-5.30); RED CELL DISTRIBUTION WIDTH 14.2 % (11.6-17.2); WHITE BLOOD COUNT 14.8 TH/MM3 (4.0-11.0)
[2017-02-14 06:28] LABS: HEMO FLAGS AUTO DIFF
[2017-02-14 06:49] LABS: BICARBONATE 27.4 MEQ/L (21.0-32.0); POTASSIUM 4.5 MEQ/L (3.5-5.1)
--- NOTE | 2017-02-14 07:29 | HHI.CCPN ---
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 ABG on admission showed significant A-a gradient, chest x-ray showed bilateral perihilar infiltrates. Patient was placed on 98% O2 by trach collar. UA showed evidence of UTI. Patient lactic acid was 4, indicating severe sepsis. Patient was admitted to hospitalist service to [facility] today reporting specialist for acute hypoxemic respiratory failure, severe sepsis due to healthcare associated pneumonia and UTI. Patient was placed on vancomycin, Zosyn and ciprofloxacin and ID Dr. Riggs was consulted A Halicat was called around 1100 AM today for worsening hypoxia SaO2 86% on 98% oxygen, hypotension and respiratory distress. Patient was moved to the ICU and [facility] immediately evaluated the patient. She was in impending respiratory failure , O2 Sat low 80s. With myself present at bedside, Respiratory therapist removed the 6.0 cuffless trach and replaced it with 6.0 cuffed trach. Patient was placed on mechanical ventilation with 100% oxygen and PEEP of 10 with immediate improvement oxygen saturation. Repeat chest x-ray shows consolidation of Left upper lobe 02/03 Remains intubated oxygen saturation is improved FiO2 down to 45%. PEEP remains at 12. Sputum culture with Proteus and another GNR. Chest x-ray today is pending at this time. Neuro exam remains unchanged 02/04 Remains on mechanical ventilation, PEEP 8. FIO2 weaned to 50%. . White blood cell count down trending. RN noticed dislodgement of Black this morning. Non bloody. She is voiding, bladder scan showed no e/o obstruction. Replaced black so can get accurate I/O because she is still acutely ill. 02/05 Failing CPap trials due to tachypnea. Moderate yellow respiratory secretions. 01/31 sputum culture with Proteus and pseudomonas. Tobramycin nebs initiated per ID for pseudomonas in sputum. 02/06 CPAP trials terminated by RT due to apnea. Still significant respiratory secretions. WBC 20. Temp max 99.7. Vomited last night but now tolerating tube feed advancement. Last BM 02/03. Leaking around black, Black replaced. 02/07: Tmax 99.7. Currently afebrile. Not tolerating PSV trials due to apnea chronic RT. Will reattempt today. CBC pending this AM. Tube feeds currently at 30 cc an hour. Goal 50 cc an hour. AXR yesterday revealed small/large bowel dilatation with stool proximal colon. See orders for multiple medications provided today. 02/08: Currently afebrile. Noted yesterday with pneumatosis intestinalis. Surgical evaluation agree due to size involving almost entire small bowel not optimal surgical candidate at this time. Medical management recommended. Lactic acid 2.2. Not mottled today like yesterday. Subjective: 02/09: Tmax 99.5. 2400 cc stool past 24 hours. Intra-abdominal pressures around 20. Remains on David-Synephrine 70 mcg per minute. Lactic acid has cleared. 02/10 Patient is sedated with Diprivan and intubated. Afebrile, Neosyn down 54 mics from 70 mics/min. WBC is trending down. On TPN. 02/11 No events overnight. Afebrile. Sedated and intubated. Neosyn down 15 mics. Afebrile. On TPN. 02/12 Patient remains sedated with Diprivan and intubated. Off Neosyn. Remains on TPN. Patient tolerated CPAP x 4 hrs yesterday 02/13 No events overnight. Tolerated CPAP all day yesterday. Tmax 99.8. Tolerating trickle feeds. On Diprivan 15 mics. 02/14 Patient remans on ventilator via trach. Off all drips tolerating tube feeds. Objective Vital Signs Date Time Temp Pulse Resp B/P (MAP) Pulse Ox O2 Delivery O2 Flow Rate FiO2 02/14/17 06:00 108 02/14/17 04:21 100 40 02/14/17 04:00 98.5 15 127/68 (87) Intake and Output 02/14/17 02/14/17 02/15/17 08:00 16:00 00:00 Intake Total 853 ml Output Total 1950 ml Balance -1097 ml Result Diagram: 02/14/17 0530 02/14/17 0530 Other Results Laboratory Tests Test 02/13/17 08:30 02/14/17 05:30 Blood Gas Puncture Site RT RADIAL Blood Gas Patient Temperature 98.6 Blood Gas HCO3 25 mmol/L Blood Gas Base Excess 1.2 mmol/L Blood Gas Oxygen Saturation 94 % Arterial Blood pH 7.46 Arterial Blood Partial Pressure CO2 35 mmHg Arterial Blood Partial Pressure O2 85 mmHg Arterial Blood Oxygen Content 15.6 Vol % Arterial Blood Carboxyhemoglobin 1.4 % Arterial Blood Methemoglobin 1.2 % Blood Gas Hemoglobin 11.7 G/DL Oxygen Delivery Device VENTILATOR Blood Gas Ventilator Setting PRVC/AC 550/14 Blood Gas Inspired Oxygen 40 % White Blood Count 14.8 TH/MM3 Red Blood Count 2.82 MIL/MM3 Hemoglobin 8.3 GM/DL Hematocrit 25.3 % Mean Corpuscular Volume 89.6 FL Mean Corpuscular Hemoglobin 29.5 PG Mean Corpuscular Hemoglobin Concent 33.0 % Red Cell Distribution Width 14.2 % Platelet Count 610 TH/MM3 Mean Platelet Volume 7.0 FL Neutrophils (%) (Auto) 65.6 % Lymphocytes (%) (Auto) 18.8 % Monocytes (%) (Auto) 14.1 % Eosinophils (%) (Auto) 0.9 % Basophils (%) (Auto) 0.6 % Neutrophils # (Auto) 9.7 TH/MM3 Lymphocytes # (Auto) 2.8 TH/MM3 Monocytes # (Auto) 2.1 TH/MM3 Eosinophils # (Auto) 0.1 TH/MM3 Basophils # (Auto) 0.1 TH/MM3 CBC Comment AUTO DIFF Blood Urea Nitrogen 8 MG/DL Creatinine 0.29 MG/DL Random Glucose 108 MG/DL Calcium Level 9.1 MG/DL Sodium Level 136 MEQ/L Potassium Level 4.5 MEQ/L Chloride Level 100 MEQ/L Carbon Dioxide Level 27.4 MEQ/L Anion Gap 9 MEQ/L Estimat Glomerular Filtration Rate 251 ML/MIN Imaging Last Impressions Head CT 02/13/17 0000 Signed Impressions: Service Date/Time: Monday, February 13, 2017 09:10 - CONCLUSION: 1. Hydrocephaly which is a new finding from 2012. 2. Areas of encephalomalacia involving the frontal lobes and temporal lobes bilaterally. The pattern is suggestive of prior trauma. 3. No acute intracranial abnormality otherwise. 4. Chronic pansinus disease. Gerry Nur Jr., MD Chest X-Ray 02/13/17 0000 Signed Impressions: Service Date/Time: Monday, February 13, 2017 07:36 - CONCLUSION: Other than minimal linear atelectasis within the right lung base the lungs are clear. Gerry Nur Jr., MD Abdomen X-Ray 02/11/17 0600 Signed Impressions: Service Date/Time: Saturday, February 11, 2017 03:41 - CONCLUSION: Normal examination with a G-tube overlying the left midabdomen. Kevin Benítez MD Enema w/Water Soluble 02/07/17 0000 Signed Impressions: Service Date/Time: Tuesday, February 07, 2017 13:47 - CONCLUSION: Therapeutic Gastrografin enema performed as above. Ricardo Cornejo MD Abdomen/Pelvis CT 02/07/17 0000 Signed Impressions: Service Date/Time: Tuesday, February 07, 2017 17:20 - CONCLUSION: 1. Diffuse dilatation of small bowel with pneumatosis intestinalis identified. 2. A discrete transition point is not identified. 3. Ascites. 4. No obvious signs of free air. Free fluid is identified however. 5. Left renal calculi. 6. Bilateral pleural effusions. 7. Pulmonary airspace disease. Ricardo Cornejo MD Objective Remarks General: 46-year-old female, resting in bed on ventilator via tracheostomy Head: History TBI. Eyes: R pupil 4mm and reactive. L eye with pterygium covering entire conjunctiva and L chronic large corneal opacity. Neck: Right IJ is clean dry and intact. No thyromegaly or lymphadenopathy. 6.0 Cuffed Shiley trach is in place with minimal yellow secretions surrounding. Cardiovascular: RRR. S1, S2 no S4 without murmur Lungs: Coarse breath sounds are appreciated throughout all lung walker anterior- posterior. GI: Abdomen is firm though slightly reducible and distended no bowel sounds appreciated. Not rigid. No peritoneal signs. PEG tube site is clean dry and intact : Black in place with yellow urine output. Extremities: Contracted bilateral upper and lower extremities. Positive anasarca. Neurologic Exam: Patient is unresponsive at the baseline, pupils as above. + Horizontal nystagmus. Moves upper and lower extremities to noxious stimulation. Date of Insertion: Feb 07, 2017 Line: Central Venous Catheter Side: Right Location: Internal, Jugular A/P Assessment and Plan NEURO/PSYCH: History of TBI as an instant with persistent vegetative state Seizure disorder NOS Encephalopathy 02/13 CT brain: Areas of encephalomalacia involving the frontal lobes and temporal lobes bilaterally suggestive of prior trauma.. No acute intracranial abnormality otherwise. Chronic pansinus disease. Off sedation. Acetaminophen 650 mg every 6 hours when necessary as indicated per fever/pain 1- 5 Morphine sulfate 2 mg every 3 hours when necessary pain 6-10 On levetiracetam 1500 mg IV BID , valproic acid 500 mg IV BID. Valproic acid low at 7.0 RESP: Acute on chronic hypoxemic respiratory failure Healthcare associated pneumonia Chronic trach currently number 6 Shiley - Trach changed to a 6.0 cuffed - PRVC /06/23/39 - Ventilator bundle - Albuterol/ipratropium aerosols every 6 hours with albuterol aerosols every 2 hours when necessary dyspnea - Daily spontaneous breathing trial. Pulm toilet, trach care - CXR yesterday minimal atelectasis right base otherwise clear CV: History of HTN Severe sepsis shock secondary to pneumatosis intestinalis Lactic acidosis - resolved Monitor HR and BP maintain MAP >65 mmHg GI: Constipation Ileus Pneumatosis intestinalis Continue Jevity 1.5@20ml/hr, off TPN- KUB 02/11: Within normal. KUB 02/10: Moderate air throughout colon, bowel gas pattern unremarkable KUB 02/06 revealed dilated loops of small bowel along with large bowels large amount of stool in the proximal colon. - CT abdomen/pelvis 02/07 revealed pneumatosis intestinalis. Large amount of stool in colon. Patient is currently on NG tube to low intermittent wall suction. Abdominal pressures between 18-27 -Metoclopramide 10 mg IV q8 hours. -Bowel regimen with docusate sodium 100 mg by PEG twice a day, senna 8.6 g twice a day, polyethylene glycol 3350 17 g twice a day and lactulose 30 cc 4 times a day and as needed glycerin suppositories -Pantoprazole 40 mg IV daily for GI prophylaxis - Gastrografin enema 02/07 with minimal results Evaluated by Dr. Umanzor Gen. Surgery 02/07. Poor surgical candidate due to underlying health and amount of pneumatosis intestinalis. Recommended medical management Evaluated by Dr. Meza for gastroenterology. Status post colonoscopy 02/07. Large amount of stool throughout colon. Recommended serial enemas every 6 hours a FEN/RENAL/: Bladder spasms -Monitor renal function, I/O's, electrolytes replacement per protocol. Belladonna and opiate suppositories daily when necessary bladder spasms.. Black exchange 02/06 ID: Healthcare associated pneumonia (sputum culture 01/31 with proteus, pseudomonas) CRAB + History of MRSA - Continue abx per ID (Merrem) monitor for signs of infections ( Fever, WBC), check sputum cx - sputum cx 02/10: GNR Pertinent cultures 01/31 - sputum - Proteus/Pseudomonas 01/31- UA - no growth 01/31 - blood cultures 2 - no growth 02/02 - UA - no growth 02/06 - sputum -Kleb pneumonia ESBL 02/07 - blood cultures 2 - pending HEME: Leukocytosis Anemia Follow CBC daily. Monitor trends ENDO: SSI for glycemic control PROPH: GI -pantoprazole 40 mg IV daily DVT - enoxaparin 40 mg subcutaneous daily LINES: Right IJ CVL placed 02/07, d/c central line and place peripheral IV's Level III Jimmie Ricketts MD Feb 14, 2017 07:29
[2017-02-14] MEDS: CHLORHEXIDINE 0.12% (ORAL KIT) 15 ML CUP MT SCH ×2 (08:00→20:00)
[2017-02-14 08:02] LABS: BANDS 4 % (0-6); BASOPHILS 2 % (0-2); EOSINOPHILS 1 % (0-4); METAMYELOCYTES 3 % (0-1); MYELOCYTES 6 % (0-0); NEUTROPHIL # MANUAL DIFF 9.9 TH/MM3 (1.8-7.7); POLYS (SEG NEUTROPHILS) 53 % (16-70); PROMYELOCYTES 1 % (0-0); WBC DIFF SAMPLE 100
[2017-02-14 08:03] LABS: PLATELET ESTIMATE SMEAR HIGH (NORMAL)
[2017-02-14 08:04] LABS: PLATELET MORPHOLOGY NORMAL (NORMAL); SCAN/DIFF FINAL DIFF MANUAL
[2017-02-14] MEDS: levETIRAcetam INJ 1,500 MG in SODIUM CHLORIDE 0.9% INJ 100 ML IV SCH ×2 (08:28→20:32)
[2017-02-14] MEDS: ACETAMINOPHEN 650 MG/20.3 ML UDC PEG PRN (08:30)
[2017-02-14] MEDS: LACTOBACILLUS ACIDOPHILUS 1 GM PACKET PO SCH ×3 (08:30→17:01)
[2017-02-14] MEDS: POLYETHYLENE GLYCOL 17 GM PKG PEG SCH ×2 (08:39→20:32)
[2017-02-14] MEDS: SENNOSIDES SYRUP 8.8 MG/5 ML CUP PEG SCH ×2 (08:39→20:32)
[2017-02-14] MEDS: ARTIFICIAL TEARS OPTH SOLN 15 ML BTL RIGHT EYE SCH ×2 (08:40→20:33)
[2017-02-14] MEDS: SODIUM CHLORIDE 0.9% FLUSH 10 ML FLUSH IV FLUSH SCH ×2 (08:41→20:32)
[2017-02-14] MEDS: SODIUM CHLORIDE 0.9% FLUSH 10 ML FLUSH IVF SCH (08:41)
[2017-02-14] MEDS: VALPROATE INJ 500 MG in SODIUM CHLORIDE 0.9% INJ 100 ML IV SCH ×2 (08:41→20:31)
--- NOTE | 2017-02-14 12:04 | HHI.IDPN ---
Note Infectious Disease Note Patient on the CPAP. Looks comfortable. no distress. Awake. Random r. eye movements. (non functional left. eye sclera covered by sharma film.) Low grade temp. Repeat sputum has klebsiella. PAST MEDICAL HISTORY 1. Traumatic brain injury. 2. Hypertension. 3. Hyperlipidemia. 4. History of seizure disorder. 5. Tracheostomy. Chronic. 6. PEG. ALLERGIES NO KNOWN DRUG ALLERGIES. MEDICATIONS Meropenem. OBJECTIVE: Vital Signs Date Time Temp Pulse Resp B/P (MAP) Pulse Ox O2 Delivery O2 Flow Rate FiO2 02/14/17 10:33 97 40 02/14/17 10:00 109 02/14/17 08:00 110 02/14/17 08:00 40 02/14/17 08:00 100.4 110 24 107/68 (81) 96 02/14/17 07:35 100 40 02/14/17 06:00 108 02/14/17 04:21 100 40 02/14/17 04:00 40 02/14/17 04:00 98.5 102 15 127/68 (87) 100 02/14/17 04:00 102 02/14/17 02:00 106 02/14/17 00:39 100 40 02/14/17 00:00 98 02/14/17 00:00 99.0 98 16 96/60 (72) 100 02/14/17 00:00 40 02/13/17 22:00 101 02/13/17 20:00 99.3 100 16 103/63 (76) 100 02/13/17 20:00 40 02/13/17 20:00 100 02/13/17 19:50 98 40 02/13/17 18:00 105 02/13/17 17:54 18 02/13/17 16:00 109 02/13/17 16:00 99.7 109 20 105/62 (76) 97 02/13/17 16:00 40 02/13/17 15:49 97 40 02/13/17 14:00 104 Laboratory Tests Test 02/13/17 04:49 02/14/17 05:30 White Blood Count 13.5 TH/MM3 14.8 TH/MM3 Red Blood Count 2.52 MIL/MM3 2.82 MIL/MM3 Hemoglobin 7.2 GM/DL 8.3 GM/DL Hematocrit 22.5 % 25.3 % Mean Corpuscular Volume 89.5 FL 89.6 FL Mean Corpuscular Hemoglobin 28.7 PG 29.5 PG Mean Corpuscular Hemoglobin Concent 32.1 % 33.0 % Red Cell Distribution Width 14.0 % 14.2 % Platelet Count 464 TH/MM3 610 TH/MM3 Mean Platelet Volume 7.1 FL 7.0 FL Neutrophils (%) (Auto) 69.7 % 65.6 % Lymphocytes (%) (Auto) 17.5 % 18.8 % Monocytes (%) (Auto) 11.5 % 14.1 % Eosinophils (%) (Auto) 0.6 % 0.9 % Basophils (%) (Auto) 0.7 % 0.6 % Neutrophils # (Auto) 9.4 TH/MM3 9.7 TH/MM3 Lymphocytes # (Auto) 2.4 TH/MM3 2.8 TH/MM3 Monocytes # (Auto) 1.5 TH/MM3 2.1 TH/MM3 Eosinophils # (Auto) 0.1 TH/MM3 0.1 TH/MM3 Basophils # (Auto) 0.1 TH/MM3 0.1 TH/MM3 CBC Comment AUTO DIFF AUTO DIFF Differential Total Cells Counted 100 100 Neutrophils % (Manual) 61 % 53 % Band Neutrophils % 4 % 4 % Lymphocytes % 16 % 21 % Monocytes % 9 % 9 % Eosinophils % 1 % 1 % Basophils % 1 % 2 % Neutrophils # (Manual) 9.9 TH/MM3 9.9 TH/MM3 Metamyelocytes 1 % 3 % Myelocytes 7 % 6 % Differential Comment FINAL DIFF MANUAL FINAL DIFF MANUAL Platelet Estimate HIGH HIGH Platelet Morphology Comment NORMAL NORMAL Promyelocytes 1 % Laboratory Tests Test 02/13/17 04:49 02/14/17 05:30 Blood Urea Nitrogen 9 MG/DL 8 MG/DL Creatinine 0.22 MG/DL 0.29 MG/DL Random Glucose 103 MG/DL 108 MG/DL Calcium Level 8.7 MG/DL 9.1 MG/DL Sodium Level 136 MEQ/L 136 MEQ/L Potassium Level 4.3 MEQ/L 4.5 MEQ/L Chloride Level 101 MEQ/L 100 MEQ/L Carbon Dioxide Level 26.8 MEQ/L 27.4 MEQ/L Anion Gap 8 MEQ/L 9 MEQ/L Estimat Glomerular Filtration Rate 346 ML/MIN 251 ML/MIN Microbiology Date/Time Source Procedure Growth Status 02/10/17 15:45 Sputum Endotracheal Gram Stain - Final Resulted 02/10/17 15:45 Sputum Culture - Preliminary Gram Negative Christopher Resulted IMAGING: Head CT 02/13/17 Signed Impressions: Service Date/Time: Monday, February 13, 2017 09:10 - CONCLUSION: 1. Hydrocephaly which is a new finding from 2012. 2. Areas of encephalomalacia involving the frontal lobes and temporal lobes bilaterally. The pattern is suggestive of prior trauma. 3. No acute intracranial abnormality otherwise. 4. Chronic pansinus disease. Gerry Nur Jr., MD Chest X-Ray 02/13/17 Signed Impressions: Service Date/Time: Monday, February 13, 2017 07:36 - CONCLUSION: Other than minimal linear atelectasis within the right lung base the lungs are clear. Gerry Nur Jr., MD Abdomen X-Ray 02/11/17599 Signed Impressions: Service Date/Time: Saturday, February 11, 2017 03:41 - CONCLUSION: Normal examination with a G-tube overlying the left midabdomen. Kevin Benítez MD Chest X-Ray 02/09/17599 Signed Impressions: Service Date/Time: January 03:59 - CONCLUSION: 1. Stable exam since February 08. Support apparatus in satisfactory position. Raphael Reynoso MD Abdomen X-Ray 02/09/17599 Signed Impressions: Service Date/Time: January 04:06 - CONCLUSION: 1. Stable gaseous distention of bowel compared with February 08 most characteristic of ileus. No free air identified. Raphael Reynoso MD Chest X-Ray 02/08/17599 Signed Impressions: Service Date/Time: Wednesday, February 08, 2017 04:46 - CONCLUSION: 1. Support apparatus in good position. Stable bilateral airspace disease. Raphael Reynoso MD Abdomen X-Ray 02/08/17599 Signed Impressions: Service Date/Time: Wednesday, February 08, 2017 04:50 - CONCLUSION: 1. Diffuse ileus. Possible pneumatosis involving small bowel loops seen on the left side. NG tube in the stomach. Gastrostomy tube present. Raphael Reynoso MD Enema w/Water Soluble 02/07/17 Signed Impressions: Service Date/Time: Tuesday, February 07, 2017 13:47 - CONCLUSION: Therapeutic Gastrografin enema performed as above. Ricardo Cornejo MD Abdomen/Pelvis CT 02/07/17 0000 Signed Impressions: Service Date/Time: Tuesday, February 07, 2017 17:20 - CONCLUSION: 1. Diffuse dilatation of small bowel with pneumatosis intestinalis identified. 2. A discrete transition point is not identified. 3. Ascites. 4. No obvious signs of free air. Free fluid is identified however. 5. Left renal calculi. 6. Bilateral pleural effusions. 7. Pulmonary airspace disease. Ricardo Cornejo MD PHYSICAL EXAMINATION GENERAL: On the vent. CPAP. HEENT: The right sclera is nonicteric. Oropharynx mucosa is moist. LUNGS: Decreased breath sounds. HEART: Regular S1-S2. No audible murmurs. ABDOMEN: (+) Bowel sounds. Less distended, soft. EXTREMITIES: No clubbing or cyanosis. Trace edema. SKIN: Lacy geographic pattern on legs. Moist, warm. No diffuse rash. NEUROLOGIC: Difficult to assess because of the patient's persistent vegetative state. PSYCHIATRIC: Unable to assess because of the patient's persistent vegetative non verbal state. IMPRESSION 1. Sepsis. 2. Pneumonia. HCAP - pseudomonas, proteus. Repeat sputum culture - Klebsiella ESBL. Repeat sputum 02/10 same organism. 3. Leukocytosis secondary to sepsis. WBC fluctuating. 4. Acute respiratory failure. On ventilator. 5. Intestinal obstruction - improved. 6. Low grade fever. RECOMMENDATIONS 1. Continue Meropenem. 2. monitor temp. 3. Follow WBC and clinical status. D/W RN. Phani Riggs MD Feb 14, 2017 12:03
[2017-02-14] MEDS: PANTOPRAZOLE SODIUM 40 MG VIAL IV PUSH SCH (16:42)
[2017-02-15] VITALS (16 sets, daily range): BP systolic 125–148; BP diastolic 53–112; PULSE 107–119; RESP 14–28; TEMP 97.8–100.2; O2SAT 96–100
[2017-02-15] MEDS: INSULIN NovoLIN REGULAR SUPPLEMENTAL SCALE SQ SCH ×6 (04:00→20:00)
[2017-02-15] MEDS: ACETAMINOPHEN 650 MG/20.3 ML UDC PEG PRN ×2 (04:37→09:42)
[2017-02-15] MEDS: METOCLOPRAMIDE HCL 10 MG/2 ML VIAL IV PUSH SCH ×3 (05:20→21:33)
[2017-02-15] MEDS: ENOXAPARIN SODIUM 40 MG/0.4 ML SYRINGE SQ SCH (05:20)
--- NOTE | 2017-02-15 05:24 | HHI.CCPN ---
Subjective Remarks/Hospital Course Patient is a 46-year-old female long-term resident who is nonverbal , in persistent vegetation state following TBI, seizure disorder, trach dependent on 3L, s/p peg, hypertension and dyslipidemia who was brought in from the long-term for a temp 101.4 fever and increased secretions from trach. ABG on admission showed significant A-a gradient, chest x-ray showed bilateral perihilar infiltrates. Patient was placed on 98% O2 by trach collar. UA showed evidence of UTI. Patient lactic acid was 4, indicating severe sepsis. Patient was admitted to hospitalist service to [facility] today turpentiner for acute hypoxemic respiratory failure, severe sepsis due to healthcare associated pneumonia and UTI. Patient was placed on vancomycin, Zosyn and ciprofloxacin and ID Dr. Riggs was consulted A Halicat was called around 1100 AM today for worsening hypoxia SaO2 86% on 98% oxygen, hypotension and respiratory distress. Patient was moved to the ICU and [facility] immediately evaluated the patient. She was in impending respiratory failure , O2 Sat low 80s. With myself present at bedside, Respiratory therapist removed the 6.0 cuffless trach and replaced it with 6.0 cuffed trach. Patient was placed on mechanical ventilation with 100% oxygen and PEEP of 10 with immediate improvement oxygen saturation. Repeat chest x-ray shows consolidation of Left upper lobe 02/03 Remains intubated oxygen saturation is improved FiO2 down to 45%. PEEP remains at 12. Sputum culture with Proteus and another GNR. Chest x-ray today is pending at this time. Neuro exam remains unchanged 02/04 Remains on mechanical ventilation, PEEP 8. FIO2 weaned to 50%. . White blood cell count down trending. RN noticed dislodgement of Black this morning. Non bloody. She is voiding, bladder scan showed no e/o obstruction. Replaced black so can get accurate I/O because she is still acutely ill. 02/05 Failing CPap trials due to tachypnea. Moderate yellow respiratory secretions. 01/31 sputum culture with Proteus and pseudomonas. Tobramycin nebs initiated per ID for pseudomonas in sputum. 02/06 CPAP trials terminated by RT due to apnea. Still significant respiratory secretions. WBC 20. Temp max 99.7. Vomited last night but now tolerating tube feed advancement. Last BM 02/03. Leaking around black, Black replaced. 02/07: Tmax 99.7. Currently afebrile. Not tolerating PSV trials due to apnea chronic RT. Will reattempt today. CBC pending this AM. Tube feeds currently at 30 cc an hour. Goal 50 cc an hour. AXR yesterday revealed small/large bowel dilatation with stool proximal colon. See orders for multiple medications provided today. 02/08: Currently afebrile. Noted yesterday with pneumatosis intestinalis. Surgical evaluation agree due to size involving almost entire small bowel not optimal surgical candidate at this time. Medical management recommended. Lactic acid 2.2. Not mottled today like yesterday. 02/09: Tmax 99.5. 2400 cc stool past 24 hours. Intra-abdominal pressures around 20. Remains on David-Synephrine 70 mcg per minute. Lactic acid has cleared. 02/10 Patient is sedated with Diprivan and intubated. Afebrile, Neosyn down 54 mics from 70 mics/min. WBC is trending down. On TPN. 02/11 No events overnight. Afebrile. Sedated and intubated. Neosyn down 15 mics. Afebrile. On TPN. 02/12 Patient remains sedated with Diprivan and intubated. Off Neosyn. Remains on TPN. Patient tolerated CPAP x 4 hrs yesterday 02/13 No events overnight. Tolerated CPAP all day yesterday. Tmax 99.8. Tolerating trickle feeds. On Diprivan 15 mics. 02/14 Patient remans on ventilator via trach. Off all drips tolerating tube feeds. Subjective: 02/15: off vasopressors. tolerating tube feeds. bm x 2 which was nonbloody. still on vent. neuro exam still poor, baseline for patient. Objective Vital Signs Date Time Temp Pulse Resp B/P (MAP) Pulse Ox O2 Delivery O2 Flow Rate FiO2 02/15/17 04:05 100 40 02/15/17 04:00 119 02/15/17 04:00 100.2 14 125/81 (96) Result Diagram: 02/14/17 0530 02/14/17 0530 Imaging Last Impressions Head CT 02/13/17 0000 Signed Impressions: Service Date/Time: Monday, February 13, 2017 09:10 - CONCLUSION: 1. Hydrocephaly which is a new finding from 2013. 2. Areas of encephalomalacia involving the frontal lobes and temporal lobes bilaterally. The pattern is suggestive of prior trauma. 3. No acute intracranial abnormality otherwise. 4. Chronic pansinus disease. Gerry Nur Jr., MD Chest X-Ray 02/13/17 0000 Signed Impressions: Service Date/Time: Monday, February 13, 2017 07:36 - CONCLUSION: Other than minimal linear atelectasis within the right lung base the lungs are clear. Gerry Nur Jr., MD Abdomen X-Ray 02/11/17 0600 Signed Impressions: Service Date/Time: Saturday, February 11, 2017 03:41 - CONCLUSION: Normal examination with a G-tube overlying the left midabdomen. Kevin Benítez MD Enema w/Water Soluble 02/07/17 0000 Signed Impressions: Service Date/Time: Tuesday, February 07, 2017 13:47 - CONCLUSION: Therapeutic Gastrografin enema performed as above. Ricardo Cornejo MD Abdomen/Pelvis CT 02/07/17 0000 Signed Impressions: Service Date/Time: Tuesday, February 07, 2017 17:20 - CONCLUSION: 1. Diffuse dilatation of small bowel with pneumatosis intestinalis identified. 2. A discrete transition point is not identified. 3. Ascites. 4. No obvious signs of free air. Free fluid is identified however. 5. Left renal calculi. 6. Bilateral pleural effusions. 7. Pulmonary airspace disease. Ricardo Cornejo MD Objective Remarks General: 46-year-old female, resting in bed on ventilator via tracheostomy Eyes: R pupil 4mm and reactive. L eye with pterygium covering entire conjunctiva and L chronic large corneal opacity. Neck: 6.0 Cuffed Shiley trach is in place with minimal yellow secretions surrounding. Cardiovascular: RRR. sinus by tele. Lungs: Coarse breath sounds are appreciated throughout all lung walker anterior- posterior. GI: Abdomen is soft, nontender, slightly distended. no guarding. PEG tube site is clean dry and intact : Black in place with yellow urine output. Extremities: Contracted bilateral upper and lower extremities. Positive anasarca. Neurologic Exam: Patient is unresponsive at the baseline, pupils as above. + Horizontal nystagmus. Moves upper and lower extremities to noxious stimulation. A/P Assessment and Plan Assessment: 46yF in persistent vegetative state s/p TBI now with ESBL pneumonia , pneumatosis intestinalis, resolved septic shock. will need placement soon. off vasopressors. will d/c Black today and proceed with straight cath q4h. NEURO/PSYCH: History of TBI as an instant with persistent vegetative state Seizure disorder NOS Encephalopathy 02/13 CT brain: Areas of encephalomalacia involving the frontal lobes and temporal lobes bilaterally suggestive of prior trauma.. No acute intracranial abnormality otherwise. Chronic pansinus disease. Off sedation. Acetaminophen 650 mg every 6 hours when necessary as indicated per fever/pain 1- 5 Morphine sulfate 2 mg every 3 hours when necessary pain 6-10 On levetiracetam 1500 mg IV BID , valproic acid 500 mg IV BID. Valproic acid low at 7.0 RESP: Acute on chronic hypoxemic respiratory failure- persistent Healthcare associated pneumonia Chronic trach currently number 6 Shiley - Trach changed to a 6.0 cuffed - PRVC 14/550// - Ventilator bundle - Albuterol/ipratropium aerosols every 6 hours with albuterol aerosols every 2 hours when necessary dyspnea - Daily spontaneous breathing trial. Pulm toilet, trach care CV: History of HTN Severe sepsis shock secondary to pneumatosis intestinalis Lactic acidosis - resolved Monitor HR and BP maintain MAP >65 mmHg GI: Constipation Ileus Pneumatosis intestinalis Continue Jevity 1.5@20ml/hr, off TPN- KUB 02/11: Within normal. KUB 02/10: Moderate air throughout colon, bowel gas pattern unremarkable KUB 02/06 revealed dilated loops of small bowel along with large bowels large amount of stool in the proximal colon. - CT abdomen/pelvis 02/07 revealed pneumatosis intestinalis. Large amount of stool in colon. Patient is currently on NG tube to low intermittent wall suction. Abdominal pressures between 18-27 -Metoclopramide 10 mg IV q8 hours. -Bowel regimen with docusate sodium 100 mg by PEG twice a day, senna 8.6 g twice a day, polyethylene glycol 3350 17 g twice a day and lactulose 30 cc 4 times a day and as needed glycerin suppositories -Pantoprazole 40 mg IV daily for GI prophylaxis - Gastrografin enema 02/07 with minimal results Evaluated by Dr. Umanzor Gen. Surgery 02/07. Poor surgical candidate due to underlying health and amount of pneumatosis intestinalis. Recommended medical management Evaluated by Dr. Meza for gastroenterology. Status post colonoscopy 02/07. Large amount of stool throughout colon. Recommended serial enemas every 6 hours a FEN/RENAL/: Bladder spasms -Monitor renal function, I/O's, electrolytes replacement per protocol. Belladonna and opiate suppositories daily when necessary bladder spasms.. Black exchange 02/06 - d/c black and straight i/o cath q4h. ID: Healthcare associated pneumonia (sputum culture 01/31 with proteus, pseudomonas) CRAB + History of MRSA - Continue abx per ID (Merrem) monitor for signs of infections ( Fever, WBC), - sputum cx 02/10: ESBL klebsiella - ID following. Pertinent cultures 01/31 - sputum - Proteus/Pseudomonas 01/31- UA - no growth 01/31 - blood cultures 2 - no growth 02/02 - UA - no growth 02/06 - sputum -Kleb pneumonia ESBL 02/07 - blood cultures 2 - pending HEME: Leukocytosis Anemia Follow CBC daily. Monitor trends ENDO: SSI for glycemic control PROPH: GI -pantoprazole 40 mg IV daily DVT - enoxaparin 40 mg subcutaneous daily LINES: piv's. - d/c black today Dispo: will need to start looking at LTACs for ongoing care. Arvin Goodwin MD Feb 15, 2017 05:24
[2017-02-15] MEDS: ARTIFICIAL TEARS OPTH OINT 3.5 APPLIC/3.5 GM TUBO LEFT EYE SCH ×3 (06:00→21:34)
[2017-02-15 07:40] LABS: BICARBONATE 23.4 MEQ/L (21.0-32.0); POTASSIUM 4.4 MEQ/L (3.5-5.1)
[2017-02-15 07:43] LABS: AUTOMATED NEUTROPHIL # 9.5 TH/MM3 (1.8-7.7); BASOPHIL # 0.1 TH/MM3 (0-0.2); BASOPHIL % 0.7 % (0.0-2.0); EOSINOPHIL # 0.1 TH/MM3 (0-0.4); EOSINOPHIL % 0.8 % (0.0-4.0); LYMPH % 18.7 % (9.0-44.0); LYMPHOCYTE # 2.7 TH/MM3 (1.0-4.8); MEAN CELL VOLUME 90.8 FL (80.0-100.0); NEUT % 65.8 % (16.0-70.0); PLATELET COUNT 634 TH/MM3 (150-450); RED BLOOD COUNT 3.09 MIL/MM3 (4.00-5.30); RED CELL DISTRIBUTION WIDTH 14.3 % (11.6-17.2); WHITE BLOOD COUNT 14.4 TH/MM3 (4.0-11.0)
[2017-02-15 07:48] LABS: HEMO FLAGS AUTO DIFF
[2017-02-15] MEDS: CHLORHEXIDINE 0.12% (ORAL KIT) 15 ML CUP MT SCH ×2 (08:20→21:34)
[2017-02-15] MEDS: POLYETHYLENE GLYCOL 17 GM PKG PEG SCH ×2 (08:50→21:33)
[2017-02-15] MEDS: VALPROATE INJ 500 MG in SODIUM CHLORIDE 0.9% INJ 100 ML IV SCH ×3 (08:50→21:33)
[2017-02-15] MEDS: levETIRAcetam INJ 1,500 MG in SODIUM CHLORIDE 0.9% INJ 100 ML IV SCH ×3 (08:50→21:33)
[2017-02-15] MEDS: SODIUM CHLORIDE 0.9% FLUSH 10 ML FLUSH IVF PRN (08:51)
[2017-02-15] MEDS: SODIUM CHLORIDE 0.9% FLUSH 10 ML FLUSH IVF SCH (08:51)
[2017-02-15] MEDS: MEROPENEM INJ 1,000 MG in SODIUM CHLORIDE 0.9% INJ 100 ML IV SCH ×5 (08:51→16:51)
[2017-02-15] MEDS: SODIUM CHLORIDE 0.9% FLUSH 10 ML FLUSH IV FLUSH SCH ×2 (08:52→21:33)
[2017-02-15] MEDS: ARTIFICIAL TEARS OPTH SOLN 15 ML BTL RIGHT EYE SCH ×2 (08:52→21:34)
[2017-02-15] MEDS: LACTOBACILLUS ACIDOPHILUS 1 GM PACKET PO SCH ×3 (09:00→17:21)
[2017-02-15] MEDS: SENNOSIDES SYRUP 8.8 MG/5 ML CUP PEG SCH ×2 (09:00→21:34)
[2017-02-15 09:05] LABS: POLYCHROMASIA 2.7 % (0.0-1.9)
[2017-02-15 09:07] LABS: PLATELET ESTIMATE SMEAR HIGH (NORMAL); PLATELET MORPHOLOGY ENLARGED (NORMAL); SCAN/DIFF AUTO DIFF CONFIRMED
--- NOTE | 2017-02-15 16:12 | HHI.GIFU ---
Subjective Remarks Resting in bed. Tolerating TF. Nurse reports that she had a bowel movement on the salesperson women's hats, but has not had one today yet. No distress. (Yanelis Chong) Objective Vitals I&O Vital Signs Date Time Temp Pulse Resp B/P (MAP) Pulse Ox O2 Delivery O2 Flow Rate FiO2 02/15/17 15:44 100 40 02/15/17 12:40 96 40 02/15/17 12:00 40 02/15/17 12:00 100.0 119 25 134/88 (103) 96 02/15/17 08:00 100.0 115 27 140/87 (104) 96 02/15/17 08:00 40 02/15/17 07:42 98 40 02/15/17 07:40 40 02/15/17 06:00 112 02/15/17 04:05 100 40 02/15/17 04:00 119 02/15/17 04:00 40 02/15/17 04:00 100.2 119 14 125/81 (96) 100 02/15/17 02:00 108 02/15/17 01:05 100 40 02/15/17 00:00 107 02/15/17 00:00 99.0 107 14 125/53 (77) 100 02/15/17 00:00 40 02/14/17 22:07 100 40 02/14/17 22:00 101 02/14/17 20:00 103 02/14/17 20:00 40 02/14/17 20:00 98.6 103 14 123/70 (87) 97 02/14/17 19:45 99 40 02/14/17 18:00 114 I/O 02/14/17 02/14/17 02/14/17 02/15/17 02/15/17 02/15/17 07:00 15:00 23:00 07:00 15:00 23:00 Intake Total 958 ml 300 ml 624 ml 1136 ml 96.6 ml Output Total 1950 ml 1600 ml 1800 ml Balance -992 ml 300 ml -976 ml -664 ml 96.6 ml IV Total 105 ml 300 ml 100 ml 96.6 ml Tube Feeding 853 ml 524 ml 1136 ml Output Urine Total 1950 ml 1600 ml 1800 ml # Bowel Movements 0 1 Laboratory Laboratory Tests Test 02/15/17 05:50 White Blood Count 14.4 Red Blood Count 3.09 Hemoglobin 9.3 Hematocrit 28.0 Mean Corpuscular Volume 90.8 Mean Corpuscular Hemoglobin 30.0 Mean Corpuscular Hemoglobin Concent 33.0 Red Cell Distribution Width 14.3 Platelet Count 634 Mean Platelet Volume 8.0 Neutrophils (%) (Auto) 65.8 Lymphocytes (%) (Auto) 18.7 Monocytes (%) (Auto) 14.0 Eosinophils (%) (Auto) 0.8 Basophils (%) (Auto) 0.7 Neutrophils # (Auto) 9.5 Lymphocytes # (Auto) 2.7 Monocytes # (Auto) 2.0 Eosinophils # (Auto) 0.1 Basophils # (Auto) 0.1 CBC Comment AUTO DIFF Differential Comment AUTO DIFF CONFIRMED Platelet Estimate HIGH Platelet Morphology Comment ENLARGED Polychromasia 2.7 Blood Urea Nitrogen 9 Creatinine 0.33 Random Glucose 109 Calcium Level 9.3 Sodium Level 134 Potassium Level 4.4 Chloride Level 98 Carbon Dioxide Level 23.4 Anion Gap 13 Estimat Glomerular Filtration Rate 216 Date/Time Source Procedure Growth Status 02/08/17 03:37 Blood Peripheral Aerobic Blood Culture - Final NO GROWTH IN 5 DAYS Complete 02/08/17 03:37 Blood Peripheral Anaerobic Blood Culture - Final NO GROWTH IN 5 DAYS Complete 02/14/17 10:40 Sputum Endotracheal Gram Stain - Final Resulted 02/14/17 10:40 Sputum Culture - Preliminary Gram Negative Christopher Resulted 02/02/17 18:00 Urine Catheterized Urine Urine Culture - Final NO GROWTH IN 48 HOURS. Complete Imaging Last Impressions Head CT 02/13/17 0000 Signed Impressions: Service Date/Time: Monday, February 13, 2017 09:10 - CONCLUSION: 1. Hydrocephaly which is a new finding from 2012. 2. Areas of encephalomalacia involving the frontal lobes and temporal lobes bilaterally. The pattern is suggestive of prior trauma. 3. No acute intracranial abnormality otherwise. 4. Chronic pansinus disease. Gerry Nur Jr., MD Chest X-Ray 02/13/17 0000 Signed Impressions: Service Date/Time: Monday, February 13, 2017 07:36 - CONCLUSION: Other than minimal linear atelectasis within the right lung base the lungs are clear. Gerry Nur Jr., MD Abdomen X-Ray 02/11/17 0600 Signed Impressions: Service Date/Time: Saturday, February 11, 2017 03:41 - CONCLUSION: Normal examination with a G-tube overlying the left midabdomen. Kevin Benítez MD Enema w/Water Soluble 02/07/17 0000 Signed Impressions: Service Date/Time: Tuesday, February 07, 2017 13:47 - CONCLUSION: Therapeutic Gastrografin enema performed as above. Ricardo Cornejo MD Abdomen/Pelvis CT 02/07/17 0000 Signed Impressions: Service Date/Time: Tuesday, February 07, 2017 17:20 - CONCLUSION: 1. Diffuse dilatation of small bowel with pneumatosis intestinalis identified. 2. A discrete transition point is not identified. 3. Ascites. 4. No obvious signs of free air. Free fluid is identified however. 5. Left renal calculi. 6. Bilateral pleural effusions. 7. Pulmonary airspace disease. Ricardo Cornejo MD Physical Exam HEENT: Normocephalic; atraumatic CHEST: Resp even/unlabored, OETT to vent. Coarse breath sounds CARDIAC: RRR ABDOMEN: Soft, mildly tympanic. PEG tube with TF. BSx 4. EXTREMITIES: No clubbing, cyanosis, + generalized edema SKIN: No rash; no jaundice. PATIENT RESOURCE COORDINATOR: does not follow commands (Yanelis Chong) Assessment and Plan Plan ASSESSMENT - Severe ileus. CT scan abdomen and pelvis without IV contrast (02/07/17) diffuse dilatation of small bowel with pneumatosis intestinalis Identified. A discrete transition point is not identified, ascites, no obvious signs of free air, free fluid is identified. However, left renal calculi, bilateral pleural effusions, pulmonary airspace disease. Status post Gastrografin enema (02/07/17) therapeutic Gastrografin enema performed as above- no significant improvement. S/P Relistor (02/07/17)-> no improvement. Attempted decompressive colonoscopy (02/07/17)----> significant amount of stool was present throughout the entire examined colon, around the transverse colon, scope was not advanced beyond secondary to formed fecal material blocking the scope in the suction. Limited decompression since the colon is distended with formed fecal material and minimal air, no transition point noted during the examination. Rpt. KUB (02/11/17)---- > The abdominal bowel gas pattern is normal. She remains mildly tympanic, but is softer and less distended. She is having bowel movements and tolerating TF. Cont. current tx. Miralax 17gram BID, Reglan q8h, Senna. Clinically she is much improved. Tolerating TF at 50cc/hr. - Sepsis, Leukocytosis- improving Abx per ID- meropeneum - Anemia with drop in Hgb. No signs of active bleeding. HH remaining stable. 9.3/28.0. On PPI - Resp. failure, PNA. Has trach. Vent per CCM. ID following, abx meropenem - Hx TBI, Sz D/O, electrolyte abnormalities per CCM. PLAN - Jevity 1.5 at GR of 50cc/hr (tolerating) - Cont. PPI - Cont. Reglan - Cont. Miralax - Cont. Senna - Supportive care - Further recommendations to follow based on results of above - This pt seen by myself and Dr Meza and this note is written on his behalf (Yanelis Chong) Physician Comments Plan as above, stable from GI point of view, will sign off for now, please notify us if needed. (Gwen Meza MD) Yanelis Chong Feb 15, 2017 16:12 Gwen Meza MD Feb 15, 2017 22:46
[2017-02-15] MEDS: PANTOPRAZOLE SODIUM 40 MG VIAL IV PUSH SCH (16:51)
[2017-02-16] VITALS (15 sets, daily range): BP systolic 117–152; BP diastolic 76–98; PULSE 91–124; RESP 17–26; TEMP 99–100.1; O2SAT 97–100
[2017-02-16] MEDS: ACETAMINOPHEN 650 MG/20.3 ML UDC PEG PRN (00:06)
[2017-02-16] MEDS: MORPHINE SULFATE 4 MG/ML INJ IV PUSH PRN (00:06)
[2017-02-16] MEDS: MEROPENEM INJ 1,000 MG in SODIUM CHLORIDE 0.9% INJ 100 ML IV SCH ×2 (02:30→09:13)
[2017-02-16] MEDS: INSULIN NovoLIN REGULAR SUPPLEMENTAL SCALE SQ SCH ×2 (03:29)
[2017-02-16] MEDS: METOCLOPRAMIDE HCL 10 MG/2 ML VIAL IV PUSH SCH (05:00)
[2017-02-16] MEDS: ARTIFICIAL TEARS OPTH OINT 3.5 APPLIC/3.5 GM TUBO LEFT EYE SCH (05:00)
[2017-02-16] MEDS: ENOXAPARIN SODIUM 40 MG/0.4 ML SYRINGE SQ SCH (05:00)
[2017-02-16 05:13] LABS: MEAN CELL VOLUME 90.7 FL (80.0-100.0); MEAN CORPUSCULAR HEMOGLOBIN 29.4 PG (27.0-34.0); MEAN CORPUSCULAR HGB CONC 32.4 % (32.0-36.0); PLATELET COUNT 726 TH/MM3 (150-450); RED BLOOD COUNT 2.98 MIL/MM3 (4.00-5.30); RED CELL DISTRIBUTION WIDTH 14.2 % (11.6-17.2); REVIEW FLAG FINAL; WHITE BLOOD COUNT 13.5 TH/MM3 (4.0-11.0)
[2017-02-16 05:56] LABS: BICARBONATE 26.6 MEQ/L (21.0-32.0); POTASSIUM 4.1 MEQ/L (3.5-5.1)
[2017-02-16] MEDS: SODIUM CHLORIDE 0.9% FLUSH 10 ML FLUSH IVF SCH (09:13)
[2017-02-16] MEDS: POLYETHYLENE GLYCOL 17 GM PKG PEG SCH (09:13)
[2017-02-16] MEDS: LACTOBACILLUS ACIDOPHILUS 1 GM PACKET PO SCH (09:13)
[2017-02-16] MEDS: ARTIFICIAL TEARS OPTH SOLN 15 ML BTL RIGHT EYE SCH (09:13)
[2017-02-16] MEDS: SODIUM CHLORIDE 0.9% FLUSH 10 ML FLUSH IV FLUSH SCH (09:13)
[2017-02-16] MEDS: VALPROATE INJ 500 MG in SODIUM CHLORIDE 0.9% INJ 100 ML IV SCH (09:14)
[2017-02-16] MEDS: levETIRAcetam INJ 1,500 MG in SODIUM CHLORIDE 0.9% INJ 100 ML IV SCH (09:14)
[2017-02-16] MEDS: SENNOSIDES SYRUP 8.8 MG/5 ML CUP PEG SCH (09:17)
[2017-02-16] MEDS: CHLORHEXIDINE 0.12% (ORAL KIT) 15 ML CUP MT SCH (09:18)
--- NOTE | 2017-02-16 14:57 | HHI.IDPN ---
Note Infectious Disease Note Patient on the CPAP. Looks comfortable. Awake. Random r. eye movements. 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 New sputum culture has pseudomonas. PAST MEDICAL HISTORY 1. Traumatic brain injury. 2. Hypertension. 3. Hyperlipidemia. 4. History of seizure disorder. 5. Tracheostomy. Chronic. 6. PEG. ALLERGIES NO KNOWN DRUG ALLERGIES. MEDICATIONS Meropenem. OBJECTIVE: Vital Signs Date Time Temp Pulse Resp B/P (MAP) Pulse Ox O2 Delivery O2 Flow Rate FiO2 02/16/17 14:00 104 02/16/17 12:00 99.0 114 20 152/98 (116) 100 02/16/17 12:00 40 02/16/17 12:00 114 02/16/17 10:52 100 40 02/16/17 10:00 124 02/16/17 08:00 99.1 110 20 119/76 (90) 98 02/16/17 08:00 40 02/16/17 08:00 110 02/16/17 07:45 99 40 02/16/17 07:45 99 Ventilator 40 02/16/17 06:00 91 02/16/17 04:00 93 02/16/17 04:00 40 02/16/17 04:00 99.5 93 19 117/76 (90) 100 02/16/17 03:58 100 40 02/16/17 02:00 95 02/16/17 02:00 95 17 134/91 (105) 100 02/16/17 01:03 100 40 02/16/17 00:00 116 02/16/17 00:00 40 02/16/17 00:00 100.1 116 26 131/85 (100) 97 02/15/17 22:00 113 26 148/84 (105) 100 02/15/17 22:00 113 02/15/17 21:48 98 40 02/15/17 20:00 40 02/15/17 20:00 109 02/15/17 20:00 97.8 109 25 148/112 (124) 100 02/15/17 19:30 100 40 02/15/17 16:00 99.7 109 28 142/89 (106) 98 02/15/17 16:00 40 02/15/17 15:44 100 40 02/16/17 02/16/17 02/17/17 15:00 23:00 07:00 Intake Total 900 ml Balance 900 ml IV Total 340 ml Tube Feeding 360 ml Other 200 ml # Voids 1 Laboratory Tests Test 02/15/17 05:50 02/16/17 04:24 White Blood Count 14.4 TH/MM3 13.5 TH/MM3 Red Blood Count 3.09 MIL/MM3 2.98 MIL/MM3 Hemoglobin 9.3 GM/DL 8.7 GM/DL Hematocrit 28.0 % 27.0 % Mean Corpuscular Volume 90.8 FL 90.7 FL Mean Corpuscular Hemoglobin 30.0 PG 29.4 PG Mean Corpuscular Hemoglobin Concent 33.0 % 32.4 % Red Cell Distribution Width 14.3 % 14.2 % Platelet Count 634 TH/MM3 726 TH/MM3 Mean Platelet Volume 8.0 FL 7.6 FL Neutrophils (%) (Auto) 65.8 % Lymphocytes (%) (Auto) 18.7 % Monocytes (%) (Auto) 14.0 % Eosinophils (%) (Auto) 0.8 % Basophils (%) (Auto) 0.7 % Neutrophils # (Auto) 9.5 TH/MM3 Lymphocytes # (Auto) 2.7 TH/MM3 Monocytes # (Auto) 2.0 TH/MM3 Eosinophils # (Auto) 0.1 TH/MM3 Basophils # (Auto) 0.1 TH/MM3 CBC Comment AUTO DIFF Differential Comment AUTO DIFF CONFIRMED Platelet Estimate HIGH Platelet Morphology Comment ENLARGED Polychromasia 2.7 % Laboratory Tests Test 02/15/17 05:50 02/16/17 04:24 Blood Urea Nitrogen 9 MG/DL 10 MG/DL Creatinine 0.33 MG/DL 0.29 MG/DL Random Glucose 109 MG/DL 111 MG/DL Calcium Level 9.3 MG/DL 9.3 MG/DL Sodium Level 134 MEQ/L 136 MEQ/L Potassium Level 4.4 MEQ/L 4.1 MEQ/L Chloride Level 98 MEQ/L 102 MEQ/L Carbon Dioxide Level 23.4 MEQ/L 26.6 MEQ/L Anion Gap 13 MEQ/L 7 MEQ/L Estimat Glomerular Filtration Rate 216 ML/MIN 251 ML/MIN Microbiology Date/Time Source Procedure Growth Status 02/14/17 10:40 Sputum Endotracheal Gram Stain - Final Resulted 02/14/17 10:40 Sputum Culture - Preliminary Pseudomonas Aeruginosa Resulted IMAGING: Head CT 02/13/17 0000 Signed Impressions: Service Date/Time: Monday, February 13, 2017 09:10 - CONCLUSION: 1. Hydrocephaly which is a new finding from 2012. 2. Areas of encephalomalacia involving the frontal lobes and temporal lobes bilaterally. The pattern is suggestive of prior trauma. 3. No acute intracranial abnormality otherwise. 4. Chronic pansinus disease. Gerry Nur Jr., MD Chest X-Ray 02/13/17 0000 Signed Impressions: Service Date/Time: Monday, February 13, 2017 07:36 - CONCLUSION: Other than minimal linear atelectasis within the right lung base the lungs are clear. Gerry Nur Jr., MD Abdomen X-Ray 02/11/17 0600 Signed Impressions: Service Date/Time: Saturday, February 11, 2017 03:41 - CONCLUSION: Normal examination with a G-tube overlying the left midabdomen. Kevin Benítez MD Enema w/Water Soluble 02/07/17 0000 Signed Impressions: Service Date/Time: Tuesday, February 07, 2017 13:47 - CONCLUSION: Therapeutic Gastrografin enema performed as above. Ricardo Cornejo MD Abdomen/Pelvis CT 02/07/17 0000 Signed Impressions: Service Date/Time: Tuesday, February 07, 2017 17:20 - CONCLUSION: 1. Diffuse dilatation of small bowel with pneumatosis intestinalis identified. 2. A discrete transition point is not identified. 3. Ascites. 4. No obvious signs of free air. Free fluid is identified however. 5. Left renal calculi. 6. Bilateral pleural effusions. 7. Pulmonary airspace disease. Ricardo Cornejo MD Head CT 02/13/17 0000 Signed Impressions: Service Date/Time: Monday, February 13, 2017 09:10 - CONCLUSION: 1. Hydrocephaly which is a new finding from 2012. 2. Areas of encephalomalacia involving the frontal lobes and temporal lobes bilaterally. The pattern is suggestive of prior trauma. 3. No acute intracranial abnormality otherwise. 4. Chronic pansinus disease. Gerry Nur Jr., MD Chest X-Ray 02/13/17 0000 Signed Impressions: Service Date/Time: Monday, February 13, 2017 07:36 - CONCLUSION: Other than minimal linear atelectasis within the right lung base the lungs are clear. Gerry Nur Jr., MD Abdomen X-Ray [id number]/11/17599 Signed Impressions: Service Date/Time: Saturday, February 11, 2017 03:41 - CONCLUSION: Normal examination with a G-tube overlying the left midabdomen. Kevin Benítez MD Chest X-Ray 02/09/17599 Signed Impressions: Service Date/Time: January 03:59 - CONCLUSION: 1. Stable exam since February 08. Support apparatus in satisfactory position. Rapahel Reynoso MD Abdomen X-Ray 02/09/17599 Signed Impressions: Service Date/Time: January 04:06 - CONCLUSION: 1. Stable gaseous distention of bowel compared with February 08 most characteristic of ileus. No free air identified. Raphael Reynoso MD Chest X-Ray 02/08/17599 Signed Impressions: Service Date/Time: Wednesday, February 08, 2017 04:46 - CONCLUSION: 1. Support apparatus in good position. Stable bilateral airspace disease. Raphael Reynoso MD Abdomen X-Ray 02/08/17599 Signed Impressions: Service Date/Time: Wednesday, February 08, 2017 04:50 - CONCLUSION: 1. Diffuse ileus. Possible pneumatosis involving small bowel loops seen on the left side. NG tube in the stomach. Gastrostomy tube present. Raphael Reynoso MD Enema w/Water Soluble 02/07/17 Signed Impressions: Service Date/Time: Tuesday, February 07, 2017 13:47 - CONCLUSION: Therapeutic Gastrografin enema performed as above. Ricardo Cornejo MD Abdomen/Pelvis CT 02/07/17 0000 Signed Impressions: Service Date/Time: Tuesday, February 07, 2017 17:20 - CONCLUSION: 1. Diffuse dilatation of small bowel with pneumatosis intestinalis identified. 2. A discrete transition point is not identified. 3. Ascites. 4. No obvious signs of free air. Free fluid is identified however. 5. Left renal calculi. 6. Bilateral pleural effusions. 7. Pulmonary airspace disease. Ricardo Cornejo MD PHYSICAL EXAMINATION GENERAL: Awake, looks alert. HEENT: The right sclera is nonicteric. Oropharynx mucosa is moist. LUNGS: Decreased breath sounds bilateral. basilar rhonchi. HEART: Regular S1-S2. No audible murmurs. ABDOMEN: (+) Bowel sounds. Less distended, soft. EXTREMITIES: No clubbing or cyanosis. Trace edema. SKIN: Lacy geographic pattern on legs. Moist, warm. No diffuse rash. NEUROLOGIC: Difficult to assess because of the patient's persistent vegetative state. PSYCHIATRIC: Unable to assess because of the patient's persistent vegetative non verbal state. IMPRESSION 1. Sepsis. 2. Pneumonia. HCAP - pseudomonas, proteus. Repeat sputum culture - Klebsiella ESBL. Repeat sputum 02/14 has pseudomonas. 3. Leukocytosis secondary to sepsis. WBC fluctuating. 4. Acute respiratory failure. On ventilator. 5. Intestinal obstruction - improved. 6. Low grade fever. May be improving. RECOMMENDATIONS 1. Continue Meropenem. Monitor the pseudomonas sensitivity. If transferred to another facility the antibiotics can be adjusted there. 2. monitor temp. 3. Follow WBC and clinical status. I will be off 02/17 to 03/05, other ID covering. Phani Riggs MD Feb 16, 2017 14:57
--- NOTE | 2017-04-03 18:06 | HHI.DS ---
Discharge Summary Admission Date Feb 01, 2017 at 01:11 Discharge Date: Feb 15, 2017 Admitting Diagnosis Sepsis (1) Pneumonia ICD Code: J18.9 - Pneumonia Status: Acute (2) Sepsis ICD Code: A41.9 - Sepsis, unspecified organism Status: Acute (3) Urinary tract infection ICD Code: N39.0 - Urinary tract infection, site not specified Status: Acute Brief History Written by CHLOÉ Wilkins acting as scribe for [Hilton] on 02/01/17 at 03: 33. 46 y/o female who is nonverbal, in a persistent vegetation state with a history of a TBI, seizure disorder, trach dependent, s/p peg, HLD and HTN was brought to the ED from [facility] for a 101.4 fever and increased secretions. History was taken from EMR because patient is non verbal at baseline, and no family is at bedside. Unable to perform ROS. Hospital Course 02/03 Remains intubated oxygen saturation is improved FiO2 down to 45%. PEEP remains at 12. Sputum culture with Proteus and another GNR. Chest x-ray today is pending at this time. Neuro exam remains unchanged 02/04 Remains on mechanical ventilation, PEEP 8. FIO2 weaned to 50%. . White blood cell count down trending. RN noticed dislodgement of Black this morning. Non bloody. She is voiding, bladder scan showed no e/o obstruction. Replaced black so can get accurate I/O because she is still acutely ill. 02/05 Failing CPap trials due to tachypnea. Moderate yellow respiratory secretions. 01/31 sputum culture with Proteus and pseudomonas. Tobramycin nebs initiated per ID for pseudomonas in sputum. 02/06 CPAP trials terminated by RT due to apnea. Still significant respiratory secretions. WBC 20. Temp max 99.7. Vomited last night but now tolerating tube feed advancement. Last BM 02/03. Leaking around black, Black replaced. 02/07: Tmax 99.7. Currently afebrile. Not tolerating PSV trials due to apnea chronic RT. Will reattempt today. CBC pending this AM. Tube feeds currently at 30 cc an hour. Goal 50 cc an hour. AXR yesterday revealed small/large bowel dilatation with stool proximal colon. See orders for multiple medications provided today. 02/08: Currently afebrile. Noted yesterday with pneumatosis intestinalis. Surgical evaluation agree due to size involving almost entire small bowel not optimal surgical candidate at this time. Medical management recommended. Lactic acid 2.2. Not mottled today like yesterday. 02/09: Tmax 99.5. 2400 cc stool past 24 hours. Intra-abdominal pressures around 20. Remains on David-Synephrine 70 mcg per minute. Lactic acid has cleared. 02/10 Patient is sedated with Diprivan and intubated. Afebrile, Neosyn down 54 mics from 70 mics/min. WBC is trending down. On TPN. 02/11 No events overnight. Afebrile. Sedated and intubated. Neosyn down 15 mics. Afebrile. On TPN. 02/12 Patient remains sedated with Diprivan and intubated. Off Neosyn. Remains on TPN. Patient tolerated CPAP x 4 hrs yesterday 02/13 No events overnight. Tolerated CPAP all day yesterday. Tmax 99.8. Tolerating trickle feeds. On Diprivan 15 mics. 02/14 Patient remans on ventilator via trach. Off all drips tolerating tube feeds. 02/15: off vasopressors. tolerating tube feeds. bm x 2 which was nonbloody. still on vent. neuro exam still poor, baseline for patient. Patient stable for transfer to LTAC. Pt Condition on Discharge: Stable Discharge Disposition: Trnsfr to Other Facility Discharge Instructions DIET: Follow Instructions for: On Tube Feeding Activities you can perform: Regular-No Restrictions Arvin Goodwin MD Apr 03, 2017 18:06
== END 2017-02-16 19:50 | DRG 870 ==
LOC: NEPE 22:13 → NEDA 02-01 01:11 → NEDH 02-01 05:32 → HCIS 02-01 16:58 → HIMW 02-02 11:35
PROVIDERS: ADMIT Internal Medicine; ATTEND Internal Medicine
PROC: 5A1955Z Respiratory Ventilation, Greater than 96 Consecutive Hours (ICD-10-PCS; principal; 2017-02-03)
PROC: 02HV33Z Insertion of Infusion Device into Superior Vena Cava, Percutaneous Approach (ICD-10-PCS; 2017-02-07)
PROC: 0DJD8ZZ Inspection of Lower Intestinal Tract, Via Natural or Artificial Opening Endoscopic (ICD-10-PCS; 2017-02-07)
DX: A41.9 Sepsis, unspecified organism (principal); J96.21 Acute and chronic respiratory failure with hypoxia; R65.21 Severe sepsis with septic shock; G93.40 Encephalopathy, unspecified; J15.1 Pneumonia due to Pseudomonas; R18.8 Other ascites; J15.6 Pneumonia due to other Gram-negative bacteria; R40.3 Persistent vegetative state; E87.2 Acidosis; K56.7 Ileus, unspecified; Z93.1 Gastrostomy status; I10 Essential (primary) hypertension; G40.909 Epilepsy, unspecified, not intractable, without status epilepticus; K59.00 Constipation, unspecified; K21.9 Gastro-esophageal reflux disease without esophagitis; E78.5 Hyperlipidemia, unspecified; Y95 Nosocomial condition; K63.89 Other specified diseases of intestine; E86.0 Dehydration; K05.6 Periodontal disease, unspecified; E87.6 Hypokalemia; E87.70 Fluid overload, unspecified; D64.9 Anemia, unspecified; N32.89 Other specified disorders of bladder; M21.372 Foot drop, left foot; M21.371 Foot drop, right foot; Z87.820 Personal history of traumatic brain injury
CPT/HCPCS: 36556; 36600; 51702; 70450; 71010; 74000; 74176; 74270; 76937; 80048; 80053; 80076; 80156; 80164; 80177; 80202; 81001; 82140; 82150; 82550; 82552; 82805; 82948; 83605; 83690; 83735; 83880; 84100; 84132; 84484; 84702; 85007; 85014; 85018; 85025; 85027; 85384; 85610; 85730; 86140; 87040; 87070; 87077; 87086; 87186; 87205; 93005; 94003; 94640; 94664; 96361; 96365; 96375; A7520; C9113; J0360; J0744; J1650; J1940; J1953; J2185; J2212; J2270; J2370; J2543; J2765; J2930; J3370; J3480; J7030; J7040; J7050; J7060; J7120; J7685; Q9963

== ENCOUNTER 2017-03-18 02:25 | Inpatient (IN) | payer MEDICARE, OTHER ==
[~2017-03-18] VITALS: Ht 165.1 cm; Wt 78.0 kg
[2017-03-18] VITALS (17 sets, daily range): BP systolic 102–192; BP diastolic 59–106; PULSE 77–158; RESP 16–28; TEMP 98.3–104.6; O2SAT 93–100
[~2017-03-18 02:25] MED LIST changes: -C-50TAB2 G-TUBE; +CEFU1TAB20 PO; -FLEEENE3 RECTAL; -LAC-12LO3 TOPICAL; +LEVO750T3 PO; -THERTAB27 G-TUBE
--- NOTE | 2017-03-18 04:31 | RADRPT ---
EXAM DATE/TIME: 03/18/2017 04:02 [place] COMPARISON: CHEST SINGLE AP, February 13, 2017, 7:36. INDICATIONS : Shortness of breath MEDICAL HISTORY : Hypertension. Gastroesophageal reflux disease. SURGICAL HISTORY : PEG tube ENCOUNTER: Initial ACUITY: 1 day PAIN SCORE: Non-responsive. LOCATION: Bilateral chest FINDINGS: A single view of the chest demonstrates mild basilar airspace disease similar to February 13. Tracheost sabrina remains in good position. Right central line has been removed.. CONCLUSION: 1. Subsegmental basilar air space disease. No significant effusion. No pneumothorax. Raphael Reynoso MD on March 18, 2017 at 4:29 Board Certified Radiologist. This report was verified electronically.
[2017-03-18 04:48] LABS: AUTOMATED NEUTROPHIL # 10.4 TH/MM3 (1.8-7.7); BASOPHIL # 0.3 TH/MM3 (0-0.2); BASOPHIL % 1.4 % (0.0-2.0); HEMATOCRIT 41.2 % (35.0-46.0); LYMPH % 21.5 % (9.0-44.0); LYMPHOCYTE # 3.9 TH/MM3 (1.0-4.8); MEAN CELL VOLUME 89.9 FL (80.0-100.0); MEAN CORPUSCULAR HEMOGLOBIN 29.2 PG (27.0-34.0); MEAN CORPUSCULAR HGB CONC 32.4 % (32.0-36.0); MONO % 19.6 % (0.0-8.0); NEUT % 57.5 % (16.0-70.0); PLATELET COUNT 405 TH/MM3 (150-450); RED BLOOD COUNT 4.58 MIL/MM3 (4.00-5.30); RED CELL DISTRIBUTION WIDTH 15.7 % (11.6-17.2)
[2017-03-18 04:49] LABS: HEMO FLAGS AUTO DIFF
[2017-03-18 05:10] LABS: ALT (GPT) 149 U/L (10-53); ANION GAP 9 MEQ/L (5-15); AST (GOT) 49 U/L (15-37); BICARBONATE 24.1 MEQ/L (21.0-32.0); BLOOD UREA NITROGEN 35 MG/DL (7-18); CHLORIDE 107 MEQ/L (98-107); GLOMERULAR FILTRATION RATE 111 ML/MIN (>89); POTASSIUM 3.9 MEQ/L (3.5-5.1); SODIUM (NA) 140 MEQ/L (136-145)
[2017-03-18 05:11] LABS: BACTERIA, URINE RARE /hpf; BLOOD, URINE NEG (NEG); COMMENT (UR) CATH-CULTURE IND; CULTURE IF INDICATED CATH CULTURE IND; GLUCOSE,URINE NEG (NEG); KETONE, URINE NEG (NEG); MUCUS URINE FEW /lpf (OCC); NITRITE,URINE NEG (NEG); SQUAMOUS EPITHELIAL CELL URINE <1 /hpf (0-5); TRANSITIONAL EPI CELLS, URINE 1 /hpf; URINE COLOR YELLOW (YELLW/STRAW)
[2017-03-18 05:12] LABS: ALKALINE PHOSPHATASE 260 U/L (45-117); TOTAL BILIRUBIN ADULT 0.4 MG/DL (0.2-1.0)
[2017-03-18] MEDS ORDERED: MISCELLANEOUS PHARMACY INFORMATION XX PRN (05:30)
[2017-03-18] MEDS ORDERED: MEROPENEM INJ 1,000 MG in SODIUM CHLORIDE 0.9% INJ 100 ML IV SCH (05:30)
[2017-03-18] MEDS ORDERED: ASP: Documented ESBL, MDR A baumannii or P. aeruginosa XX PRN (05:30)
[2017-03-18 05:47] LABS: PLATELET ESTIMATE SMEAR NORMAL (NORMAL); PLATELET MORPHOLOGY NORMAL (NORMAL); SCAN/DIFF AUTO DIFF CONFIRMED
[2017-03-18] MEDS ORDERED: MAGNESIUM CITRATE SOLN 300 ML BTL G-TUBE PRN (06:00)
[2017-03-18] MEDS ORDERED: BISACODYL 10 MG SUPP RECTAL PRN (06:00)
[2017-03-18] MEDS ORDERED: MORPHINE SULFATE 4 MG/ML INJ IV PUSH PRN ×2 (06:00)
[2017-03-18] MEDS ORDERED: ONDANSETRON HCL 4 MG/2 ML VIAL IVP PRN (06:00)
[2017-03-18] MEDS ORDERED: SODIUM CHLORIDE 0.9% FLUSH 10 ML FLUSH IV FLUSH PRN (06:00)
[2017-03-18] MEDS ORDERED: MAGNESIUM HYDROXIDE SUSP 30 ML CUP G-TUBE PRN (06:00)
--- NOTE | 2017-03-18 06:40 | PD ---
HPI Chief Complaint: Respiratory Symptoms Time Seen by Provider: 02:54 Travel History International Travel<30 days: No Contact w/Intl Traveler<30days: No Traveled to known affect area: No History of Present Illness HPI This is a 46-year-old female who has a history of traumatic brain injury who is tracheostomy and is G-tube fed who presents to the emergency department with more labored respirations and tachypnea. Patient doesn't provide any history. She has a history of pneumonia for which she was hospitalized earlier this year. PFSH Past Medical History Anxiety: No Depression: No Cancer: No Cardiovascular Problems: No Diminished Hearing: No (UNOBTAINABLE) Endocrine: No Gastrointestinal Disorders: Yes (constipation) GERD: Yes Genitourinary: Yes (uti, catheter) Hypertension: Yes Immune Disorder: No Musculoskeletal: No Neurologic: Yes (tbi) Psychiatric: No Reproductive: No Respiratory: No Pneumonia: Yes Tetanus Vaccination: Unknown ?: Not Menopausal: Yes Past Surgical History Abdominal Surgery: Yes (peg tube placement ) Pacemaker: No Other Surgery: Yes (trach placed) Social History Alcohol Use: No Tobacco Use: No Substance Use: Yes (hx marijuana ) Allergies-Medications (Allergen,Severity, Reaction): Coded Allergies: *MDRO Multi-Drug Resistant Organism (Verified Allergy, Unknown, 01/31/17) Acinetobacter baumannii Sputum 05/2013 CRAB 10/2013 MRSA PCR screen (nares) POSITIVE - 03/04/16 Reported Meds & Prescriptions Reported Meds & Active Scripts Active Reported Levofloxacin 750 Mg Tablet 750 Mg PO DAILY Cefuroxime (Cefuroxime Axetil) 500 Mg Tab 500 Mg PO DAILY Valproic Acid Liq 250 Mg/5 Ml Syp 500 Mg G-TUBE BID Ranitidine (Ranitidine HCl) 150 Mg Tab 150 Mg GT BID Metoprolol Tartrate 100 Mg Tab 100 Mg G-TUBE BID Lisinopril 5 Mg Tab 5 Mg G-TUBE DAILY Milk of Magnesia Liq (Magnesium Hydroxide) 400 Mg/5 Ml Susp 30 Ml G-TUBE DAILY PRN Keppra Liq (Levetiracetam) 500 Mg/5 Ml Soln 1,500 Mg G-TUBE BID Ibuprofen 400 Mg Tab 400 Mg G-TUBE Q4H PRN Hydrocodone-Acetaminophen Liq 7.5-325 Mg/15 Ml Soln 15 Ml G-TUBE Q6H PRN Guaifenesin 400 Mg Tab 400 Mg PEG Q8HR Dul[address]ax DR (Bisacodyl) 5 Mg Tabdr 5 Mg PEG BID Dulcolax Supp (Bisacodyl) 10 Mg Supp 10 Mg RECTAL DAILY PRN Clonidine (Clonidine HCl) 0.2 Mg Tab 0.2 Mg G-TUBE Q6HR PRN Citrate of Magnesia Liq (Magnesium Citrate) 300 Ml Liq 296 Ml G-TUBE DAILY IN THE MORNING PRN Carbamazepine Liq (Carbamazepine) 100 Mg/5 Ml Susp 500 Mg G-TUBE BID Baclofen 20 Mg Tab 20 Mg PEG TID Tears Again Opth Ointment (Artificial Tear Opth Ointment) 1 Oint 1 Applic LEFT EYE Q8HR Amantadine Liq (Amantadine HCl) 50 Mg/5 Ml Soln 150 Mg G-TUBE BID Mapap (Acetaminophen) 325 Mg Tab 650 Mg G-TUBE Q4HR PRN Review of Systems ROS Limitations: Poor Historian Physical Exam Narrative GENERAL: Chronically ill-appearing. SKIN: Focused skin assessment warm and dry. HEAD: Atraumatic. Normocephalic. EYES: Pupils equal and round. No injection or drainage. ENT: Moist mucous membranes NECK: Trachea midline. CARDIOVASCULAR: Tachycardic. No murmur appreciated. RESPIRATORY: Coarse breath sounds bilaterally with mild tachypnea. GASTROINTESTINAL: Abdomen soft, non-tender, nondistended. MUSCULOSKELETAL: Contractures of all 4 extremities. NEUROLOGICAL: Track's with gaze, no voluntary movements or verbalizations Data Data Last Documented VS Vital Signs Date Time Temp Pulse Resp B/P (MAP) Pulse Ox O2 Delivery O2 Flow Rate FiO2 03/18/17 04:35 95 Nasal Cannula 4.00 03/18/17 04:08 98.3 03/18/17 02:48 108 30 03/18/17 02:40 143/80 (101) Orders Orders Complete Blood Count With Diff (03/18/17 04:01) Comprehensive Metabolic Panel (03/18/17 04:01) Lactic Acid (03/18/17 04:01) Chest, Single Ap (03/18/17 ) Urinalysis - C+S If Indicated (03/18/17 04:01) Cath For Specimen (03/18/17 04:01) Cannula, Disp Inner 6fr Ea (03/18/17 04:58) Urine Culture (03/18/17 04:42) Blood Culture (03/18/17 05:24) Asp: Esbl/Mdr A Belia Or P. Aer (Asp Crit (03/18/17 05:30) [facility] Information ([facility] (03/18/17 05:30) Meropenem Inj (Merrem Inj) (03/18/17 05:30) Admit Order (Ed Use Only) (03/18/17 05:46) Labs Laboratory Tests Test 03/18/17 04:31 03/18/17 04:42 White Blood Count 18.0 TH/MM3 Red Blood Count 4.58 MIL/MM3 Hemoglobin 13.4 GM/DL Hematocrit 41.2 % Mean Corpuscular Volume 89.9 FL Mean Corpuscular Hemoglobin 29.2 PG Mean Corpuscular Hemoglobin Concent 32.4 % Red Cell Distribution Width 15.7 % Platelet Count 405 TH/MM3 Mean Platelet Volume 8.9 FL Neutrophils (%) (Auto) 57.5 % Lymphocytes (%) (Auto) 21.5 % Monocytes (%) (Auto) 19.6 % Eosinophils (%) (Auto) 0.0 % Basophils (%) (Auto) 1.4 % Neutrophils # (Auto) 10.4 TH/MM3 Lymphocytes # (Auto) 3.9 TH/MM3 Monocytes # (Auto) 3.5 TH/MM3 Eosinophils # (Auto) 0.0 TH/MM3 Basophils # (Auto) 0.3 TH/MM3 CBC Comment AUTO DIFF Differential Comment AUTO DIFF CONFIRMED Platelet Estimate NORMAL Platelet Morphology Comment NORMAL Red Cell Morphology Comment NORMAL Blood Urea Nitrogen 35 MG/DL Creatinine 0.59 MG/DL Random Glucose 117 MG/DL Total Protein 8.7 GM/DL Albumin 3.1 GM/DL Calcium Level 10.5 MG/DL Alkaline Phosphatase 260 U/L Aspartate Amino Transf (AST/SGOT) 49 U/L Alanine Aminotransferase (ALT/SGPT) 149 U/L Total Bilirubin 0.4 MG/DL Sodium Level 140 MEQ/L Potassium Level 3.9 MEQ/L Chloride Level 107 MEQ/L Carbon Dioxide Level 24.1 MEQ/L Anion Gap 9 MEQ/L Estimat Glomerular Filtration Rate 111 ML/MIN Lactic Acid Level 1.3 mmol/L Urine Color YELLOW Urine Turbidity CLEAR Urine pH 6.0 Urine Specific [place] 1.031 Urine Protein 100 mg/dL Urine Glucose (UA) NEG mg/dL Urine Ketones NEG mg/dL Urine Occult Blood NEG Urine Nitrite NEG Urine Bilirubin NEG Urine Urobilinogen LESS THAN 2.0 MG/DL Urine Leukocyte Esterase MOD Urine RBC 8 /hpf Urine WBC 14 /hpf Urine Squamous Epithelial Cells <1 /hpf Urine Transitional Epithelial Cells 1 /hpf Urine Bacteria RARE /hpf Urine Mucus FEW /lpf Microscopic Urinalysis Comment CATH-CULTURE IND MDM Medical Decision Making Medical Screen Exam Complete: Yes Emergency Medical Condition: Yes Interpretation(s) Tachycardic, afebrile, mild hypertension Leukocytosis Electrolytes are reassuring Transaminitis is similar to prior Lactic acid is 1.3 Urinalysis: 14 white blood cells Chest x-ray: Bibasilar airspace disease. Differential Diagnosis Pneumonia, urinary tract infection, sepsis, decubitus ulcer Narrative Course This is a 46-year-old female who has a history of traumatic brain injury who presents to the emergency department with increasing tachypnea and coarse breath sounds. Patient has a history of pneumonia in the past. She is currently he has been out Klebsiella in her sputum as well as pseudomonas. She is placed on a monitor and an IV was established. Labs are obtained which demonstrate a leukocytosis of 18. Lactic acid is reassuring. Electrolytes are similar to prior. Chest x-ray demonstrates bibasilar airspace disease and urinalysis demonstrates urinary tract infection. Cultures were drawn and patient was started empirically on meropenem which her Klebsiella was sensitive to in the past. Patient will be admitted for management of sepsis. Physician Communication Physician Communication Discussed with Dr. Ramos Diagnosis Primary Impression: Sepsis Qualified Codes: A41.9 - Sepsis, unspecified organism Admitting Information Admitting Physician Requests: Admit Jyoti Smith MD Mar 18, 2017 06:40
[2017-03-18] MEDS: SODIUM CHLOR 0.9% 1000 ML INJ 1,000 ML IV SCH ×3 (06:47→18:48)
[2017-03-18] MEDS: ACETAMINOPHEN 1000 MG/100 ML 100 ML IV PRN ×2 (07:11→16:41)
[2017-03-18] MEDS ORDERED: METOPROLOL TARTRATE 5 MG/5 ML VIAL IV PUSH PRN (08:00)
[2017-03-18] MEDS: FAMOTIDINE 20 MG TAB SCH ×2 (08:10→22:32)
[2017-03-18] MEDS: BISACODYL EC 5 MG TABEC PO SCH ×2 (08:11→21:00)
[2017-03-18] MEDS: HEPARIN SODIUM - SQ 10,000 UNITS/ML VIAL SQ SCH ×2 (08:11→22:33)
[2017-03-18] MEDS ORDERED: LISINOPRIL 5 MG TAB G-TUBE SCH (09:00)
[2017-03-18] MEDS ORDERED: METOPROLOL TARTRATE 100 MG TAB G-TUBE SCH (09:00)
[2017-03-18] MEDS: SODIUM CHLORIDE 0.9% FLUSH 10 ML FLUSH IV FLUSH SCH ×2 (09:00→21:00)
[2017-03-18] MEDS: guaiFENesin SOLUTION 200 MG/10 ML CUP PEG SCH ×3 (09:27→22:00)
[2017-03-18] MEDS: VALPROIC ACID SYRUP 250 MG/5 ML UDC G-TUBE SCH ×2 (09:27→22:33)
[2017-03-18] MEDS: AMANTADINE HCL SOLN 100 MG/10 ML UDC G-TUBE SCH ×2 (09:27→23:11)
[2017-03-18] MEDS: levETIRAcetam 500 MG/5 ML UDC G-TUBE SCH ×2 (09:27→22:33)
[2017-03-18] MEDS: BACLOFEN 20 MG TAB PEG SCH ×3 (09:28→18:48)
[2017-03-18] MEDS: carBAMazepine SUSP 200 MG/10 ML UDC G-TUBE SCH ×2 (09:28→23:11)
--- NOTE | 2017-03-18 10:22 | PD.ID.CON ---
History of Present Illness Service ID Consult Requested By Dr Bartlett Reason for Consult sepsis Primary Care Physician Nathaniel Iverson MD Diagnoses: History of Present Illness 46 y..o. 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 She presented with leukocytosis of 18 K CXR with small infilatrate, UA abnormal wi puyrua Review of Systems ROS Limitations: Clinical Condition (TBI), Unresponsive Past Family Social History Allergies: Coded Allergies: *MDRO Multi-Drug Resistant Organism (Verified Allergy, Unknown, 01/31/17) Acinetobacter baumannii Sputum 05/2013 CRAB 10/2013 MRSA PCR screen (nares) POSITIVE - 03/04/16 Past Medical History 1. Traumatic brain injury. 2. Hypertension. 3. Hyperlipidemia. 4. History of seizure disorder. 5. Tracheostomy. 6. PEG. Past Surgical History sp PEG Active Ordered Medications Medications where reviewed in EMR Antibiotics Include: meropenem Family History reviewed in chart Noncontributory. Social History The patient is a resident of retirement facility. Past alcohol tobacco and MJ Physical Exam Vital Signs Vital Signs Date Time Temp Pulse Resp B/P (MAP) Pulse Ox O2 Delivery O2 Flow Rate FiO2 03/18/17 10:07 104.6 112 24 147/72 (97) 94 Trach Collar 6.00 03/18/17 09:29 136 18 165/70 (101) 97 Trach Collar 5.00 03/18/17 08:42 147 20 177/82 (113) 97 Trach Collar 5.00 03/18/17 07:57 95 Trach Collar 6.00 40 03/18/17 07:40 158 27 160/93 (115) 96 Trach Collar 5.00 03/18/17 07:32 152 28 192/85 (120) Nasal Cannula 4.00 03/18/17 06:33 100.2 145 18 161/106 (124) 93 Nasal Cannula 2.00 03/18/17 04:35 95 Nasal Cannula 4.00 03/18/17 04:08 98.3 03/18/17 02:48 108 30 96 Nasal Cannula 5.00 03/18/17 02:40 107 18 143/80 (101) 100 Physical Exam CONSTITUTIONAL/GENERAL: This is an adequately nourished patient, in no apparent distress. TUBES/LINES/DRAINS: SKIN: No jaundice, rashes, or lesions. Skin temperature appropriate. Not diaphoretic. HEAD: Atraumatic. Normocephalic. EYES: Pupil R round and reactive. L eye is chemotic and opacified No scleral icterus. No injection or drainage. Fundi not examined. ENT: Hearing not tedsted . Nose without bleeding or purulent drainage. Oral mucosae without visible erythema, exudates, masses, or lesions. NECK: Trache in place, not much secretions. Supple, nontender. CARDIOVASCULAR: Regular tachycardia without murmurs, gallops, or rubs. No JVD. Peripheral pulses symmetric. RESPIRATORY/CHEST: Symmetric, unlabored respirations. Clear to auscultation. Breath sounds equal bilaterally. No wheezes, rales, or rhonchi. GASTROINTESTINAL: Abdomen soft, no reaction to palpation nondistended. No hepato -splenomegaly, or palpable masses. No guarding. Bowel sounds present. PEG in place GENITOURINARY: Without palpable bladder distension. MUSCULOSKELETAL: Extremities without clubbing, cyanosis, or edema. Contracted BUE and b/l foot drop No joint tenderness or effusion noted. No mottling or clubbing. LYMPHATICS: No palpable cervical or supraclavicular adenopathy. NEUROLOGICAL:Unresponsive. Not following commands. OPens eyes spontaneously. No movements moted PSYCHIATRIC: unable to assess Laboratory Laboratory Tests Test 03/18/17 04:31 03/18/17 04:42 White Blood Count 18.0 Red Blood Count 4.58 Hemoglobin 13.4 Hematocrit 41.2 Mean Corpuscular Volume 89.9 Mean Corpuscular Hemoglobin 29.2 Mean Corpuscular Hemoglobin Concent 32.4 Red Cell Distribution Width 15.7 Platelet Count 405 Mean Platelet Volume 8.9 Neutrophils (%) (Auto) 57.5 Lymphocytes (%) (Auto) 21.5 Monocytes (%) (Auto) 19.6 Eosinophils (%) (Auto) 0.0 Basophils (%) (Auto) 1.4 Neutrophils # (Auto) 10.4 Lymphocytes # (Auto) 3.9 Monocytes # (Auto) 3.5 Eosinophils # (Auto) 0.0 Basophils # (Auto) 0.3 CBC Comment AUTO DIFF Differential Comment AUTO DIFF CONFIRMED Platelet Estimate NORMAL Platelet Morphology Comment NORMAL Red Cell Morphology Comment NORMAL Blood Urea Nitrogen 35 Creatinine 0.59 Random Glucose 117 Total Protein 8.7 Albumin 3.1 Calcium Level 10.5 Alkaline Phosphatase 260 Aspartate Amino Transf (AST/SGOT) 49 Alanine Aminotransferase (ALT/SGPT) 149 Total Bilirubin 0.4 Sodium Level 140 Potassium Level 3.9 Chloride Level 107 Carbon Dioxide Level 24.1 Anion Gap 9 Estimat Glomerular Filtration Rate 111 Lactic Acid Level 1.3 Urine Color YELLOW Urine Turbidity CLEAR Urine pH 6.0 Urine Specific [place] 1.031 Urine Protein 100 Urine Glucose (UA) NEG Urine Ketones NEG Urine Occult Blood NEG Urine Nitrite NEG Urine Bilirubin NEG Urine Urobilinogen LESS THAN 2.0 Urine Leukocyte Esterase MOD Urine RBC 8 Urine WBC 14 Urine Squamous Epithelial Cells <1 Urine Transitional Epithelial Cells 1 Urine Bacteria RARE Urine Mucus FEW Microscopic Urinalysis Comment CATH-CULTURE IND Date/Time Source Procedure Growth Status 03/18/17 05:45 Blood Peripheral Aerobic Blood Culture Pending Received 03/18/17 05:45 Blood Peripheral Anaerobic Blood Culture Pending Received 03/18/17 04:42 Urine Catheterized Urine Urine Culture Pending Received Result Diagram: 03/18/17 0431 03/18/17 0431 Imaging Last Impressions Chest X-Ray 03/18/17 0000 Signed Impressions: Service Date/Time: Saturday, March 18, 2017 04:02 - CONCLUSION: 1. Subsegmental basilar air space disease. No significant effusion. No pneumothorax. Raphael Reynoso MD Assessment and Plan Assessment and Plan Sepsis ? osource - suspect PNA ? UTI Recent PNA, PSAE, ESBL+ Kleb, Proteus in recent sputum clx Persistent vegertative state - unable to provide any history Rec's: - CT chest, abd/pelvis - cont meropenem add vancomycin - add azithro - chk flu/ leg/oenumococcus Discussed Condition With Barbara Hall MD Mar 18, 2017 10:22
[2017-03-18] MEDS ORDERED: SODIUM CHLOR 0.9% 1000 ML INJ 1,000 ML IV ONE (11:30)
--- NOTE | 2017-03-18 11:32 | HHI.HP ---
HPI Service [facility] Primary Care Physician Nathaniel Iverson MD Admission Diagnosis sepsis Diagnoses: Chief Complaint: Tachypnea, Tachycardia, Fever. [facility] Travel History International Travel<30 Days: No Contact w/Intl Traveler <30 Da: No Traveled to Known Affected Are: No Sepsis Criteria SIRS Criteria (2 or more): Temp > 100.9 or < 96.8, RR > 20 or PaCO2 < 32, WBC > 71376, < 4000 or > 10% bands Sepsis Criteria (SIRS+source): Infect source susp/known Severe Sepsis (+one): Hypotension History of Present Illness 46[facility] in persistent vegetative state following TBI. Patient has a history of seizure disorder, chronic tracheostomy , hypertension. Patient was admitted last month with similar presentation was treated for sepsis secondary to HCAP with multiple organisms in the sputum including Pseudomonas and Klebsiella. [facility], tachypnea, and fever. Rectal temperature in the emergency room is up to 104. She has been tachycardic in the 140s. The patient is unable to provide any history. On my evaluation, she was given a dose of IV Lopressor for the tachycardia, her heart rate is now down to the 80s but her blood pressure is 74/43. I consulted the chairperson anesthesiology for assistance on this patient. Review of Systems ROS Limitations: Clinical Condition, Altered Mental Status, Unresponsive Constitutional: COMPLAINS OF: Fever Past Family Social History Past Medical History Per EMR: Traumatic brain injury Seizure disorder Hypertension Hyperlipidemia Trach dependent Past Surgical History PEG placement Trach Reported Medications Reported Meds & Active Scripts Active Reported Levofloxacin 750 Mg Tablet 750 Mg PO DAILY Cefuroxime (Cefuroxime Axetil) 500 Mg Tab 500 Mg PO DAILY Valproic Acid Liq 250 Mg/5 Ml Syp 500 Mg G-TUBE BID Ranitidine (Ranitidine HCl) 150 Mg Tab 150 Mg GT BID Metoprolol Tartrate 100 Mg Tab 100 Mg G-TUBE BID Lisinopril 5 Mg Tab 5 Mg G-TUBE DAILY Milk of Magnesia Liq (Magnesium Hydroxide) 400 Mg/5 Ml Susp 30 Ml G-TUBE DAILY PRN Keppra Liq (Levetiracetam) 500 Mg/5 Ml Soln 1,500 Mg G-TUBE BID Ibuprofen 400 Mg Tab 400 Mg G-TUBE Q4H PRN Hydrocodone-Acetaminophen Liq 7.5-325 Mg/15 Ml Soln 15 Ml G-TUBE Q6H PRN Guaifenesin 400 Mg Tab [address] (Bisacodyl) 5 Mg Tabdr 5 Mg PEG BID Dulcolax Supp (Bisacodyl) 10 Mg Supp 10 Mg RECTAL DAILY PRN Clonidine (Clonidine HCl) 0.2 Mg Tab 0.2 Mg G-TUBE Q6HR PRN Citrate of Magnesia Liq (Magnesium Citrate) 300 Ml Liq 296 Ml G-TUBE DAILY IN THE MORNING PRN Carbamazepine Liq (Carbamazepine) 100 Mg/5 Ml Susp 500 Mg G-TUBE BID Baclofen 20 Mg Tab 20 Mg PEG TID Tears Again Opth Ointment (Artificial Tear Opth Ointment) 1 Oint 1 Applic LEFT EYE Q8HR Amantadine Liq (Amantadine HCl) 50 Mg/5 Ml Soln 150 Mg G-TUBE BID Mapap (Acetaminophen) 325 Mg Tab 650 Mg G-TUBE Q4HR PRN Allergies: Coded Allergies: *MDRO Multi-Drug Resistant Organism (Verified Allergy, Unknown, 01/31/17) Acinetobacter baumannii Sputum 05/2013 CRAB 10/2013 MRSA PCR screen (nares) POSITIVE - 03/04/16 Family History Unable to obtain as the patient's condition Social History Unable to obtain Physical Exam Vital Signs Vital Signs Date Time Temp Pulse Resp B/P (MAP) Pulse Ox O2 Delivery O2 Flow Rate FiO2 03/18/17 10:07 104.6 112 24 147/72 (97) 94 Trach Collar 6.00 03/18/17 09:29 136 18 165/70 (101) 97 Trach Collar 5.00 03/18/17 08:42 147 20 177/82 (113) 97 Trach Collar 5.00 03/18/17 07:57 95 Trach Collar 6.00 40 03/18/17 07:40 158 27 160/93 (115) 96 Trach Collar 5.00 03/18/17 07:32 152 28 192/85 (120) Nasal Cannula 4.00 03/18/17 06:33 100.2 145 18 161/106 (124) 93 Nasal Cannula 2.00 03/18/17 04:35 95 Nasal Cannula 4.00 03/18/17 04:08 98.3 03/18/17 02:48 108 30 96 Nasal Cannula 5.00 03/18/17 02:40 107 18 143/80 (101) 100 Physical Exam GENERAL: Chronically ill-appearing female, appears to be in a vegetative state. Bilateral upper and lower extremity contractures. HEAD: Atraumatic. EYES: Pupils equal round and slow to react. NECK: Trachea midline. No JVD or lymphadenopathy. Supple, nontender, no meningeal signs. CARDIOVASCULAR: Regular rate and rhythm without murmurs, gallops, or rubs. RESPIRATORY: Bilateral and diffuse rhonchi. Trach with copious amount of secretions. GASTROINTESTINAL: Abdomen soft. Mildly distended. Active bowel sounds. MUSCULOSKELETAL: Bilateral upper and lower extremity contractures. NEUROLOGICAL: Nonverbal, noninteractive. Laboratory Laboratory Tests Test 03/18/17 04:31 03/18/17 04:42 White Blood Count 18.0 Red Blood Count 4.58 Hemoglobin 13.4 Hematocrit 41.2 Mean Corpuscular Volume 89.9 Mean Corpuscular Hemoglobin 29.2 Mean Corpuscular Hemoglobin Concent 32.4 Red Cell Distribution Width 15.7 Platelet Count 405 Mean Platelet Volume 8.9 Neutrophils (%) (Auto) 57.5 Lymphocytes (%) (Auto) 21.5 Monocytes (%) (Auto) 19.6 Eosinophils (%) (Auto) 0.0 Basophils (%) (Auto) 1.4 Neutrophils # (Auto) 10.4 Lymphocytes # (Auto) 3.9 Monocytes # (Auto) 3.5 Eosinophils # (Auto) 0.0 Basophils # (Auto) 0.3 CBC Comment AUTO DIFF Differential Comment AUTO DIFF CONFIRMED Platelet Estimate NORMAL Platelet Morphology Comment NORMAL Red Cell Morphology Comment NORMAL Blood Urea Nitrogen 35 Creatinine 0.59 Random Glucose 117 Total Protein 8.7 Albumin 3.1 Calcium Level 10.5 Alkaline Phosphatase 260 Aspartate Amino Transf (AST/SGOT) 49 Alanine Aminotransferase (ALT/SGPT) 149 Total Bilirubin 0.4 Sodium Level 140 Potassium Level 3.9 Chloride Level 107 Carbon Dioxide Level 24.1 Anion Gap 9 Estimat Glomerular Filtration Rate 111 Lactic Acid Level 1.3 Urine Color YELLOW Urine Turbidity CLEAR Urine pH 6.0 Urine Specific [place] 1.031 Urine Protein 100 Urine Glucose (UA) NEG Urine Ketones NEG Urine Occult Blood NEG Urine Nitrite NEG Urine Bilirubin NEG Urine Urobilinogen LESS THAN 2.0 Urine Leukocyte Esterase MOD Urine RBC 8 Urine WBC 14 Urine Squamous Epithelial Cells <1 Urine Transitional Epithelial Cells 1 Urine Bacteria RARE Urine Mucus FEW Microscopic Urinalysis Comment CATH-CULTURE IND Date/Time Source Procedure Growth Status 03/18/17 05:45 Blood Peripheral Aerobic Blood Culture Pending Received 03/18/17 05:45 Blood Peripheral Anaerobic Blood Culture Pending Received 03/18/17 04:42 Urine Catheterized Urine Urine Culture Pending Received Result Diagram: 03/18/17 0431 03/18/17 0431 Imaging Last Impressions Chest X-Ray 03/18/17 0000 Signed Impressions: Service Date/Time: Monday, March 18, 2017 04:02 - CONCLUSION: 1. Subsegmental basilar air space disease. No significant effusion. No pneumothorax. MD Mesfin Garcia VTE Risk Assessment Caprini VTE Risk Assessment: Mod/High Risk (score >= 2) Caprini Risk Assessment Model Point Value = 1 Point Value = 2 Point Value = 3 Point Value = 5 Age 41-60 Minor surgery BMI > 25 kg/m2 Swollen legs Varicose veins or History of unexplained or recurrent spontaneous Oral contraceptives or hormone replacement Sepsis (< 1 month) Serious lung disease, including pneumonia (< 1 month) Abnormal pulmonary function Acute myocardial infarction Congestive heart failure (< 1 month) History of inflammatory bowel disease Medical patient at bed rest Age 61-74 Arthroscopic surgery Major open surgery (> 45 min) Laparoscopic surgery (> 45 min) Malignancy Confined to bed (> 72 hours) Immobilizing plaster cast Central venous access Age >= 75 History of VTE Family history of VTE Factor V Leiden Prothrombin [id number] Lupus anticoagulant Anticardiolipin antibodies Elevated serum homocysteine Heparin-induced thrombocytopenia Other congenital or acquired thrombophilia Stroke (< 1 month) Elective arthroplasty Hip, pelvis, or leg fracture Acute spinal cord injury (< 1 month) Prophylaxis Regimen Total Risk Factor Score Risk Level Prophylaxis Regimen 0-1 Low Early ambulation 2 Moderate Order ONE of the following: *Sequential Compression Device (SCD) *Heparin 5000 units SQ BID 3-4 Higher Order ONE of the following medications: *Heparin 5000 units SQ TID *Enoxaparin/Lovenox 40 mg SQ daily (WT < 150 kg, CrCl > 30 mL/min) *Enoxaparin/Lovenox 30 mg SQ daily (WT < 150 kg, CrCl > 10-29 mL/min) *Enoxaparin/Lovenox 30 mg SQ BID (WT < 150 kg, CrCl > 30 mL/min) AND/OR *Sequential Compression Device (SCD) 5 or more Highest Order ONE of the following medications: *Heparin 5000 units SQ TID (Preferred with Epidurals) *Enoxaparin/Lovenox 40 mg SQ daily (WT < 150 kg, CrCl > 30 mL/min) *Enoxaparin/Lovenox 30 mg SQ daily (WT < 150 kg, CrCl > 10-29 mL/min) *Enoxaparin/Lovenox 30 mg SQ BID (WT < 150 kg, CrCl > 30 mL/min) AND *Sequential Compression Device (SCD) Assessment and Plan Assessment and Plan 46-year-old female with history of traumatic brain injury in a persistent vegetative state with recent admit for pneumonia and sepsis. The patient presented again with severe sepsis. [facility] Rectal temperature in the ER is 104. She received 1 dose of 5 mg IV Lopressor for sinus tachycardia. Her heart rate has improved. However her systolic blood pressure trended down to the 80s. It appears the patient is heading toward septic shock. Urinalysis is abnormal. Patient has been pancultured and started on broad-spectrum antibiotics with meropenem. Infectious disease is following. I discussed with chairperson anesthesiology Dr. Jacques for transfer of care given Hypotension, severe sepsis and high risk for further respiratory failure. Chest x-ray shows basilar air space disease. Give 1 L NS bolus. Transfer to [facility] stat. Monitor closely. Physician Certification 2 Midnight Certification Type: Admission for Inpatient Services Order for Inpatient Services The services are ordered in accordance with Medicare regulations or non- Medicare payer requirements, as applicable. In the case of services not specified as inpatient-only, they are appropriately provided as inpatient services in accordance with the 2-midnight benchmark. Estimated LOS (days): 5 days is the estimated time the patient will need to remain in the hospital, assuming treatment plan goals are met and no additional complications. Post-Hospital Plan: Not yet determined Ailyn Teague MD Mar 18, 2017 11:32
[2017-03-18] MEDS ORDERED: Vancomycin Consult Pharmacy 1 EA OTHER SCH (12:45)
[2017-03-18] MEDS ORDERED: DIATRIZOATE MEGLUM/DIATRIZOATE SOD 9 ML CUP PO ONE (12:54)
--- NOTE | 2017-03-18 14:00 | PD.CONS ---
HPI Service Critical Care Medicine Consult Requested By Primary Care Physician Nathaniel Iverson MD History of Present Illness Sepsis Criteria SIRS Criteria (2 or more): Temp > 100.9 or < 96.8, RR > 20 or PaCO2 < 32, WBC > 69934, < 4000 or > 10% bands Sepsis Criteria (SIRS+source): Infect source susp/known Severe Sepsis (+one): Hypotension History of Present Illness 46-[facility]-old [facility] in persistent vegetative state following TBI. Patient has a history of seizure disorder, chronic tracheostomy , hypertension. Patient was admitted last month with similar presentation was treated for sepsis secondary to HCAP with multiple organisms in the sputum including Pseudomonas and Klebsiella. [facility], tachypnea, and fever. Rectal temperature in the emergency room is up to 104. She has been tachycardic in the 140s. The patient is unable to provide any history. She was given a dose of IV Lopressor for the tachycardia by hospitalist and dropped her blood pressure to 74/43. A consult was requested by Dr. Martinez. Patient was transferred to the ICU where I evaluated her following her arrival. At that time her heart rate was in the 70s, SBP 90s by 50s, O2 sat 96% on trach collar. Review of Systems ROS Limitations: Clinical Condition, Altered Mental Status, Unresponsive Constitutional: COMPLAINS OF: Fever Past Family Social History Past Medical History Per EMR: Traumatic brain injury Seizure disorder Hypertension Hyperlipidemia Trach dependent Past Surgical History PEG placement Trach Reported Medications Reported Meds & Active Scripts Active Reported Levofloxacin 750 Mg Tablet 750 Mg PO DAILY Cefuroxime (Cefuroxime Axetil) 500 Mg Tab 500 Mg PO DAILY Valproic Acid Liq 250 Mg/5 Ml Syp 500 Mg G-TUBE BID Ranitidine (Ranitidine HCl) 150 Mg Tab 150 Mg GT BID Metoprolol Tartrate 100 Mg Tab 100 Mg G-TUBE BID Lisinopril 5 Mg Tab 5 Mg G-TUBE DAILY Milk of Magnesia Liq (Magnesium Hydroxide) 400 Mg/5 Ml Susp 30 Ml G-TUBE DAILY PRN Keppra Liq (Levetiracetam) 500 Mg/5 Ml Soln 1,500 Mg G-TUBE BID Ibuprofen 400 Mg Tab 400 Mg G-TUBE Q4H PRN Hydrocodone-Acetaminophen Liq 7.5-325 Mg/15 Ml Soln 15 Ml G-TUBE Q6H PRN Guaifenesin 400 Mg Tab [address] (Bisacodyl) 5 Mg Tabdr 5 Mg PEG BID Dulcolax Supp (Bisacodyl) 10 Mg Supp 10 Mg RECTAL DAILY PRN Clonidine (Clonidine HCl) 0.2 Mg Tab 0.2 Mg G-TUBE Q6HR PRN Citrate of Magnesia Liq (Magnesium Citrate) 300 Ml Liq 296 Ml G-TUBE DAILY IN THE MORNING PRN Carbamazepine Liq (Carbamazepine) 100 Mg/5 Ml Susp 500 Mg G-TUBE BID Baclofen 20 Mg Tab 20 Mg PEG TID Tears Again Opth Ointment (Artificial Tear Opth Ointment) 1 Oint 1 Applic LEFT EYE Q8HR Amantadine Liq (Amantadine HCl) 50 Mg/5 Ml Soln 150 Mg G-TUBE BID Mapap (Acetaminophen) 325 Mg Tab 650 Mg G-TUBE Q4HR PRN Allergies: Coded Allergies: *MDRO Multi-Drug Resistant Organism (Verified Allergy, Unknown, 01/31/17) Acinetobacter baumannii Sputum 05/2013 CRAB 10/2013 MRSA PCR screen (nares) POSITIVE - 03/04/16 Family History Unable to obtain as the patient's condition Social History Unable to obtain Past Family Social History Allergies: Coded Allergies: *MDRO Multi-Drug Resistant Organism (Verified Allergy, Unknown, 01/31/17) Acinetobacter baumannii Sputum 05/2013 CRAB 10/2013 MRSA PCR screen (nares) POSITIVE - 03/04/16 Physical Exam Vital Signs Vital Signs Date Time Temp Pulse Resp B/P (MAP) Pulse Ox O2 Delivery O2 Flow Rate FiO2 03/18/17 12:53 97 T-piece 40 03/18/17 10:07 104.6 112 24 147/72 (97) 94 Trach Collar 6.00 03/18/17 09:29 136 18 165/70 (101) 97 Trach Collar 5.00 03/18/17 08:42 147 20 177/82 (113) 97 Trach Collar 5.00 03/18/17 07:57 95 Trach Collar 6.00 40 03/18/17 07:40 158 27 160/93 (115) 96 Trach Collar 5.00 03/18/17 07:32 152 28 192/85 (120) Nasal Cannula 4.00 03/18/17 06:33 100.2 145 18 161/106 (124) 93 Nasal Cannula 2.00 03/18/17 04:35 95 Nasal Cannula 4.00 03/18/17 04:08 98.3 03/18/17 02:48 108 30 96 Nasal Cannula 5.00 03/18/17 02:40 107 18 143/80 (101) 100 Physical Exam GENERAL: Chronically ill-appearing female, appears to be in a vegetative state. Bilateral upper and lower extremity contractures. HEAD: Atraumatic. EYES: Pupils equal round and slow to react. NECK: Trachea midline. No JVD or lymphadenopathy. Supple, nontender, no meningeal signs. CARDIOVASCULAR: Regular rate and rhythm without murmurs, gallops, or rubs. RESPIRATORY: Tracheostomy in place. Patient on trach collar. Good air entry bilaterally the decreased at bases. Scattered rhonchi bilaterally. No wheezing GASTROINTESTINAL: Abdomen soft. Mildly distended. Active bowel sounds. MUSCULOSKELETAL: Bilateral upper and lower extremity contractures. NEUROLOGICAL: Nonverbal, noninteractive. Contractures noted in left upper extremity Laboratory Laboratory Tests Test 03/18/17 04:31 03/18/17 04:42 White Blood Count 18.0 Red Blood Count 4.58 Hemoglobin 13.4 Hematocrit 41.2 Mean Corpuscular Volume 89.9 Mean Corpuscular Hemoglobin 29.2 Mean Corpuscular Hemoglobin Concent 32.4 Red Cell Distribution Width 15.7 Platelet Count 405 Mean Platelet Volume 8.9 Neutrophils (%) (Auto) 57.5 Lymphocytes (%) (Auto) 21.5 Monocytes (%) (Auto) 19.6 Eosinophils (%) (Auto) 0.0 Basophils (%) (Auto) 1.4 Neutrophils # (Auto) 10.4 Lymphocytes # (Auto) 3.9 Monocytes # (Auto) 3.5 Eosinophils # (Auto) 0.0 Basophils # (Auto) 0.3 CBC Comment AUTO DIFF Differential Comment AUTO DIFF CONFIRMED Platelet Estimate NORMAL Platelet Morphology Comment NORMAL Red Cell Morphology Comment NORMAL Blood Urea Nitrogen 35 Creatinine 0.59 Random Glucose 117 Total Protein 8.7 Albumin 3.1 Calcium Level 10.5 Alkaline Phosphatase 260 Aspartate Amino Transf (AST/SGOT) 49 Alanine Aminotransferase (ALT/SGPT) 149 Total Bilirubin 0.4 Sodium Level 140 Potassium Level 3.9 Chloride Level 107 Carbon Dioxide Level 24.1 Anion Gap 9 Estimat Glomerular Filtration Rate 111 Lactic Acid Level 1.3 Urine Color YELLOW Urine Turbidity CLEAR Urine pH 6.0 Urine Specific [place] 1.031 Urine Protein 100 Urine Glucose (UA) NEG Urine Ketones NEG Urine Occult Blood NEG Urine Nitrite NEG Urine Bilirubin NEG Urine Urobilinogen LESS THAN 2.0 Urine Leukocyte Esterase MOD Urine RBC 8 Urine WBC 14 Urine Squamous Epithelial Cells <1 Urine Transitional Epithelial Cells 1 Urine Bacteria RARE Urine Mucus FEW Microscopic Urinalysis Comment CATH-CULTURE IND Date/Time Source Procedure Growth Status 03/18/17 05:45 Blood Peripheral Aerobic Blood Culture Pending Received 03/18/17 05:45 Blood Peripheral Anaerobic Blood Culture Pending Received 03/18/17 04:42 Urine Catheterized Urine Urine Culture Pending Received Result Diagram: 03/18/17 0431 03/18/17 0431 Imaging Last Impressions Chest X-Ray 03/18/17 0000 Signed Impressions: Service Date/Time: Monday, March 18, 2017 04:02 - CONCLUSION: 1. Subsegmental basilar air space disease. No significant effusion. No pneumothorax. Raphael Reynoso MD Septic Shock Reassessment Heart: Regular rate and rhythm Lungs: Course Skin: Warm Peripheral Pulses: Bounding Right Radial Capillary Refill: Brisk Assessment and Plan Assessment and Plan Severe sepsis Hypotension Suspected pneumonia/UTI Traumatic brain injury Seizure disorder h/o Hypertension Hyperlipidemia Trach dependent Plan: Neuro: Follow neuro status. Avoid sedatives and narcotics. Continue Tegretol, Keppra, baclofen and amantadine. Cardiovascular: Ordered second liter fluid bolus following arrival to the ICU. Avoid beta tu/ lisinopril in septic patient due to hypotension. If she remains hypotensive may require pressors. Pulmonary: Continue O2 via trach collar. Has tracheostomy for airway. Bronchodilators as needed. GI/liver: We'll obtain CT abdomen pelvis. Start PEG feeds following review of CT. Renal/: Strict intake output, monitor and replete elect lites, follow BUN creatinine. IV hydration. Anguiano catheterization for strict intake output in patient with sepsis and hypotension requiring fluid boluses and in persistent vegetative state from TBI. ID: Follow-up cultures. Dr. Cervantes from ID following. On meropenem/ vancomycin/ azithromycin per ID. Patient has a history of extensive ESBL infections previously. Recent PNA, PSAE, ESBL+ Kleb, Proteus in recent sputum clx. Follow CT chest abdomen pelvis as ordered by ID to further evaluate source of infection. Endocrine: SSI for glycemic control as needed. Heme: Follow CBC Prophylaxis: SCDs, Heparin/ pepcid cO Jacques MD Mar 18, 2017 14:00
[2017-03-18] MEDS: AZITHROMYCIN INJ 500 MG in SODIUM CHLOR 0.9% 250 ML INJ 250 ML IV SCH (15:16)
[2017-03-18] MEDS: MEROPENEM INJ 1,000 MG in SODIUM CHLORIDE 0.9% INJ 100 ML IV SCH ×2 (16:41→22:34)
[2017-03-18] MEDS: VANCOMYCIN INJ 1,400 MG in SODIUM CHLORID 0.9% 500 ML INJ 500 ML IV SCH (16:42)
--- NOTE | 2017-03-18 21:46 | RADRPT ---
EXAM DATE/TIME: 03/18/2017 21:26 [facility] COMPARISON: No previous studies available for comparison. INDICATIONS : Pneumonia. RADIATION DOSE: 7.55 CTDIvol (mGy) ; Combined studies - Thorax/Abdomen/Pelvis MEDICAL HISTORY : TBI. SURGICAL HISTORY : Peg tube. Tracheotomy. ENCOUNTER: Initial ACUITY: 1 day PAIN SCALE: Non-responsive LOCATION: chest TECHNIQUE: Volumetric scanning of the chest was performed. Using automated exposure control and adjustment of t he mA and/or kV according to patient size, radiation dose was kept as low as reasonably achievable to obtain optimal diagnostic quality images. DICOM format image data is available electronically for r eview and comparison. Follow-up recommendations for detected pulmonary nodules are based at a minimum on nodule size and pa tient risk factors according to Fleischner Society Guidelines. FINDINGS: LUNGS: Bilateral lower lung consolidation/atelectasis in the dependent portion with minimal air bronchogram formation. PLEURAE: There is no pleural thickening or pleural effusion. MEDIASTINUM: The heart and great vessels demonstrate no acute abnormality. There is no mediastinal or hilar lymph adenopathy. AXILLAE: Within normal limits. No lymphadenopathy. MUSCULOSKELETAL: Within normal limits for patient age. MISCELLANEOUS: ET tube tip lobe of the blank. CONCLUSION: Bilateral lower lung dependent consolidation or atelectasis. Gerry Mcclendon MD on March 18, 2017 at 21:42 Board Certified Radiologist. This report was verified electronically.
--- NOTE | 2017-03-18 21:53 | RADRPT ---
EXAM DATE/TIME: 03/18/2017 21:24 [facility] COMPARISON: CT ABDOMEN & PELVIS W/O CONTRAST, February 07, 2017, 17:20. INDICATIONS : Fever. ORAL CONTRAST: Prescribed oral contrast ingested. RADIATION DOSE: 7.55 CTDIvol (mGy) ; Combined studies - Thorax/Abdomen/Pelvis MEDICAL HISTORY : TBI. SURGICAL HISTORY : Trachectomy. Peg tube. ENCOUNTER: Initial ACUITY: 1 day PAIN SCALE: Non-responsive LOCATION: Bilateral abdomen TECHNIQUE: Volumetric scanning of the abdomen and pelvis was performed. Using automated exposure control and ad justment of the mA and/or kV according to patient size, radiation dose was kept as low as reasonably achievable to obtain optimal diagnostic quality images. DICOM format image data is available electro nically for review and comparison. FINDINGS: LOWER LUNGS: Bibasilar lower lung atelectasis or consolidation. LIVER: Homogeneous density without lesion. There is no dilation of the biliary tree. No calcified gallston es. SPLEEN: Normal size without lesion. PANCREAS: Within normal limits. KIDNEYS: Multiple calcified stones in the collecting system of the lower pole and renal pelvis, smaller than o n prior CT. The largest stone is in the renal pelvis and measures 1.6 cm. No evidence of hydronephr osis on either side. ADRENAL GLANDS: Within normal limits. VASCULAR: There is no aortic aneurysm. BOWEL/MESENTERY: Percutaneous gastrostomy tube in place. Oral contrast is present in the colon. No dilated loops of small or large bowel. The rectum is mildly prominent measuring up to 6.8 cm in width. The rectum co ntains stool mixed with oral contrast. ABDOMINAL WALL: Within normal limits. RETROPERITONEUM: There is no lymphadenopathy. BLADDER: Smooth margins. No calcifications within the lumen. REPRODUCTIVE: There is a balloon tip catheter having an appearance suggestive of a Anguiano catheter which is located within the vagina. INGUINAL: There is no lymphadenopathy or hernia. MUSCULOSKELETAL: Within normal limits for patient age. CONCLUSION: 1. Left renal calcified stones, smaller than on prior examination and without hydronephrosis. 2. Bilateral lower lung basilar consolidation or atelectasis. 3. No evidence of ascites or abscess. 4. Balloon tip catheter, possibly a Anguiano catheter, located within the vagina. Gerry Mcclendon MD on March 18, 2017 at 21:45 Board Certified Radiologist. This report was verified electronically.
[2017-03-19] VITALS (16 sets, daily range): BP systolic 89–168; BP diastolic 58–80; PULSE 59–104; RESP 14–22; TEMP 98.3–99.4; O2SAT 92–100
[2017-03-19] MEDS: VANCOMYCIN INJ 1,400 MG in SODIUM CHLORID 0.9% 500 ML INJ 500 ML IV SCH ×2 (04:11→17:20)
[2017-03-19 05:09] LABS: BACTERIA, URINE RARE /hpf; BLOOD, URINE NEG (NEG); COMMENT (UR) CATH-CULTURE IND; CULTURE IF INDICATED CATH CULTURE IND; GLUCOSE,URINE NEG (NEG); KETONE, URINE NEG (NEG); MUCUS URINE FEW /lpf (OCC); NITRITE,URINE NEG (NEG); PH, URINE 6.5 (5.0-8.5); SQUAMOUS EPITHELIAL CELL URINE 18 /hpf (0-5); URINE COLOR YELLOW (YELLW/STRAW)
[2017-03-19] MEDS: guaiFENesin SOLUTION 200 MG/10 ML CUP PEG SCH ×3 (05:25→21:16)
[2017-03-19] MEDS: MEROPENEM INJ 1,000 MG in SODIUM CHLORIDE 0.9% INJ 100 ML IV SCH ×3 (05:25→21:21)
[2017-03-19] MEDS: SODIUM CHLOR 0.9% 1000 ML INJ 1,000 ML IV SCH ×3 (05:31→21:09)
[2017-03-19 06:13] LABS: ALT (GPT) 91 U/L (10-53); ANION GAP 8 MEQ/L (5-15); AST (GOT) 44 U/L (15-37); BLOOD UREA NITROGEN 20 MG/DL (7-18); CHLORIDE 114 MEQ/L (98-107); GLOMERULAR FILTRATION RATE 273 ML/MIN (>89); POTASSIUM 3.7 MEQ/L (3.5-5.1); SODIUM (NA) 144 MEQ/L (136-145)
[2017-03-19 06:16] LABS: ALKALINE PHOSPHATASE 153 U/L (45-117); AUTOMATED NEUTROPHIL # 5.8 TH/MM3 (1.8-7.7); BASOPHIL # 0.1 TH/MM3 (0-0.2); EOSINOPHIL # 0.1 TH/MM3 (0-0.4); EOSINOPHIL % 0.6 % (0.0-4.0); HEMATOCRIT 30.7 % (35.0-46.0); HEMO FLAGS DIFF FINAL; LYMPH % 26.2 % (9.0-44.0); LYMPHOCYTE # 2.7 TH/MM3 (1.0-4.8); MEAN CELL VOLUME 92.3 FL (80.0-100.0); MEAN CORPUSCULAR HEMOGLOBIN 30.2 PG (27.0-34.0); MEAN CORPUSCULAR HGB CONC 32.7 % (32.0-36.0); MONO % 15.5 % (0.0-8.0); NEUT % 56.7 % (16.0-70.0); PLATELET COUNT 105 TH/MM3 (150-450); RED BLOOD COUNT 3.33 MIL/MM3 (4.00-5.30); RED CELL DISTRIBUTION WIDTH 16.1 % (11.6-17.2); TOTAL BILIRUBIN ADULT 0.5 MG/DL (0.2-1.0); WHITE BLOOD COUNT 10.2 TH/MM3 (4.0-11.0)
[2017-03-19] MEDS: levETIRAcetam 500 MG/5 ML UDC G-TUBE SCH ×2 (08:00→21:11)
[2017-03-19] MEDS: VALPROIC ACID SYRUP 250 MG/5 ML UDC G-TUBE SCH ×2 (08:00→21:10)
[2017-03-19] MEDS: FAMOTIDINE 20 MG TAB SCH ×2 (08:01→21:16)
[2017-03-19] MEDS: HEPARIN SODIUM - SQ 10,000 UNITS/ML VIAL SQ SCH ×2 (08:01→21:12)
[2017-03-19] MEDS: BACLOFEN 20 MG TAB PEG SCH ×3 (08:01→17:19)
[2017-03-19] MEDS: SODIUM CHLORIDE 0.9% FLUSH 10 ML FLUSH IV FLUSH SCH ×2 (08:02→21:15)
[2017-03-19] MEDS: AMANTADINE HCL SOLN 100 MG/10 ML UDC G-TUBE SCH ×2 (09:00→21:13)
[2017-03-19] MEDS: BISACODYL EC 5 MG TABEC PO SCH ×2 (09:00→21:14)
[2017-03-19] MEDS: carBAMazepine SUSP 200 MG/10 ML UDC G-TUBE SCH ×2 (09:00→21:13)
--- NOTE | 2017-03-19 12:31 | HHI.CCPN ---
Subjective Remarks/Hospital Course 03/18: 46-[facility]-old female [facility] resident in persistent vegetative state following TBI. Patient has a history of seizure disorder, chronic tracheostomy , hypertension. Patient was admitted last month with similar presentation was treated for sepsis secondary to HCAP with multiple organisms in the sputum including Pseudomonas and Klebsiella. [facility] tachycardia, tachypnea, and fever. Rectal temperature in the emergency room is up to 104. She has been tachycardic in the 140s. The patient is unable to provide any history. She was given a dose of IV Lopressor for the tachycardia by hospitalist and dropped her blood pressure to 74/43. A consult was requested by Dr. Teague. Patient was transferred to the ICU where I evaluated her following her arrival. At that time her heart rate was in the 70s, SBP 90s by 50s, O2 sat 96% on trach collar. 03/19: More awake. No further hypotension. Remains on trach collar currently. Maintaining O2 sats. Objective Vital Signs Date Time Temp Pulse Resp B/P (MAP) Pulse Ox O2 Delivery O2 Flow Rate FiO2 03/19/17 09:05 99 T-piece 40 03/19/17 06:00 79 03/19/17 04:00 98.7 21 112/58 (76) 03/19/17 00:19 6.00 Intake and Output 03/19/17 03/19/17 03/20/17 08:00 16:00 00:00 Intake Total 1700 ml Output Total 400 ml Balance 1300 ml Result Diagram: 03/19/17 0335 03/19/17 0335 Other Results Microbiology Date/Time Source Procedure Growth Status 03/18/17 04:42 Urine Catheterized Urine Legionella Antigen - Final PRESUMPTIVE NEGATIVE FOR LEGIONELLA P... Complete 03/18/17 04:42 Urine Catheterized Urine Streptococcus pneumoniae Antigen (M - Final PRESUMPTIVE NEGATIVE FOR STREPTOCOCCU... Complete Imaging Last Impressions Chest X-Ray 03/18/17 0000 Signed Impressions: Service Date/Time: Monday, March 18, 2017 04:02 - CONCLUSION: 1. Subsegmental basilar air space disease. No significant effusion. No pneumothorax. Raphael Reynoso MD Objective Remarks GENERAL: Chronically ill-appearing female, appears to be in a vegetative state. Bilateral upper and lower extremity contractures. HEAD: Atraumatic. EYES: Pupils equal round and slow to react. NECK: Trachea midline. No JVD or lymphadenopathy. Supple, nontender, no meningeal signs. CARDIOVASCULAR: Regular rate and rhythm without murmurs, gallops, or rubs. RESPIRATORY: Tracheostomy in place. Patient on trach collar. Good air entry bilaterally the decreased at bases. Scattered rhonchi bilaterally. No wheezing GASTROINTESTINAL: Abdomen soft. Mildly distended. Active bowel sounds. MUSCULOSKELETAL: Bilateral upper and lower extremity contractures. NEUROLOGICAL: Opens eyes spontaneously, not following commands Nonverbal, noninteractive. Contractures noted in left upper extremity A/P Assessment and Plan Severe sepsis Hypotension Suspected pneumonia/UTI Traumatic brain injury Seizure disorder h/o Hypertension Hyperlipidemia Trach dependent Plan: Neuro: Follow neuro status. Avoid sedatives and narcotics. Continue Tegretol, Keppra, baclofen and amantadine. Cardiovascular: Ordered second liter fluid bolus following arrival to the ICU. Avoid beta tu/ lisinopril in septic patient due to hypotension. Pulmonary: Continue O2 via trach collar. Has tracheostomy for airway. Bronchodilators as needed. GI/liver: CT abdomen pelvis with renal calculi. Start PEG feeds. Renal/: Strict intake output, monitor and replete elect lites, follow BUN creatinine. IV hydration. Anguiano catheterization for strict intake output in patient with sepsis and hypotension requiring fluid boluses and in persistent vegetative state from TBI. ID: Follow-up cultures. Dr. Cervantes from ID following. On meropenem/ vancomycin/ azithromycin per ID. Patient has a history of extensive ESBL infections previously. Recent PNA, PSAE, ESBL+ Kleb, Proteus in recent sputum clx. Follow CT chest abdomen pelvis as ordered by ID to further evaluate source of infection. Endocrine: SSI for glycemic control as needed. Heme: Follow CBC Prophylaxis: SCDs, Heparin/ pepcid Oc Jacques MD Mar 19, 2017 12:31
[2017-03-19] MEDS: AZITHROMYCIN INJ 500 MG in SODIUM CHLOR 0.9% 250 ML INJ 250 ML IV SCH (12:51)
--- NOTE | 2017-03-19 15:04 | HHI.IDPN ---
Subjective Subjective Remarks remains on Tpiece afebrile WBC down to 10K + liquid diarrhea Antibiotics azithro zosyn meropenem Allergies: Coded Allergies: *MDRO Multi-Drug Resistant Organism (Verified Allergy, Unknown, 01/31/17) Acinetobacter baumannii Sputum 05/2013 CRAB 10/2013 MRSA PCR screen (nares) POSITIVE - 03/04/16 Objective . Vital Signs Date Time Temp Pulse Resp B/P (MAP) Pulse Ox O2 Delivery O2 Flow Rate FiO2 03/19/17 09:05 99 T-piece 40 03/19/17 06:00 79 03/19/17 04:00 98.7 73 21 112/58 (76) 99 03/19/17 04:00 78 03/19/17 03:50 100 T-piece 40 03/19/17 02:00 81 03/19/17 00:19 100 T-piece 6.00 40 03/19/17 00:00 99.0 69 16 89/59 (69) 99 03/19/17 00:00 85 03/18/17 22:00 82 03/18/17 20:12 98 T-piece 6.00 40 03/18/17 20:00 98.9 85 20 102/59 (73) 98 03/18/17 20:00 85 03/18/17 18:00 77 03/18/17 16:00 99.3 81 16 115/69 (84) 99 03/18/17 16:00 81 . Laboratory Tests Test 03/18/17 04:31 03/19/17 03:35 White Blood Count 18.0 TH/MM3 10.2 TH/MM3 Red Blood Count 4.58 MIL/MM3 3.33 MIL/MM3 Hemoglobin 13.4 GM/DL 10.0 GM/DL Hematocrit 41.2 % 30.7 % Mean Corpuscular Volume 89.9 FL 92.3 FL Mean Corpuscular Hemoglobin 29.2 PG 30.2 PG Mean Corpuscular Hemoglobin Concent 32.4 % 32.7 % Red Cell Distribution Width 15.7 % 16.1 % Platelet Count 405 TH/MM3 105 TH/MM3 Mean Platelet Volume 8.9 FL 10.4 FL Neutrophils (%) (Auto) 57.5 % 56.7 % Lymphocytes (%) (Auto) 21.5 % 26.2 % Monocytes (%) (Auto) 19.6 % 15.5 % Eosinophils (%) (Auto) 0.0 % 0.6 % Basophils (%) (Auto) 1.4 % 1.0 % Neutrophils # (Auto) 10.4 TH/MM3 5.8 TH/MM3 Lymphocytes # (Auto) 3.9 TH/MM3 2.7 TH/MM3 Monocytes # (Auto) 3.5 TH/MM3 1.6 TH/MM3 Eosinophils # (Auto) 0.0 TH/MM3 0.1 TH/MM3 Basophils # (Auto) 0.3 TH/MM3 0.1 TH/MM3 CBC Comment AUTO DIFF DIFF FINAL Differential Comment AUTO DIFF CONFIRMED Platelet Estimate NORMAL Platelet Morphology Comment NORMAL Red Cell Morphology Comment NORMAL Laboratory Tests Test 03/18/17 04:31 03/19/17 03:35 Blood Urea Nitrogen 35 MG/DL 20 MG/DL Creatinine 0.59 MG/DL 0.27 MG/DL Random Glucose 117 MG/DL 70 MG/DL Total Protein 8.7 GM/DL 6.0 GM/DL Albumin 3.1 GM/DL 2.4 GM/DL Calcium Level 10.5 MG/DL 9.0 MG/DL Alkaline Phosphatase 260 U/L 153 U/L Aspartate Amino Transf (AST/SGOT) 49 U/L 44 U/L Alanine Aminotransferase (ALT/SGPT) 149 U/L 91 U/L Total Bilirubin 0.4 MG/DL 0.5 MG/DL Sodium Level 140 MEQ/L 144 MEQ/L Potassium Level 3.9 MEQ/L 3.7 MEQ/L Chloride Level 107 MEQ/L 114 MEQ/L Carbon Dioxide Level 24.1 MEQ/L 22.0 MEQ/L Anion Gap 9 MEQ/L 8 MEQ/L Estimat Glomerular Filtration Rate 111 ML/MIN 273 ML/MIN Lactic Acid Level 1.3 mmol/L Microbiology Date/Time Source Procedure Growth Status 03/18/17 05:45 Blood Peripheral Aerobic Blood Culture - Preliminary NO GROWTH IN 1 DAY Resulted 03/18/17 05:45 Blood Peripheral Anaerobic Blood Culture - Preliminary NO GROWTH IN 1 DAY Resulted 03/18/17 05:40 Blood Peripheral Aerobic Blood Culture - Preliminary NO GROWTH IN 1 DAY Resulted 03/18/17 05:40 Blood Peripheral Anaerobic Blood Culture - Preliminary NO GROWTH IN 1 DAY Resulted 03/18/17 20:20 Nasal Washing Influenza Types A,B Antigen (RYAN) Pending Ordered 03/18/17 20:20 Urine Catheterized Urine Urine Culture - Preliminary NO GROWTH IN 24 HOURS. Resulted 03/18/17 04:42 Urine Catheterized Urine Legionella Antigen - Final PRESUMPTIVE NEGATIVE FOR LEGIONELLA P... Complete 03/18/17 04:42 Urine Catheterized Urine Streptococcus pneumoniae Antigen (M - Final PRESUMPTIVE NEGATIVE FOR STREPTOCOCCU... Complete 03/18/17 04:42 Urine Catheterized Urine Urine Culture - Preliminary Gram Negative Christopher Resulted Imaging Last Impressions Chest X-Ray 03/18/17 0000 Signed Impressions: Service Date/Time: Saturday, March 18, 2017 04:02 - CONCLUSION: 1. Subsegmental basilar air space disease. No significant effusion. No pneumothorax. Raphael Reynoso MD Chest CT 03/18/17 0000 Signed Impressions: Service Date/Time: Saturday, March 18, 2017 21:26 - CONCLUSION: Bilateral lower lung dependent consolidation or atelectasis. Gerry Mcclendon MD Abdomen/Pelvis CT 03/18/17 0000 Signed Impressions: Service Date/Time: Saturday, March 18, 2017 21:24 - CONCLUSION: 1. Left renal calcified stones, smaller than on prior examination and without hydronephrosis. 2. Bilateral lower lung basilar consolidation or atelectasis. 3. No evidence of ascites or abscess. 4. Balloon tip catheter, possibly a Black catheter, located within the vagina. Gerry Mcclendon MD Physical Exam CONSTITUTIONAL/GENERAL: This is an adequately nourished patient, in no apparent distress. TUBES/LINES/DRAINS: SKIN: No jaundice, rashes, or lesions. Skin temperature appropriate. Not diaphoretic. EYES: Pupil R round and reactive. L eye is chemotic and opacified No scleral icterus. No injection or drainage. Fundi not examined. ENT: Hearing not tedsted . Nose without bleeding or purulent drainage. Oral mucosae without visible erythema, exudates, masses, or lesions. NECK: Trache in place, not much secretions. Supple, nontender. CARDIOVASCULAR: Regular tachycardia without murmurs, gallops, or rubs. No JVD. Peripheral pulses symmetric. RESPIRATORY/CHEST: Symmetric, unlabored respirations. Clear to auscultation. Breath sounds equal bilaterally. No wheezes, rales, or rhonchi. GASTROINTESTINAL: Abdomen soft, no reaction to palpation nondistended. No hepato -splenomegaly, or palpable masses. No guarding. Bowel sounds present. PEG in place Incontinent of liquid brown stool GENITOURINARY: Without palpable bladder distension. black in place MUSCULOSKELETAL: Extremities without clubbing, cyanosis, + mild edema. Contracted BUE and b/l foot drop No joint tenderness or effusion noted. No mottling or clubbing. NEUROLOGICAL:Unresponsive. Not following commands. OPens eyes spontaneously. No movements moted PSYCHIATRIC: unable to assess Assessment & Plan Remarks Probable UTI, gram negative Sepsis ? source - suspected PNA flu/ leg/oenumococcus are negative Recent PNA, PSAE, ESBL+ Kleb, Proteus in recent sputum clx Persistent vegertative state - unable to provide any history Rec's: - cont meropenem cont vancomycin azithro for now Barbara Cervantes MD Mar 19, 2017 15:04
[2017-03-19 18:01] LABS: C. DIFF EPI 027 PRESUMPTIVE NEGATIVE (NEGATIVE)
[2017-03-19] MEDS: ARTIFICIAL TEARS OPTH OINT 3.5 APPLIC/3.5 GM TUBO LEFT EYE SCH (21:33)
[2017-03-20] VITALS (22 sets, daily range): BP systolic 111–219; BP diastolic 55–106; PULSE 66–125; RESP 18–59; TEMP 97.9–100.1; O2SAT 91–99
[2017-03-20] MEDS ORDERED: PHARMACY ORDERED LAB ONE ×2 (03:45→15:45)
[2017-03-20] MEDS: guaiFENesin SOLUTION 200 MG/10 ML CUP PEG SCH ×3 (06:00→21:59)
[2017-03-20] MEDS: ARTIFICIAL TEARS OPTH OINT 3.5 APPLIC/3.5 GM TUBO LEFT EYE SCH ×3 (06:00→22:00)
[2017-03-20] MEDS: VANCOMYCIN INJ 1,400 MG in SODIUM CHLORID 0.9% 500 ML INJ 500 ML IV SCH ×2 (06:22→17:13)
[2017-03-20] MEDS: MEROPENEM INJ 1,000 MG in SODIUM CHLORIDE 0.9% INJ 100 ML IV SCH ×3 (06:22→21:59)
[2017-03-20] MEDS: BISACODYL EC 5 MG TABEC PO SCH ×2 (08:08→21:58)
[2017-03-20] MEDS: carBAMazepine SUSP 200 MG/10 ML UDC G-TUBE SCH ×2 (08:45→21:57)
[2017-03-20] MEDS: AMANTADINE HCL SOLN 100 MG/10 ML UDC G-TUBE SCH ×2 (08:45→21:56)
[2017-03-20] MEDS: VALPROIC ACID SYRUP 250 MG/5 ML UDC G-TUBE SCH ×2 (08:46→21:56)
[2017-03-20] MEDS: levETIRAcetam 500 MG/5 ML UDC G-TUBE SCH ×2 (08:46→21:56)
[2017-03-20] MEDS: HEPARIN SODIUM - SQ 10,000 UNITS/ML VIAL SQ SCH ×2 (08:47→21:58)
[2017-03-20] MEDS: FAMOTIDINE 20 MG TAB SCH ×2 (08:47→21:55)
[2017-03-20] MEDS: BACLOFEN 20 MG TAB PEG SCH ×3 (08:47→17:12)
[2017-03-20] MEDS: SODIUM CHLOR 0.9% 1000 ML INJ 1,000 ML IV SCH ×2 (08:48→17:13)
[2017-03-20] MEDS: SODIUM CHLORIDE 0.9% FLUSH 10 ML FLUSH IV FLUSH SCH ×2 (08:48→21:57)
--- NOTE | 2017-03-20 09:42 | HHI.CCPN ---
Subjective Remarks/Hospital Course 03/18: 46-year-old female [facility] resident in persistent vegetative state following TBI. Patient has a history of seizure disorder, chronic tracheostomy , hypertension. Patient was admitted last month with similar presentation was treated for sepsis secondary to HCAP with multiple organisms in the sputum including Pseudomonas and Klebsiella. The patient was [facility] from the [facility] for tachycardia, tachypnea, and fever. Rectal temperature in the emergency room is up to 104. She has been tachycardic in the 140s. The patient is unable to provide any history. She was given a dose of IV Lopressor for the tachycardia by hospitalist and dropped her blood pressure to 74/43. A consult was requested by Dr. Teague. Patient was transferred to the ICU where I evaluated her following her arrival. At that time her heart rate was in the 70s, SBP 90s by 50s, O2 sat 96% on trach collar. 03/19: More awake. No further hypotension. Remains on trach collar currently. Maintaining O2 sats. 03/20: Awake and alert. Remains on trach collar. No hypotension Objective Vital Signs Date Time Temp Pulse Resp B/P (MAP) Pulse Ox O2 Delivery O2 Flow Rate FiO2 03/20/17 06:00 84 03/20/17 04:00 100.1 18 130/68 (88) 98 03/20/17 03:45 T-piece 40 03/19/17 21:10 5.00 Intake and Output 03/20/17 03/20/17 03/21/17 08:00 16:00 00:00 Intake Total 4840 ml Output Total 1350 ml Balance 3490 ml Result Diagram: 03/19/17 0335 03/19/17 0335 Other Results Microbiology Date/Time Source Procedure en - Final PRESUMPTIVE NEGATIVE FOR LEGIONELLA P... Complete 03/18/17 04:42 Urine Catheterized Urine Streptococcus pneumoniae Antigen (M - Final PRESUMPTIVE NEGATIVE FOR STREPTOCOCCU... Complete Imaging Last Impressions Chest X-Ray 03/18/17 0000 Signed Impressions: Service Date/Time: Saturday, March 18, 2017 04:02 - CONCLUSION: 1. Subsegmental basilar air space disease. No significant effusion. No pneumothorax. Raphael Reynoso MD Chest CT 03/18/17 0000 Signed Impressions: Service Date/Time: Saturday, March 18, 2017 21:26 - CONCLUSION: Bilateral lower lung dependent consolidation or atelectasis. Gerry Mcclendon MD Abdomen/Pelvis CT 03/18/17 0000 Signed Impressions: Service Date/Time: Saturday, March 18, 2017 21:24 - CONCLUSION: 1. Left renal calcified stones, smaller than on prior examination and without hydronephrosis. 2. Bilateral lower lung basilar consolidation or atelectasis. 3. No evidence of ascites or abscess. 4. Balloon tip catheter, possibly a Anguiano catheter, located within the vagina. Gerry Mcclendon MD Objective Remarks GENERAL: Chronically ill-appearing female, appears to be in a vegetative state. Bilateral upper and lower extremity contractures. HEAD: Atraumatic. EYES: Pupils equal round and slow to react. NECK: Trachea midline. No JVD or lymphadenopathy. Supple, nontender, no meningeal signs. CARDIOVASCULAR: Regular rate and rhythm without murmurs, gallops, or rubs. RESPIRATORY: Tracheostomy in place. Patient on trach collar. Good air entry bilaterally the decreased at bases. Scattered rhonchi bilaterally. No wheezing GASTROINTESTINAL: Abdomen soft. Mildly distended. Active bowel sounds. MUSCULOSKELETAL: Bilateral upper and lower extremity contractures. NEUROLOGICAL: Opens eyes spontaneously, not following commands Nonverbal, noninteractive. Contractures noted in left upper extremity A/P Assessment and Plan Severe sepsis Hypotension Suspected pneumonia/UTI Traumatic brain injury Seizure disorder h/o Hypertension Hyperlipidemia Trach dependent Plan: Neuro: Follow neuro status. Avoid sedatives and narcotics. Continue Tegretol, Keppra, baclofen and amantadine. Cardiovascular:Resume tu/ lisinopril for HTN. Continue IV fluids no further hypotension Pulmonary: Continue O2 via trach collar. Has tracheostomy for airway. Bronchodilators as needed. GI/liver: CT abdomen pelvis with renal calculi. Started PEG feeds. Renal/: Strict intake output, monitor and replete elect lites, follow BUN creatinine. IV hydration. Anguiano catheterization for strict intake output in patient with sepsis and hypotension requiring fluid boluses and in persistent vegetative state from TBI. ID: Follow-up cultures. Dr. Cervantes from ID following. On meropenem/ vancomycin/ azithromycin per ID. Patient has a history of extensive ESBL infections previously. Recent PNA, PSAE, ESBL+ Kleb, Proteus in recent sputum clx. Follow CT chest abdomen pelvis as ordered by ID to further evaluate source of infection. Endocrine: SSI for glycemic control as needed. Heme: Follow CBC Prophylaxis: SCDs, Heparin/ pepcid Oc Jacques MD Mar 20, 2017 09:42
[2017-03-20] MEDS: LISINOPRIL 5 MG TAB G-TUBE SCH (10:53)
[2017-03-20] MEDS ORDERED: BELLADONNA ALKALOIDS/OPIUM 60 MG SUPP RECTAL PRN (12:00)
[2017-03-20] MEDS: LABETALOL HCL 100 MG/20 ML VIAL IV PUSH PRN ×2 (12:13→18:54)
[2017-03-20] MEDS: AZITHROMYCIN INJ 500 MG in SODIUM CHLOR 0.9% 250 ML INJ 250 ML IV SCH (14:53)
[2017-03-20 19:23] LABS: AUTOMATED NEUTROPHIL # 4.3 TH/MM3 (1.8-7.7); BASOPHIL # 0.1 TH/MM3 (0-0.2); BASOPHIL % 0.7 % (0.0-2.0); EOSINOPHIL # 0.1 TH/MM3 (0-0.4); EOSINOPHIL % 1.7 % (0.0-4.0); HEMATOCRIT 30.9 % (35.0-46.0); HEMO FLAGS DIFF FINAL; LYMPH % 29.1 % (9.0-44.0); LYMPHOCYTE # 2.3 TH/MM3 (1.0-4.8); MEAN CELL VOLUME 91.1 FL (80.0-100.0); MEAN CORPUSCULAR HEMOGLOBIN 30.2 PG (27.0-34.0); MEAN CORPUSCULAR HGB CONC 33.1 % (32.0-36.0); MONO % 14.7 % (0.0-8.0); NEUT % 53.8 % (16.0-70.0); PLATELET COUNT 227 TH/MM3 (150-450); RED BLOOD COUNT 3.39 MIL/MM3 (4.00-5.30); RED CELL DISTRIBUTION WIDTH 15.6 % (11.6-17.2)
[2017-03-20 19:32] LABS: ALKALINE PHOSPHATASE 187 U/L (45-117); ALT (GPT) 101 U/L (10-53); ANION GAP 11 MEQ/L (5-15); AST (GOT) 47 U/L (15-37); BICARBONATE 20.9 MEQ/L (21.0-32.0); BLOOD UREA NITROGEN 5 MG/DL (7-18); CHLORIDE 111 MEQ/L (98-107); GLOMERULAR FILTRATION RATE 202 ML/MIN (>89); POTASSIUM 3.5 MEQ/L (3.5-5.1); SODIUM (NA) 143 MEQ/L (136-145); TOTAL BILIRUBIN ADULT 0.3 MG/DL (0.2-1.0)
[2017-03-20] MEDS: METOPROLOL TARTRATE 100 MG TAB G-TUBE SCH (21:56)
[2017-03-21] VITALS (28 sets, daily range): BP systolic 104–188; BP diastolic 62–110; PULSE 52–107; RESP 20–35; TEMP 98–98.8; O2SAT 84–98
[2017-03-21] MEDS ORDERED: PHARMACY ORDERED LAB ONE ×2 (03:45)
[2017-03-21] MEDS: SODIUM CHLOR 0.9% 1000 ML INJ 1,000 ML IV SCH ×3 (03:51→20:01)
[2017-03-21] MEDS: VANCOMYCIN INJ 1,400 MG in SODIUM CHLORID 0.9% 500 ML INJ 500 ML IV SCH (03:51)
[2017-03-21] MEDS: ARTIFICIAL TEARS OPTH OINT 3.5 APPLIC/3.5 GM TUBO LEFT EYE SCH ×3 (04:52→21:19)
[2017-03-21] MEDS: guaiFENesin SOLUTION 200 MG/10 ML CUP PEG SCH ×3 (04:52→21:19)
[2017-03-21] MEDS: MEROPENEM INJ 1,000 MG in SODIUM CHLORIDE 0.9% INJ 100 ML IV SCH ×3 (04:52→21:18)
[2017-03-21] MEDS: LABETALOL HCL 100 MG/20 ML VIAL IV PUSH PRN (07:22)
[2017-03-21] MEDS: BACLOFEN 20 MG TAB PEG SCH ×3 (08:45→17:37)
[2017-03-21] MEDS: METOPROLOL TARTRATE 100 MG TAB G-TUBE SCH ×2 (08:45→19:56)
[2017-03-21] MEDS: FAMOTIDINE 20 MG TAB SCH ×2 (08:46→19:56)
[2017-03-21] MEDS: BISACODYL EC 5 MG TABEC PO SCH ×2 (08:46→19:56)
[2017-03-21] MEDS: LISINOPRIL 5 MG TAB G-TUBE SCH (08:46)
[2017-03-21] MEDS: SODIUM CHLORIDE 0.9% FLUSH 10 ML FLUSH IV FLUSH SCH ×2 (08:47→19:59)
[2017-03-21] MEDS: AMANTADINE HCL SOLN 100 MG/10 ML UDC G-TUBE SCH ×2 (08:47→19:59)
[2017-03-21] MEDS: carBAMazepine SUSP 200 MG/10 ML UDC G-TUBE SCH ×2 (08:47→19:59)
[2017-03-21] MEDS: VALPROIC ACID SYRUP 250 MG/5 ML UDC G-TUBE SCH ×2 (08:47→19:57)
[2017-03-21] MEDS: levETIRAcetam 500 MG/5 ML UDC G-TUBE SCH ×2 (08:48→19:57)
[2017-03-21] MEDS: HEPARIN SODIUM - SQ 10,000 UNITS/ML VIAL SQ SCH ×2 (08:48→19:58)
--- NOTE | 2017-03-21 10:59 | HHI.PR ---
Subjective Remarks Hemodynamically stable. Non verbal, non interactive. Objective Vitals Vital Signs Date Time Temp Pulse Resp B/P (MAP) Pulse Ox O2 Delivery O2 Flow Rate FiO2 03/21/17 10:00 85 32 148/93 (111) 95 03/21/17 10:00 85 03/21/17 09:00 94 30 168/85 (112) 94 03/21/17 08:30 99 33 183/103 (129) 95 03/21/17 08:00 98.2 79 26 141/88 (105) 95 03/21/17 08:00 79 03/21/17 07:59 96 T-piece 6.00 40 03/21/17 07:31 72 23 118/62 (80) 97 03/21/17 07:18 98 26 171/89 (116) 97 03/21/17 07:00 102 35 181/103 (129) 95 03/21/17 06:30 92 24 163/77 (105) 96 03/21/17 06:01 104 25 188/96 (126) 96 03/21/17 06:00 107 03/21/17 06:00 107 31 96 03/21/17 05:30 87 23 144/78 (100) 97 03/21/17 05:13 96 26 166/76 (106) 97 03/21/17 05:01 98 26 182/110 (134) 84 03/21/17 05:00 95 27 94 03/21/17 04:00 98.0 76 20 131/78 (95) 97 03/21/17 04:00 76 03/21/17 02:00 52 03/21/17 00:00 61 03/21/17 00:00 98.8 61 27 104/66 (79) 94 03/20/17 22:00 86 03/20/17 20:30 95 T-piece 5.00 40 03/20/17 20:00 82 03/20/17 20:00 98.8 89 28 172/82 (112) 96 03/20/17 18:00 102 03/20/17 17:00 94 03/20/17 16:00 98.1 100 59 129/89 (102) 98 03/20/17 16:00 100 03/20/17 15:00 96 03/20/17 15:00 96 26 145/77 (99) 97 03/20/17 14:00 95 03/20/17 14:00 95 27 149/76 (100) 98 03/20/17 13:00 77 03/20/17 13:00 98.7 77 23 140/65 (90) 96 03/20/17 12:00 119 30 210/94 (132) 96 03/20/17 12:00 119 03/20/17 11:25 97 T-piece 6.00 40 03/20/17 11:00 117 34 219/106 (143) 95 03/20/17 11:00 117 I/O 03/20/17 03/20/17 03/20/17 03/21/17 03/21/17 03/21/17 07:00 15:00 23:00 07:00 15:00 23:00 Intake Total 4220 ml 620 ml 520 ml 2279 ml 246 ml Output Total 1350 ml 925 ml 1000 ml 900 ml Balance 2870 ml 620 ml -405 ml 1279 ml -654 ml Intake IV Total 3919 ml 620 ml 100 ml 1725 ml 246 ml Tube Feeding 301 ml 420 ml 454 ml Other 100 ml Output Urine Total 1350 ml 925 ml 1000 ml 900 ml # Bowel Movements 1 0 0 Result Diagram: 03/20/17 1844 03/21/17 0331 Imaging Last Impressions Chest X-Ray 03/18/17 0000 Signed Impressions: Service Date/Time: Saturday, March 18, 2017 04:02 - CONCLUSION: 1. Subsegmental basilar air space disease. No significant effusion. No pneumothorax. Raphael Reynoso MD Chest CT 03/18/17 0000 Signed Impressions: Service Date/Time: Saturday, March 18, 2017 21:26 - CONCLUSION: Bilateral lower lung dependent consolidation or atelectasis. Gerry Mcclendon MD Abdomen/Pelvis CT 03/18/17 0000 Signed Impressions: Service Date/Time: Saturday, March 18, 2017 21:24 - CONCLUSION: 1. Left renal calcified stones, smaller than on prior examination and without hydronephrosis. 2. Bilateral lower lung basilar consolidation or atelectasis. 3. No evidence of ascites or abscess. 4. Balloon tip catheter, possibly a Anguiano catheter, located within the vagina. Gerry Mcclendon MD Objective Remarks GENERAL: Chronically ill-appearing female, in a vegetative state. Bilateral upper and lower extremity contractures. CARDIOVASCULAR: Regular rate and rhythm without murmurs, gallops, or rubs. RESPIRATORY: Bilateral and diffuse rhonchi. Trach with copious amount of secretions. GASTROINTESTINAL: Abdomen soft. Mildly distended. Active bowel sounds. MUSCULOSKELETAL: Bilateral upper and lower extremity contractures. NEUROLOGICAL: Nonverbal, noninteractive. A/P Assessment and Plan 46 Y/O female in a vegetative state readmitted for another episode of sepsis secondary to pneumonia and UTI Severe sepsis: Suspected pneumonia/UTI Dr. Cervantes from ID following. On meropenem/vancomycin/ azithromycin per ID. History of extensive ESBL infections previously. Recent PNA, PSAE, ESBL+ Kleb, Proteus in recent sputum clx. Severe Traumatic brain injury/Seizure disorder: In a vegetative state with complications such as above - Palliative care consulted to help family with goals of care - Tube feeding Respiratory failure/Trach dependent: -Continue O2 via trach collar. Breathing treatments as needed h/o Hypertension: Continue beta blocke/lisinopril. Was hypotensive in the ED. BP now elevated. PRN clonidine ordered. Prophylaxis: SCDs, Heparin/ pepcid Ailyn Teague MD Mar 21, 2017 10:58
--- NOTE | 2017-03-21 13:55 | PD.CONS ---
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 Mar 21, 2017 10:58 Kelvin Grossman MD Mar 26, 2017 15:48
[2017-03-21] MEDS: AZITHROMYCIN INJ 500 MG in SODIUM CHLOR 0.9% 250 ML INJ 250 ML IV SCH (14:44)
[2017-03-22] VITALS (30 sets, daily range): BP systolic 103–193; BP diastolic 59–134; PULSE 50–104; RESP 15–41; TEMP 98–99; O2SAT 83–100
[2017-03-22] MEDS: guaiFENesin SOLUTION 200 MG/10 ML CUP PEG SCH ×3 (05:49→21:19)
[2017-03-22] MEDS: ARTIFICIAL TEARS OPTH OINT 3.5 APPLIC/3.5 GM TUBO LEFT EYE SCH ×3 (05:49→21:20)
[2017-03-22] MEDS: MEROPENEM INJ 1,000 MG in SODIUM CHLORIDE 0.9% INJ 100 ML IV SCH ×3 (05:49→21:36)
[2017-03-22 06:09] LABS: HEMATOCRIT 37.7 % (35.0-46.0); MEAN CELL VOLUME 90.2 FL (80.0-100.0); MEAN CORPUSCULAR HEMOGLOBIN 29.6 PG (27.0-34.0); MEAN CORPUSCULAR HGB CONC 32.8 % (32.0-36.0); PLATELET COUNT 238 TH/MM3 (150-450); RED BLOOD COUNT 4.17 MIL/MM3 (4.00-5.30); RED CELL DISTRIBUTION WIDTH 15.7 % (11.6-17.2); WHITE BLOOD COUNT 9.2 TH/MM3 (4.0-11.0)
[2017-03-22 06:10] LABS: REVIEW FLAG FINAL
[2017-03-22 06:43] LABS: BICARBONATE 25.9 MEQ/L (21.0-32.0); POTASSIUM 3.3 MEQ/L (3.5-5.1)
[2017-03-22] MEDS: VALPROIC ACID SYRUP 250 MG/5 ML UDC G-TUBE SCH ×2 (09:28→21:17)
[2017-03-22] MEDS: BISACODYL EC 5 MG TABEC PO SCH ×2 (09:29→21:18)
[2017-03-22] MEDS: BACLOFEN 20 MG TAB PEG SCH ×3 (09:29→17:58)
[2017-03-22] MEDS: FAMOTIDINE 20 MG TAB SCH ×2 (09:29→21:18)
[2017-03-22] MEDS: LISINOPRIL 5 MG TAB G-TUBE SCH (09:30)
[2017-03-22] MEDS: METOPROLOL TARTRATE 100 MG TAB G-TUBE SCH ×2 (09:30→21:19)
[2017-03-22] MEDS: HEPARIN SODIUM - SQ 10,000 UNITS/ML VIAL SQ SCH ×2 (09:34→21:18)
[2017-03-22] MEDS: levETIRAcetam 500 MG/5 ML UDC G-TUBE SCH ×2 (09:39→21:19)
[2017-03-22] MEDS: AMANTADINE HCL SOLN 100 MG/10 ML UDC G-TUBE SCH ×2 (09:39→21:19)
[2017-03-22] MEDS: SODIUM CHLORIDE 0.9% FLUSH 10 ML FLUSH IV FLUSH SCH ×2 (09:41→21:18)
[2017-03-22] MEDS ORDERED: POTASSIUM CHLORIDE 10 MEQ CONTROLLED RELEASE TAB PO ONE (10:15)
[2017-03-22] MEDS: carBAMazepine SUSP 200 MG/10 ML UDC G-TUBE SCH ×2 (10:40→21:17)
[2017-03-22] MEDS ORDERED: VANCOMYCIN INJ 1,500 MG in SODIUM CHLORID 0.9% 500 ML INJ 500 ML IV SCH (12:00)
[2017-03-22] MEDS: AZITHROMYCIN INJ 500 MG in SODIUM CHLOR 0.9% 250 ML INJ 250 ML IV SCH (13:05)
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
--- NOTE | 2017-03-22 17:46 | HHI.PR ---
Subjective Remarks Patient in the setting of state. No changes overnight. Discussed with RN. Objective Vitals Vital Signs Date Time Temp Pulse Resp B/P (MAP) Pulse Ox O2 Delivery O2 Flow Rate FiO2 03/22/17 16:00 89 03/22/17 14:00 74 03/22/17 13:00 70 16 124/72 (89) 99 03/22/17 12:00 75 03/22/17 12:00 98.3 75 16 148/76 (100) 98 03/22/17 11:00 70 16 139/84 (102) 97 03/22/17 10:32 70 15 144/77 (99) 94 03/22/17 10:00 81 03/22/17 10:00 81 16 146/107 (120) 92 03/22/17 09:00 54 15 93 03/22/17 08:00 61 03/22/17 08:00 98.5 61 15 103/59 (74) 96 03/22/17 07:15 98 T-piece 6.00 40 03/22/17 07:00 50 20 85 03/22/17 06:00 99 03/22/17 04:00 98.7 80 17 136/63 (87) 95 03/22/17 04:00 80 03/22/17 02:00 98 03/22/17 00:00 85 03/22/17 00:00 98.2 85 33 155/76 (102) 95 03/21/17 22:00 87 03/21/17 20:00 98.8 102 29 165/75 (105) 95 03/21/17 20:00 102 03/21/17 19:03 98 T-piece 5.00 40 03/21/17 18:00 93 I/O 03/21/17 03/21/17 03/21/17 03/22/17 03/22/17 03/22/17 07:00 15:00 23:00 07:00 15:00 23:00 Intake Total 2279 ml 246 ml 1742 ml 1976 ml 682 ml Output Total 1000 ml 900 ml 365 ml 1650 ml Balance 1279 ml -654 ml 1377 ml 326 ml 682 ml Intake IV Total 1725 ml 246 ml 1116 ml 1348 ml 682 ml Tube Feeding 454 ml 626 ml 628 ml Other 100 ml Output Urine Total 1000 ml 900 ml 365 ml 1650 ml # Bowel Movements 0 Result Diagram: 03/22/1742603/22/17426 Objective Remarks GENERAL: Chronically ill-appearing female, in a vegetative state. Bilateral upper and lower extremity contractures. CARDIOVASCULAR: Regular rate and rhythm without murmurs, gallops, or rubs. RESPIRATORY: Bilateral and diffuse rhonchi. Trach with copious amount of secretions. GASTROINTESTINAL: Abdomen soft. Mildly distended. Active bowel sounds. MUSCULOSKELETAL: Bilateral upper and lower extremity contractures. NEUROLOGICAL: Nonverbal, noninteractive. A/P Assessment and Plan 46 Y/O female in a vegetative state readmitted for another episode of sepsis secondary to pneumonia and UTI Severe sepsis: Suspected pneumonia/UTI Discussed with Dr. Cervantes from ID following. On meropenem/vancomycin/ azithromycin per ID. History of extensive ESBL infections previously. Recent PNA, PSAE, ESBL+ Kleb, Proteus in recent sputum clx. Severe Traumatic brain injury/Seizure disorder: In a vegetative state with complications such as above - Palliative care consulted to help family with goals of care - Tube feeding Respiratory failure/Trach dependent: -Continue O2 via trach collar. Breathing treatments as needed h/o Hypertension: Continue beta blocke/lisinopril. Was hypotensive in the ED. BP now elevated. PRN clonidine ordered. Prophylaxis: SCDs, Heparin/ pepcid Discharge Planning Patient have stabilized medically. She remains at risk for recurrent hospitalization given her comorbid conditions. Possible discharge in the next 24-48 hours back to the retirement facility. Appreciate further input from ID regarding antibiotics. Ailyn Teague MD Mar 22, 2017 17:46
[2017-03-22] MEDS: cloNIDine HCL 0.1 MG TAB PO PRN (18:51)
--- NOTE | 2017-03-22 19:01 | HHI.PR ---
Addendum to Inpatient Note Additional Information pt seen around 1830 full note to follow afebrile diffuse edema PSAE, 2nd GNB in sputum will cont current abx dw Barbara Otoole MD Mar 22, 2017 19:01
--- NOTE | 2017-03-22 22:18 | HHI.IDPN ---
Subjective Subjective Remarks delayed entry pt seen around 1830 pt remains afebrile on Tpiece afebrile WBC wnl Antibiotics azithro vancomycin meropenem Past Medical History anoxic encephalopathy Allergies: Coded Allergies: *MDRO Multi-Drug Resistant Organism (Verified Allergy, Unknown, 01/31/17) Acinetobacter baumannii Sputum 05/2013 CRAB 10/2013 MRSA PCR screen (nares) POSITIVE - 03/04/16 Objective . Vital Signs Date Time Temp Pulse Resp B/P (MAP) Pulse Ox O2 Delivery O2 Flow Rate FiO2 03/22/17 20:08 100 Trach Collar 6.00 35 03/22/17 18:02 96 23 159/82 (107) 95 03/22/17 18:00 102 18 193/114 (140) 94 03/22/17 18:00 102 03/22/17 17:39 94 22 174/81 (112) 94 03/22/17 17:30 100 24 176/103 (127) 95 03/22/17 17:00 100 41 189/89 (122) 94 03/22/17 16:30 98.0 90 24 189/90 (123) 96 03/22/17 16:00 89 03/22/17 16:00 89 22 156/78 (104) 95 03/22/17 15:30 79 18 131/95 (107) 94 03/22/17 15:00 86 35 140/87 (104) 93 03/22/17 14:31 89 32 132/88 (103) 97 03/22/17 14:02 86 28 136/76 (96) 83 03/22/17 14:01 82 28 143/109 (120) 96 03/22/17 14:00 74 19 83 03/22/17 14:00 74 03/22/17 13:00 70 16 124/72 (89) 99 03/22/17 12:00 75 03/22/17 12:00 98.3 75 16 148/76 (100) 98 03/22/17 11:00 70 16 139/84 (102) 97 03/22/17 10:32 70 15 144/77 (99) 94 03/22/17 10:00 81 03/22/17 10:00 81 16 146/107 (120) 92 03/22/17 09:00 54 15 93 03/22/17 08:00 61 03/22/17 08:00 98.5 61 15 103/59 (74) 96 03/22/17 07:15 98 T-piece 6.00 40 03/22/17 07:00 50 20 85 03/22/17 06:00 99 03/22/17 04:00 98.7 80 17 136/63 (87) 95 03/22/17 04:00 80 03/22/17 02:00 98 03/22/17 00:00 85 03/22/17 00:00 98.2 85 33 155/76 (102) 95 03/22/17 03/22/17 03/23/17 15:00 23:00 07:00 Intake Total 682 ml 2464 ml Output Total 1750 ml Balance 682 ml 714 ml Intake IV Total 682 ml 1712 ml Tube Feeding 632 ml Tube Irrigant 120 ml Output Urine Total 1750 ml # Bowel Movements 1 . Laboratory Tests Test 03/22/17 04:27 White Blood Count 9.2 TH/MM3 Red Blood Count 4.17 MIL/MM3 Hemoglobin 12.3 GM/DL Hematocrit 37.7 % Mean Corpuscular Volume 90.2 FL Mean Corpuscular Hemoglobin 29.6 PG Mean Corpuscular Hemoglobin Concent 32.8 % Red Cell Distribution Width 15.7 % Platelet Count 238 TH/MM3 Mean Platelet Volume 10.7 FL Laboratory Tests Test 03/21/17 03:31 03/22/17 04:27 Creatinine 0.28 MG/DL 0.35 MG/DL Estimat Glomerular Filtration Rate 262 ML/MIN 202 ML/MIN Blood Urea Nitrogen 4 MG/DL Random Glucose 82 MG/DL Calcium Level 9.9 MG/DL Sodium Level 143 MEQ/L Potassium Level 3.3 MEQ/L Chloride Level 108 MEQ/L Carbon Dioxide Level 25.9 MEQ/L Anion Gap 9 MEQ/L Microbiology Date/Time Source Procedure Growth Status 03/20/17 04:00 Sputum Endotracheal Gram Stain - Final Resulted 03/20/17 04:00 Sputum Culture - Preliminary Pseudomonas Aeruginosa Gram Negative Christopher Resulted Imaging Last Impressions Chest X-Ray 03/18/17 0000 Signed Impressions: Service Date/Time: Saturday, March 18, 2017 04:02 - CONCLUSION: 1. Subsegmental basilar air space disease. No significant effusion. No pneumothorax. Raphael Reynoso MD Chest CT 03/18/17 0000 Signed Impressions: Service Date/Time: Saturday, March 18, 2017 21:26 - CONCLUSION: Bilateral lower lung dependent consolidation or atelectasis. Gerry Mcclendon MD Abdomen/Pelvis CT 03/18/17 0000 Signed Impressions: Service Date/Time: Saturday, March 18, 2017 21:24 - CONCLUSION: 1. Left renal calcified stones, smaller than on prior examination and without hydronephrosis. 2. Bilateral lower lung basilar consolidation or atelectasis. 3. No evidence of ascites or abscess. 4. Balloon tip catheter, possibly a Black catheter, located within the vagina. Gerry Mcclendon MD Physical Exam CONSTITUTIONAL/GENERAL: This is an adequately nourished patient, in no apparent distress. TUBES/LINES/DRAINS: SKIN: No jaundice, rashes, or lesions. NECK: Trache in place, not much secretions. Supple, nontender. CARDIOVASCULAR: Regular rate and rhythm without murmurs, gallops, or rubs. No JVD. Peripheral pulses symmetric. RESPIRATORY/CHEST: Symmetric, unlabored respirations. Clear to auscultation. Breath sounds equal bilaterally. No wheezes, rales, or rhonchi. GASTROINTESTINAL: Abdomen soft, no reaction to palpation nondistended. No hepato -splenomegaly, or palpable masses. No guarding. Bowel sounds present. PEG in place Incontinent of liquid brown stool GENITOURINARY: Without palpable bladder distension. black in place MUSCULOSKELETAL: Extremities without clubbing, cyanosis, + worsening diffuse soft pitting edema. Contracted BUE and b/l foot drop No joint tenderness or effusion noted. No mottling or clubbing. NEUROLOGICAL:Unresponsive. Not following commands. OPens eyes spontaneously. No movements noted PSYCHIATRIC: unable to assess Assessment & Plan Remarks Proteus mirabilisgram negative Sepsis PNA , B/b consolidations - PSAE, 2nd GNB in sputum - flu/ leg/oenumococcus are negative - Recent PNA, PSAE, ESBL+ Kleb, Proteus in recent sputum clx Persistent vegetative state Rec's: - cont meropenem - fu sputum clx, will adjust abx per clx dc vancomycin - dc Barbara Landa MD Mar 22, 2017 22:18
[2017-03-23] VITALS (21 sets, daily range): BP systolic 129–205; BP diastolic 56–117; PULSE 71–110; RESP 18–31; TEMP 98.1–99.3; O2SAT 76–100
[2017-03-23] MEDS: cloNIDine HCL 0.1 MG TAB PO PRN ×3 (00:55→14:03)
[2017-03-23] MEDS: ARTIFICIAL TEARS OPTH OINT 3.5 APPLIC/3.5 GM TUBO LEFT EYE SCH ×2 (05:17→14:03)
[2017-03-23] MEDS: MEROPENEM INJ 1,000 MG in SODIUM CHLORIDE 0.9% INJ 100 ML IV SCH ×3 (05:17→21:23)
[2017-03-23] MEDS: guaiFENesin SOLUTION 200 MG/10 ML CUP PEG SCH ×3 (05:17→21:21)
[2017-03-23] MEDS: METOPROLOL TARTRATE 100 MG TAB G-TUBE SCH ×3 (09:24→17:23)
[2017-03-23] MEDS: LISINOPRIL 5 MG TAB G-TUBE SCH (09:24)
[2017-03-23] MEDS: BISACODYL EC 5 MG TABEC PO SCH ×2 (09:24→21:20)
[2017-03-23] MEDS: BACLOFEN 20 MG TAB PEG SCH ×3 (09:24→17:23)
[2017-03-23] MEDS: FAMOTIDINE 20 MG TAB SCH ×2 (09:25→21:20)
[2017-03-23] MEDS: VALPROIC ACID SYRUP 250 MG/5 ML UDC G-TUBE SCH ×2 (09:26→21:23)
[2017-03-23] MEDS: levETIRAcetam 500 MG/5 ML UDC G-TUBE SCH ×2 (09:27→21:23)
[2017-03-23] MEDS: SODIUM CHLORIDE 0.9% FLUSH 10 ML FLUSH IV FLUSH SCH ×2 (09:28→21:00)
[2017-03-23] MEDS: AMANTADINE HCL SOLN 100 MG/10 ML UDC G-TUBE SCH ×2 (09:28→21:21)
[2017-03-23] MEDS: HEPARIN SODIUM - SQ 10,000 UNITS/ML VIAL SQ SCH ×2 (09:28→21:20)
[2017-03-23] MEDS: carBAMazepine SUSP 200 MG/10 ML UDC G-TUBE SCH (09:44)
[2017-03-23] MEDS ORDERED: LISINOPRIL 5 MG TAB PO ONE (11:15)
--- NOTE | 2017-03-23 11:28 | HHI.PR ---
Subjective Remarks No issues overnight. BP uncontrolled. Sputum growing Pseudomonas that is resistant to everything except tobramycin. Objective Vitals Vital Signs Date Time Temp Pulse Resp B/P (MAP) Pulse Ox O2 Delivery O2 Flow Rate FiO2 03/23/17 10:00 92 03/23/17 09:30 108 31 181/87 (118) 96 03/23/17 09:00 104 22 180/101 (127) 94 03/23/17 08:00 110 03/23/17 07:53 96 T-piece 35 03/23/17 07:00 98.7 101 30 205/108 (140) 96 03/23/17 06:00 97 03/23/17 04:01 98.9 88 23 157/117 (130) 99 03/23/17 04:01 88 03/23/17 04:00 87 03/23/17 04:00 87 23 95 03/23/17 03:31 100 T-piece 7.00 35 03/23/17 02:00 77 03/23/17 00:00 95 03/23/17 00:00 99.3 95 26 186/104 (131) 97 03/22/17 23:24 99 T-piece 7.00 35 03/22/17 22:00 78 03/22/17 20:08 100 Trach Collar 6.00 35 03/22/17 20:00 99.0 104 23 177/134 (148) 95 03/22/17 20:00 104 03/22/17 18:02 96 23 159/82 (107) 95 03/22/17 18:00 102 18 193/114 (140) 94 03/22/17 18:00 102 03/22/17 17:39 94 22 174/81 (112) 94 03/22/17 17:30 100 24 176/103 (127) 95 03/22/17 17:00 100 41 189/89 (122) 94 03/22/17 16:30 98.0 90 24 189/90 (123) 96 03/22/17 16:00 89 03/22/17 16:00 89 22 156/78 (104) 95 03/22/17 15:30 79 18 131/95 (107) 94 03/22/17 15:00 86 35 140/87 (104) 93 03/22/17 14:31 89 32 132/88 (103) 97 03/22/17 14:02 86 28 136/76 (96) 83 03/22/17 14:01 82 28 143/109 (120) 96 03/22/17 14:00 74 19 83 03/22/17 14:00 74 03/22/17 13:00 70 16 124/72 (89) 99 03/22/17 12:00 75 03/22/17 12:00 98.3 75 16 148/76 (100) 98 03/22/17 11:00 70 16 139/84 (102) 97 I/O 03/22/17 03/22/17 03/22/17 03/23/17 03/23/17 03/23/17 07:00 15:00 23:00 07:00 15:00 23:00 Intake Total 1976 ml 682 ml 2564 ml 723 ml Output Total 1650 ml 1750 ml 2300 ml Balance 326 ml 682 ml 814 ml -1577 ml Intake IV Total 1348 ml 682 ml 1812 ml 100 ml Tube Feeding 628 ml 632 ml 623 ml Tube Irrigant 120 ml Output Urine Total 1650 ml 1750 ml 2300 ml # Bowel Movements 1 Result Diagram: 03/22/17 0427 03/23/17 0517 Objective Remarks GENERAL: Chronically ill-appearing female, in a vegetative state. Bilateral upper and lower extremity contractures. CARDIOVASCULAR: Regular rate and rhythm without murmurs, gallops, or rubs. RESPIRATORY: Bilateral and diffuse rhonchi. Trach with copious amount of secretions. GASTROINTESTINAL: Abdomen soft. Mildly distended. Active bowel sounds. MUSCULOSKELETAL: Bilateral upper and lower extremity contractures. NEUROLOGICAL: Nonverbal, noninteractive. Right eye open A/P Assessment and Plan 46 Y/O female in a vegetative state readmitted for another episode of sepsis secondary to pneumonia and UTI Severe sepsis: Suspected pneumonia/UTI Discussed with Dr. Cervantes from ID following. On meropenem/vancomycin/ azithromycin per ID. History of extensive ESBL infections previously. Recent PNA, PSAE, ESBL+ Kleb, Proteus in recent sputum clx. - Sputum culture growing Pseudomonas that is resistant to everything except tobramycin. Discussed with ID Dr. Cervantes who will evaluate. Severe Traumatic brain injury/Seizure disorder: In a vegetative state with complications such as above - Palliative care following to help family with goals of care - Tube feeding Respiratory failure/Trach dependent: -Continue O2 via trach collar. Breathing treatments as needed Hypokalemia: Recheck and replete as indicated. Hypertension: Uncontrolled. Increase lisinopril to 10 mg daily and metoprolol 50 mg 3 times a day. Patient was initially hypotensive in the ED. BP now elevated. PRN clonidine ordered. Prophylaxis: SCDs, Heparin/ pepcid Discharge Planning Patient have stabilized medically. She remains at risk for recurrent hospitalization given her comorbid conditions. Possible discharge in the next 24-48 hours back to the [facility] facility. Appreciate further input from ID regarding antibiotics. Ailyn Teague MD Mar 23, 2017 10:41
[2017-03-23] MEDS ORDERED: PHARMACY ORDERED LAB ONE (23:45)
[2017-03-24] VITALS (10 sets, daily range): BP systolic 146–208; BP diastolic 65–95; PULSE 57–129; RESP 18–19; TEMP 98.5–99.4; O2SAT 93–98
[2017-03-24] MEDS: ARTIFICIAL TEARS OPTH OINT 3.5 APPLIC/3.5 GM TUBO LEFT EYE SCH ×4 (01:04→22:26)
[2017-03-24 05:30] LABS: HEMATOCRIT 39.7 % (35.0-46.0); MEAN CELL VOLUME 89.5 FL (80.0-100.0); MEAN CORPUSCULAR HEMOGLOBIN 29.6 PG (27.0-34.0); MEAN CORPUSCULAR HGB CONC 33.1 % (32.0-36.0); PLATELET COUNT 404 TH/MM3 (150-450); RED BLOOD COUNT 4.43 MIL/MM3 (4.00-5.30); REVIEW FLAG FINAL; WHITE BLOOD COUNT 10.6 TH/MM3 (4.0-11.0)
[2017-03-24 05:59] LABS: BICARBONATE 24.8 MEQ/L (21.0-32.0); POTASSIUM 4.5 MEQ/L (3.5-5.1)
[2017-03-24] MEDS: MEROPENEM INJ 1,000 MG in SODIUM CHLORIDE 0.9% INJ 100 ML IV SCH ×3 (06:09→22:29)
[2017-03-24] MEDS: guaiFENesin SOLUTION 200 MG/10 ML CUP PEG SCH ×3 (06:09→22:24)
[2017-03-24] MEDS ORDERED: LISINOPRIL 5 MG TAB G-TUBE SCH (09:00)
[2017-03-24] MEDS: VALPROIC ACID SYRUP 250 MG/5 ML UDC G-TUBE SCH ×3 (09:00→22:25)
[2017-03-24] MEDS: HEPARIN SODIUM - SQ 10,000 UNITS/ML VIAL SQ SCH ×2 (10:30→22:25)
[2017-03-24] MEDS: BISACODYL EC 5 MG TABEC PO SCH ×2 (10:44→22:26)
[2017-03-24] MEDS: METOPROLOL TARTRATE 100 MG TAB G-TUBE SCH ×2 (10:45→17:16)
[2017-03-24] MEDS: FAMOTIDINE 20 MG TAB SCH ×2 (10:47→22:25)
[2017-03-24] MEDS: levETIRAcetam 500 MG/5 ML UDC G-TUBE SCH ×2 (10:47→22:25)
[2017-03-24] MEDS: AMANTADINE HCL SOLN 100 MG/10 ML UDC G-TUBE SCH ×2 (10:48→22:26)
[2017-03-24] MEDS: SODIUM CHLORIDE 0.9% FLUSH 10 ML FLUSH IV FLUSH SCH ×2 (10:55→22:26)
[2017-03-24] MEDS: BACLOFEN 20 MG TAB PEG SCH ×3 (10:55→17:18)
[2017-03-24] MEDS ORDERED: METOPROLOL TARTRATE 50 MG TAB PO ONE (12:30)
--- NOTE | 2017-03-24 13:28 | HHI.PR ---
Subjective Remarks BP uncontrolled. No change in neuro status. Objective Vitals Vital Signs Date Time Temp Pulse Resp B/P (MAP) Pulse Ox O2 Delivery O2 Flow Rate FiO2 03/24/17 12:00 99.4 107 19 199/95 (129) 98 03/24/17 12:00 97 T-piece 35 03/24/17 08:00 98.8 129 19 208/84 (125) 97 03/24/17 06:03 98 T-piece 35 03/24/17 04:02 99.1 107 18 158/67 (97) 93 03/24/17 00:24 98.5 97 18 166/84 (111) 94 03/23/17 20:40 88 03/23/17 20:21 98.8 86 18 129/56 (80) 96 03/23/17 17:00 89 21 147/94 (111) 76 03/23/17 16:30 86 20 151/93 (112) 95 03/23/17 16:00 80 03/23/17 16:00 98.1 80 24 151/90 (110) 99 03/23/17 15:30 85 18 145/78 (100) 98 I/O 03/23/17 03/23/17 03/23/17 03/24/17 03/24/17 03/24/17 07:00 15:00 23:00 07:00 15:00 23:00 Intake Total 723 ml 100 ml 808 ml Output Total 2300 ml 1000 ml Balance -1577 ml 100 ml -192 ml Intake IV Total 100 ml 100 ml 100 ml Tube Feeding 623 ml 608 ml Tube Irrigant 100 ml Output Urine Total 2300 ml 1000 ml Stool Total 0 ml # Voids 4 4 Result Diagram: 03/24/1751003/24/17510 Objective Remarks GENERAL: Chronically ill-appearing female, in a vegetative state. Bilateral upper and lower extremity contractures. CARDIOVASCULAR: Regular rate and rhythm without murmurs, gallops, or rubs. RESPIRATORY: Bilateral and diffuse rhonchi. Trach with copious amount of secretions. GASTROINTESTINAL: Abdomen soft. Mildly distended. Active bowel sounds. MUSCULOSKELETAL: Bilateral upper and lower extremity contractures. NEUROLOGICAL: Nonverbal, noninteractive. Right eye open A/P Assessment and Plan 46 Y/O female in a vegetative state readmitted for another episode of sepsis secondary to pneumonia and UTI Severe sepsis: Suspected pneumonia/UTI Discussed with Dr. Cervantes from ID following. On meropenem/vancomycin/ azithromycin per ID. History of extensive ESBL infections previously. Recent PNA, PSAE, ESBL+ Kleb, Proteus in recent sputum clx. - Sputum culture growing Pseudomonas. Discussed with ID Dr. Cervantes. patient is likely colonized. No plans to discharge her on antibiotics. Hypertension: Uncontrolled. Increase lisinopril to 20 mg daily and metoprolol 100 mg BID . Patient was initially hypotensive in the ED. BP now elevated. PRN clonidine ordered. Severe Traumatic brain injury/Seizure disorder: In a vegetative state with complications such as above - Palliative care following to help family with goals of care - Tube feeding Respiratory failure/Trach dependent: -Continue O2 via trach collar. Breathing treatments as needed Hypokalemia: Recheck and replete as indicated. Prophylaxis: SCDs, Heparin/ pepcid Discharge Planning Can be discharged once BP better controlled. Ailyn Teague MD Mar 24, 2017 13:28
[2017-03-24] MEDS ORDERED: LISINOPRIL 10 MG TAB PO ONE (13:30)
[2017-03-24] MEDS: ACETAMINOPHEN 1000 MG/100 ML 100 ML IV PRN (13:37)
--- NOTE | 2017-03-24 16:36 | HHI.PR ---
Addendum to Inpatient Note Additional Information Seen around 16oo full note to follow Sputum clx noted stable AF Barbara Cervantes MD Mar 24, 2017 16:36
[2017-03-24] MEDS: cloNIDine HCL 0.1 MG TAB PO PRN (17:15)
[2017-03-24] MEDS ORDERED: IBUPROFEN 400 MG TAB G-TUBE PRN (19:15)
--- NOTE | 2017-03-24 21:17 | HHI.IDPN ---
Subjective Subjective Remarks delayed entry Seen around 1600 Sputum clx results noted noted pt is stable afebrile On Tpiece Antibiotics meropenem Past Medical History anoxic encephalopathy Allergies: Coded Allergies: *MDRO Multi-Drug Resistant Organism (Verified Allergy, Unknown, 01/31/17) Acinetobacter baumannii Sputum 05/2013 CRAB 10/2013 MRSA PCR screen (nares) POSITIVE - 03/04/16 Objective . Vital Signs Date Time Temp Pulse Resp B/P (MAP) Pulse Ox O2 Delivery O2 Flow Rate FiO2 03/24/17 20:08 98.8 92 18 187/81 (116) 97 03/24/17 18:00 91 18 146/65 (92) 03/24/17 16:00 99.1 94 19 201/91 (127) 98 03/24/17 12:00 99.4 107 19 199/95 (129) 98 03/24/17 12:00 97 T-piece 35 03/24/17 08:00 98.8 129 19 208/84 (125) 97 03/24/17 08:00 124 03/24/17 06:03 98 T-piece 35 03/24/17 04:02 99.1 107 18 158/67 (97) 93 03/24/17 00:24 98.5 97 18 166/84 (111) 94 03/24/17 03/24/17 03/25/17 15:00 23:00 07:00 Intake Total 0 ml Balance 0 ml Intake Oral 0 ml # Voids 3 # Bowel Movements 0 . Laboratory Tests Test 03/24/17 05:11 White Blood Count 10.6 TH/MM3 Red Blood Count 4.43 MIL/MM3 Hemoglobin 13.1 GM/DL Hematocrit 39.7 % Mean Corpuscular Volume 89.5 FL Mean Corpuscular Hemoglobin 29.6 PG Mean Corpuscular Hemoglobin Concent 33.1 % Red Cell Distribution Width 16.0 % Platelet Count 404 TH/MM3 Mean Platelet Volume 9.6 FL Laboratory Tests Test 03/23/17 05:17 03/24/17 05:11 Potassium Level 4.2 MEQ/L 4.5 MEQ/L Creatinine 0.35 MG/DL 0.42 MG/DL Estimat Glomerular Filtration Rate 202 ML/MIN 164 ML/MIN Blood Urea Nitrogen 10 MG/DL Random Glucose 137 MG/DL Calcium Level 11.1 MG/DL Sodium Level 137 MEQ/L Chloride Level 103 MEQ/L Carbon Dioxide Level 24.8 MEQ/L Anion Gap 9 MEQ/L Imaging Last Impressions Chest X-Ray 03/18/17 0000 Signed Impressions: Service Date/Time: Saturday, March 18, 2017 04:02 - CONCLUSION: 1. Subsegmental basilar air space disease. No significant effusion. No pneumothorax. Raphael Reynoso MD Chest CT 03/18/17 0000 Signed Impressions: Service Date/Time: Saturday, March 18, 2017 21:26 - CONCLUSION: Bilateral lower lung dependent consolidation or atelectasis. Gerry Mcclendon MD Abdomen/Pelvis CT 03/18/17 0000 Signed Impressions: Service Date/Time: Saturday, March 18, 2017 21:24 - CONCLUSION: 1. Left renal calcified stones, smaller than on prior examination and without hydronephrosis. 2. Bilateral lower lung basilar consolidation or atelectasis. 3. No evidence of ascites or abscess. 4. Balloon tip catheter, possibly a Black catheter, located within the vagina. Gerry Mcclendon MD Physical Exam CONSTITUTIONAL/GENERAL: This is an adequately nourished patient, in no apparent distress. TUBES/LINES/DRAINS: SKIN: No jaundice, rashes, or lesions. NECK: Trache in place, not much secretions. Supple, nontender. CARDIOVASCULAR: Regular rate and rhythm without murmurs, gallops, or rubs. No JVD. Peripheral pulses symmetric. RESPIRATORY/CHEST: Symmetric, unlabored respirations. Clear to auscultation. Breath sounds equal bilaterally. No wheezes, rales, or rhonchi. GASTROINTESTINAL: Abdomen soft, no reaction to palpation nondistended. No hepato -splenomegaly, or palpable masses. No guarding. Bowel sounds present. PEG in place GENITOURINARY: Without palpable bladder distension. black in place MUSCULOSKELETAL: Extremities without clubbing, cyanosis, + worsening diffuse soft pitting edema. Contracted BUE and b/l foot drop No joint tenderness or effusion noted. No mottling or clubbing. NEUROLOGICAL:Unresponsive. Not following commands. Eyes opened. No movements noted PSYCHIATRIC: unable to assess Assessment & Plan Remarks Proteus mirabilisgram negative Sepsis - clincially resolved Fever, leukocytosis - resolved PNA , B/b consolidations - PSAE, MDRO S to tobramycin only, but clinically responded to current tx ? this MDRO PSAE i s a coloniser - flu/ leg/oenumococcus are negative - Recent PNA, PSAE, ESBL+ Kleb, Proteus in recent sputum clx Persistent vegetative state Rec's: - cont meropenem - will switch to differetn abx if developds fever and/or other sign of infx Barbara Cervantes MD Mar 24, 2017 21:17
[2017-03-25] VITALS (9 sets, daily range): BP systolic 116–169; BP diastolic 58–72; PULSE 63–123; RESP 18–24; TEMP 96.5–99.6; O2SAT 95–100
[2017-03-25] MEDS: cloNIDine HCL 0.1 MG TAB PO PRN ×2 (00:25→13:35)
[2017-03-25] MEDS: IBUPROFEN SUSP 100 MG/5 ML UDC G-TUBE PRN (00:25)
[2017-03-25] MEDS: ARTIFICIAL TEARS OPTH OINT 3.5 APPLIC/3.5 GM TUBO LEFT EYE SCH ×3 (05:58→21:12)
[2017-03-25] MEDS: guaiFENesin SOLUTION 200 MG/10 ML CUP PEG SCH ×3 (05:58→21:10)
[2017-03-25] MEDS: MEROPENEM INJ 1,000 MG in SODIUM CHLORIDE 0.9% INJ 100 ML IV SCH ×3 (05:58→21:05)
[2017-03-25] MEDS ORDERED: LISINOPRIL 20 MG TAB G-TUBE SCH (09:00)
[2017-03-25] MEDS: FAMOTIDINE 20 MG TAB SCH ×2 (10:18→21:09)
[2017-03-25] MEDS: BACLOFEN 20 MG TAB PEG SCH ×3 (10:18→17:08)
[2017-03-25] MEDS: METOPROLOL TARTRATE 100 MG TAB G-TUBE SCH ×3 (10:19→17:08)
[2017-03-25] MEDS: SODIUM CHLORIDE 0.9% FLUSH 10 ML FLUSH IV FLUSH SCH ×2 (10:19→21:10)
[2017-03-25] MEDS: BISACODYL EC 5 MG TABEC PO SCH ×2 (10:19→21:08)
[2017-03-25] MEDS: levETIRAcetam 500 MG/5 ML UDC G-TUBE SCH ×2 (10:19→21:07)
[2017-03-25] MEDS: VALPROIC ACID SYRUP 250 MG/5 ML UDC G-TUBE SCH ×2 (10:20→21:09)
[2017-03-25] MEDS: AMANTADINE HCL SOLN 100 MG/10 ML UDC G-TUBE SCH ×2 (10:20→21:10)
[2017-03-25] MEDS: HEPARIN SODIUM - SQ 10,000 UNITS/ML VIAL SQ SCH ×2 (10:21→21:11)
--- NOTE | 2017-03-25 11:18 | HHI.PR ---
Subjective Remarks non verbal, vegetative state. discussed w RN, pt had temp 99 axillary. BP's seems to be better controlled this morning but for past few days has been uncontrolled. Objective Vitals Vital Signs Date Time Temp Pulse Resp B/P (MAP) Pulse Ox O2 Delivery O2 Flow Rate FiO2 03/25/17 08:00 97.9 123 24 131/70 (90) 100 03/25/17 04:17 99.0 97 18 169/72 (104) 97 03/25/17 00:41 99.6 101 20 166/70 (102) 95 03/24/17 22:22 96 T-piece 6.00 35 03/24/17 20:08 98.8 92 18 187/81 (116) 97 03/24/17 19:48 57 03/24/17 18:00 91 18 146/65 (92) 03/24/17 16:00 99.1 94 19 201/91 (127) 98 03/24/17 12:00 99.4 107 19 199/95 (129) 98 03/24/17 12:00 97 T-piece 35 I/O 03/24/17 03/24/17 03/24/17 03/25/17 03/25/17 03/25/17 07:00 15:00 23:00 07:00 15:00 23:00 Intake Total 100 ml 1515 ml Balance 100 ml 1515 ml Intake Oral 0 ml IV Total 100 ml 100 ml Tube Feeding 1415 ml # Voids 4 3 6 # Bowel Movements 0 0 Result Diagram: 03/24/17 0511 03/25/17 0649 Imaging Last Impressions Chest X-Ray 03/18/17 0000 Signed Impressions: Service Date/Time: Saturday, March 18, 2017 04:02 - CONCLUSION: 1. Subsegmental basilar air space disease. No significant effusion. No pneumothorax. Raphael Reynoso MD Chest CT 03/18/17 0000 Signed Impressions: Service Date/Time: Saturday, March 18, 2017 21:26 - CONCLUSION: Bilateral lower lung dependent consolidation or atelectasis. Gerry Mcclendon MD Abdomen/Pelvis CT 03/18/17 0000 Signed Impressions: Service Date/Time: Saturday, March 18, 2017 21:24 - CONCLUSION: 1. Left renal calcified stones, smaller than on prior examination and without hydronephrosis. 2. Bilateral lower lung basilar consolidation or atelectasis. 3. No evidence of ascites or abscess. 4. Balloon tip catheter, possibly a Anguiano catheter, located within the vagina. Gerry Mcclendon MD Objective Remarks GENERAL: Chronically ill-appearing female, in a vegetative state. Bilateral upper and lower extremity contractures. CARDIOVASCULAR: Regular rate and rhythm without murmurs RESPIRATORY: Bilateral and diffuse rhonchi. Trach with copious amount of secretions. GASTROINTESTINAL: Abdomen soft. Mildly distended. Active bowel sounds. MUSCULOSKELETAL: Bilateral upper and lower extremity contractures. NEUROLOGICAL: Nonverbal, noninteractive. Right eye open A/P Assessment and Plan 46 Y/O female in a vegetative state readmitted for another episode of sepsis secondary to pneumonia and UTI Severe sepsis: Suspected pneumonia/UTI ID following, reviewed notes from Dr. Cervantes, on meropenem at this point. s/ p vancomycin/ azithromycin. History of extensive ESBL infections previously. Recent PNA, PSAE, ESBL+ Kleb, Proteus in recent sputum clx. - Sputum culture growing Pseudomonas. Per previous discussion w Dr. Cervantes. patient is likely colonized. No plans to discharge her on antibiotics. Hypertension: Uncontrolled. Increase lisinopril to 20 mg BID, currently on metoprolol 100 mgTID . Patient was initially hypotensive in the ED. BP now elevated. PRN clonidine ordered. Severe Traumatic brain injury/Seizure disorder: In a vegetative state with complications such as above - Palliative care following to help family with goals of care - Tube feeding Respiratory failure/Trach dependent: -Continue O2 via trach collar. Breathing treatments as needed Hypokalemia: Recheck and replete as indicated. Prophylaxis: SCDs, Heparin/ pepcid Discharge Planning monitor BP's can be discharged once BP's better controlled. Torrie Renee MD Mar 25, 2017 11:18
--- NOTE | 2017-03-25 12:08 | HHI.IDPN ---
Subjective Subjective Remarks RN reports fevers up to 99 axillary Pt on Tpiece , not much secretions good UOP Antibiotics meropenem Past Medical History anoxic encephalopathy Allergies: Coded Allergies: *MDRO Multi-Drug Resistant Organism (Verified Allergy, Unknown, 01/31/17) Acinetobacter baumannii Sputum 05/2013 CRAB 10/2013 MRSA PCR screen (nares) POSITIVE - 03/04/16 Objective . Vital Signs Date Time Temp Pulse Resp B/P (MAP) Pulse Ox O2 Delivery O2 Flow Rate FiO2 03/25/17 11:23 98 T-piece 6.00 35 03/25/17 08:00 97.9 123 24 131/70 (90) 100 03/25/17 04:17 99.0 97 18 169/72 (104) 97 03/25/17 00:41 99.6 101 20 166/70 (102) 95 03/24/17 22:22 96 T-piece 6.00 35 03/24/17 20:08 98.8 92 18 187/81 (116) 97 03/24/17 19:48 57 03/24/17 18:00 91 18 146/65 (92) 03/24/17 16:00 99.1 94 19 201/91 (127) 98 . Laboratory Tests Test 03/24/17 05:11 White Blood Count 10.6 TH/MM3 Red Blood Count 4.43 MIL/MM3 Hemoglobin 13.1 GM/DL Hematocrit 39.7 % Mean Corpuscular Volume 89.5 FL Mean Corpuscular Hemoglobin 29.6 PG Mean Corpuscular Hemoglobin Concent 33.1 % Red Cell Distribution Width 16.0 % Platelet Count 404 TH/MM3 Mean Platelet Volume 9.6 FL Laboratory Tests Test 03/24/17 05:11 03/25/17 06:49 Blood Urea Nitrogen 10 MG/DL Creatinine 0.42 MG/DL 0.46 MG/DL Random Glucose 137 MG/DL Calcium Level 11.1 MG/DL Sodium Level 137 MEQ/L Potassium Level 4.5 MEQ/L Chloride Level 103 MEQ/L Carbon Dioxide Level 24.8 MEQ/L Anion Gap 9 MEQ/L Estimat Glomerular Filtration Rate 164 ML/MIN 148 ML/MIN Imaging Last Impressions Chest X-Ray 03/18/17 0000 Signed Impressions: Service Date/Time: Saturday, March 18, 2017 04:02 - CONCLUSION: 1. Subsegmental basilar air space disease. No significant effusion. No pneumothorax. Raphael Reynoso MD Chest CT 03/18/17 0000 Signed Impressions: Service Date/Time: Saturday, March 18, 2017 21:26 - CONCLUSION: Bilateral lower lung dependent consolidation or atelectasis. Gerry Mcclendon MD Abdomen/Pelvis CT 03/18/17 0000 Signed Impressions: Service Date/Time: Saturday, March 18, 2017 21:24 - CONCLUSION: 1. Left renal calcified stones, smaller than on prior examination and without hydronephrosis. 2. Bilateral lower lung basilar consolidation or atelectasis. 3. No evidence of ascites or abscess. 4. Balloon tip catheter, possibly a Anguiano catheter, located within the vagina. Gerry Mcclendon MD Physical Exam CONSTITUTIONAL/GENERAL: This is an adequately nourished patient, in no apparent distress. TUBES/LINES/DRAINS: SKIN: No jaundice, rashes, or lesions. NECK: Trache in place, not much secretions. CARDIOVASCULAR: Regular rate and rhythm without murmurs, gallops, or rubs. No JVD. Peripheral pulses symmetric. RESPIRATORY/CHEST: Symmetric, unlabored respirations. Clear to auscultation. Breath sounds equal bilaterally. No wheezes, rales, or rhonchi. GASTROINTESTINAL: Abdomen soft, no reaction to palpation nondistended. No hepato -splenomegaly, or palpable masses. No guarding. Bowel sounds present. PEG in place GENITOURINARY: Without palpable bladder distension. MUSCULOSKELETAL: Extremities without clubbing, cyanosis, + some diffuse soft pitting edema. Contracted BUE and b/l foot drop No joint tenderness or effusion noted. No mottling or clubbing. NEUROLOGICAL:Unresponsive. Not following commands. Eyes opened. No movements noted PSYCHIATRIC: unable to assess Assessment & Plan Remarks Proteus mirabilis UTI Sepsis - clincially resolved Fever, leukocytosis - resolved PNA , B/b consolidations - PSAE, MDRO S to tobramycin only, but clinically responded to current tx ? this MDRO PSAE i s a coloniser - flu/ leg/oenumococcus are negative - Recent PNA, PSAE, ESBL+ Kleb, Proteus in recent sputum clx Persistent vegetative state Rec's: - cont meropenem for now - chk blood clx - chk CXR - will start Zerbaxa if new PNA or other s/o infx surinder RN further rec's to follow Barbara Cervantes MD Mar 25, 2017 12:08
--- NOTE | 2017-03-25 13:56 | RADRPT ---
EXAM DATE/TIME: 03/25/2017 13:17 [facility] COMPARISON: CHEST SINGLE AP, March 18, 2017, 4:02. INDICATIONS : Fever starting today MEDICAL HISTORY : Hypertension. Gastroesophageal reflux disease. SURGICAL HISTORY : PEG tube ENCOUNTER: Initial ACUITY: 1 day PAIN SCORE: Non-responsive. LOCATION: Bilateral chest FINDINGS: A single view of the chest demonstrates the lungs to be symmetrically aerated without evidence of mas s, infiltrate or effusion. The cardiomediastinal contours are unremarkable. The tracheostomy is in excellent position. Osseous structures are intact. CONCLUSION: 1. No acute cardiopulmonary findings. The lungs are clear. Lee Baker MD on March 25, 2017 at 13:54 Board Certified Radiologist. This report was verified electronically.
[2017-03-25 18:17] LABS: BLOOD, URINE NEG (NEG); GLUCOSE,URINE NEG (NEG); KETONE, URINE NEG (NEG); MUCUS URINE FEW /lpf (OCC); NITRITE,URINE NEG (NEG); PH, URINE 7.5 (5.0-8.5); SQUAMOUS EPITHELIAL CELL URINE 2 /hpf (0-5); URINE COLOR YELLOW (YELLW/STRAW)
[2017-03-25 18:18] LABS: COMMENT (UR) CATH-CULTURE IND; CULTURE IF INDICATED CATH CULTURE IND
[2017-03-25] MEDS: LISINOPRIL 20 MG TAB G-TUBE SCH (21:08)
[2017-03-26] VITALS (9 sets, daily range): BP systolic 141–178; BP diastolic 65–76; PULSE 57–118; RESP 18–21; TEMP 97.8–99.4; O2SAT 98–99
[2017-03-26] MEDS: MEROPENEM INJ 1,000 MG in SODIUM CHLORIDE 0.9% INJ 100 ML IV SCH ×3 (04:51→20:28)
[2017-03-26] MEDS: guaiFENesin SOLUTION 200 MG/10 ML CUP PEG SCH ×3 (04:51→20:30)
[2017-03-26] MEDS: ACETAMINOPHEN 1000 MG/100 ML 100 ML IV PRN (04:51)
[2017-03-26] MEDS: ARTIFICIAL TEARS OPTH OINT 3.5 APPLIC/3.5 GM TUBO LEFT EYE SCH ×3 (04:52→20:51)
[2017-03-26] MEDS: VALPROIC ACID SYRUP 250 MG/5 ML UDC G-TUBE SCH ×2 (08:15→20:30)
[2017-03-26] MEDS: AMANTADINE HCL SOLN 100 MG/10 ML UDC G-TUBE SCH ×2 (08:17→20:31)
[2017-03-26] MEDS: levETIRAcetam 500 MG/5 ML UDC G-TUBE SCH ×2 (08:17→20:29)
[2017-03-26] MEDS: BACLOFEN 20 MG TAB PEG SCH ×3 (08:18→18:06)
[2017-03-26] MEDS: HEPARIN SODIUM - SQ 10,000 UNITS/ML VIAL SQ SCH ×2 (08:18→20:31)
[2017-03-26] MEDS: BISACODYL EC 5 MG TABEC PO SCH ×2 (08:19→20:31)
[2017-03-26] MEDS: FAMOTIDINE 20 MG TAB SCH ×2 (08:20→20:30)
[2017-03-26] MEDS: METOPROLOL TARTRATE 100 MG TAB G-TUBE SCH ×4 (08:20→17:28)
[2017-03-26] MEDS: LISINOPRIL 20 MG TAB G-TUBE SCH ×2 (08:20→20:31)
[2017-03-26] MEDS: SODIUM CHLORIDE 0.9% FLUSH 10 ML FLUSH IV FLUSH SCH ×2 (10:12→20:31)
--- NOTE | 2017-03-26 15:26 | HHI.PR ---
Subjective Remarks non verbal discussed w RN, small rash around peg tube. no other concerns Objective Vitals Vital Signs Date Time Temp Pulse Resp B/P (MAP) Pulse Ox O2 Delivery O2 Flow Rate FiO2 03/26/17 12:00 99.0 89 20 157/70 (99) 99 03/26/17 11:28 99 T-piece 6.00 35 03/26/17 08:06 94 03/26/17 08:00 98.4 118 21 162/72 (102) 99 03/26/17 04:00 99.1 105 18 167/76 (106) 99 03/26/17 00:00 99.4 89 18 141/73 (95) 98 03/25/17 23:23 63 03/25/17 20:00 98.1 75 18 122/58 (79) 100 03/25/17 19:52 99 T-piece 6.00 35 03/25/17 16:00 96.5 67 18 116/58 (77) 100 I/O 03/25/17 03/25/17 03/25/17 03/26/17 03/26/17 03/26/17 07:00 15:00 23:00 07:00 15:00 23:00 Intake Total 1515 ml 886 ml 856 ml Balance 1515 ml 886 ml 856 ml Intake Oral 0 ml IV Total 100 ml 100 ml 200 ml Tube Feeding 1415 ml 586 ml 656 ml Tube Irrigant 200 ml # Voids 6 7 3 # Bowel Movements 0 0 Result Diagram: 03/24/17 0511 03/25/17 0649 Imaging Last Impressions Chest X-Ray 03/25/17 0000 Signed Impressions: Service Date/Time: Saturday, March 25, 2017 13:17 - CONCLUSION: 1. No acute cardiopulmonary findings. The lungs are clear. Lee Baker MD Chest CT 03/18/17 0000 Signed Impressions: Service Date/Time: Saturday, March 18, 2017 21:26 - CONCLUSION: Bilateral lower lung dependent consolidation or atelectasis. Gerry Mcclendon MD Abdomen/Pelvis CT 03/18/17 0000 Signed Impressions: Service Date/Time: Saturday, March 18, 2017 21:24 - CONCLUSION: 1. Left renal calcified stones, smaller than on prior examination and without hydronephrosis. 2. Bilateral lower lung basilar consolidation or atelectasis. 3. No evidence of ascites or abscess. 4. Balloon tip catheter, possibly a Anguiano catheter, located within the vagina. Gerry Mcclendon MD Objective Remarks GENERAL: Chronically ill-appearing female, in a vegetative state. Bilateral upper and lower extremity contractures. CARDIOVASCULAR: Regular rate and rhythm without murmurs RESPIRATORY: Bilateral and diffuse rhonchi. Trach with copious amount of secretions. GASTROINTESTINAL: Abdomen soft. Mildly distended. Active bowel sounds. rash noted around peg tube but no signs of drainage or overt infection. MUSCULOSKELETAL: Bilateral upper and lower extremity contractures. NEUROLOGICAL: Nonverbal, noninteractive. Right eye open A/P Assessment and Plan 46 Y/O female in a vegetative state readmitted for another episode of sepsis secondary to pneumonia and UTI Severe sepsis: Suspected pneumonia/UTI ID following, reviewed notes from Dr. Cervantes, on meropenem at this point. s/ p vancomycin/ azithromycin. History of extensive ESBL infections previously. Recent PNA, PSAE, ESBL+ Kleb, Proteus in recent sputum clx. - Sputum culture growing Pseudomonas. Per previous discussion w Dr. Cervantes. patient is likely colonized. No plans to discharge her on antibiotics. however yesterday pt having temps 99 axillary. Blood cx were ordered and neg x 1 day thus far. continue IV abx for now per ID recs. f/u final blood cx results. Hypertension: Uncontrolled. lisinopril to 20 mg BID, currently on metoprolol 100 mgTID, added amlodipine 5mg po daily . Patient was initially hypotensive in the ED. BP now elevated. PRN clonidine ordered. Severe Traumatic brain injury/Seizure disorder: In a vegetative state with complications such as above - Palliative care following to help family with goals of care - Tube feeding Respiratory failure/Trach dependent: -Continue O2 via trach collar. Breathing treatments as needed Hypokalemia: Recheck and replete as indicated. Prophylaxis: SCDs, Heparin/ pepcid Discharge Planning monitor BP's f/u blood cx, awaiting final recs from Torrie Li MD Mar 26, 2017 15:26
[2017-03-26] MEDS: amLODIPine BESYLATE 5 MG TAB PO SCH (16:35)
[2017-03-26] MEDS: IBUPROFEN SUSP 100 MG/5 ML UDC G-TUBE PRN (16:39)
[2017-03-27] VITALS (9 sets, daily range): BP systolic 140–196; BP diastolic 78–88; PULSE 90–126; RESP 18–22; TEMP 96.6–99.9; O2SAT 96–99
[2017-03-27] MEDS: cloNIDine HCL 0.1 MG TAB PO PRN (00:34)
[2017-03-27] MEDS: IBUPROFEN SUSP 100 MG/5 ML UDC G-TUBE PRN ×2 (00:35→17:11)
[2017-03-27] MEDS: guaiFENesin SOLUTION 200 MG/10 ML CUP PEG SCH ×3 (05:10→21:52)
[2017-03-27] MEDS: ARTIFICIAL TEARS OPTH OINT 3.5 APPLIC/3.5 GM TUBO LEFT EYE SCH ×3 (05:10→21:52)
[2017-03-27] MEDS: MEROPENEM INJ 1,000 MG in SODIUM CHLORIDE 0.9% INJ 100 ML IV SCH ×3 (05:10→22:00)
[2017-03-27] MEDS: METOPROLOL TARTRATE 100 MG TAB G-TUBE SCH ×3 (07:30→17:10)
[2017-03-27] MEDS: VALPROIC ACID SYRUP 250 MG/5 ML UDC G-TUBE SCH ×2 (09:42→21:50)
[2017-03-27] MEDS: amLODIPine BESYLATE 5 MG TAB PO SCH (09:43)
[2017-03-27] MEDS: BACLOFEN 20 MG TAB PEG SCH ×3 (09:43→17:11)
[2017-03-27] MEDS: LISINOPRIL 20 MG TAB G-TUBE SCH ×2 (09:43→21:51)
[2017-03-27] MEDS: BISACODYL EC 5 MG TABEC PO SCH ×2 (09:43→21:50)
[2017-03-27] MEDS: levETIRAcetam 500 MG/5 ML UDC G-TUBE SCH ×2 (09:43→21:47)
[2017-03-27] MEDS: SODIUM CHLORIDE 0.9% FLUSH 10 ML FLUSH IV FLUSH SCH ×2 (09:44→21:53)
[2017-03-27] MEDS: FAMOTIDINE 20 MG TAB SCH ×2 (09:44→21:51)
[2017-03-27] MEDS: AMANTADINE HCL SOLN 100 MG/10 ML UDC G-TUBE SCH ×2 (09:44→21:53)
[2017-03-27] MEDS: HEPARIN SODIUM - SQ 10,000 UNITS/ML VIAL SQ SCH ×2 (09:46→21:52)
[2017-03-27] MEDS ORDERED: amLODIPine BESYLATE 5 MG TAB PO ONE (11:30)
--- NOTE | 2017-03-27 12:13 | HHI.PR ---
Subjective Remarks non verbal Objective Vitals Vital Signs Date Time Temp Pulse Resp B/P (MAP) Pulse Ox O2 Delivery O2 Flow Rate FiO2 03/27/17 08:00 98.6 126 22 190/78 (115) 98 03/27/17 07:07 96.6 121 21 189/87 (121) 99 03/27/17 04:50 98.9 99 18 140/80 (100) 98 03/27/17 00:46 99.2 112 18 195/83 (120) 99 03/26/17 20:00 57 03/26/17 20:00 97.8 92 18 152/65 (94) 99 03/26/17 18:05 99.0 03/26/17 16:00 99.1 117 21 178/73 (108) 98 I/O 03/26/17 03/26/17 03/26/17 03/27/17 03/27/17 03/27/17 07:00 15:00 23:00 07:00 15:00 23:00 Intake Total 856 ml 100 ml 1233 ml 1007 ml Balance 856 ml 100 ml 1233 ml 1007 ml Intake Oral 0 ml IV Total 200 ml 100 ml 100 ml Tube Feeding 656 ml 653 ml 607 ml Tube Irrigant 480 ml 400 ml # Voids 3 5 4 # Bowel Movements 0 Result Diagram: 03/24/17 0511 03/27/17 0810 Imaging Last Impressions Chest X-Ray 03/25/17 0000 Signed Impressions: Service Date/Time: Saturday, March 25, 2017 13:17 - CONCLUSION: 1. No acute cardiopulmonary findings. The lungs are clear. Lee Baker MD Chest CT 03/18/17 0000 Signed Impressions: Service Date/Time: Saturday, March 18, 2017 21:26 - CONCLUSION: Bilateral lower lung dependent consolidation or atelectasis. Gerry Mcclendon MD Abdomen/Pelvis CT 03/18/17 0000 Signed Impressions: Service Date/Time: Saturday, March 18, 2017 21:24 - CONCLUSION: 1. Left renal calcified stones, smaller than on prior examination and without hydronephrosis. 2. Bilateral lower lung basilar consolidation or atelectasis. 3. No evidence of ascites or abscess. 4. Balloon tip catheter, possibly a Anguiano catheter, located within the vagina. Gerry Mcclendon MD Objective Remarks GENERAL: Chronically ill-appearing female, in a vegetative state. Bilateral upper and lower extremity contractures. CARDIOVASCULAR: Regular rate and rhythm without murmurs RESPIRATORY: Bilateral and diffuse rhonchi. Trach with copious amount of secretions. GASTROINTESTINAL: Abdomen soft. Mildly distended. Active bowel sounds. rash noted around peg tube but no signs of drainage or overt infection. MUSCULOSKELETAL: Bilateral upper and lower extremity contractures. NEUROLOGICAL: Nonverbal, noninteractive. Right eye open A/P Assessment and Plan 46 Y/O female in a vegetative state readmitted for another episode of sepsis secondary to pneumonia and UTI Severe sepsis: Suspected pneumonia/UTI ID following, reviewed notes from Dr. Cervantes, on meropenem at this point. s/ p vancomycin/ azithromycin. History of extensive ESBL infections previously. Recent PNA, PSAE, ESBL+ Kleb, Proteus in recent sputum clx. - Sputum culture growing Pseudomonas. Per previous discussion w Dr. Cervantes. patient is likely colonized. No plans to discharge her on antibiotics. however has had temps 99 axillary. Blood cx gram + cocci (1 out of 4 bottles). continue IV abx for now per ID recs. f/u final blood cx results. Hypertension: Uncontrolled. lisinopril to 20 mg BID, currently on metoprolol 100 mgTID, increased amlodipine 10mg po daily . Patient was initially hypotensive in the ED. BP now elevated. PRN clonidine ordered. Yesterday pt only got 2 dose out of 3 of the BB. Severe Traumatic brain injury/Seizure disorder: In a vegetative state with complications such as above - Palliative care following to help family with goals of care - Tube feeding Respiratory failure/Trach dependent: -Continue O2 via trach collar. Breathing treatments as needed Hypokalemia: Recheck and replete as indicated. Prophylaxis: SCDs, Heparin/ pepcid Discharge Planning monitor BP's f/u blood cx until final, awaiting final recs from Torrie Li MD Mar 27, 2017 12:13
[2017-03-27] MEDS: CLOTRIMAZOLE 1% CREAM 15 GM TOPICAL SCH ×3 (12:40→21:54)
--- NOTE | 2017-03-27 16:36 | HHI.PR ---
Addendum to Inpatient Note Additional Information pt seen around 1400 full note to follow dw RN low grade fever GPC in 3/4 blood clx start vancomycin dw case mngr not ready for d/c 2/2 new bacteremia Barbara Cervantes MD Mar 27, 2017 16:36
[2017-03-27] MEDS ORDERED: Vancomycin Consult Pharmacy 1 EA OTHER SCH (18:00)
[2017-03-27] MEDS ORDERED: VANCOMYCIN INJ 2,000 MG in SODIUM CHLORID 0.9% 500 ML INJ 500 ML IV ONE (18:00)
[2017-03-27] MEDS ORDERED: hydrALAZINE HCL 10 MG TAB PO PRN (18:30)
[2017-03-27] MEDS ORDERED: ENALAPRILAT 1.25 MG/ML VIAL IV PUSH PRN (18:30)
--- NOTE | 2017-03-27 23:22 | HHI.IDPN ---
Subjective Subjective Remarks pt seen around 1400 delayed entry Pt is having a low grade fever growing GPC in 3/4 blood clx Antibiotics meropenem Past Medical History anoxic encephalopathy Allergies: Coded Allergies: *MDRO Multi-Drug Resistant Organism (Verified Allergy, Unknown, 01/31/17) Acinetobacter baumannii Sputum 05/2013 CRAB 10/2013 MRSA PCR screen (nares) POSITIVE - 03/04/16 Objective . Vital Signs Date Time Temp Pulse Resp B/P (MAP) Pulse Ox O2 Delivery O2 Flow Rate FiO2 03/27/17 23:12 96 T-piece 6.00 28 03/27/17 20:29 99.8 90 21 193/88 (123) 99 03/27/17 16:00 99.8 107 21 169/81 (110) 97 03/27/17 12:00 99.9 99 20 196/88 (124) 99 03/27/17 10:30 98 T-piece 28 03/27/17 08:00 98.6 126 22 190/78 (115) 98 03/27/17 07:07 96.6 121 21 189/87 (121) 99 03/27/17 04:50 98.9 99 18 140/80 (100) 98 03/27/17 00:46 99.2 112 18 195/83 (120) 99 03/27/17 03/27/17 03/28/17 15:00 23:00 07:00 Intake Total 753 ml Balance 753 ml Intake Oral 0 ml IV Total 100 ml Tube Feeding 653 ml # Voids 6 # Bowel Movements 0 . Laboratory Tests Test 03/27/17 08:10 Creatinine 0.51 MG/DL Estimat Glomerular Filtration Rate 131 ML/MIN Microbiology Date/Time Source Procedure Growth Status 03/25/17 13:12 Blood Peripheral Aerobic Blood Culture - Preliminary Gram Positive Cocci Resulted 03/25/17 13:12 Anaerobic Blood Culture - Preliminary Gram Positive Cocci Resulted 03/25/17 13:02 Blood Peripheral Aerobic Blood Culture - Preliminary NO GROWTH IN 2 DAYS Resulted 03/25/17 13:02 Anaerobic Blood Culture - Preliminary Staph Sp Coagulase Negative Resulted 03/25/17 16:00 Sputum Endotracheal Gram Stain - Final Complete 03/25/17 16:00 Sputum Culture - Final Pseudomonas Aeruginosa Complete 03/25/17 16:15 Urine Catheterized Urine Urine Culture - Final NO GROWTH IN 48 HOURS. Complete Imaging Last Impressions Chest X-Ray 03/25/17 0000 Signed Impressions: Service Date/Time: Saturday, March 25, 2017 13:17 - CONCLUSION: 1. No acute cardiopulmonary findings. The lungs are clear. Lee Baker MD Chest CT 03/18/17 0000 Signed Impressions: Service Date/Time: Saturday, March 18, 2017 21:26 - CONCLUSION: Bilateral lower lung dependent consolidation or atelectasis. Gerry Mcclendon MD Abdomen/Pelvis CT 03/18/17 0000 Signed Impressions: Service Date/Time: Saturday, March 18, 2017 21:24 - CONCLUSION: 1. Left renal calcified stones, smaller than on prior examination and without hydronephrosis. 2. Bilateral lower lung basilar consolidation or atelectasis. 3. No evidence of ascites or abscess. 4. Balloon tip catheter, possibly a Anguiano catheter, located within the vagina. Gerry Mcclendon MD Physical Exam CONSTITUTIONAL/GENERAL: This is an adequately nourished patient, in no apparent distress. TUBES/LINES/DRAINS: SKIN: No jaundice, rashes, or lesions. NECK: Trache in place, not much secretions. CARDIOVASCULAR: Regular rate and rhythm without murmurs, gallops, or rubs. No JVD. Peripheral pulses symmetric. RESPIRATORY/CHEST: Symmetric, unlabored respirations. Clear to auscultation. Breath sounds equal bilaterally. No wheezes, rales, or rhonchi. GASTROINTESTINAL: Abdomen soft, no reaction to palpation nondistended. No hepato -splenomegaly, or palpable masses. No guarding. Bowel sounds present. PEG in place GENITOURINARY: Without palpable bladder distension. MUSCULOSKELETAL: Extremities without clubbing, cyanosis, + some diffuse soft pitting edema. Contracted BUE and b/l foot drop No joint tenderness or effusion noted. No mottling or clubbing. NEUROLOGICAL:Unresponsive. Not following commands. Eyes opened. No movements noted PSYCHIATRIC: unable to assess Assessment & Plan Remarks Proteus mirabilis UTI Sepsis - clincially resolved Fever, leukocytosis - resolved PNA , B/b consolidations: resolved - PSAE, MDRO S to tobramycin only, but clinically responded to current tx - this MDRO PSAE i s likely a coloniser - flu/ leg/oenumococcus are negative - Recent PNA, PSAE, ESBL+ Kleb, Proteus in recent sputum clx Persistent vegetative state New problem: high grade coag neg staph bacteremia Rec's: - cont meropenem - cfu blood clx - start vancomycin not ready for d/c 2/2 new bacteremia dw case mngr dw Barbara Hall MD Mar 27, 2017 23:22
[2017-03-28] VITALS (11 sets, daily range): BP systolic 110–188; BP diastolic 64–108; PULSE 59–120; RESP 17–21; TEMP 99.1–99.5; O2SAT 95–99
[2017-03-28] MEDS: MEROPENEM INJ 1,000 MG in SODIUM CHLORIDE 0.9% INJ 100 ML IV SCH ×3 (05:09→21:58)
[2017-03-28] MEDS: guaiFENesin SOLUTION 200 MG/10 ML CUP PEG SCH ×3 (05:09→21:57)
[2017-03-28] MEDS: CLOTRIMAZOLE 1% CREAM 15 GM TOPICAL SCH ×3 (05:15→21:59)
[2017-03-28] MEDS: ARTIFICIAL TEARS OPTH OINT 3.5 APPLIC/3.5 GM TUBO LEFT EYE SCH ×3 (05:15→21:59)
[2017-03-28] MEDS: LISINOPRIL 20 MG TAB G-TUBE SCH ×2 (08:25→21:56)
[2017-03-28] MEDS: BISACODYL EC 5 MG TABEC PO SCH ×2 (08:25→21:55)
[2017-03-28] MEDS: FAMOTIDINE 20 MG TAB SCH ×2 (08:25→21:55)
[2017-03-28] MEDS: amLODIPine BESYLATE 5 MG TAB PO SCH (08:25)
[2017-03-28] MEDS: METOPROLOL TARTRATE 100 MG TAB G-TUBE SCH ×3 (08:26→16:14)
[2017-03-28] MEDS: VALPROIC ACID SYRUP 250 MG/5 ML UDC G-TUBE SCH ×2 (08:26→21:57)
[2017-03-28] MEDS: HEPARIN SODIUM - SQ 10,000 UNITS/ML VIAL SQ SCH ×2 (08:26→21:58)
[2017-03-28] MEDS: IBUPROFEN SUSP 100 MG/5 ML UDC G-TUBE PRN ×2 (08:26→16:14)
[2017-03-28] MEDS: BACLOFEN 20 MG TAB PEG SCH ×3 (08:26→16:14)
[2017-03-28] MEDS: AMANTADINE HCL SOLN 100 MG/10 ML UDC G-TUBE SCH ×2 (08:27→21:56)
[2017-03-28] MEDS: levETIRAcetam 500 MG/5 ML UDC G-TUBE SCH ×2 (08:27→21:56)
[2017-03-28] MEDS: SODIUM CHLORIDE 0.9% FLUSH 10 ML FLUSH IV FLUSH SCH ×2 (08:27→21:57)
--- NOTE | 2017-03-28 12:09 | HHI.PR ---
Subjective Remarks Written by Oliva [place], acting as scribe for Dr. Renee on 03/28/17 at 1209. Follow up sepsis, PNA and UTI. Patient seen and examined today. Lying in bed nonverbal, does not appear to be in distress. No reports of any change overnight. Afebrile. Objective Vitals Vital Signs Date Time Temp Pulse Resp B/P (MAP) Pulse Ox O2 Delivery O2 Flow Rate FiO2 03/28/17 09:30 143/93 (110) 03/28/17 08:00 99.5 120 19 188/108 (134) 97 03/28/17 04:55 99.1 107 18 110/81 (91) 99 03/28/17 03:32 84 03/28/17 00:40 99.4 86 21 162/72 (102) 99 03/27/17 23:12 96 T-piece 6.00 28 03/27/17 20:29 99.8 90 21 193/88 (123) 99 03/27/17 16:00 99.8 107 21 169/81 (110) 97 I/O 03/27/17 03/27/17 03/27/17 03/28/17 03/28/17 03/28/17 07:00 15:00 23:00 07:00 15:00 23:00 Intake Total 1007 ml 753 ml 720 ml Balance 1007 ml 753 ml 720 ml Intake Oral 0 ml IV Total 100 ml 720 ml Tube Feeding 607 ml 653 ml Tube Irrigant 400 ml # Voids 4 6 5 # Bowel Movements 0 0 Result Diagram: 03/24/17 0511 03/27/17 0810 Imaging Last Impressions Chest X-Ray 03/25/17 0000 Signed Impressions: Service Date/Time: Saturday, March 25, 2017 13:17 - CONCLUSION: 1. No acute cardiopulmonary findings. The lungs are clear. Lee Baker MD Chest CT 03/18/17 0000 Signed Impressions: Service Date/Time: Saturday, March 18, 2017 21:26 - CONCLUSION: Bilateral lower lung dependent consolidation or atelectasis. Gerry Mcclendon MD Abdomen/Pelvis CT 03/18/17 0000 Signed Impressions: Service Date/Time: Saturday, March 18, 2017 21:24 - CONCLUSION: 1. Left renal calcified stones, smaller than on prior examination and without hydronephrosis. 2. Bilateral lower lung basilar consolidation or atelectasis. 3. No evidence of ascites or abscess. 4. Balloon tip catheter, possibly a Anguiano catheter, located within the vagina. Gerry Mcclendon MD Objective Remarks GENERAL: Chronically ill-appearing female, in a vegetative state. Bilateral upper and lower extremity contractures. CARDIOVASCULAR: Regular rate and rhythm without murmurs. S1 and S2 present. RESPIRATORY: Bilateral and diffuse rhonchi. Trach with copious amount of secretions. GASTROINTESTINAL: Abdomen soft. Mildly distended. Active bowel sounds. rash noted around peg tube but no signs of drainage or overt infection. MUSCULOSKELETAL: Bilateral upper and lower extremity contractures. NEUROLOGICAL: Nonverbal, noninteractive. Right eye open A/P Assessment and Plan 46 Y/O female in a vegetative state readmitted for another episode of sepsis secondary to pneumonia and UTI Severe sepsis: Suspected pneumonia/UTI ID following, reviewed notes from Dr. Cervantes, on meropenem at this point with addition to Vancomycin growing high grade coag negative staph bacteremia. History of extensive ESBL infections previously. Recent PNA, PSAE, ESBL+ Kleb, Proteus in recent sputum clx. - Sputum culture growing Pseudomonas. Temps 99 axillary. Continue IV abx per ID recs. F/u final blood cx results. - Urine culture NGTD. Hypertension: BP trends reviewed, improving. Continue Lisinopril to 20 mg BID, metoprolol 100 mg TID, amlodipine 10mg po daily. Patient was initially hypotensive in the ED. PRN clonidine ordered. Severe Traumatic brain injury/Seizure disorder: In a vegetative state with complications such as above - Palliative care following to help family with goals of care. - Continue Tube feeding Respiratory failure/Trach dependent: Continue O2 via trach collar. Breathing treatments as needed Hypokalemia: Resolved. Recheck and replete as indicated. Prophylaxis: SCDs, Heparin/ Pepcid This note was transcribed by dusty [place]. I, Dr. Torrie Renee personally performed the history, physical exam, and medical decision making; and confirmed the accuracy of the information in the transcribed note. Authenticated by Dr. Torrie Renee on 03/28/17 at 1209. Oliva [place] Mar 28, 2017 12:09 Torrie Renee MD Mar 28, 2017 18:37
[2017-03-28] MEDS: VANCOMYCIN INJ 1,500 MG in SODIUM CHLORID 0.9% 500 ML INJ 500 ML IV SCH (12:19)
[2017-03-29] VITALS (9 sets, daily range): BP systolic 131–184; BP diastolic 61–90; PULSE 63–112; RESP 16–21; TEMP 97.3–99.9; O2SAT 95–99
[2017-03-29] MEDS: MEROPENEM INJ 1,000 MG in SODIUM CHLORIDE 0.9% INJ 100 ML IV SCH ×3 (05:53→21:46)
[2017-03-29] MEDS: VANCOMYCIN INJ 1,500 MG in SODIUM CHLORID 0.9% 500 ML INJ 500 ML IV SCH (05:54)
[2017-03-29] MEDS: ARTIFICIAL TEARS OPTH OINT 3.5 APPLIC/3.5 GM TUBO LEFT EYE SCH ×3 (05:55→21:52)
[2017-03-29] MEDS: guaiFENesin SOLUTION 200 MG/10 ML CUP PEG SCH ×3 (05:55→21:49)
[2017-03-29] MEDS: CLOTRIMAZOLE 1% CREAM 15 GM TOPICAL SCH ×3 (05:55→21:52)
[2017-03-29] MEDS: SODIUM CHLORIDE 0.9% FLUSH 10 ML FLUSH IV FLUSH SCH ×2 (09:00→21:51)
[2017-03-29] MEDS: FAMOTIDINE 20 MG TAB SCH ×2 (09:24→21:51)
[2017-03-29] MEDS: METOPROLOL TARTRATE 100 MG TAB G-TUBE SCH ×3 (09:25→17:43)
[2017-03-29] MEDS: BACLOFEN 20 MG TAB PEG SCH ×3 (09:25→17:42)
[2017-03-29] MEDS: BISACODYL EC 5 MG TABEC PO SCH ×2 (09:25→21:51)
[2017-03-29] MEDS: LISINOPRIL 20 MG TAB G-TUBE SCH ×2 (09:25→21:51)
[2017-03-29] MEDS: amLODIPine BESYLATE 5 MG TAB PO SCH (09:25)
[2017-03-29] MEDS: VALPROIC ACID SYRUP 250 MG/5 ML UDC G-TUBE SCH ×2 (09:26→21:51)
[2017-03-29] MEDS: levETIRAcetam 500 MG/5 ML UDC G-TUBE SCH ×2 (09:26→21:50)
[2017-03-29] MEDS: HEPARIN SODIUM - SQ 10,000 UNITS/ML VIAL SQ SCH ×2 (09:26→21:52)
[2017-03-29] MEDS: AMANTADINE HCL SOLN 100 MG/10 ML UDC G-TUBE SCH ×2 (09:26→21:48)
--- NOTE | 2017-03-29 14:11 | HHI.HCPN ---
Spoke with patient's mother Ivis to provide additional support. She remains focused on finding Ms. Kirkland's son, Haile. She is requesting assistance with reaching out to their father (patient's ex) to obtain son's contact information. She is unable to provide contact information for "Tiffanie" at time of my call. Requests call back at a later time. Ivis denies any questions or concerns at this time other than above. She becomes appropriately tearful many times during conversation. At one point she tells me she is attempting to speak with Haile so "he can go see his mom as much as possible before next month". Further states "next month things are going to happen". In further exploration of this statement she tells me "I've been told this is not fair to Yandy". She does not elaborate on statement despite further questioning regarding thoughts and goals of care moving forward. Offered emotional support and provided active listening. At this time goals remain aggressive. She continues to wish to speak with Haile , patient's son. During previous admissions palliative care has assisted with attempting to locate Haile but efforts remained unsuccessful. Per mother's request will contact at a later time in an attempt to obtain contact information for Haile's father. Mother confirms she wishes for palliative care to reach out to him in an attempt to obtain contact information but wishes for him to have minimal information regarding Ms. Kirkland's hospitalization. Attempted to provide palliative care contact information but she states she is not able to take any information at this time. Palliative care will continue to follow throughout hospitalization. Jovita Nur, ROUGHENER Mar 29, 2017 14:11
[2017-03-29] MEDS: IBUPROFEN SUSP 100 MG/5 ML UDC G-TUBE PRN (17:43)
--- NOTE | 2017-03-29 18:23 | HHI.PR ---
Subjective Remarks Follow-up sepsis, respiratory failure. No changes per nursing. Patient remains nonverbal. Objective Vitals Vital Signs Date Time Temp Pulse Resp B/P (MAP) Pulse Ox O2 Delivery O2 Flow Rate FiO2 03/29/17 16:00 99.6 92 17 184/89 (120) 95 03/29/17 12:00 99.9 80 17 149/90 (109) 99 03/29/17 09:41 96 T-piece 28 03/29/17 09:30 112 03/29/17 08:00 97.3 112 16 131/61 (84) 96 03/29/17 04:39 98.8 83 18 144/66 (92) 99 03/29/17 00:05 99.2 82 21 162/72 (102) 99 03/28/17 23:16 59 03/28/17 22:21 96 T-piece 6.00 28 03/28/17 20:17 99.5 74 21 152/69 (96) 99 I/O 03/28/17 03/28/17 03/28/17 03/29/17 03/29/17 03/29/17 06:59 14:59 22:59 06:59 14:59 22:59 Intake Total 1384 ml 515 ml 883 ml 615 ml Balance 1384 ml 515 ml 883 ml 615 ml Intake Oral 0 ml IV Total 720 ml 515 ml 200 ml 615 ml Tube Feeding 664 ml 683 ml # Voids 5 5 6 # Bowel Movements 0 1 Result Diagram: 03/29/17 0932 Imaging Last Impressions Chest X-Ray 03/25/17 0000 Signed Impressions: Service Date/Time: Saturday, March 25, 2017 13:17 - CONCLUSION: 1. No acute cardiopulmonary findings. The lungs are clear. Lee Baker MD Chest CT 03/18/17 0000 Signed Impressions: Service Date/Time: Saturday, March 18, 2017 21:26 - CONCLUSION: Bilateral lower lung dependent consolidation or atelectasis. Gerry Mcclendon MD Abdomen/Pelvis CT 03/18/17 0000 Signed Impressions: Service Date/Time: Saturday, March 18, 2017 21:24 - CONCLUSION: 1. Left renal calcified stones, smaller than on prior examination and without hydronephrosis. 2. Bilateral lower lung basilar consolidation or atelectasis. 3. No evidence of ascites or abscess. 4. Balloon tip catheter, possibly a Anguiano catheter, located within the vagina. Gerry Mcclendon MD Objective Remarks General: No acute distress. Heart: Regular rate and rhythm. No murmur. Lungs: Coarse breath sounds bilaterally. Tracheostomy. Abdomen: Soft, nontender, nondistended. Extremities: Trace bilateral lower extremity edema. Bilateral upper and lower extremity contractures noted. Psych: Vegetative state, nonverbal. Urinary Catheter: No Vascular Central Line Catheter: No A/P Assessment and Plan 1. Sepsis: Source suspected to be pneumonia, UTI. Appreciate infectious disease recommendations. Continue antibiotics. History of extensive ESBL infections previously. Sputum culture growing Pseudomonas. Repeat blood cultures ordered today. 2. Respiratory failure: Patient is trach dependent. Continue oxygen via trach collar. Bronchodilators as needed. 3. Hypertension: Improving. Continue lisinopril, metoprolol, amlodipine. 4. Traumatic brain injury, seizure disorder: Patient is a chronic vegetative state. Palliative care assistance appreciated. Continue tube feeds. 5. Hypokalemia: Resolved. 6. DVT prophylaxis: SCDs, heparin. 7. GI prophylaxis: Pepcid. Wes Jorge MD Mar 29, 2017 18:23
[2017-03-29] MEDS ORDERED: PHARMACY ORDERED LAB ONE (23:45)
[2017-03-30] VITALS (7 sets, daily range): BP systolic 132–178; BP diastolic 72–92; PULSE 68–100; RESP 17–21; TEMP 98.1–99; O2SAT 98
[2017-03-30] MEDS: VANCOMYCIN INJ 1,500 MG in SODIUM CHLORID 0.9% 500 ML INJ 500 ML IV SCH (00:39)
[2017-03-30 01:13] LABS: BICARBONATE 24.8 MEQ/L (21.0-32.0); POTASSIUM 4.1 MEQ/L (3.5-5.1)
[2017-03-30 01:14] LABS: VANCOMYCIN TROUGH 20.2 MCG/ML (5.0-10.0)
[2017-03-30] MEDS: guaiFENesin SOLUTION 200 MG/10 ML CUP PEG SCH ×3 (04:16→19:50)
[2017-03-30] MEDS: cloNIDine HCL 0.1 MG TAB PO PRN (04:16)
[2017-03-30] MEDS: MEROPENEM INJ 1,000 MG in SODIUM CHLORIDE 0.9% INJ 100 ML IV SCH ×2 (04:17→13:00)
[2017-03-30] MEDS: ARTIFICIAL TEARS OPTH OINT 3.5 APPLIC/3.5 GM TUBO LEFT EYE SCH ×3 (04:23→20:12)
[2017-03-30] MEDS: CLOTRIMAZOLE 1% CREAM 15 GM TOPICAL SCH ×3 (04:23→20:12)
[2017-03-30 07:33] LABS: AUTOMATED NEUTROPHIL # 4.1 TH/MM3 (1.8-7.7); BASOPHIL # 0.2 TH/MM3 (0-0.2); BASOPHIL % 1.6 % (0.0-2.0); EOSINOPHIL # 0.3 TH/MM3 (0-0.4); EOSINOPHIL % 2.7 % (0.0-4.0); HEMATOCRIT 36.6 % (35.0-46.0); HEMO FLAGS DIFF FINAL; LYMPH % 39.8 % (9.0-44.0); MEAN CELL VOLUME 89.2 FL (80.0-100.0); MEAN CORPUSCULAR HEMOGLOBIN 29.8 PG (27.0-34.0); MEAN CORPUSCULAR HGB CONC 33.4 % (32.0-36.0); MONO % 15.6 % (0.0-8.0); NEUT % 40.3 % (16.0-70.0); PLATELET COUNT 400 TH/MM3 (150-450); RED CELL DISTRIBUTION WIDTH 16.2 % (11.6-17.2); WHITE BLOOD COUNT 10.1 TH/MM3 (4.0-11.0)
[2017-03-30] MEDS: amLODIPine BESYLATE 5 MG TAB PO SCH (08:10)
[2017-03-30] MEDS: BISACODYL EC 5 MG TABEC PO SCH ×2 (08:11→19:48)
[2017-03-30] MEDS: LISINOPRIL 20 MG TAB G-TUBE SCH ×2 (08:11→19:47)
[2017-03-30] MEDS: FAMOTIDINE 20 MG TAB SCH ×2 (08:11→19:48)
[2017-03-30] MEDS: METOPROLOL TARTRATE 100 MG TAB G-TUBE SCH ×3 (08:12→17:11)
[2017-03-30] MEDS: levETIRAcetam 500 MG/5 ML UDC G-TUBE SCH ×2 (08:13→19:47)
[2017-03-30] MEDS: BACLOFEN 20 MG TAB PEG SCH ×3 (08:13→17:11)
[2017-03-30] MEDS: AMANTADINE HCL SOLN 100 MG/10 ML UDC G-TUBE SCH ×2 (08:13→19:49)
[2017-03-30] MEDS: VALPROIC ACID SYRUP 250 MG/5 ML UDC G-TUBE SCH ×2 (08:16→19:48)
[2017-03-30] MEDS: HEPARIN SODIUM - SQ 10,000 UNITS/ML VIAL SQ SCH ×2 (08:19→19:48)
[2017-03-30] MEDS: SODIUM CHLORIDE 0.9% FLUSH 10 ML FLUSH IV FLUSH SCH ×2 (08:30→19:50)
--- NOTE | 2017-03-30 13:23 | HHI.IDPN ---
Subjective Subjective Remarks pt is afebrile repeat BC is negative so far Antibiotics meropenem vancomycin Past Medical History anoxic encephalopathy Allergies: Coded Allergies: *MDRO Multi-Drug Resistant Organism (Verified Allergy, Unknown, 01/31/17) Acinetobacter baumannii Sputum 05/2013 CRAB 10/2013 MRSA PCR screen (nares) POSITIVE - 03/04/16 Objective . Vital Signs Date Time Temp Pulse Resp B/P (MAP) Pulse Ox O2 Delivery O2 Flow Rate FiO2 03/30/17 12:00 98.6 78 17 134/79 (97) 98 03/30/17 08:00 98.1 91 17 175/76 (109) 98 03/30/17 04:17 99.0 100 21 178/85 (116) 98 03/30/17 00:05 98.6 80 20 132/78 (96) 98 03/29/17 20:15 99.1 90 20 138/81 (100) 99 03/29/17 19:35 63 03/29/17 16:00 99.6 92 17 184/89 (120) 95 03/30/17 03/30/17 03/31/17 14:59 22:59 06:59 # Voids 1 . Laboratory Tests Test 03/30/17 07:11 White Blood Count 10.1 TH/MM3 Red Blood Count 4.10 MIL/MM3 Hemoglobin 12.2 GM/DL Hematocrit 36.6 % Mean Corpuscular Volume 89.2 FL Mean Corpuscular Hemoglobin 29.8 PG Mean Corpuscular Hemoglobin Concent 33.4 % Red Cell Distribution Width 16.2 % Platelet Count 400 TH/MM3 Mean Platelet Volume 9.4 FL Neutrophils (%) (Auto) 40.3 % Lymphocytes (%) (Auto) 39.8 % Monocytes (%) (Auto) 15.6 % Eosinophils (%) (Auto) 2.7 % Basophils (%) (Auto) 1.6 % Neutrophils # (Auto) 4.1 TH/MM3 Lymphocytes # (Auto) 4.0 TH/MM3 Monocytes # (Auto) 1.6 TH/MM3 Eosinophils # (Auto) 0.3 TH/MM3 Basophils # (Auto) 0.2 TH/MM3 CBC Comment DIFF FINAL Differential Comment Laboratory Tests Test 03/29/17 09:32 03/29/17 23:45 Creatinine 0.52 MG/DL 0.47 MG/DL Estimat Glomerular Filtration Rate 128 ML/MIN 144 ML/MIN Blood Urea Nitrogen 19 MG/DL Random Glucose 102 MG/DL Calcium Level 10.0 MG/DL Sodium Level 139 MEQ/L Potassium Level 4.1 MEQ/L Chloride Level 107 MEQ/L Carbon Dioxide Level 24.8 MEQ/L Anion Gap 7 MEQ/L Microbiology Date/Time Source Procedure Growth Status 03/29/17 13:42 Blood Peripheral Aerobic Blood Culture - Preliminary NO GROWTH IN 1 DAY Resulted 03/29/17 13:42 Blood Peripheral Anaerobic Blood Culture - Preliminary NO GROWTH IN 1 DAY Resulted 03/29/17 13:35 Blood Peripheral Aerobic Blood Culture - Preliminary NO GROWTH IN 1 DAY Resulted 03/29/17 13:35 Blood Peripheral Anaerobic Blood Culture - Preliminary NO GROWTH IN 1 DAY Resulted Imaging Last Impressions Chest X-Ray 03/25/17 0000 Signed Impressions: Service Date/Time: Saturday, March 25, 2017 13:17 - CONCLUSION: 1. No acute cardiopulmonary findings. The lungs are clear. Lee Baker MD Chest CT 03/18/17 0000 Signed Impressions: Service Date/Time: Saturday, March 18, 2017 21:26 - CONCLUSION: Bilateral lower lung dependent consolidation or atelectasis. Gerry Mcclendon MD Abdomen/Pelvis CT 03/18/17 0000 Signed Impressions: Service Date/Time: Saturday, March 18, 2017 21:24 - CONCLUSION: 1. Left renal calcified stones, smaller than on prior examination and without hydronephrosis. 2. Bilateral lower lung basilar consolidation or atelectasis. 3. No evidence of ascites or abscess. 4. Balloon tip catheter, possibly a Anguiano catheter, located within the vagina. Gerry Mcclendon MD Physical Exam CONSTITUTIONAL/GENERAL: This is an adequately nourished patient, in no apparent distress. TUBES/LINES/DRAINS: SKIN: No jaundice, rashes, or lesions. NECK: Trache in place, not much secretions. CARDIOVASCULAR: Regular rate and rhythm without murmurs, gallops, or rubs. No JVD. Peripheral pulses symmetric. RESPIRATORY/CHEST: Symmetric, unlabored respirations. Clear to auscultation. Breath sounds equal bilaterally. No wheezes, rales, or rhonchi. GASTROINTESTINAL: Abdomen soft, no reaction to palpation nondistended. No hepato -splenomegaly, or palpable masses. No guarding. Bowel sounds present. PEG in place GENITOURINARY: Without palpable bladder distension. MUSCULOSKELETAL: Extremities without clubbing, cyanosis, +1 diffuse soft pitting edema. Contracted BUE and b/l foot drop No joint tenderness or effusion noted. No mottling or clubbing. NEUROLOGICAL: Awake Opens eyes and makes eye contact. No movements noted PSYCHIATRIC: appears somewhat anxious Assessment & Plan Remarks Proteus mirabilis UTI Sepsis - clincially resolved Fever, leukocytosis - resolved PNA , B/b consolidations: resolved - PSAE, MDRO S to tobramycin only, but clinically responded to current tx - this MDRO PSAE i s likely a coloniser - flu/ leg/oenumococcus are negative - Recent PNA, PSAE, ESBL+ Kleb, Proteus in recent sputum clx Persistent vegetative state New problem: high grade coag neg staph bacteremia Rec's: - dc meropenem - fu repeat blood clx untill final - cont vancomycin for total of 10 days OK to dc to complete abx as o/p Barbara Cervantes MD Mar 30, 2017 13:23
--- NOTE | 2017-03-30 13:27 | HHI.PR ---
Subjective Remarks Follow-up sepsis, respiratory failure. No change reported. Still nonverbal, does not track. Objective Vitals Vital Signs Date Time Temp Pulse Resp B/P (MAP) Pulse Ox O2 Delivery O2 Flow Rate FiO2 03/30/17 12:00 98.6 78 17 134/79 (97) 98 03/30/17 08:00 98.1 91 17 175/76 (109) 98 03/30/17 04:17 99.0 100 21 178/85 (116) 98 03/30/17 00:05 98.6 80 20 132/78 (96) 98 03/29/17 20:15 99.1 90 20 138/81 (100) 99 03/29/17 19:35 63 03/29/17 16:00 99.6 92 17 184/89 (120) 95 I/O 03/29/17 03/29/17 03/29/17 03/30/17 03/30/17 03/30/17 07:00 15:00 23:00 07:00 15:00 23:00 Intake Total 715 ml 300 ml 1061 ml 433 ml Balance 715 ml 300 ml 1061 ml 433 ml Intake Oral 0 ml IV Total 715 ml 700 ml Tube Feeding 300 ml 361 ml 433 ml # Voids 6 6 5 1 # Bowel Movements 0 Result Diagram: 03/30/17 0711 03/29/17 2345 Imaging Last Impressions Chest X-Ray 03/25/17 0000 Signed Impressions: Service Date/Time: Saturday, March 25, 2017 13:17 - CONCLUSION: 1. No acute cardiopulmonary findings. The lungs are clear. Lee Baker MD Chest CT 03/18/17 0000 Signed Impressions: Service Date/Time: Saturday, March 18, 2017 21:26 - CONCLUSION: Bilateral lower lung dependent consolidation or atelectasis. Gerry Mcclendon MD Abdomen/Pelvis CT 03/18/17 0000 Signed Impressions: Service Date/Time: Saturday, March 18, 2017 21:24 - CONCLUSION: 1. Left renal calcified stones, smaller than on prior examination and without hydronephrosis. 2. Bilateral lower lung basilar consolidation or atelectasis. 3. No evidence of ascites or abscess. 4. Balloon tip catheter, possibly a Anguiano catheter, located within the vagina. Gerry Mcclendon MD Objective Remarks General: No acute distress. Heart: Regular rate and rhythm. No murmur. Lungs: Coarse breath sounds bilaterally. Tracheostomy. Abdomen: Soft, nontender, nondistended. Extremities: Trace bilateral lower extremity edema. Bilateral upper and lower extremity contractures noted. Psych: Vegetative state, nonverbal. Does not track or follow commands. Procedures None Urinary Catheter: No Vascular Central Line Catheter: No A/P Assessment and Plan 1. Sepsis: Source suspected to be pneumonia, UTI. Appreciate infectious disease recommendations. Continue antibiotics. History of extensive ESBL infections previously. Sputum culture growing Pseudomonas. Repeat blood cultures from 03/29 are negative so far. 2. Respiratory failure: Patient is trach dependent. Continue oxygen via trach collar. Bronchodilators as needed. 3. Hypertension: Continue lisinopril, metoprolol, amlodipine. 4. Traumatic brain injury, seizure disorder: Patient is a chronic vegetative state. Palliative care assistance appreciated. Continue tube feeds. 5. Hypokalemia: Resolved. 6. DVT prophylaxis: SCDs, heparin. 7. GI prophylaxis: Pepcid. Wes Jorge MD Mar 30, 2017 13:27
--- NOTE | 2017-03-30 13:27 | HHI.FF ---
Infusion Therapy Location of Infusion Therapy: [facility] Infusion Therapy Order Patient Information Patient Weight 78 kg Diagnosis: Diagnosis coag negative staph bactermia Coded Allergies: *MDRO Multi-Drug Resistant Organism (Verified Allergy, Unknown, 01/31/17) Acinetobacter baumannii Sputum 05/2013 CRAB 10/2013 MRSA PCR screen (nares) POSITIVE - 03/04/16 Administer Medication Vancomycin 1.5 grams IV q 24 hours Start Treatment: Mar 30, 2017 Stop Treatment: Apr 06, 2017 Additional Information Venous access: PICC Line Additional Instructions [x] Peripheral flush and dressing changes per protocol [x] Implanted port and central line cook: * Implanted port: 10 ml Normal Saline followed by 5 ml Heparin 100 units/ml Heparin flush after each use and monthly to maintain. [] May leave port accessed during therapy. [] May leave peripheral site accessed for duration of therapy. [x] If patient has SOB or respiratory distress, check oxygen saturation. If less than 90% or clinical signs of respiratory distress, administer oxygen at 2 L/min. via nasal cannula and notify physician. [x] Anaphylaxis/Reaction orders: * Stop infusion. * Keep IV line open with saline flush. * Notify physician. * Monitor vital signs every 15 minutes until symptoms resolve. * Check Oxygen saturation; Oxygen at 2 L/min. via nasal cannula if less than 90% or clinical signs of respiratory distress. * Administer diphenhydramine (Benadryl) 25 mg IV STAT, (unless patient has received as pre-med). May repeat once, if necessary. * Solu-Cortef 250 mg IVP over 30-60 seconds, use 100 mg vials for each dissolution. * Epinephrine (1mg/1 ml) 0.3 mg subcutaneously or IVP now with any signs of respiratory distress. * Check with physician for new additional pre-med orders if patient is re- challenged or re-treated. [x] May remove PICC line when treatment complete, after confirming with Physician. [x] If the patient is admitted to the hospital, the ED, or transferred via [facility] , complete transfer form including medication reconciliation order sheet. Laboratory Tests Weekly Labs: CBC w/diff, Creatinine, Vancomycin Trough Barbara Cervantes MD Mar 30, 2017 13:27
[2017-03-30] MEDS ORDERED: EPIN1INJ21 SQ (13:36)
[2017-03-30] MEDS ORDERED: EPIN1INJ21 IV PUSH (13:36)
[2017-03-30] MEDS ORDERED: VANC10IN IV (13:36)
[2017-03-30] MEDS ORDERED: SOLU250I IV PUSH (13:36)
[2017-03-30] MEDS: VANCOMYCIN INJ 1,400 MG in SODIUM CHLORID 0.9% 500 ML INJ 500 ML IV SCH (17:11)
[2017-03-31] VITALS (7 sets, daily range): BP systolic 100–140; BP diastolic 45–97; PULSE 75–104; RESP 16–20; TEMP 97.9–99.1; O2SAT 91–98
[2017-03-31] MEDS: guaiFENesin SOLUTION 200 MG/10 ML CUP PEG SCH ×2 (04:05→12:53)
[2017-03-31] MEDS: ARTIFICIAL TEARS OPTH OINT 3.5 APPLIC/3.5 GM TUBO LEFT EYE SCH ×2 (04:05→12:54)
[2017-03-31] MEDS: CLOTRIMAZOLE 1% CREAM 15 GM TOPICAL SCH ×2 (04:06→12:54)
[2017-03-31] MEDS: BISACODYL EC 5 MG TABEC PO SCH (08:30)
[2017-03-31] MEDS: SODIUM CHLORIDE 0.9% FLUSH 10 ML FLUSH IV FLUSH SCH (08:30)
[2017-03-31] MEDS: METOPROLOL TARTRATE 100 MG TAB G-TUBE SCH ×2 (08:30→12:52)
[2017-03-31] MEDS: LISINOPRIL 20 MG TAB G-TUBE SCH (08:30)
[2017-03-31] MEDS: VALPROIC ACID SYRUP 250 MG/5 ML UDC G-TUBE SCH (08:30)
[2017-03-31] MEDS: AMANTADINE HCL SOLN 100 MG/10 ML UDC G-TUBE SCH (08:30)
[2017-03-31] MEDS: amLODIPine BESYLATE 5 MG TAB PO SCH (08:30)
[2017-03-31] MEDS: FAMOTIDINE 20 MG TAB SCH (08:30)
[2017-03-31] MEDS: levETIRAcetam 500 MG/5 ML UDC G-TUBE SCH (08:30)
[2017-03-31] MEDS: HEPARIN SODIUM - SQ 10,000 UNITS/ML VIAL SQ SCH (08:30)
[2017-03-31] MEDS: BACLOFEN 20 MG TAB PEG SCH ×2 (08:30→12:52)
--- NOTE | 2017-03-31 10:57 | HHI.HCPN ---
Received call from patient's mother Ivis regarding follow-up on speaking with patient's ex, Ed. Attempting to obtain contact information for patient's son, Haile. Multiple attempts yesterday and today to speak with Ed. Phone number just rings and I am unable to leave a message. Will continue to try for mother' s piece of mind and per her request. Mother continues to verbalize she is unable to make any decisions until she is able to speak with Ms. Kirkland's son, Haile. At this time mother is waiting to hear from patient's son Balbir who remains incarcerated. She tells me Balbir will have an address for Haile and then she plans to do a wellness check through the police department in another effort to speak with him. Mother again verbalizes "next month things are going to change" and verbalizes difficulty with making any decisions. Offered emotional support and provided active listening for her questions and concerns. Palliative care will continue to follow throughout hospitalization. Jovita Nur, PARKING ASSISTANT Mar 31, 2017 10:57
[2017-03-31] MEDS: VANCOMYCIN INJ 1,400 MG in SODIUM CHLORID 0.9% 500 ML INJ 500 ML IV SCH (12:52)
[2017-03-31] MEDS ORDERED: LISI-515 G-TUBE (12:53)
[2017-03-31] MEDS ORDERED: METO-338 G-TUBE (12:53)
[2017-03-31] MEDS ORDERED: CLOT1CRE8 TOPICAL (12:53)
--- NOTE | 2017-03-31 13:04 | HHI.DS ---
Discharge Summary Admission Date Mar 18, 2017 at 05:48 Discharge Date: Mar 31, 2017 Admitting Diagnosis sepsis (1) Severe sepsis ICD Code: A41.9 - Severe sepsis; R65.20 - Severe sepsis without septic shock Status: Acute (2) Acute and chronic respiratory failure with hypercapnia ICD Code: J96.22 - Acute and chronic respiratory failure with hypercapnia (3) Pseudomonal pneumonia ICD Code: J15.1 - Pneumonia due to Pseudomonas (4) Urinary tract infection due to Proteus ICD Code: N39.0 - Urinary tract infection, site not specified; B96.4 - Proteus (mirabilis) (morganii) as the cause of diseases classified elsewhere (5) UTI (lower urinary tract infection) ICD Code: N39.0 - UTI (lower urinary tract infection) Status: Acute (6) HCAP (healthcare-associated pneumonia) ICD Code: J18.9 - Pneumonia, unspecified organism (7) Hypokalemia ICD Code: E87.6 - Hypokalemia Procedures None Brief History - From Admission 46-year-old female custodial resident in persistent vegetative state following TBI. Patient has a history of seizure disorder, chronic tracheostomy , hypertension. Patient was admitted last month with similar presentation was treated for sepsis secondary to HCAP with multiple organisms in the sputum including Pseudomonas and Klebsiella. The patient was sent from the custodial for tachycardia, tachypnea, and fever. Rectal temperature in the emergency room is up to 104. She has been tachycardic in the 140s. The patient is unable to provide any history. On my evaluation, she was given a dose of IV Lopressor for the tachycardia, her heart rate is now down to the 80s but her blood pressure is 74/43. I consulted the central sterile technician for assistance on this patient. CBC/BMP: 03/30/17 0711 03/31/17 0721 Significant Findings Laboratory Tests Test 03/29/17 09:32 03/29/17 23:45 03/30/17 07:11 03/31/17 07:21 Blood Urea Nitrogen 19 MG/DL (7-18) Creatinine 0.47 MG/DL (0.50-1.00) Vancomycin Level Trough 20.2 MCG/ML (5.0-10.0) Monocytes (%) (Auto) 15.6 % (0.0-8.0) Monocytes # (Auto) 1.6 TH/MM3 (0-0.9) Imaging Last Impressions Chest X-Ray 03/25/17 0000 Signed Impressions: Service Date/Time: Saturday, March 25, 2017 13:17 - CONCLUSION: 1. No acute cardiopulmonary findings. The lungs are clear. Lee Baker MD Chest CT 03/18/17 0000 Signed Impressions: Service Date/Time: Saturday, March 18, 2017 21:26 - CONCLUSION: Bilateral lower lung dependent consolidation or atelectasis. Gerry Mcclendon MD Abdomen/Pelvis CT 03/18/17 0000 Signed Impressions: Service Date/Time: Saturday, March 18, 2017 21:24 - CONCLUSION: 1. Left renal calcified stones, smaller than on prior examination and without hydronephrosis. 2. Bilateral lower lung basilar consolidation or atelectasis. 3. No evidence of ascites or abscess. 4. Balloon tip catheter, possibly a Anguiano catheter, located within the vagina. Gerry Mcclendon MD PE at Discharge General: No acute distress. Opens eyes to voice but does not track. Nonverbal. Head: Normocephalic. Eyes: Sclera anicteric. Heart: Regular rate and rhythm. No murmur. Lungs: Coarse breath sounds bilaterally. Tracheostomy. Abdomen: Soft, nontender, nondistended. PEG site C/D/I. Extremities: Trace bilateral lower extremity edema. Bilateral upper and lower extremity contractures noted. Psych: Vegetative state, nonverbal. Does not track or follow commands. Pt update on day of discharge Patient seen and examined. Opens eyes to voice. Appears comfortable. Discussed with nursing staff, no acute issues noted. Hospital Course Patient with severe sepsis with source suspected pneumonia and urinary tract infection. Seen in consultation by infectious disease. Patient treated with meropenem, vancomycin and azithromycin. CT chest and abdomen and pelvis obtained. Chest CT showed bilateral lower lung dependent consolidations. CT of the abdomen/pelvis essentially unremarkable except for lower lung basilar consolidation. Patient on critical care services, please refer to their notes for details. Urine culture positive for Proteus mirabilis. Sputum culture positive for pseudomonas aeruginosa. Blood cultures positive for staph. Sepsis resolved. Repeat blood cultures obtained and failed to show any growth in 3 days. Legionella and Streptococcus pneumoniae antigen negative. Patient seen in consultation by palliative care. ID cleared patient for discharge with instructions to complete IV vancomycin for a total of 10 days. Midline was placed. Case management consulted to assist with discharge planning. Patient discharged back to SNF facility. Pt Condition on Discharge: Stable Discharge Disposition: Discharge to SNF Discharge Time: > 30 minutes Discharge Instructions DIET: Follow Instructions for: Nothing By Mouth, On Tube Feeding Activities you can perform: Regular-No Restrictions Follow up Referrals: PCP Follow-up - 1 Week New Medications: Epinephrine Inj (Epinephrine Inj) 1 Mg/Ml (1 Ml) Inj 0.3 MG IV PUSH ONCE PRN for ALLERGIC REACTION, #1 VIAL Epinephrine Inj (Epinephrine Inj) 1 Mg/Ml (1 Ml) Inj 0.3 MG SQ ONCE PRN for ALLERGIC REACTION, #1 VIAL Give with any signs of respiratory distress. Hydrocortisone Inj (Solu-Cortef Inj) 250 Mg/2 Ml Inj 250 MG IV PUSH ONCE PRN for ALLERGIC REACTION, #1 VIAL 0 Refills Give over 30-60 seconds. Vancomycin Inj (Vancomycin Inj) 10 Gram Inj 1500 MG IV DAILY for Infection for 7 Days, VIAL Clotrimazole Topical (Clotrimazole AF Topical) 1% Cream 1 APPLIC TOPICAL Q8HR for Infection for 7 Days, #1 TUBE Apply around PEG tube area Lisinopril (Lisinopril) 20 Mg Tab 20 MG G-TUBE BID for Blood Pressure Management for 30 Days, #60 TAB Metoprolol Tartrate (Lopressor) 100 Mg Tab 100 MG G-TUBE TID for Blood Pressure Management for 30 Days, #90 TAB Continued Medications: Acetaminophen (Mapap) 325 Mg Tab 650 MG G-TUBE Q4HR PRN for PAIN/TEMP > 101, TAB 0 Refills Amantadine Liq (Amantadine Liq) 50 Mg/5 Ml Soln 150 MG G-TUBE BID for INVOLUNTARY MOVEMENTS, #600 ML 0 Refills Artificial Tear Opth Ointment (Tears Again Opth Ointment) 1 Oint 1 APPLIC LEFT EYE Q8HR for Dry Eye Baclofen (Baclofen) 20 Mg Tab 20 MG PEG TID for Muscle Spasm, TAB [address] (Dulcolax DR) 5 Mg Tabdr 5 MG PEG BID for Constipation, #30 TAB 0 Refills Bisacodyl Supp (Dulcolax Supp) 10 Mg Supp 10 MG RECTAL DAILY PRN for IF NO BM X1 DAY AFTER MOM, #12 SUPP 0 Refills Carbamazepine Liq (Carbamazepine Liq) 100 Mg/5 Ml Susp 500 MG G-TUBE BID for Control Seizures, #900 ML 0 Refills Clonidine (Clonidine) 0.2 Mg Tab 0.2 MG G-TUBE Q6HR PRN for BP>140/80, #60 TAB 0 Refills Guaifenesin (Guaifenesin) 400 Mg Tab 400 MG PEG Q8HR for TRACHEOSTOMY Ibuprofen (Ibuprofen) 400 Mg Tab 400 MG G-TUBE Q4H PRN for PAIN RELATED TO FEVER, TAB 0 Refills Levetiracetam Liq (Keppra Liq) 500 Mg/5 Ml Soln 1500 MG G-TUBE BID for Control Seizures, #300 ML 0 Refills Magnesium Citrate Liq (Citrate of Magnesia Liq) 300 Ml Liq 296 ML G-TUBE DAILY IN THE MORNING PRN for IF NO BM FROM ENEMA, #1 BOTTLE 0 Refills Magnesium Hydroxide Liq (Milk of Magnesia Liq) 400 Mg/5 Ml Susp 30 ML G-TUBE DAILY PRN for NO BM WITHIN 3 DAYS, #1 BOTTLE 0 Refills Ranitidine (Ranitidine) 150 Mg Tab 150 MG GT BID for GERD, #60 TAB 0 Refills Valproic Acid Liq (Valproic Acid Liq) 250 Mg/5 Ml Syp 500 MG G-TUBE BID for Control Seizures, #300 ML 0 Refills Discontinued Medications: Cefuroxime (Cefuroxime) 500 Mg Tab 500 MG PO DAILY for Infection, TAB 0 Refills Hydrocodone-Acetaminophen Liq (Hydrocodone-Acetaminophen Liq) 7.5-325 Mg/15 Ml Soln 15 ML G-TUBE Q6H PRN for PAIN 1-10, ML 0 Refills Levofloxacin (Levofloxacin) 750 Mg Tablet 750 MG PO DAILY for Infection, TAB 0 Refills Lisinopril (Lisinopril) 5 Mg Tab 5 MG G-TUBE DAILY for Blood Pressure Management, #30 TAB 0 Refills Metoprolol Tartrate (Metoprolol Tartrate) 100 Mg Tab 100 MG G-TUBE BID for HTN, #60 TAB 0 Refills Zeny Fam Mar 31, 2017 13:04
[2017-04-03] MEDS ORDERED: PHARMACY ORDERED LAB ONE (11:45)
== END 2017-03-31 18:10 | DRG 871 ==
LOC: NEPC 02:25 → NEDA 05:48 → HIMW 11:45 → N07A 03-23 18:18
PROVIDERS: ADMIT Hospitalist; ATTEND Family Medicine
DX: A41.9 Sepsis, unspecified organism (principal); J15.1 Pneumonia due to Pseudomonas; J96.22 Acute and chronic respiratory failure with hypercapnia; R40.3 Persistent vegetative state; Z93.0 Tracheostomy status; N39.0 Urinary tract infection, site not specified; E87.6 Hypokalemia; E78.5 Hyperlipidemia, unspecified; I10 Essential (primary) hypertension; G40.909 Epilepsy, unspecified, not intractable, without status epilepticus; B96.4 Proteus (mirabilis) (morganii) as the cause of diseases classified elsewhere; R65.20 Severe sepsis without septic shock; B95.7 Other staphylococcus as the cause of diseases classified elsewhere; Z87.820 Personal history of traumatic brain injury; Z93.1 Gastrostomy status
CPT/HCPCS: 36569; 71010; 71250; 74176; 76937; 80048; 80053; 80202; 81001; 82565; 83605; 84132; 85025; 85027; 86403; 87040; 87070; 87077; 87086; 87186; 87205; 87449; 87493; 87641; 99285; J0131; J0456; J1644; J2185; J2270; J3370; J7030; J7040; J7050; P9612; Q9963